=== PATIENT | female | born 1960 | race Caucasian/White ===

== ENCOUNTER 2017-11-26 05:23 | Emergency (ER) | payer MEDICARE, MEDICAID ==
[~2017-11-26] VITALS: Ht 160 cm; Wt 90.0 kg
[~2017-11-26 05:23] MED LIST: BUPR-84 PO; BUS15T PO; CARB1TAB36 PO; CLOP75TA35 PO; DAPA5TAB PO; FURO40TA4 PO; GABA-532 PO; HUM7525 SQ; HYDR-565 PO; LACT10SO32 PO; LEVO100T PO; LIRA0.6P SQ; LISI10TA4 PO; LORA10TA7 PO; METO25TA6 PO; MONT10TA24 PO; ONDA8TAB9 PO; PANT-47 PO; POLY119P2 PO; POTA8TAB8 PO; PRAM0.5T3 PO; SIMV20TA PO; SPIR25TA3 PO; TRAZ-143 PO; ZIPR80CA10 PO
[2017-11-26] MEDS ORDERED: TAM75C PO (06:14)
[2017-11-26 06:25] VITALS: BP 111/64
== END 2017-11-26 06:27 | disposition home or self-care (01) ==
LOC: ER 05:24
DX: R05 Cough (principal); J02.9 Acute pharyngitis, unspecified; R06.02 Shortness of breath; R11.0 Nausea; R09.89 Other specified symptoms and signs involving the circulatory and respiratory systems; I11.0 Hypertensive heart disease with heart failure; I50.9 Heart failure, unspecified; E78.00 Pure hypercholesterolemia, unspecified; E11.9 Type 2 diabetes mellitus without complications; F15.10 Other stimulant abuse, uncomplicated; Z90.49 Acquired absence of other specified parts of digestive tract; Z90.710 Acquired absence of both cervix and uterus; Z98.890 Other specified postprocedural states; Z88.2 Allergy status to sulfonamides; Z88.1 Allergy status to other antibiotic agents; Z88.8 Allergy status to other drugs, medicaments and biological substances; Z79.4 Long term (current) use of insulin; Z79.899 Other long term (current) drug therapy
CPT/HCPCS: 99284

== ENCOUNTER 2017-12-13 19:51 | Emergency (ER) | payer MEDICAID, MEDICARE, OTHER ==
[~2017-12-13] VITALS: Ht 160 cm; Wt 90.9 kg
[2017-12-13 19:54] VITALS: BP 122/65
[2017-12-13] MEDS ORDERED: insulin regular, human 10 units/0.1 ml syringe SQ ONE ×2 (20:20→20:25)
[2017-12-13] MEDS ORDERED: IBUP-1984 PO (21:20)
== END 2017-12-13 21:44 | disposition home or self-care (01) ==
LOC: ER 19:51
DX: M25.511 Pain in right shoulder (principal); R07.89 Other chest pain; M25.531 Pain in right wrist; E11.65 Type 2 diabetes mellitus with hyperglycemia; F15.10 Other stimulant abuse, uncomplicated; I11.0 Hypertensive heart disease with heart failure; I50.9 Heart failure, unspecified; Z79.4 Long term (current) use of insulin; Z90.49 Acquired absence of other specified parts of digestive tract; Z95.1 Presence of aortocoronary bypass graft; Z90.710 Acquired absence of both cervix and uterus; Z87.891 Personal history of nicotine dependence; V49.9XXA Car occupant (driver) (passenger) injured in unspecified traffic accident, initial encounter; Y93.89 Activity, other specified; Y92.488 Other paved roadways as the place of occurrence of the external cause; Y99.8 Other external cause status
CPT/HCPCS: 71045; 73030; 73110; 82948; 96372; 99284; J1815

== ENCOUNTER 2017-12-27 05:11 | Emergency (ER) | payer MEDICARE, MEDICAID ==
[~2017-12-27] VITALS: Ht 160 cm; Wt 95.0 kg
[~2017-12-27 05:11] MED LIST changes: +IBUP-1984 PO
[2017-12-27] MEDS ORDERED: morphine 2 MG/ML inj. syringe IV ONE (05:35)
[2017-12-27] MEDS ORDERED: normal saline 1000ML IV soln IVB ONE (05:35)
[2017-12-27] MEDS ORDERED: ondansetron/PF 4mg/2ml inj IV ONE (05:35)
[2017-12-27] MEDS ORDERED: LISINOPRIL 10 MG (06:02)
[2017-12-27] MEDS ORDERED: BUPROPION 150 MG (06:02)
[2017-12-27] MEDS ORDERED: LIRAGLUTIDE 18 MG/3 ML (06:02)
[2017-12-27] MEDS ORDERED: ONDANSETRON 8 MG (06:02)
[2017-12-27] MEDS ORDERED: TRESIBA (06:02)
[2017-12-27] MEDS ORDERED: BUPRENORPHINE 15 MCG/HR PATCH (06:02)
[2017-12-27] MEDS ORDERED: FARXIGA 5MG TABLETS (06:02)
[2017-12-27] MEDS ORDERED: ZIPRASIDONE HCL 80 MG (06:02)
[2017-12-27] MEDS ORDERED: GABAPENTIN 300 MG (06:02)
[2017-12-27] MEDS ORDERED: LEVOTHYROXINE (06:02)
[2017-12-27] MEDS ORDERED: ATORVASTATIN 20MG TABLETS (06:02)
[2017-12-27] MEDS ORDERED: VENTOLIN HFA INH W/DOS CTR 200 (06:02)
[2017-12-27] MEDS ORDERED: SIMVASTATIN 20MG TABLETS (06:02)
[2017-12-27] MEDS ORDERED: METOPROLOL TARTRATE 25 MG (06:02)
[2017-12-27] MEDS ORDERED: LEVOTHYROXINE 200 MCG TABLET (06:02)
[2017-12-27] MEDS ORDERED: [UNRECOGNIZED DRUG - OTHER] (06:02)
[2017-12-27] MEDS ORDERED: MONTELUKAST 10MG TABLETS (06:02)
[2017-12-27] MEDS ORDERED: CLOPIDOGREL 75MG TABLETS (06:02)
[2017-12-27] MEDS ORDERED: BUSPIRONE 7.5 MG (06:02)
[2017-12-27] MEDS ORDERED: PIOGLITAZONE 45 MG (06:02)
[2017-12-27 06:09] LABS: BASOPHILS % (AUTO) 0.1 % (0-1); HEMATOCRIT 27.4 % (35.0-45.0); HEMOGLOBIN 9.6 g/dl (12.0-16.0); LYMPHOCYTES # (AUTO) 0.5 X10'3 (1.1-4.8); LYMPHOCYTES % (AUTO) 16.9 % (21-51); MEAN CORPUSCULAR HEMOGLOBIN 30.2 PG (27.0-31.0); MEAN CORPUSCULAR HGB CONC 34.9 % (33.0-36.5); MEAN CORPUSCULAR VOLUME 86.3 FL (78-98); MEAN PLATELET VOLUME 8.2 FL (7.4-10.4); MONOCYTES # (AUTO) 0.1 X10'3 (0-0.9); MONOCYTES % (AUTO) 4.4 % (2-12); NEUTROPHILS # (AUTO) 2.3 X10'3 (1.8-7.7); NEUTROPHILS % (AUTO) 77.6 % (42-75); RED BLOOD COUNT 3.17 X10'6 (4.20-5.60); RED CELL DISTRIBUTION WIDTH 16.3 % (11.5-14.5)
[2017-12-27 06:25] LABS: ALANINE AMINOTRANSFERASE 41 U/L (12-78); ALBUMIN 3.5 G/DL (3.4-5.0); ALBUMIN/GLOBULIN RATIO 0.9 (1.1-1.5); ALKALINE PHOSPHATASE 133 IU/L (46-116); ANION GAP 10 (8-16); ASPARTATE AMINO TRANSFERASE 30 U/L (10-37); BILIRUBIN,TOTAL 0.5 MG/DL (0.1-1.0); BLOOD UREA NITROGEN 25 MG/DL (7-18); BUN/CREATININE RATIO 20.7 (6.6-38.0); CALCIUM 9.1 MG/DL (8.5-10.1); CHLORIDE 106 MMOL/L (99-107); CREATININE 1.21 MG/DL (0.40-0.90); GLUCOSE 433 MG/DL (70-104); LIPASE 422 U/L (73-393); POTASSIUM 5.2 MMOL/L (3.5-5.1); SODIUM 141 MMOL/L (135-145); TOTAL CARBON DIOXIDE 24.9 MMOL/L (24-32); TOTAL PROTEIN 7.6 G/DL (6.4-8.2); eGFR 46 ML/MIN
[2017-12-27 06:26] LABS: LYMPHOCYTES % (MANUAL) 14 % (21-51); MONOCYTES % (MANUAL) 4 % (2-12); NEUTROPHILS % (MANUAL) 82 % (42-75); TOTAL CELLS COUNTED 100
[2017-12-27 06:27] LABS: ANISOCYTOSIS 1+; PLATELET ESTIMATE DECREASED
[2017-12-27 06:28] LABS: PLATELET COUNT 37 X10'3 (140-440)
[2017-12-27] MEDS ORDERED: insulin regular, human 10 units/0.1 ml syringe IV ONE (06:45)
[2017-12-27] MEDS ORDERED: normal saline 1000ml 1,000 ML IV ONE (06:45)
[2017-12-27] MEDS ORDERED: acetaminophen 325mg tablet PO ONE (06:45)
[2017-12-27] MEDS ORDERED: HYDROmorphone inj. 0.5 MG/0.5 ML DISP.SYRIN IV ONE (06:45)
[2017-12-27 06:51] VITALS: BP 106/58
[2017-12-27 07:12] LABS: CLARITY,URINE CLEAR (Clear); COLOR,URINE YELLOW (Yellow); GLUCOSE, URINE >=1000 mg/dl (Neg); KETONES,URINE NEGATIVE (Neg); LEUKOCYTE ESTERASE ,URINE NEGATIVE (Neg); NITRITES, URINE NEGATIVE (Neg); OCCULT BLOOD,URINE NEGATIVE (Neg); PH,URINE 5.5 (4.8-8.0); PROTEIN,URINE NEGATIVE (Neg)
[2017-12-27 07:13] LABS: UA COLLECTION TYPE CLN CATCH MIDSTREAM
[2017-12-27 07:16] LABS: BACTERIA,URINE NONE SEEN /HPF (Neg); MUCUS STRANDS NONE SEEN /LPF (Neg); RBC,URINE NONE SEEN /HPF (0-2); SQUAMOUS EPITHELIAL CELL,UR FEW /LPF (FEW); WBC,URINE NONE SEEN /HPF (0-4)
[2017-12-27] MEDS ORDERED: HYDR-3965 PO (09:37)
[2017-12-27] MEDS ORDERED: HYDROcodone/acetaminophen 5mg/325mg tablet PO ONE (09:40)
== END 2017-12-27 09:59 | disposition home or self-care (01) ==
LOC: ER 05:11
DX: G89.29 Other chronic pain (principal); M25.551 Pain in right hip; M25.552 Pain in left hip; E11.65 Type 2 diabetes mellitus with hyperglycemia; I11.0 Hypertensive heart disease with heart failure; I50.9 Heart failure, unspecified; E78.00 Pure hypercholesterolemia, unspecified; F15.10 Other stimulant abuse, uncomplicated; Z90.49 Acquired absence of other specified parts of digestive tract; Z90.710 Acquired absence of both cervix and uterus; Z95.1 Presence of aortocoronary bypass graft; Z88.2 Allergy status to sulfonamides; Z79.4 Long term (current) use of insulin; Z88.1 Allergy status to other antibiotic agents; Z88.8 Allergy status to other drugs, medicaments and biological substances; Z79.899 Other long term (current) drug therapy
CPT/HCPCS: 36415; 71045; 73521; 80053; 81001; 82948; 83690; 84484; 85025; 93005; 96361; 96374; 96375; 99285; J1170; J1815; J2405; J7030

== ENCOUNTER 2018-01-04 15:48 | Emergency (ER) | payer MEDICARE, MEDICAID ==
[~2018-01-04] VITALS: Ht 154.9 cm; Wt 92.7 kg
[~2018-01-04 15:48] MED LIST changes: +ATORVASTATIN 20MG TABLETS; +BUPRENORPHINE 15 MCG/HR PATCH; +BUPROPION 150 MG; +BUSPIRONE 7.5 MG; +CLOPIDOGREL 75MG TABLETS; +FARXIGA 5MG TABLETS; +GABAPENTIN 300 MG; +HYDR-3965 PO; +LEVOTHYROXINE; +LEVOTHYROXINE 200 MCG TABLET; +LIRAGLUTIDE 18 MG/3 ML; +LISINOPRIL 10 MG; +METOPROLOL TARTRATE 25 MG; +MONTELUKAST 10MG TABLETS; +ONDANSETRON 8 MG; +PIOGLITAZONE 45 MG; +SIMVASTATIN 20MG TABLETS; +TRESIBA; +VENTOLIN HFA INH W/DOS CTR 200; +ZIPRASIDONE HCL 80 MG; +[UNRECOGNIZED DRUG - OTHER]
[2018-01-04] MEDS ORDERED: ondansetron/PF 4mg/2ml inj IV ONE (16:05)
[2018-01-04] MEDS ORDERED: normal saline 1000ML IV soln IVB ONE (16:05)
[2018-01-04] MEDS ORDERED: ondansetron 4mg rapidly disintigrating tab PO ONE (16:05)
[2018-01-04 16:48] LABS: BASOPHILS % (AUTO) 0.2 % (0-1); HEMATOCRIT 27.5 % (35.0-45.0); HEMOGLOBIN 9.4 g/dl (12.0-16.0); LYMPHOCYTES # (AUTO) 0.9 X10'3 (1.1-4.8); LYMPHOCYTES % (AUTO) 22.9 % (21-51); MEAN CORPUSCULAR HEMOGLOBIN 29.7 PG (27.0-31.0); MEAN CORPUSCULAR HGB CONC 34.2 % (33.0-36.5); MEAN CORPUSCULAR VOLUME 86.7 FL (78-98); MEAN PLATELET VOLUME 7.2 FL (7.4-10.4); MONOCYTES # (AUTO) 0.2 X10'3 (0-0.9); MONOCYTES % (AUTO) 5.2 % (2-12); NEUTROPHILS # (AUTO) 2.7 X10'3 (1.8-7.7); NEUTROPHILS % (AUTO) 70.7 % (42-75); PLATELET COUNT 61 X10'3 (140-440); RED BLOOD COUNT 3.17 X10'6 (4.20-5.60); RED CELL DISTRIBUTION WIDTH 17.1 % (11.5-14.5); WHITE BLOOD COUNT 3.8 X10'3 (4.5-11.0)
[2018-01-04 17:12] LABS: ALANINE AMINOTRANSFERASE 40 U/L (12-78); ALBUMIN 3.4 G/DL (3.4-5.0); ALBUMIN/GLOBULIN RATIO 0.8 (1.1-1.5); ALKALINE PHOSPHATASE 155 IU/L (46-116); ANION GAP 10 (8-16); ASPARTATE AMINO TRANSFERASE 28 U/L (10-37); BILIRUBIN,TOTAL 0.4 MG/DL (0.1-1.0); BLOOD UREA NITROGEN 22 MG/DL (7-18); BUN/CREATININE RATIO 18.5 (6.6-38.0); CHLORIDE 107 MMOL/L (99-107); CREATININE 1.19 MG/DL (0.40-0.90); ETHANOL < 0.010 GM/DL (0.0-0.010); GLUCOSE 174 MG/DL (70-104); POTASSIUM 4.1 MMOL/L (3.5-5.1); SODIUM 144 MMOL/L (135-145); TOTAL CARBON DIOXIDE 27.3 MMOL/L (24-32); TOTAL PROTEIN 7.8 G/DL (6.4-8.2); eGFR 47 ML/MIN
[2018-01-04 17:13] LABS: ACETAMINOPHEN < 2.0 UG/ML (10-30)
[2018-01-04 18:42] LABS: CLARITY,URINE CLEAR (Clear); COLOR,URINE YELLOW (Yellow); GLUCOSE, URINE 500 mg/dl (Neg); KETONES,URINE NEGATIVE (Neg); LEUKOCYTE ESTERASE ,URINE NEGATIVE (Neg); NITRITES, URINE NEGATIVE (Neg); OCCULT BLOOD,URINE TRACE-INTACT (Neg); PH,URINE 5.5 (4.8-8.0); PROTEIN,URINE NEGATIVE (Neg); UROBILINOGEN,URINE 0.2 E.U/dL (0.2-1.0)
[2018-01-04 18:43] LABS: UA COLLECTION TYPE CLN CATCH MIDSTREAM
[2018-01-04 18:45] LABS: URINE AMPHETAMINE SCREEN NEGATIVE (Neg); URINE BARBITUATE SCREEN NEGATIVE (Neg); URINE BENZODIAZEPINES SCREEN NEGATIVE (Neg); URINE CANNABINOID SCREEN NEGATIVE (Neg); URINE COCAINE SCREEN NEGATIVE (Neg); URINE METHADONE SCREEN NEGATIVE (Neg); URINE OPIATE SCREEN NEGATIVE (Neg); URINE PHENCYCLIDINE SCREEN NEGATIVE (Neg)
[2018-01-04 18:47] LABS: BACTERIA,URINE FEW /HPF (Neg); RBC,URINE 0-2 /HPF (0-2); SQUAMOUS EPITHELIAL CELL,UR FEW /LPF (FEW); WBC,URINE 0-4 /HPF (0-4)
[2018-01-05 00:40] VITALS: BP 114/68
[2018-01-05] MEDS ORDERED: ZIPR40CA2 PO (03:53)
[2018-01-05] MEDS ORDERED: BENZ1TAB8 PO (03:53)
[2018-01-05] MEDS ORDERED: EST1T PO (03:53)
== END 2018-01-05 00:42 | disposition home or self-care (01) ==
LOC: ER 15:48
DX: T43.292A Poisoning by other antidepressants, intentional self-harm, initial encounter (principal); F31.9 Bipolar disorder, unspecified; F15.10 Other stimulant abuse, uncomplicated; I11.0 Hypertensive heart disease with heart failure; I50.9 Heart failure, unspecified; E78.00 Pure hypercholesterolemia, unspecified; E11.9 Type 2 diabetes mellitus without complications; G89.29 Other chronic pain; Z90.49 Acquired absence of other specified parts of digestive tract; Z98.890 Other specified postprocedural states; Z90.710 Acquired absence of both cervix and uterus; Z79.899 Other long term (current) drug therapy; Z79.4 Long term (current) use of insulin; Z88.1 Allergy status to other antibiotic agents; Z88.6 Allergy status to analgesic agent; Z88.2 Allergy status to sulfonamides; Z88.8 Allergy status to other drugs, medicaments and biological substances; Y92.9 Unspecified place or not applicable
CPT/HCPCS: 36415; 80053; 80305; 80320; 80329; 81001; 84443; 85025; 93005; 96361; 96374; 99285; J2405

== ENCOUNTER 2018-01-31 10:14 | Emergency (ER) | payer MEDICARE, MEDICAID ==
[~2018-01-31] VITALS: Ht 160 cm; Wt 99.6 kg
[~2018-01-31 10:14] MED LIST changes: +BENZ1TAB8 PO; +EST1T PO; -HUM7525 SQ; -HYDR-3965 PO; -IBUP-1984 PO; -METO25TA6 PO; -PANT-47 PO; -PRAM0.5T3 PO; +ZIPR40CA2 PO
[2018-01-31 10:16] VITALS: BP 134/63
[2018-01-31] MEDS ORDERED: furosemide 10 MG/1 ML 10ml inj IV ONE (10:25)
[2018-01-31 10:44] LABS: BASOPHILS % (AUTO) 0.2 % (0-1); EOSINOPHILS % (AUTO) 1.5 % (0-6); HEMATOCRIT 25.4 % (35.0-45.0); HEMOGLOBIN 8.7 g/dl (12.0-16.0); LYMPHOCYTES # (AUTO) 0.6 X10'3 (1.1-4.8); LYMPHOCYTES % (AUTO) 24.2 % (21-51); MEAN CORPUSCULAR HEMOGLOBIN 30.2 PG (27.0-31.0); MEAN CORPUSCULAR HGB CONC 34.3 % (33.0-36.5); MEAN CORPUSCULAR VOLUME 88.2 FL (78-98); MEAN PLATELET VOLUME 7.9 FL (7.4-10.4); MONOCYTES # (AUTO) 0.1 X10'3 (0-0.9); MONOCYTES % (AUTO) 5.1 % (2-12); NEUTROPHILS # (AUTO) 1.8 X10'3 (1.8-7.7); RED BLOOD COUNT 2.88 X10'6 (4.20-5.60); RED CELL DISTRIBUTION WIDTH 18.1 % (11.5-14.5); WHITE BLOOD COUNT 2.6 X10'3 (4.5-11.0)
[2018-01-31 10:49] LABS: PLATELET COUNT 47 X10'3 (140-440)
[2018-01-31 11:00] LABS: TOTAL CELLS COUNTED 100
[2018-01-31 11:01] LABS: ANISOCYTOSIS 1+; PLATELET ESTIMATE DECREASED
[2018-01-31 11:02] LABS: LARGE PLATELETS FEW; TOXIC GRANULATION 1+
[2018-01-31 11:03] LABS: POLYCHROMASIA FEW; TEAR DROP CELLS FEW
[2018-01-31 11:05] LABS: ALANINE AMINOTRANSFERASE 43 U/L (12-78); ALBUMIN 3.2 G/DL (3.4-5.0); ALBUMIN/GLOBULIN RATIO 0.8 (1.1-1.5); ALKALINE PHOSPHATASE 180 IU/L (46-116); ANION GAP 11 (8-16); ASPARTATE AMINO TRANSFERASE 40 U/L (10-37); BILIRUBIN,TOTAL 0.4 MG/DL (0.1-1.0); BLOOD UREA NITROGEN 38 MG/DL (7-18); BUN/CREATININE RATIO 28.8 (6.6-38.0); CALCIUM 8.6 MG/DL (8.5-10.1); CHLORIDE 108 MMOL/L (99-107); CREATININE 1.32 MG/DL (0.40-0.90); GLUCOSE 138 MG/DL (70-104); SODIUM 143 MMOL/L (135-145); TOTAL CARBON DIOXIDE 24.3 MMOL/L (24-32); TOTAL PROTEIN 7.2 G/DL (6.4-8.2); eGFR 42 ML/MIN
[2018-01-31] MEDS ORDERED: furosemide 20MG tablet PO ONE (11:30)
== END 2018-01-31 11:38 | disposition home or self-care (01) ==
LOC: ER 10:15
DX: I11.0 Hypertensive heart disease with heart failure (principal); I50.9 Heart failure, unspecified; E78.00 Pure hypercholesterolemia, unspecified; E11.9 Type 2 diabetes mellitus without complications; G89.29 Other chronic pain; F15.10 Other stimulant abuse, uncomplicated; Z90.49 Acquired absence of other specified parts of digestive tract; Z98.890 Other specified postprocedural states; Z88.8 Allergy status to other drugs, medicaments and biological substances; Z79.899 Other long term (current) drug therapy; Z88.2 Allergy status to sulfonamides; Z88.1 Allergy status to other antibiotic agents
CPT/HCPCS: 36415; 71045; 80053; 83880; 84484; 85025; 93005; 99285; J1940

== ENCOUNTER 2018-02-20 17:15 | Emergency (ER) | payer MEDICARE, MEDICAID ==
[~2018-02-20] VITALS: Ht 160 cm; Wt 95.5 kg
[2018-02-20 18:31] LABS: ALANINE AMINOTRANSFERASE 31 U/L (12-78); ALBUMIN 3.6 G/DL (3.4-5.0); ALBUMIN/GLOBULIN RATIO 0.9 (1.1-1.5); ALKALINE PHOSPHATASE 211 IU/L (46-116); ANION GAP 8 (8-16); ASPARTATE AMINO TRANSFERASE 27 U/L (10-37); BILIRUBIN,TOTAL 0.4 MG/DL (0.1-1.0); BLOOD UREA NITROGEN 25 MG/DL (7-18); BUN/CREATININE RATIO 21.4 (6.6-38.0); CALCIUM 9.1 MG/DL (8.5-10.1); CHLORIDE 109 MMOL/L (99-107); CREATININE 1.17 MG/DL (0.40-0.90); ETHANOL < 0.010 GM/DL (0.0-0.010); GLUCOSE 81 MG/DL (70-104); SODIUM 142 MMOL/L (135-145); TOTAL CARBON DIOXIDE 25.3 MMOL/L (24-32); TOTAL PROTEIN 7.6 G/DL (6.4-8.2); eGFR 48 ML/MIN
[2018-02-20 18:32] LABS: BASOPHILS % (AUTO) 0.8 % (0-1); EOSINOPHILS % (AUTO) 0.1 % (0-6); HEMATOCRIT 28.4 % (35.0-45.0); HEMOGLOBIN 9.9 g/dl (12.0-16.0); LYMPHOCYTES # (AUTO) 1.1 X10'3 (1.1-4.8); LYMPHOCYTES % (AUTO) 24.4 % (21-51); MEAN CORPUSCULAR HEMOGLOBIN 30.3 PG (27.0-31.0); MEAN CORPUSCULAR VOLUME 86.6 FL (78-98); MONOCYTES # (AUTO) 0.2 X10'3 (0-0.9); MONOCYTES % (AUTO) 5.4 % (2-12); NEUTROPHILS # (AUTO) 3.1 X10'3 (1.8-7.7); NEUTROPHILS % (AUTO) 69.3 % (42-75); PLATELET COUNT 59 X10'3 (140-440); RED BLOOD COUNT 3.27 X10'6 (4.20-5.60); RED CELL DISTRIBUTION WIDTH 17.3 % (11.5-14.5); WHITE BLOOD COUNT 4.5 X10'3 (4.5-11.0)
[2018-02-20 18:34] LABS: POTASSIUM 4.8 MMOL/L (3.5-5.1)
[2018-02-20 18:47] LABS: URINE HCG NEGATIVE (NEG)
[2018-02-20 18:47] LABS: ACETAMINOPHEN < 2.0 UG/ML (10-30)
[2018-02-20 18:58] LABS: URINE AMPHETAMINE SCREEN NEGATIVE (Neg); URINE BARBITUATE SCREEN NEGATIVE (Neg); URINE BENZODIAZEPINES SCREEN NEGATIVE (Neg); URINE CANNABINOID SCREEN NEGATIVE (Neg); URINE COCAINE SCREEN NEGATIVE (Neg); URINE METHADONE SCREEN NEGATIVE (Neg); URINE OPIATE SCREEN POSITIVE (Neg); URINE PHENCYCLIDINE SCREEN NEGATIVE (Neg)
[2018-02-20] MEDS ORDERED: ZIPR80CA2 PO (21:10)
[2018-02-20] MEDS ORDERED: ZIPR60CA2 PO (21:10)
[2018-02-20] MEDS ORDERED: GABA-532 PO ×2 (21:10)
[2018-02-20] MEDS ORDERED: HUM7525 SQ (21:15)
[2018-02-20] MEDS ORDERED: INSU200I4 SQ (21:15)
[2018-02-20] MEDS ORDERED: FURO80TA87 PO (21:15)
[2018-02-20] MEDS ORDERED: MORP15TA PO (21:15)
[2018-02-21] MEDS ORDERED: morphine IR (immed. release) 30mg tablet PO PRN (03:10)
[2018-02-21] MEDS ORDERED: HYDROcodone/acetaminophen 10/325mg tab PO PRN (03:10)
[2018-02-21] MEDS ORDERED: levoTHYROXINE 100mcg tablet PO SCH (07:00)
[2018-02-21] MEDS ORDERED: spironolactone 25 MG tablet PO SCH (08:00)
[2018-02-21] MEDS ORDERED: gabapentin 300mg capsule PO SCH ×2 (08:00→12:30)
[2018-02-21] MEDS ORDERED: non-formulary drug (Dapagliflozin Propanediol (Farxiga) 1 TAB) PO SCH (08:00)
[2018-02-21] MEDS ORDERED: LIRAGLUTIDE 1.8 UNIT SQ SCH ×2 (08:00→21:00)
[2018-02-21] MEDS ORDERED: benztropine 1mg tablet PO SCH (08:00)
[2018-02-21] MEDS ORDERED: estradiol 1mg tablet PO SCH (08:00)
[2018-02-21] MEDS ORDERED: ziprasidone 20mg capsule PO SCH ×2 (08:00→21:00)
[2018-02-21] MEDS ORDERED: furosemide 40mg tablet PO SCH (08:00)
[2018-02-21] MEDS ORDERED: loratadine 10mg tablet PO SCH (08:00)
[2018-02-21] MEDS ORDERED: polyethylene glycol 3350 17gm powd pack PO PRN (08:00)
[2018-02-21] MEDS ORDERED: clopidogrel 75mg tablet PO SCH (08:00)
[2018-02-21] MEDS ORDERED: atorvastatin 10mg tablet PO SCH (08:00)
[2018-02-21] MEDS ORDERED: INSULIN DEGLUDEC 200 UNIT SQ SCH (08:00)
[2018-02-21] MEDS ORDERED: potassium chloride 8mEq ER tablet PO SCH (08:00)
[2018-02-21] MEDS ORDERED: dextrose 50%-water 50ml dispensing syringe IV PRN ×2 (08:05)
[2018-02-21] MEDS ORDERED: dextrose ORAL solution 15 GM/59 ML bottle PO PRN ×2 (08:05)
[2018-02-21] MEDS ORDERED: glucagon, human recombinant 1mg kit SUBCUT PRN (08:05)
[2018-02-21 08:30] VITALS: BP 144/77
[2018-02-21] MEDS ORDERED: ondansetron 4mg rapidly disintigrating tab PO PRN (08:30)
[2018-02-21] MEDS ORDERED: insulin Lispro (HumaLOG) vial - multi-dose SQ SCH ×2 (08:40→12:30)
[2018-02-21] MEDS ORDERED: insulin glargine (Lantus) pen - multi-dose SQ SCH (21:00)
[2018-02-21] MEDS ORDERED: montelukast 10mg tablet PO SCH (21:00)
== END 2018-02-21 14:19 ==
LOC: ER 17:15
DX: R45.851 Suicidal ideations (principal); I11.0 Hypertensive heart disease with heart failure; I50.9 Heart failure, unspecified; E78.00 Pure hypercholesterolemia, unspecified; E11.9 Type 2 diabetes mellitus without complications; G89.29 Other chronic pain; F20.9 Schizophrenia, unspecified; F31.9 Bipolar disorder, unspecified; F15.10 Other stimulant abuse, uncomplicated; Z90.49 Acquired absence of other specified parts of digestive tract; Z98.890 Other specified postprocedural states; Z88.8 Allergy status to other drugs, medicaments and biological substances; Z79.899 Other long term (current) drug therapy; Z79.4 Long term (current) use of insulin
CPT/HCPCS: 36415; 80053; 80305; 80320; 80329; 81025; 82948; 85025; 93005; 99285; J1815

== ENCOUNTER 2018-02-21 11:00 | Inpatient (IN) | payer MEDICARE, MEDICAID ==
[~2018-02-21] VITALS: Ht 160 cm; Wt 100.0 kg
[~2018-02-21 11:00] MED LIST changes: -ATORVASTATIN 20MG TABLETS; -BUPRENORPHINE 15 MCG/HR PATCH; -BUPROPION 150 MG; -BUSPIRONE 7.5 MG; -CARB1TAB36 PO; -CLOPIDOGREL 75MG TABLETS; -FARXIGA 5MG TABLETS; -FURO40TA4 PO; +FURO80TA87 PO; -GABAPENTIN 300 MG; +HUM7525 SQ; +INSU200I4 SQ; -LEVOTHYROXINE; -LEVOTHYROXINE 200 MCG TABLET; -LIRAGLUTIDE 18 MG/3 ML; -LISINOPRIL 10 MG; -METOPROLOL TARTRATE 25 MG; -MONTELUKAST 10MG TABLETS; +MORP15TA PO; -ONDANSETRON 8 MG; -PIOGLITAZONE 45 MG; -SIMVASTATIN 20MG TABLETS; -TRAZ-143 PO; -TRESIBA; -VENTOLIN HFA INH W/DOS CTR 200; -ZIPR40CA2 PO; +ZIPR60CA2 PO; -ZIPR80CA10 PO; +ZIPR80CA2 PO; -ZIPRASIDONE HCL 80 MG; -[UNRECOGNIZED DRUG - OTHER]
[2018-02-21 14:49] VITALS: BP 104/50
[2018-02-21 19:00] VITALS: BP 102/50
[2018-02-21] MEDS: morphine IR (immed. release) 30mg tablet PO PRN (19:58)
[2018-02-21] MEDS: montelukast 10mg tablet PO SCH (20:38)
[2018-02-21] MEDS: potassium chloride 8mEq ER tablet PO SCH (20:39)
[2018-02-21] MEDS ORDERED: ziprasidone 20mg capsule PO SCH (21:00)
[2018-02-22] MEDS: levoTHYROXINE 100mcg tablet PO SCH (07:41)
[2018-02-22 08:00] VITALS: BP 112/61
[2018-02-22] MEDS: INSULIN DEGLUDEC SQ SCH ×2 (08:00→10:24)
[2018-02-22] MEDS ORDERED: ziprasidone 20mg capsule PO SCH (08:00)
[2018-02-22] MEDS: pantoprazole 40mg Tablet.DR PO SCH (08:56)
[2018-02-22] MEDS: ondansetron 4mg rapidly disintigrating tab PO PRN ×2 (08:56→21:11)
[2018-02-22] MEDS: estradiol 1mg tablet PO SCH (09:03)
[2018-02-22] MEDS: clopidogrel 75mg tablet PO SCH (09:04)
[2018-02-22] MEDS: ziprasidone 20mg capsule PO SCH (09:04)
[2018-02-22] MEDS: loratadine 10mg tablet PO SCH (09:04)
[2018-02-22] MEDS: atorvastatin 10mg tablet PO SCH (09:05)
[2018-02-22] MEDS: spironolactone 25 MG tablet PO SCH (09:05)
[2018-02-22] MEDS: benztropine 1mg tablet PO SCH (09:05)
[2018-02-22] MEDS: potassium chloride 8mEq ER tablet PO SCH ×2 (09:05→20:52)
[2018-02-22] MEDS: furosemide 40mg tablet PO SCH (09:05)
[2018-02-22] MEDS: FARXIGA 5 MG PO SCH (10:21)
[2018-02-22 12:13] LABS: BASOPHILS % (AUTO) 0.4 % (0-1); EOSINOPHILS # (AUTO) 0.1 X10'3 (0-0.9); EOSINOPHILS % (AUTO) 1.2 % (0-6); HEMATOCRIT 28.6 % (35.0-45.0); HEMOGLOBIN 9.8 g/dl (12.0-16.0); LYMPHOCYTES # (AUTO) 1.1 X10'3 (1.1-4.8); LYMPHOCYTES % (AUTO) 24.4 % (21-51); MEAN CORPUSCULAR HGB CONC 34.2 % (33.0-36.5); MEAN CORPUSCULAR VOLUME 87.6 FL (78-98); MEAN PLATELET VOLUME 7.6 FL (7.4-10.4); MONOCYTES # (AUTO) 0.2 X10'3 (0-0.9); MONOCYTES % (AUTO) 5.2 % (2-12); NEUTROPHILS % (AUTO) 68.8 % (42-75); PLATELET COUNT 54 X10'3 (140-440); RED BLOOD COUNT 3.26 X10'6 (4.20-5.60); RED CELL DISTRIBUTION WIDTH 17.6 % (11.5-14.5); WHITE BLOOD COUNT 4.3 X10'3 (4.5-11.0)
[2018-02-22] MEDS: gabapentin 400mg capsule PO SCH ×2 (12:23→20:52)
[2018-02-22] MEDS: HYDROcodone/acetaminophen 10/325mg tab PO PRN (12:23)
[2018-02-22] MEDS: polyethylene glycol 3350 17gm powd pack PO PRN (12:24)
[2018-02-22 12:30] LABS: ALANINE AMINOTRANSFERASE 29 U/L (12-78); ALBUMIN 3.8 G/DL (3.4-5.0); ALKALINE PHOSPHATASE 212 IU/L (46-116); ANION GAP 10 (8-16); ASPARTATE AMINO TRANSFERASE 23 U/L (10-37); BILIRUBIN,TOTAL 0.9 MG/DL (0.1-1.0); BLOOD UREA NITROGEN 32 MG/DL (7-18); BUN/CREATININE RATIO 24.1 (6.6-38.0); CHLORIDE 99 MMOL/L (99-107); CREATININE 1.33 MG/DL (0.40-0.90); GLUCOSE 182 MG/DL (70-104); POTASSIUM 4.4 MMOL/L (3.5-5.1); SODIUM 136 MMOL/L (135-145); TOTAL CARBON DIOXIDE 27.2 MMOL/L (24-32); TOTAL PROTEIN 7.8 G/DL (6.4-8.2); eGFR 41 ML/MIN
[2018-02-22] MEDS ORDERED: dextrose ORAL solution 15 GM/59 ML bottle PO PRN ×2 (12:55)
[2018-02-22] MEDS ORDERED: insulin Lispro (HumaLOG) vial - multi-dose SQ SCH ×2 (12:55→13:00)
[2018-02-22] MEDS ORDERED: dextrose 50%-water 50ml dispensing syringe IV PRN ×2 (12:55)
[2018-02-22] MEDS: insulin Lispro (HumaLOG) vial - multi-dose SQ SCH (18:39)
[2018-02-22 19:33] VITALS: BP 141/56
[2018-02-22] MEDS: morphine IR (immed. release) 30mg tablet PO PRN (20:52)
[2018-02-22] MEDS: montelukast 10mg tablet PO SCH (20:52)
[2018-02-22] MEDS: VICTOZA 1.8 MG SQ SCH (20:54)
[2018-02-22] MEDS: temazepam 15mg capsule PO PRN (22:50)
[2018-02-23] MEDS: HYDROcodone/acetaminophen 10/325mg tab PO PRN ×2 (03:35→15:40)
[2018-02-23] MEDS: insulin Lispro (HumaLOG) vial - multi-dose SQ SCH ×3 (07:41→17:41)
[2018-02-23] MEDS: INSULIN DEGLUDEC SQ SCH (07:42)
[2018-02-23] MEDS: ondansetron 4mg rapidly disintigrating tab PO PRN ×2 (07:58→20:33)
[2018-02-23] MEDS: benztropine 1mg tablet PO SCH (07:59)
[2018-02-23] MEDS: levoTHYROXINE 100mcg tablet PO SCH (07:59)
[2018-02-23] MEDS: loratadine 10mg tablet PO SCH (07:59)
[2018-02-23 08:00] VITALS: BP 125/71
[2018-02-23] MEDS: pantoprazole 40mg Tablet.DR PO SCH (08:00)
[2018-02-23] MEDS: atorvastatin 10mg tablet PO SCH (08:00)
[2018-02-23] MEDS: spironolactone 25 MG tablet PO SCH (08:00)
[2018-02-23] MEDS: potassium chloride 8mEq ER tablet PO SCH ×2 (08:00→20:32)
[2018-02-23] MEDS: clopidogrel 75mg tablet PO SCH (08:00)
[2018-02-23] MEDS: estradiol 1mg tablet PO SCH (08:01)
[2018-02-23] MEDS: furosemide 40mg tablet PO SCH (08:02)
[2018-02-23] MEDS: gabapentin 400mg capsule PO SCH ×3 (08:02→20:32)
[2018-02-23] MEDS: ziprasidone 20mg capsule PO SCH ×2 (08:02→20:32)
[2018-02-23] MEDS: FARXIGA 5 MG PO SCH (08:03)
[2018-02-23] MEDS: buPROPion SR 150mg tablet PO SCH (08:13)
[2018-02-23] MEDS: morphine IR (immed. release) 30mg tablet PO PRN ×2 (09:47→20:33)
[2018-02-23] MEDS: magnesium hydroxide 30ml (MOM) UD suspension PO PRN (10:38)
[2018-02-23 20:00] VITALS: BP 108/58
[2018-02-23] MEDS: temazepam 15mg capsule PO PRN (20:32)
[2018-02-23] MEDS: montelukast 10mg tablet PO SCH (20:32)
[2018-02-23] MEDS: VICTOZA 1.8 MG SQ SCH (21:30)
[2018-02-24] MEDS: HYDROcodone/acetaminophen 10/325mg tab PO PRN ×3 (00:13→23:34)
[2018-02-24] MEDS: levoTHYROXINE 100mcg tablet PO SCH (07:27)
[2018-02-24] MEDS: pantoprazole 40mg Tablet.DR PO SCH (07:27)
[2018-02-24] MEDS: insulin Lispro (HumaLOG) vial - multi-dose SQ SCH ×2 (07:37→17:45)
[2018-02-24 08:39] VITALS: BP 107/60
[2018-02-24] MEDS: INSULIN DEGLUDEC SQ SCH (08:42)
[2018-02-24] MEDS: gabapentin 400mg capsule PO SCH ×3 (08:45→20:42)
[2018-02-24] MEDS: atorvastatin 10mg tablet PO SCH (08:45)
[2018-02-24] MEDS: benztropine 1mg tablet PO SCH (08:45)
[2018-02-24] MEDS: furosemide 40mg tablet PO SCH (08:45)
[2018-02-24] MEDS: buPROPion SR 150mg tablet PO SCH (08:45)
[2018-02-24] MEDS: estradiol 1mg tablet PO SCH (08:45)
[2018-02-24] MEDS: loratadine 10mg tablet PO SCH (08:45)
[2018-02-24] MEDS: clopidogrel 75mg tablet PO SCH (08:46)
[2018-02-24] MEDS: ziprasidone 20mg capsule PO SCH ×2 (08:46→20:41)
[2018-02-24] MEDS: potassium chloride 8mEq ER tablet PO SCH ×2 (08:46→20:42)
[2018-02-24] MEDS: spironolactone 25 MG tablet PO SCH (08:46)
[2018-02-24] MEDS: FARXIGA 5 MG PO SCH (08:57)
[2018-02-24] MEDS: polyethylene glycol 3350 17gm powd pack PO PRN (10:05)
[2018-02-24] MEDS ORDERED: insulin Lispro (HumaLOG) vial - multi-dose SQ ONE (13:00)
[2018-02-24 17:40] VITALS: BP 103/65
[2018-02-24 19:52] VITALS: BP 123/54
[2018-02-24] MEDS: montelukast 10mg tablet PO SCH (20:42)
[2018-02-24] MEDS: morphine IR (immed. release) 30mg tablet PO PRN (20:43)
[2018-02-24] MEDS: VICTOZA 1.8 MG SQ SCH (21:00)
[2018-02-24] MEDS: temazepam 15mg capsule PO PRN (22:41)
[2018-02-25] MEDS ORDERED: buPROPion SR 150mg tablet PO SCH (07:30)
[2018-02-25] MEDS: levoTHYROXINE 100mcg tablet PO SCH (07:44)
[2018-02-25] MEDS: pantoprazole 40mg Tablet.DR PO SCH (07:45)
[2018-02-25] MEDS: INSULIN DEGLUDEC SQ SCH (07:46)
[2018-02-25] MEDS: insulin Lispro (HumaLOG) vial - multi-dose SQ SCH ×3 (07:52→17:53)
[2018-02-25 08:00] VITALS: BP 111/63
[2018-02-25] MEDS: ondansetron 4mg rapidly disintigrating tab PO PRN (08:23)
[2018-02-25] MEDS: polyethylene glycol 3350 17gm powd pack PO PRN ×3 (08:26→20:39)
[2018-02-25] MEDS: atorvastatin 10mg tablet PO SCH (08:27)
[2018-02-25] MEDS: ziprasidone 20mg capsule PO SCH ×2 (08:27→20:38)
[2018-02-25] MEDS: FARXIGA 5 MG PO SCH (08:27)
[2018-02-25] MEDS: potassium chloride 8mEq ER tablet PO SCH ×2 (08:28→20:38)
[2018-02-25] MEDS: furosemide 40mg tablet PO SCH (08:28)
[2018-02-25] MEDS: estradiol 1mg tablet PO SCH (08:28)
[2018-02-25] MEDS: benztropine 1mg tablet PO SCH (08:28)
[2018-02-25] MEDS: loratadine 10mg tablet PO SCH (08:29)
[2018-02-25] MEDS: clopidogrel 75mg tablet PO SCH (08:32)
[2018-02-25] MEDS: gabapentin 400mg capsule PO SCH ×3 (08:32→20:39)
[2018-02-25] MEDS: spironolactone 25 MG tablet PO SCH (08:34)
[2018-02-25] MEDS: buPROPion SR 100mg tab PO SCH ×2 (09:19→13:03)
[2018-02-25] MEDS: morphine IR (immed. release) 30mg tablet PO PRN (11:30)
[2018-02-25] MEDS: HYDROcodone/acetaminophen 10/325mg tab PO PRN ×2 (14:17→20:40)
[2018-02-25] MEDS: magnesium hydroxide 30ml (MOM) UD suspension PO PRN (17:57)
[2018-02-25 19:00] VITALS: BP 117/54
[2018-02-25] MEDS: montelukast 10mg tablet PO SCH (20:39)
[2018-02-25] MEDS: temazepam 15mg capsule PO PRN (20:59)
[2018-02-25] MEDS: VICTOZA 1.8 MG SQ SCH (20:59)
[2018-02-26] MEDS: polyethylene glycol 3350 17gm powd pack PO PRN (01:18)
[2018-02-26] MEDS: morphine IR (immed. release) 30mg tablet PO PRN ×2 (01:18→12:53)
[2018-02-26] MEDS: HYDROcodone/acetaminophen 10/325mg tab PO PRN ×2 (06:01→19:56)
[2018-02-26] MEDS ORDERED: magnesium citrate 296ml oral solution PO ONE (07:30)
[2018-02-26] MEDS: buPROPion SR 100mg tab PO SCH ×2 (07:34→12:23)
[2018-02-26] MEDS: levoTHYROXINE 100mcg tablet PO SCH (07:34)
[2018-02-26] MEDS: ondansetron 4mg rapidly disintigrating tab PO PRN ×2 (07:34→15:10)
[2018-02-26] MEDS: pantoprazole 40mg Tablet.DR PO SCH (07:34)
[2018-02-26] MEDS: insulin Lispro (HumaLOG) vial - multi-dose SQ SCH ×3 (07:51→17:55)
[2018-02-26] MEDS: INSULIN DEGLUDEC SQ SCH (07:53)
[2018-02-26 08:00] VITALS: BP 106/57
[2018-02-26] MEDS: loratadine 10mg tablet PO SCH (08:23)
[2018-02-26] MEDS: FARXIGA 5 MG PO SCH (08:23)
[2018-02-26] MEDS: ziprasidone 20mg capsule PO SCH ×2 (08:24→19:55)
[2018-02-26] MEDS: clopidogrel 75mg tablet PO SCH (08:24)
[2018-02-26] MEDS: furosemide 40mg tablet PO SCH (08:24)
[2018-02-26] MEDS: atorvastatin 10mg tablet PO SCH (08:25)
[2018-02-26] MEDS: spironolactone 25 MG tablet PO SCH (08:25)
[2018-02-26] MEDS: potassium chloride 8mEq ER tablet PO SCH ×2 (08:25→19:55)
[2018-02-26] MEDS: gabapentin 400mg capsule PO SCH ×3 (08:25→19:56)
[2018-02-26] MEDS: benztropine 1mg tablet PO SCH (08:25)
[2018-02-26] MEDS: estradiol 1mg tablet PO SCH (08:26)
[2018-02-26] MEDS: nystatin 15 GM powder TP SCH ×2 (12:20→19:57)
[2018-02-26 12:59] LABS: ALANINE AMINOTRANSFERASE 37 U/L (12-78); ALBUMIN 3.5 G/DL (3.4-5.0); ALBUMIN/GLOBULIN RATIO 0.9 (1.1-1.5); ALKALINE PHOSPHATASE 195 IU/L (46-116); ANION GAP 6 (8-16); ASPARTATE AMINO TRANSFERASE 31 U/L (10-37); BILIRUBIN,TOTAL 0.7 MG/DL (0.1-1.0); BLOOD UREA NITROGEN 39 MG/DL (7-18); BUN/CREATININE RATIO 26.4 (6.6-38.0); CALCIUM 9.1 MG/DL (8.5-10.1); CHLORIDE 102 MMOL/L (99-107); CREATININE 1.48 MG/DL (0.40-0.90); GLUCOSE 145 MG/DL (70-104); MAGNESIUM 2.7 MG/DL (1.5-2.4); POTASSIUM 4.2 MMOL/L (3.5-5.1); SODIUM 141 MMOL/L (135-145); TOTAL CARBON DIOXIDE 33.4 MMOL/L (24-32); TOTAL PROTEIN 7.4 G/DL (6.4-8.2); eGFR 36 ML/MIN
[2018-02-26] MEDS: temazepam 15mg capsule PO PRN (19:56)
[2018-02-26] MEDS: VICTOZA 1.8 MG SQ SCH (19:57)
[2018-02-26 20:00] VITALS: BP 111/51
[2018-02-26] MEDS: montelukast 10mg tablet PO SCH (20:04)
[2018-02-27] MEDS: morphine IR (immed. release) 30mg tablet PO PRN (03:33)
[2018-02-27] MEDS: buPROPion SR 100mg tab PO SCH ×2 (07:43→12:37)
[2018-02-27] MEDS: pantoprazole 40mg Tablet.DR PO SCH (07:43)
[2018-02-27] MEDS: ondansetron 4mg rapidly disintigrating tab PO PRN ×2 (07:43→21:43)
[2018-02-27] MEDS: levoTHYROXINE 100mcg tablet PO SCH (07:44)
[2018-02-27] MEDS: INSULIN DEGLUDEC SQ SCH (07:46)
[2018-02-27] MEDS: insulin Lispro (HumaLOG) vial - multi-dose SQ SCH ×3 (07:50→17:44)
[2018-02-27 08:00] VITALS: BP 126/57
[2018-02-27] MEDS ORDERED: atenolol 50mg tablet PO ONE (08:00)
[2018-02-27] MEDS: FARXIGA 5 MG PO SCH (08:16)
[2018-02-27] MEDS: magnesium hydroxide 30ml (MOM) UD suspension PO PRN (08:17)
[2018-02-27] MEDS: potassium chloride 8mEq ER tablet PO SCH ×2 (08:17→20:13)
[2018-02-27] MEDS: spironolactone 25 MG tablet PO SCH (08:17)
[2018-02-27] MEDS: ziprasidone 20mg capsule PO SCH ×2 (08:17→20:23)
[2018-02-27] MEDS: clopidogrel 75mg tablet PO SCH (08:18)
[2018-02-27] MEDS: furosemide 40mg tablet PO SCH (08:18)
[2018-02-27] MEDS: loratadine 10mg tablet PO SCH (08:18)
[2018-02-27] MEDS: estradiol 1mg tablet PO SCH (08:18)
[2018-02-27] MEDS: benztropine 1mg tablet PO SCH (08:18)
[2018-02-27] MEDS: atorvastatin 10mg tablet PO SCH (08:18)
[2018-02-27] MEDS: gabapentin 400mg capsule PO SCH ×3 (08:18→20:13)
[2018-02-27] MEDS: nystatin 15 GM powder TP SCH ×2 (08:24→20:24)
[2018-02-27] MEDS: polyethylene glycol 3350 17gm powd pack PO PRN ×2 (08:24→13:19)
[2018-02-27] MEDS: docusate sod 100mg capsule PO SCH ×2 (12:38→20:12)
[2018-02-27] MEDS: HYDROcodone/acetaminophen 10/325mg tab PO PRN (12:39)
[2018-02-27] MEDS ORDERED: BUPRENORPHINE 15 MCG/HR PATCH TP SCH (16:30)
[2018-02-27 19:41] VITALS: BP 142/66
[2018-02-27] MEDS: bisacodyl 5mg tablet.DR PO SCH (20:12)
[2018-02-27] MEDS: montelukast 10mg tablet PO SCH (20:23)
[2018-02-27] MEDS: temazepam 15mg capsule PO PRN (20:27)
[2018-02-27] MEDS: VICTOZA 1.8 MG SQ SCH ×2 (21:00→21:42)
[2018-02-28] MEDS: ondansetron 4mg rapidly disintigrating tab PO PRN (07:30)
[2018-02-28] MEDS: buPROPion SR 100mg tab PO SCH ×2 (07:33→12:39)
[2018-02-28] MEDS: pantoprazole 40mg Tablet.DR PO SCH (07:33)
[2018-02-28] MEDS: levoTHYROXINE 100mcg tablet PO SCH (07:33)
[2018-02-28] MEDS: INSULIN DEGLUDEC SQ SCH (07:33)
[2018-02-28] MEDS: polyethylene glycol 3350 17gm powd pack PO PRN (07:37)
[2018-02-28] MEDS: ziprasidone 20mg capsule PO SCH ×2 (07:59→20:31)
[2018-02-28] MEDS: benztropine 1mg tablet PO SCH (07:59)
[2018-02-28] MEDS: FARXIGA 5 MG PO SCH (07:59)
[2018-02-28] MEDS: gabapentin 400mg capsule PO SCH (07:59)
[2018-02-28 08:00] VITALS: BP 125/64
[2018-02-28] MEDS: furosemide 20MG tablet PO SCH (08:00)
[2018-02-28] MEDS: ferrous sulfate 325mg tablet PO SCH (08:00)
[2018-02-28] MEDS: potassium chloride 8mEq ER tablet PO SCH ×2 (08:00→20:24)
[2018-02-28] MEDS: clopidogrel 75mg tablet PO SCH (08:00)
[2018-02-28] MEDS: docusate sod 100mg capsule PO SCH ×2 (08:00→20:24)
[2018-02-28] MEDS: spironolactone 25 MG tablet PO SCH (08:00)
[2018-02-28] MEDS: loratadine 10mg tablet PO SCH (08:00)
[2018-02-28] MEDS: estradiol 1mg tablet PO SCH (08:01)
[2018-02-28] MEDS: atorvastatin 10mg tablet PO SCH (08:01)
[2018-02-28] MEDS: nystatin 15 GM powder TP SCH ×2 (08:01→20:26)
[2018-02-28] MEDS: insulin Lispro (HumaLOG) vial - multi-dose SQ SCH ×3 (08:09→17:45)
[2018-02-28] MEDS: HYDROcodone/acetaminophen 10/325mg tab PO PRN ×2 (08:22→17:04)
[2018-02-28] MEDS: gabapentin 300mg capsule PO SCH ×2 (12:39→20:25)
[2018-02-28] MEDS: magnesium hydroxide 30ml (MOM) UD suspension PO PRN (17:04)
[2018-02-28] MEDS: psyllium seed 3.4 gm packet PO SCH (17:44)
[2018-02-28 19:55] VITALS: BP 121/49
[2018-02-28] MEDS: montelukast 10mg tablet PO SCH (20:23)
[2018-02-28] MEDS: bisacodyl 5mg tablet.DR PO SCH (20:25)
[2018-02-28] MEDS: VICTOZA 1.8 MG SQ SCH (21:52)
[2018-02-28] MEDS: temazepam 15mg capsule PO PRN (21:59)
[2018-03-01] MEDS: HYDROcodone/acetaminophen 10/325mg tab PO PRN ×3 (01:28→21:35)
[2018-03-01] MEDS: ondansetron 4mg rapidly disintigrating tab PO PRN (07:26)
[2018-03-01] MEDS: pantoprazole 40mg Tablet.DR PO SCH (07:26)
[2018-03-01] MEDS: levoTHYROXINE 100mcg tablet PO SCH (07:26)
[2018-03-01] MEDS: buPROPion SR 100mg tab PO SCH ×2 (07:27→12:29)
[2018-03-01] MEDS: psyllium seed 3.4 gm packet PO SCH ×2 (07:27→17:42)
[2018-03-01] MEDS: insulin Lispro (HumaLOG) vial - multi-dose SQ SCH ×3 (08:28→17:52)
[2018-03-01 08:34] VITALS: BP 130/67
[2018-03-01] MEDS: INSULIN DEGLUDEC SQ SCH (08:48)
[2018-03-01] MEDS: furosemide 20MG tablet PO SCH (08:52)
[2018-03-01] MEDS: FARXIGA 5 MG PO SCH (08:52)
[2018-03-01] MEDS: clopidogrel 75mg tablet PO SCH (08:52)
[2018-03-01] MEDS: ferrous sulfate 325mg tablet PO SCH (08:52)
[2018-03-01] MEDS: docusate sod 100mg capsule PO SCH ×2 (08:53→21:37)
[2018-03-01] MEDS: gabapentin 300mg capsule PO SCH ×3 (08:53→21:37)
[2018-03-01] MEDS: potassium chloride 8mEq ER tablet PO SCH ×2 (08:53→21:36)
[2018-03-01] MEDS: atorvastatin 10mg tablet PO SCH (08:53)
[2018-03-01] MEDS: ziprasidone 20mg capsule PO SCH ×2 (08:53→21:35)
[2018-03-01] MEDS: loratadine 10mg tablet PO SCH (08:53)
[2018-03-01] MEDS: spironolactone 25 MG tablet PO SCH (08:53)
[2018-03-01] MEDS: estradiol 1mg tablet PO SCH (08:53)
[2018-03-01] MEDS: benztropine 1mg tablet PO SCH (08:53)
[2018-03-01] MEDS: nystatin 15 GM powder TP SCH ×2 (08:54→20:00)
[2018-03-01 19:10] VITALS: BP 107/60
[2018-03-01] MEDS: VICTOZA 1.8 MG SQ SCH (21:34)
[2018-03-01] MEDS: temazepam 15mg capsule PO PRN (21:37)
[2018-03-01] MEDS: bisacodyl 5mg tablet.DR PO SCH (21:37)
[2018-03-01] MEDS: montelukast 10mg tablet PO SCH (21:47)
[2018-03-02] MEDS: ondansetron 4mg rapidly disintigrating tab PO PRN (07:14)
[2018-03-02] MEDS: HYDROcodone/acetaminophen 10/325mg tab PO PRN ×2 (07:15→19:18)
[2018-03-02] MEDS: psyllium seed 3.4 gm packet PO SCH ×2 (07:15→17:55)
[2018-03-02] MEDS: levoTHYROXINE 100mcg tablet PO SCH (07:16)
[2018-03-02] MEDS: insulin Lispro (HumaLOG) vial - multi-dose SQ SCH ×3 (08:04→17:54)
[2018-03-02] MEDS: benztropine 1mg tablet PO SCH (08:14)
[2018-03-02] MEDS: atorvastatin 10mg tablet PO SCH (08:14)
[2018-03-02] MEDS: potassium chloride 8mEq ER tablet PO SCH ×2 (08:14→20:26)
[2018-03-02] MEDS: buPROPion SR 100mg tab PO SCH ×2 (08:14→13:07)
[2018-03-02] MEDS: ferrous sulfate 325mg tablet PO SCH (08:14)
[2018-03-02] MEDS: docusate sod 100mg capsule PO SCH ×2 (08:14→20:25)
[2018-03-02] MEDS: estradiol 1mg tablet PO SCH (08:15)
[2018-03-02] MEDS: gabapentin 300mg capsule PO SCH ×3 (08:15→20:27)
[2018-03-02] MEDS: FARXIGA 5 MG PO SCH (08:15)
[2018-03-02] MEDS: loratadine 10mg tablet PO SCH (08:15)
[2018-03-02] MEDS: clopidogrel 75mg tablet PO SCH (08:15)
[2018-03-02] MEDS: pantoprazole 40mg Tablet.DR PO SCH (08:15)
[2018-03-02] MEDS: ziprasidone 20mg capsule PO SCH ×2 (08:15→20:25)
[2018-03-02] MEDS: furosemide 20MG tablet PO SCH (08:17)
[2018-03-02] MEDS: INSULIN DEGLUDEC SQ SCH (09:07)
[2018-03-02] MEDS: nystatin 15 GM powder TP SCH ×2 (09:31→20:00)
[2018-03-02] MEDS: spironolactone 25 MG tablet PO SCH (09:42)
[2018-03-02 10:02] LABS: ALBUMIN 3.7 G/DL (3.4-5.0); ANION GAP 12 (8-16); BLOOD UREA NITROGEN 28 MG/DL (7-18); BUN/CREATININE RATIO 20.9 (6.6-38.0); CALCIUM 8.9 MG/DL (8.5-10.1); CHLORIDE 101 MMOL/L (99-107); CREATININE 1.34 MG/DL (0.40-0.90); GLUCOSE 185 MG/DL (70-104); POTASSIUM 4.4 MMOL/L (3.5-5.1); SODIUM 138 MMOL/L (135-145); TOTAL CARBON DIOXIDE 25.2 MMOL/L (24-32); eGFR 41 ML/MIN
[2018-03-02 11:45] VITALS: BP_SYST 118; BP_SYST 119; BP_SYST 120; BP_DIAS 55; BP_DIAS 63; BP_DIAS 68
[2018-03-02] MEDS ORDERED: acetaminophen 325mg tablet PO PRN (13:00)
[2018-03-02 19:18] VITALS: BP 122/65
[2018-03-02 20:00] VITALS: BP_SYST 110; BP_SYST 120; BP_DIAS 60; BP_DIAS 65
[2018-03-02] MEDS: bisacodyl 5mg tablet.DR PO SCH (20:26)
[2018-03-02] MEDS: montelukast 10mg tablet PO SCH (20:27)
[2018-03-02] MEDS: temazepam 15mg capsule PO PRN (20:27)
[2018-03-02] MEDS: polyethylene glycol 3350 17gm powd pack PO PRN (20:28)
[2018-03-02] MEDS: VICTOZA 1.8 MG SQ SCH (21:14)
[2018-03-03] MEDS: HYDROcodone/acetaminophen 10/325mg tab PO PRN ×3 (03:02→19:00)
[2018-03-03] MEDS: pantoprazole 40mg Tablet.DR PO SCH (07:30)
[2018-03-03] MEDS: levoTHYROXINE 100mcg tablet PO SCH (07:38)
[2018-03-03] MEDS: insulin Lispro (HumaLOG) vial - multi-dose SQ SCH ×3 (07:41→17:00)
[2018-03-03 08:00] VITALS: BP 109/63
[2018-03-03] MEDS ORDERED: gabapentin 300mg capsule PO SCH (08:00)
[2018-03-03] MEDS: psyllium seed 3.4 gm packet PO SCH ×2 (08:10→17:00)
[2018-03-03] MEDS: ondansetron 4mg rapidly disintigrating tab PO PRN ×2 (08:45→17:27)
[2018-03-03] MEDS: buPROPion SR 100mg tab PO SCH ×2 (08:45→13:00)
[2018-03-03] MEDS: clopidogrel 75mg tablet PO SCH (08:46)
[2018-03-03] MEDS: atorvastatin 10mg tablet PO SCH (08:46)
[2018-03-03] MEDS: FARXIGA 5 MG PO SCH (08:46)
[2018-03-03] MEDS: estradiol 1mg tablet PO SCH (08:46)
[2018-03-03] MEDS: benztropine 1mg tablet PO SCH (08:47)
[2018-03-03] MEDS: furosemide 20MG tablet PO SCH (08:47)
[2018-03-03] MEDS: ziprasidone 20mg capsule PO SCH ×2 (08:48→21:24)
[2018-03-03] MEDS: potassium chloride 8mEq ER tablet PO SCH ×2 (08:48→21:24)
[2018-03-03] MEDS: docusate sod 100mg capsule PO SCH ×2 (08:49→21:24)
[2018-03-03] MEDS: spironolactone 25 MG tablet PO SCH (08:49)
[2018-03-03] MEDS: loratadine 10mg tablet PO SCH (08:49)
[2018-03-03] MEDS: ferrous sulfate 325mg tablet PO SCH (08:51)
[2018-03-03] MEDS: INSULIN DEGLUDEC SQ SCH (08:53)
[2018-03-03] MEDS: nystatin 15 GM powder TP SCH ×2 (08:57→20:00)
[2018-03-03] MEDS ORDERED: gabapentin 100mg capsule PO ONE (13:00)
[2018-03-03] MEDS: gabapentin 100mg capsule PO SCH ×2 (13:01→21:25)
[2018-03-03] MEDS ORDERED: FURO20TA4 PO (15:11)
[2018-03-03] MEDS ORDERED: ZIPR80CA2 PO (15:11)
[2018-03-03] MEDS ORDERED: TEMA15CA PO (15:11)
[2018-03-03] MEDS ORDERED: BUPR100T7 PO (15:11)
[2018-03-03] MEDS ORDERED: GABA100C PO (15:11)
[2018-03-03] MEDS ORDERED: BENZ1TAB74 PO (15:11)
[2018-03-03 19:30] VITALS: BP 133/67
[2018-03-03 20:00] VITALS: BP 135/69
[2018-03-03] MEDS: VICTOZA 1.8 MG SQ SCH (21:00)
[2018-03-03] MEDS: bisacodyl 5mg tablet.DR PO SCH (21:24)
[2018-03-03] MEDS: temazepam 15mg capsule PO PRN (21:25)
[2018-03-03] MEDS: montelukast 10mg tablet PO SCH (21:25)
[2018-03-03 22:43] LABS: TROPONIN I < 0.04 NG/ML (0.0-0.05)
[2018-03-04] MEDS: HYDROcodone/acetaminophen 10/325mg tab PO PRN (02:57)
[2018-03-04] MEDS: ondansetron 4mg rapidly disintigrating tab PO PRN (05:27)
[2018-03-04 07:00] VITALS: BP 106/60
[2018-03-04] MEDS: psyllium seed 3.4 gm packet PO SCH (07:00)
[2018-03-04] MEDS: insulin Lispro (HumaLOG) vial - multi-dose SQ SCH (07:00)
[2018-03-04] MEDS: buPROPion SR 100mg tab PO SCH (07:01)
[2018-03-04] MEDS: levoTHYROXINE 100mcg tablet PO SCH (07:01)
[2018-03-04] MEDS: pantoprazole 40mg Tablet.DR PO SCH (07:01)
[2018-03-04] MEDS: INSULIN DEGLUDEC SQ SCH (08:00)
[2018-03-04] MEDS: nystatin 15 GM powder TP SCH (08:00)
[2018-03-04] MEDS: clopidogrel 75mg tablet PO SCH (08:58)
[2018-03-04] MEDS: potassium chloride 8mEq ER tablet PO SCH (08:59)
[2018-03-04] MEDS: docusate sod 100mg capsule PO SCH (08:59)
[2018-03-04] MEDS: spironolactone 25 MG tablet PO SCH (08:59)
[2018-03-04] MEDS: ferrous sulfate 325mg tablet PO SCH (08:59)
[2018-03-04] MEDS: gabapentin 100mg capsule PO SCH (08:59)
[2018-03-04] MEDS: ziprasidone 20mg capsule PO SCH (09:00)
[2018-03-04] MEDS: atorvastatin 10mg tablet PO SCH (09:00)
[2018-03-04] MEDS: loratadine 10mg tablet PO SCH (09:00)
[2018-03-04] MEDS ORDERED: magnesium citrate 296ml oral solution PO PRN (09:00)
[2018-03-04] MEDS: furosemide 20MG tablet PO SCH (09:01)
[2018-03-04] MEDS: estradiol 1mg tablet PO SCH (09:02)
[2018-03-04] MEDS: FARXIGA 5 MG PO SCH (09:02)
[2018-03-04] MEDS: benztropine 1mg tablet PO SCH (09:18)
== END 2018-03-04 12:30 | disposition home or self-care (01) | DRG 881 ==
LOC: ADULT MH 11:00
PROVIDERS: ADMIT Psychiatry & Neurology Psychiatry; ATTEND Psychiatry & Neurology Psychiatry
DX: F32.9 Major depressive disorder, single episode, unspecified (principal); E11.22 Type 2 diabetes mellitus with diabetic chronic kidney disease; G20 Parkinson's disease; I13.0 Hypertensive heart and chronic kidney disease with heart failure and stage 1 through stage 4 chronic kidney disease, or unspecified chronic kidney disease; I50.32 Chronic diastolic (congestive) heart failure; R45.851 Suicidal ideations; I69.354 Hemiplegia and hemiparesis following cerebral infarction affecting left non-dominant side; K21.9 Gastro-esophageal reflux disease without esophagitis; F20.9 Schizophrenia, unspecified; K74.60 Unspecified cirrhosis of liver; F60.3 Borderline personality disorder; T43.592A Poisoning by other antipsychotics and neuroleptics, intentional self-harm, initial encounter; E03.9 Hypothyroidism, unspecified; K57.90 Diverticulosis of intestine, part unspecified, without perforation or abscess without bleeding; G47.00 Insomnia, unspecified; E78.5 Hyperlipidemia, unspecified; F15.90 Other stimulant use, unspecified, uncomplicated; J30.2 Other seasonal allergic rhinitis; J44.9 Chronic obstructive pulmonary disease, unspecified; K76.0 Fatty (change of) liver, not elsewhere classified; N18.9 Chronic kidney disease, unspecified; Z79.02 Long term (current) use of antithrombotics/antiplatelets; Z79.4 Long term (current) use of insulin; Z79.899 Other long term (current) drug therapy; Z90.710 Acquired absence of both cervix and uterus; Z98.1 Arthrodesis status; Z88.2 Allergy status to sulfonamides; Z88.8 Allergy status to other drugs, medicaments and biological substances; Z82.49 Family history of ischemic heart disease and other diseases of the circulatory system; Z83.3 Family history of diabetes mellitus; Z84.89 Family history of other specified conditions; Y92.89 Other specified places as the place of occurrence of the external cause
CPT/HCPCS: 36415; 73110; 74018; 80048; 80053; 82553; 82948; 83735; 84484; 85025; 87070; 93005

== ENCOUNTER 2018-04-11 10:22 | Emergency (ER) | payer MEDICARE, MEDICAID ==
[~2018-04-11 10:22] MED LIST changes: +BENZ1TAB78 PO; -BENZ1TAB8 PO; -BUPR-84 PO; +BUPR100T7 PO; -BUS15T PO; +FURO20TA4 PO; -FURO80TA87 PO; -GABA-532 PO; +GABA100C PO; -LISI10TA4 PO; -MORP15TA PO; -ONDA8TAB9 PO; -POLY119P2 PO; -SPIR25TA3 PO; +SPIR25TA5 PO; +TEMA15CA PO; -ZIPR60CA2 PO
[2018-04-11 11:27] LABS: BASOPHILS % (AUTO) 0.3 % (0-1); EOSINOPHILS % (AUTO) 0.8 % (0-6); HEMOGLOBIN 8.4 g/dl (12.0-16.0); LYMPHOCYTES # (AUTO) 0.8 X10'3 (1.1-4.8); LYMPHOCYTES % (AUTO) 24.7 % (21-51); MEAN CORPUSCULAR HEMOGLOBIN 29.6 PG (27.0-31.0); MEAN CORPUSCULAR HGB CONC 33.6 % (33.0-36.5); MEAN CORPUSCULAR VOLUME 88.1 FL (78-98); MEAN PLATELET VOLUME 7.3 FL (7.4-10.4); MONOCYTES # (AUTO) 0.1 X10'3 (0-0.9); MONOCYTES % (AUTO) 4.4 % (2-12); NEUTROPHILS # (AUTO) 2.3 X10'3 (1.8-7.7); NEUTROPHILS % (AUTO) 69.8 % (42-75); PLATELET COUNT 56 X10'3 (140-440); RED BLOOD COUNT 2.84 X10'6 (4.20-5.60); WHITE BLOOD COUNT 3.3 X10'3 (4.5-11.0)
[2018-04-11 11:30] LABS: URINE HCG NEGATIVE (NEG)
[2018-04-11 11:32] LABS: CLARITY,URINE SLIGHTLY CLOUDY (Clear); COLOR,URINE STRAW (Yellow); GLUCOSE, URINE >=1000 mg/dl (Neg); KETONES,URINE NEGATIVE (Neg); LEUKOCYTE ESTERASE ,URINE NEGATIVE (Neg); NITRITES, URINE NEGATIVE (Neg); OCCULT BLOOD,URINE NEGATIVE (Neg); PH,URINE 5.5 (4.8-8.0); PROTEIN,URINE NEGATIVE (Neg); UROBILINOGEN,URINE 0.2 E.U/dL (0.2-1.0)
[2018-04-11 11:36] LABS: UA COLLECTION TYPE CLN CATCH MIDSTREAM
[2018-04-11 11:40] LABS: ALANINE AMINOTRANSFERASE 25 U/L (12-78); ALBUMIN 3.5 G/DL (3.4-5.0); ALBUMIN/GLOBULIN RATIO 0.9 (1.1-1.5); ALKALINE PHOSPHATASE 183 IU/L (46-116); ANION GAP 8 (8-16); ASPARTATE AMINO TRANSFERASE 22 U/L (10-37); BILIRUBIN,TOTAL 0.6 MG/DL (0.1-1.0); BLOOD UREA NITROGEN 27 MG/DL (7-18); BUN/CREATININE RATIO 22.5 (6.6-38.0); CALCIUM 9.1 MG/DL (8.5-10.1); CHLORIDE 107 MMOL/L (99-107); GLUCOSE 163 MG/DL (70-104); POTASSIUM 3.9 MMOL/L (3.5-5.1); SODIUM 144 MMOL/L (135-145); TOTAL CARBON DIOXIDE 29.3 MMOL/L (24-32); TOTAL PROTEIN 7.4 G/DL (6.4-8.2); eGFR 46 ML/MIN
[2018-04-11 11:41] LABS: SQUAMOUS EPITHELIAL CELL,UR MODERATE /LPF (FEW); URINE AMPHETAMINE SCREEN NEGATIVE (Neg); URINE BARBITUATE SCREEN NEGATIVE (Neg); URINE BENZODIAZEPINES SCREEN NEGATIVE (Neg); URINE CANNABINOID SCREEN NEGATIVE (Neg); URINE COCAINE SCREEN NEGATIVE (Neg); URINE METHADONE SCREEN NEGATIVE (Neg); URINE OPIATE SCREEN NEGATIVE (Neg); URINE PHENCYCLIDINE SCREEN NEGATIVE (Neg)
[2018-04-11 11:45] LABS: BACTERIA,URINE 1+ /HPF (Neg); RBC,URINE 0-2 /HPF (0-2); WBC,URINE 0-4 /HPF (0-4); YEAST FEW /HPF (NEGATIVE)
[2018-04-11 11:48] LABS: ETHANOL < 0.010 GM/DL (0.0-0.010)
[2018-04-11] MEDS ORDERED: DOCU100C40 PO (14:32)
[2018-04-11] MEDS ORDERED: BUPR200T10 PO (14:32)
[2018-04-11] MEDS ORDERED: ZIPR80CA2 PO (14:33)
[2018-04-11] MEDS ORDERED: ALBU18HF2 INH (14:33)
[2018-04-11] MEDS ORDERED: FURO-150 PO (14:33)
[2018-04-11] MEDS ORDERED: PRAM0.252 CORPAK (14:33)
[2018-04-11] MEDS ORDERED: LISI-642 PO (14:33)
[2018-04-11] MEDS ORDERED: METO25TA6 PO (14:33)
[2018-04-11] MEDS ORDERED: GABA300C PO (14:33)
[2018-04-11] MEDS ORDERED: TEMA15CA PO (14:33)
[2018-04-11] MEDS ORDERED: FERR325T28 PO (14:33)
[2018-04-11] MEDS ORDERED: PANT-47 PO (14:33)
[2018-04-11] MEDS ORDERED: ONDA4TAB9 SL (14:33)
[2018-04-11] MEDS ORDERED: BUDE10.2 INH (14:33)
[2018-04-11] MEDS ORDERED: BUPR1PAT20 TD (14:36)
[2018-04-11] MEDS ORDERED: ondansetron 4mg rapidly disintigrating tab PO PRN (15:55)
[2018-04-11] MEDS ORDERED: docusate sod 100mg capsule PO PRN (15:55)
[2018-04-11] MEDS ORDERED: temazepam 15mg capsule PO PRN (15:55)
[2018-04-11] MEDS ORDERED: BUPRENORPHINE 15 MCG/HR TOP SCH (15:55)
[2018-04-11] MEDS ORDERED: non-formulary drug (Albuterol Sulfate (Ventolin Hfa) 2 PUFFS) INH PRN (15:55)
[2018-04-11] MEDS ORDERED: albuterol 2.5 MG/3 ML nebule NEB PRN (16:20)
[2018-04-11] MEDS ORDERED: insulin Lispro (HumaLOG) vial - multi-dose SQ SCH (17:30)
[2018-04-11] MEDS ORDERED: INSULIN ASPART 25 UNIT SQ SCH (17:30)
[2018-04-11] MEDS ORDERED: albuterol 2.5 MG/3 ML nebule NEB SCH (19:00)
[2018-04-11] MEDS ORDERED: non-formulary drug (Budesonide/Formoterol Fumarate (Symbicort 160-4.5 Mcg Inhaler) 2 PUFFS INH SCH (20:00)
[2018-04-11] MEDS ORDERED: ziprasidone 20mg capsule PO SCH (20:00)
[2018-04-11] MEDS ORDERED: buPROPion 100mg tablet PO SCH (20:00)
[2018-04-11] MEDS ORDERED: buPROPion SR 100mg tab PO SCH (20:00)
[2018-04-11] MEDS ORDERED: metoprolol tartrate 12.5mg (1/2 tablet) PO SCH (20:00)
[2018-04-11] MEDS ORDERED: pantoprazole 40mg Tablet.DR PO SCH (20:00)
[2018-04-11] MEDS ORDERED: non-formulary drug (Ziprasidone Hcl (Geodon) 1 CAP) PO SCH (20:00)
[2018-04-11] MEDS ORDERED: gabapentin 300mg capsule PO SCH (21:00)
[2018-04-11] MEDS ORDERED: LIRAGLUTIDE 1.8 UNIT SQ SCH (21:00)
[2018-04-11] MEDS ORDERED: pramipexole 0.25mg tablet CORPAK SCH (21:00)
[2018-04-11] MEDS ORDERED: budesonide 0.5mg/2ml UD nebule IH SCH (21:00)
[2018-04-11] MEDS ORDERED: VICTOZA SQ SCH (21:00)
[2018-04-12] MEDS ORDERED: TRESIBA SQ SCH (08:00)
[2018-04-12] MEDS ORDERED: spironolactone 25 MG tablet PO SCH (08:00)
[2018-04-12] MEDS ORDERED: atorvastatin 10mg tablet PO SCH (08:00)
[2018-04-12] MEDS ORDERED: loratadine 10mg tablet PO SCH (08:00)
[2018-04-12] MEDS ORDERED: lisinopril 10 MG tablet PO SCH (08:00)
[2018-04-12] MEDS ORDERED: non-formulary drug (Simvastatin (Zocor) 1 TAB) PO SCH (08:00)
[2018-04-12] MEDS ORDERED: FARXIGA 5 MG PO SCH (08:00)
[2018-04-12] MEDS ORDERED: ferrous sulfate 325mg tablet PO SCH (08:00)
[2018-04-12] MEDS ORDERED: non-formulary drug (Dapagliflozin Propanediol (Farxiga) 1 TAB) PO SCH (08:00)
[2018-04-12] MEDS ORDERED: furosemide 20MG tablet PO SCH (08:00)
[2018-04-12] MEDS ORDERED: clopidogrel 75mg tablet PO SCH (08:00)
[2018-04-12] MEDS ORDERED: [UNRECOGNIZED DRUG - OTHER] SQ SCH (08:00)
[2018-04-12] MEDS ORDERED: levoTHYROXINE 100mcg tablet PO SCH (08:00)
[2018-04-12] MEDS ORDERED: INSULIN DEGLUDEC 200 UNIT SQ SCH (08:00)
[2018-04-12] MEDS ORDERED: potassium chloride 8mEq ER tablet PO SCH (08:00)
== END 2018-04-11 17:39 | disposition home or self-care (01) ==
LOC: ER 10:22
DX: R45.851 Suicidal ideations (principal); F15.90 Other stimulant use, unspecified, uncomplicated; F41.9 Anxiety disorder, unspecified; F31.9 Bipolar disorder, unspecified; F20.9 Schizophrenia, unspecified; I11.0 Hypertensive heart disease with heart failure; I50.9 Heart failure, unspecified; E78.00 Pure hypercholesterolemia, unspecified; G89.29 Other chronic pain; E11.9 Type 2 diabetes mellitus without complications; E03.9 Hypothyroidism, unspecified; Z90.49 Acquired absence of other specified parts of digestive tract; Z90.710 Acquired absence of both cervix and uterus; Z88.2 Allergy status to sulfonamides; Z88.8 Allergy status to other drugs, medicaments and biological substances; Z79.4 Long term (current) use of insulin; Z79.899 Other long term (current) drug therapy
CPT/HCPCS: 36415; 80053; 80305; 80320; 81001; 81025; 82948; 84443; 85025; 99284

== ENCOUNTER 2018-05-27 11:29 | Emergency (ER) | payer MEDICARE, MEDICAID ==
[~2018-05-27] VITALS: Ht 160 cm; Wt 95.0 kg
[~2018-05-27 11:29] MED LIST changes: +ALBU18HF2 INH; -BENZ1TAB78 PO; +BUDE10.2 INH; -BUPR100T7 PO; +BUPR1PAT20 TD; +BUPR200T10 PO; +DOCU100C40 PO; -EST1T PO; +FERR325T28 PO; +FURO-150 PO; -FURO20TA4 PO; -GABA100C PO; +GABA300C PO; -LACT10SO32 PO; +LISI-642 PO; +METO25TA6 PO; +ONDA4TAB9 SL; +PANT-47 PO; +PRAM0.252 CORPAK
[2018-05-27] MEDS ORDERED: proCHLORperazine 10 MG/2 ml inj IV ONE (11:40)
[2018-05-27] MEDS ORDERED: famotidine/PF 10 mg/ml inj IV ONE (11:40)
[2018-05-27] MEDS ORDERED: normal saline 1000ML IV soln IVB ONE ×2 (11:40)
[2018-05-27] MEDS ORDERED: ipratropium/albuterol 3ml nebule NEB ONE (11:55)
[2018-05-27] MEDS ORDERED: benzonatate 100mg capsule PO ONE (11:55)
[2018-05-27] MEDS ORDERED: methylPREDNISolone sod succ 125mg/2ml vial IV ONE (11:55)
[2018-05-27 12:16] VITALS: BP 122/60
[2018-05-27] MEDS ORDERED: ALB0.5UD IH (13:27)
[2018-05-27] MEDS ORDERED: BENZ-16 PO (13:27)
== END 2018-05-27 13:55 | disposition home or self-care (01) ==
LOC: ER 11:30
DX: J45.901 Unspecified asthma with (acute) exacerbation (principal); I50.9 Heart failure, unspecified; E78.00 Pure hypercholesterolemia, unspecified; I11.0 Hypertensive heart disease with heart failure; J44.9 Chronic obstructive pulmonary disease, unspecified; E11.9 Type 2 diabetes mellitus without complications; E03.9 Hypothyroidism, unspecified; F31.9 Bipolar disorder, unspecified; F15.90 Other stimulant use, unspecified, uncomplicated; Z90.89 Acquired absence of other organs; Z90.49 Acquired absence of other specified parts of digestive tract; Z90.710 Acquired absence of both cervix and uterus; Z98.890 Other specified postprocedural states; Z88.8 Allergy status to other drugs, medicaments and biological substances; Z88.2 Allergy status to sulfonamides; Z79.4 Long term (current) use of insulin; Z79.899 Other long term (current) drug therapy
CPT/HCPCS: 71046; 94640; 94760; 96374; 99284; J2930

== ENCOUNTER 2018-06-13 08:03 | Emergency (ER) | payer MEDICARE, MEDICAID ==
[~2018-06-13] VITALS: Ht 160 cm; Wt 98.0 kg
[~2018-06-13 08:03] MED LIST changes: +ALB0.5UD IH; +BENZ-16 PO
[2018-06-13 08:08] VITALS: BP 143/70
[2018-06-13] MEDS ORDERED: HYDROcodone/acetaminophen 5mg/325mg tablet PO ONE (08:25)
[2018-06-13] MEDS ORDERED: NAPR-56 PO (08:26)
== END 2018-06-13 08:52 | disposition home or self-care (01) ==
LOC: ER 08:04
DX: S90.31XA Contusion of right foot, initial encounter (principal); I11.0 Hypertensive heart disease with heart failure; I50.9 Heart failure, unspecified; E78.00 Pure hypercholesterolemia, unspecified; J44.9 Chronic obstructive pulmonary disease, unspecified; E11.9 Type 2 diabetes mellitus without complications; E03.9 Hypothyroidism, unspecified; G89.29 Other chronic pain; F15.90 Other stimulant use, unspecified, uncomplicated; Z90.49 Acquired absence of other specified parts of digestive tract; Z98.890 Other specified postprocedural states; Z90.710 Acquired absence of both cervix and uterus; Z88.1 Allergy status to other antibiotic agents; Z88.8 Allergy status to other drugs, medicaments and biological substances; Z88.2 Allergy status to sulfonamides; Z79.899 Other long term (current) drug therapy; W22.03XA Walked into furniture, initial encounter; Y93.89 Activity, other specified; Y92.89 Other specified places as the place of occurrence of the external cause; Y99.9 Unspecified external cause status
CPT/HCPCS: 73630; 99284; A6449

== ENCOUNTER 2018-06-20 21:30 | Emergency (ER) | payer MEDICARE, MEDICAID ==
[~2018-06-20] VITALS: Ht 152.4 cm; Wt 95.0 kg
[~2018-06-20 21:30] MED LIST changes: +NAPR-56 PO
[2018-06-20] MEDS ORDERED: HYDROcodone/acetaminophen 5mg/325mg tablet PO ONE (22:25)
[2018-06-21] MEDS ORDERED: HYDR-565 PO (00:20)
[2018-06-21 01:03] VITALS: BP 113/66
== END 2018-06-21 01:33 | disposition home or self-care (01) ==
LOC: ER 21:31
DX: S82.491A Other fracture of shaft of right fibula, initial encounter for closed fracture (principal); S32.810A Multiple fractures of pelvis with stable disruption of pelvic ring, initial encounter for closed fracture; F15.90 Other stimulant use, unspecified, uncomplicated; I11.0 Hypertensive heart disease with heart failure; I50.9 Heart failure, unspecified; E11.9 Type 2 diabetes mellitus without complications; E78.00 Pure hypercholesterolemia, unspecified; J44.9 Chronic obstructive pulmonary disease, unspecified; E03.9 Hypothyroidism, unspecified; G89.29 Other chronic pain; Z90.49 Acquired absence of other specified parts of digestive tract; Z90.710 Acquired absence of both cervix and uterus; Z98.890 Other specified postprocedural states; Z88.1 Allergy status to other antibiotic agents; Z88.2 Allergy status to sulfonamides; Z88.8 Allergy status to other drugs, medicaments and biological substances; Z79.4 Long term (current) use of insulin; Z79.899 Other long term (current) drug therapy; W18.39XA Other fall on same level, initial encounter; Y93.89 Activity, other specified; Y92.89 Other specified places as the place of occurrence of the external cause; Y99.8 Other external cause status
CPT/HCPCS: 72192; 73502; 73610; 82948; 99284

== ENCOUNTER 2018-06-23 08:00 | Emergency (ER) | payer MEDICARE, MEDICAID ==
[~2018-06-23] VITALS: Ht 558.9 cm; Wt 109.0 kg
[2018-06-23 08:36] LABS: BASOPHILS % (AUTO) 0.3 % (0-1); EOSINOPHILS % (AUTO) 1.1 % (0-6); HEMATOCRIT 27.4 % (35.0-45.0); HEMOGLOBIN 9.4 g/dl (12.0-16.0); LYMPHOCYTES # (AUTO) 0.8 X10'3 (1.1-4.8); LYMPHOCYTES % (AUTO) 24.6 % (21-51); MEAN CORPUSCULAR HEMOGLOBIN 29.3 PG (27.0-31.0); MEAN CORPUSCULAR HGB CONC 34.4 % (33.0-36.5); MEAN PLATELET VOLUME 8.2 FL (7.4-10.4); MONOCYTES # (AUTO) 0.2 X10'3 (0-0.9); MONOCYTES % (AUTO) 5.1 % (2-12); NEUTROPHILS # (AUTO) 2.3 X10'3 (1.8-7.7); NEUTROPHILS % (AUTO) 68.9 % (42-75); PLATELET COUNT 58 X10'3 (140-440); RED BLOOD COUNT 3.23 X10'6 (4.20-5.60); RED CELL DISTRIBUTION WIDTH 17.8 % (11.5-14.5); WHITE BLOOD COUNT 3.4 X10'3 (4.5-11.0)
[2018-06-23 08:52] LABS: ALANINE AMINOTRANSFERASE 41 U/L (12-78); ALBUMIN 3.6 G/DL (3.4-5.0); ALBUMIN/GLOBULIN RATIO 0.9 (1.1-1.5); ALKALINE PHOSPHATASE 195 IU/L (46-116); ANION GAP 11 (8-16); ASPARTATE AMINO TRANSFERASE 31 U/L (10-37); BILIRUBIN,TOTAL 0.7 MG/DL (0.1-1.0); BLOOD UREA NITROGEN 43 MG/DL (7-18); BUN/CREATININE RATIO 30.1 (6.6-38.0); CALCIUM 9.2 MG/DL (8.5-10.1); CHLORIDE 103 MMOL/L (99-107); CREATININE 1.43 MG/DL (0.40-0.90); GLUCOSE 246 MG/DL (70-104); POTASSIUM 4.8 MMOL/L (3.5-5.1); SODIUM 140 MMOL/L (135-145); TOTAL CARBON DIOXIDE 25.7 MMOL/L (24-32); TOTAL PROTEIN 7.7 G/DL (6.4-8.2); eGFR 38 ML/MIN
[2018-06-23 08:54] LABS: ETHANOL < 0.010 GM/DL (0.0-0.010)
[2018-06-23 09:18] LABS: CREATINE KINASE 88 U/L (26-192)
[2018-06-23] MEDS ORDERED: normal saline 1000ML IV soln IVB ONE (09:30)
[2018-06-23 09:43] LABS: INR 1.1 INR; PARTIAL THROMBOPLASTIN TIME 27 SECONDS (22-32); PROTHROMBIN TIME 11.4 SECONDS (9.0-12.0)
[2018-06-23 09:45] LABS: URINE AMPHETAMINE SCREEN NEGATIVE (Neg); URINE BARBITUATE SCREEN NEGATIVE (Neg); URINE BENZODIAZEPINES SCREEN NEGATIVE (Neg); URINE CANNABINOID SCREEN NEGATIVE (Neg); URINE COCAINE SCREEN NEGATIVE (Neg); URINE METHADONE SCREEN NEGATIVE (Neg); URINE OPIATE SCREEN POSITIVE (Neg); URINE PHENCYCLIDINE SCREEN NEGATIVE (Neg)
[2018-06-23] MEDS ORDERED: naloxone 0.4 mg/ml inj IV ONE (09:45)
[2018-06-23 13:59] VITALS: BP 101/51
[2018-06-24] MEDS ORDERED: ZIPR40CA2 PO (11:48)
== END 2018-06-23 14:04 | disposition home or self-care (01) ==
LOC: ER 08:00
DX: S82.831D Other fracture of upper and lower end of right fibula, subsequent encounter for closed fracture with routine healing (principal); G93.49 Other encephalopathy; R41.82 Altered mental status, unspecified; I11.0 Hypertensive heart disease with heart failure; I50.9 Heart failure, unspecified; E78.00 Pure hypercholesterolemia, unspecified; J44.9 Chronic obstructive pulmonary disease, unspecified; E11.9 Type 2 diabetes mellitus without complications; E03.9 Hypothyroidism, unspecified; G89.29 Other chronic pain; F15.90 Other stimulant use, unspecified, uncomplicated; Z90.49 Acquired absence of other specified parts of digestive tract; Z90.710 Acquired absence of both cervix and uterus; Z98.890 Other specified postprocedural states; Z88.1 Allergy status to other antibiotic agents; Z88.6 Allergy status to analgesic agent; Z88.2 Allergy status to sulfonamides; Z79.4 Long term (current) use of insulin; Z79.899 Other long term (current) drug therapy; X58.XXXD Exposure to other specified factors, subsequent encounter
CPT/HCPCS: 36415; 70450; 71045; 74176; 80053; 80305; 80320; 82140; 82550; 82948; 84484; 85025; 85610; 85730; 93005; 96361; 96374; 99285; J2310; J7030; L4360

== ENCOUNTER 2018-06-24 08:55 | Inpatient (IN) | payer MEDICARE, MEDICAID ==
[~2018-06-24] VITALS: Ht 160 cm; Wt 95.5 kg
[2018-06-24 09:33] LABS: BASOPHILS % (AUTO) 0.3 % (0-1); EOSINOPHILS % (AUTO) 1.2 % (0-6); HEMATOCRIT 26.8 % (35.0-45.0); HEMOGLOBIN 9.3 g/dl (12.0-16.0); LYMPHOCYTES # (AUTO) 0.5 X10'3 (1.1-4.8); LYMPHOCYTES % (AUTO) 14.6 % (21-51); MEAN CORPUSCULAR HEMOGLOBIN 29.2 PG (27.0-31.0); MEAN CORPUSCULAR HGB CONC 34.7 % (33.0-36.5); MEAN CORPUSCULAR VOLUME 84.3 FL (78-98); MEAN PLATELET VOLUME 7.6 FL (7.4-10.4); MONOCYTES # (AUTO) 0.1 X10'3 (0-0.9); MONOCYTES % (AUTO) 3.4 % (2-12); NEUTROPHILS % (AUTO) 80.5 % (42-75); PLATELET COUNT 54 X10'3 (140-440); RED BLOOD COUNT 3.18 X10'6 (4.20-5.60); RED CELL DISTRIBUTION WIDTH 17.7 % (11.5-14.5); WHITE BLOOD COUNT 3.8 X10'3 (4.5-11.0)
[2018-06-24 09:44] LABS: INR 1.1 INR; PARTIAL THROMBOPLASTIN TIME 26 SECONDS (22-32); PROTHROMBIN TIME 11.4 SECONDS (9.0-12.0)
[2018-06-24 09:48] LABS: ALANINE AMINOTRANSFERASE 34 U/L (12-78); ALBUMIN 3.3 G/DL (3.4-5.0); ALBUMIN/GLOBULIN RATIO 0.8 (1.1-1.5); ALKALINE PHOSPHATASE 191 IU/L (46-116); ANION GAP 12 (8-16); ASPARTATE AMINO TRANSFERASE 27 U/L (10-37); BILIRUBIN,TOTAL 0.8 MG/DL (0.1-1.0); BLOOD UREA NITROGEN 22 MG/DL (7-18); BUN/CREATININE RATIO 21.2 (6.6-38.0); CALCIUM 9.1 MG/DL (8.5-10.1); CHLORIDE 106 MMOL/L (99-107); CREATININE 1.04 MG/DL (0.40-0.90); GLUCOSE 292 MG/DL (70-104); POTASSIUM 4.5 MMOL/L (3.5-5.1); SODIUM 141 MMOL/L (135-145); TOTAL CARBON DIOXIDE 23.3 MMOL/L (24-32); TOTAL PROTEIN 7.3 G/DL (6.4-8.2); eGFR 55 ML/MIN
[2018-06-24] MEDS ORDERED: nitroGLYCERIN 0.4mg SUBLingual tab SL PRN ×2 (10:50→12:10)
[2018-06-24] MEDS ORDERED: aspirin 81mg tab.chew PO ONE (10:50)
[2018-06-24] MEDS ORDERED: ondansetron 4mg rapidly disintigrating tab PO ONE (11:40)
[2018-06-24] MEDS ORDERED: ZIPR40CA2 PO (11:48)
[2018-06-24] MEDS ORDERED: ondansetron 4mg rapidly disintigrating tab PO PRN (12:00)
[2018-06-24] MEDS ORDERED: docusate sod 100mg capsule PO PRN (12:00)
[2018-06-24] MEDS ORDERED: albuterol 2.5 MG/3 ML nebule NEB PRN (12:00)
[2018-06-24] MEDS ORDERED: non-formulary drug (Albuterol Sulfate (Ventolin Hfa) 2 PUFFS) INH PRN (12:00)
[2018-06-24] MEDS ORDERED: temazepam 15mg capsule PO PRN ×2 (12:00→21:00)
[2018-06-24] MEDS ORDERED: HYDROcodone/acetaminophen 10/325mg tab PO PRN ×2 (12:00→12:05)
[2018-06-24] MEDS ORDERED: normal saline 1000ml 1,000 ML IV SCH (12:01)
[2018-06-24] MEDS ORDERED: morphine 4 MG/ML inj SYRINge IV PRN (12:05)
[2018-06-24] MEDS ORDERED: mag hydrox/Alum hydrox/simeth 30ml oral suspension PO PRN (12:05)
[2018-06-24] MEDS ORDERED: HYDROmorphone inj. 0.5 MG/0.5 ML DISP.SYRIN IV PRN ×2 (12:05)
[2018-06-24] MEDS ORDERED: HYDROcodone/acetaminophen 5mg/325mg tablet PO PRN (12:05)
[2018-06-24] MEDS ORDERED: diphenhydrAMINE 25mg capsule PO PRN (12:05)
[2018-06-24] MEDS ORDERED: acetaminophen 325mg tablet PO PRN ×2 (12:05)
[2018-06-24] MEDS ORDERED: metoclopramide 5 mg/ml inj IV PRN (12:05)
[2018-06-24] MEDS ORDERED: magnesium hydroxide 30ml (MOM) UD suspension PO PRN (12:05)
[2018-06-24] MEDS ORDERED: diphenhydrAMINE 50 mg/ml inj IV PRN (12:05)
[2018-06-24] MEDS ORDERED: acetaminophen 650mg rectal suppository RC PRN (12:05)
[2018-06-24] MEDS ORDERED: bisacodyl 10mg suppository rectal RC PRN (12:05)
[2018-06-24] MEDS ORDERED: glucagon, human recombinant 1mg kit SUBCUT PRN (12:10)
[2018-06-24] MEDS ORDERED: CAFFEINE CITRATE 60 MG/3 ML injection vial IV PRN (12:10)
[2018-06-24] MEDS ORDERED: dextrose 50%-water 50ml dispensing syringe IV PRN ×2 (12:10)
[2018-06-24] MEDS ORDERED: metoprolol tartrate 1mg/ml inj IV PRN (12:10)
[2018-06-24] MEDS ORDERED: MESSAGE TO PHARMACY PO ONE (12:10)
[2018-06-24] MEDS ORDERED: insulin Lispro (HumaLOG) vial - multi-dose SQ SCH (12:10)
[2018-06-24] MEDS ORDERED: regadenoson 0.4mg/5ml syringe IV ONE (12:10)
[2018-06-24] MEDS ORDERED: dextrose ORAL solution 15 GM/59 ML bottle PO PRN ×2 (12:10)
[2018-06-24 12:29] LABS: HEMOGLOBIN A1C 9.2 % (4.5-6.2)
[2018-06-24 12:36] LABS: LIPASE 207 U/L (73-393); MAGNESIUM 2.1 MG/DL (1.5-2.4); PHOSPHORUS 3.1 MG/DL (2.3-4.5)
[2018-06-24] MEDS: clopidogrel 75mg tablet PO SCH (14:55)
[2018-06-24 15:00] VITALS: BP 145/67
[2018-06-24] MEDS: albuterol 2.5 MG/3 ML nebule NEB SCH ×2 (15:26→19:32)
[2018-06-24] MEDS: ondansetron/PF 4mg/2ml inj IV PRN (18:56)
[2018-06-24 19:00] VITALS: BP 138/63
[2018-06-24] MEDS: budesonide 0.5mg/2ml UD nebule IH SCH (19:33)
[2018-06-24] MEDS: pantoprazole 40mg Tablet.DR PO SCH (20:36)
[2018-06-24] MEDS: docusate sod 100mg capsule PO SCH (20:36)
[2018-06-24] MEDS: metoprolol tartrate 50mg tablet PO SCH (20:37)
[2018-06-24] MEDS: buPROPion SR 100mg tab PO SCH (20:37)
[2018-06-24] MEDS ORDERED: montelukast 10mg tablet PO SCH (21:00)
[2018-06-24] MEDS ORDERED: pramipexole 0.25mg tablet CORPAK SCH (21:00)
[2018-06-24] MEDS ORDERED: ziprasidone 20mg capsule PO SCH (21:00)
[2018-06-24 23:00] VITALS: BP 115/57
[2018-06-25] VITALS (14 sets, daily range): BP systolic 94–111; BP diastolic 41–55
[2018-06-25 06:06] LABS: BASOPHILS % (AUTO) 0.4 % (0-1); EOSINOPHILS % (AUTO) 1.2 % (0-6); HEMATOCRIT 23.9 % (35.0-45.0); HEMOGLOBIN 8.2 g/dl (12.0-16.0); LYMPHOCYTES # (AUTO) 0.9 X10'3 (1.1-4.8); LYMPHOCYTES % (AUTO) 27.3 % (21-51); MEAN CORPUSCULAR HEMOGLOBIN 29.1 PG (27.0-31.0); MEAN CORPUSCULAR HGB CONC 34.2 % (33.0-36.5); MEAN CORPUSCULAR VOLUME 85.2 FL (78-98); MEAN PLATELET VOLUME 7.9 FL (7.4-10.4); MONOCYTES # (AUTO) 0.2 X10'3 (0-0.9); MONOCYTES % (AUTO) 4.9 % (2-12); NEUTROPHILS # (AUTO) 2.2 X10'3 (1.8-7.7); NEUTROPHILS % (AUTO) 66.2 % (42-75); RED BLOOD COUNT 2.81 X10'6 (4.20-5.60); RED CELL DISTRIBUTION WIDTH 16.9 % (11.5-14.5); WHITE BLOOD COUNT 3.3 X10'3 (4.5-11.0)
[2018-06-25 06:11] LABS: PLATELET COUNT 46 X10'3 (140-440)
[2018-06-25 06:40] LABS: ANION GAP 11 (8-16); CHLORIDE 107 MMOL/L (99-107); GLUCOSE 204 MG/DL (70-104); POTASSIUM 4.1 MMOL/L (3.5-5.1); SODIUM 141 MMOL/L (135-145); TOTAL CARBON DIOXIDE 23.3 MMOL/L (24-32)
[2018-06-25 06:41] LABS: ALANINE AMINOTRANSFERASE 31 U/L (12-78); ALBUMIN/GLOBULIN RATIO 0.8 (1.1-1.5); ALKALINE PHOSPHATASE 155 IU/L (46-116); ASPARTATE AMINO TRANSFERASE 20 U/L (10-37); BILIRUBIN,TOTAL 0.7 MG/DL (0.1-1.0); BLOOD UREA NITROGEN 18 MG/DL (7-18); BUN/CREATININE RATIO 19.1 (6.6-38.0); CALCIUM 8.6 MG/DL (8.5-10.1); CHOL/HDL RATIO 2.4 (0.00-4.99); CHOLESTEROL 139 MG/DL (0-200); CREATININE 0.94 MG/DL (0.40-0.90); HDL CHOLESTEROL 57 MG/DL (35-60); LDL CHOLESTEROL 74 MG/DL (50-100); TOTAL PROTEIN 6.7 G/DL (6.4-8.2); TRIGLYCERIDES 87 MG/DL (20-135); eGFR 62 ML/MIN
[2018-06-25] MEDS: buPROPion SR 100mg tab PO SCH (07:37)
[2018-06-25] MEDS: metoprolol tartrate 50mg tablet PO SCH (07:37)
[2018-06-25] MEDS: docusate sod 100mg capsule PO SCH (07:37)
[2018-06-25] MEDS: ondansetron/PF 4mg/2ml inj IV PRN (07:38)
[2018-06-25] MEDS: pantoprazole 40mg Tablet.DR PO SCH (07:38)
[2018-06-25] MEDS: clopidogrel 75mg tablet PO SCH (07:38)
[2018-06-25] MEDS: morphine 4 MG/ML inj SYRINge IV PRN ×2 (07:42→12:27)
[2018-06-25] MEDS ORDERED: ziprasidone 20mg capsule PO SCH (08:00)
[2018-06-25] MEDS ORDERED: levoTHYROXINE 100mcg tablet PO SCH (08:00)
[2018-06-25] MEDS ORDERED: spironolactone 25 MG tablet PO SCH (08:00)
[2018-06-25] MEDS ORDERED: loratadine 10mg tablet PO SCH (08:00)
[2018-06-25] MEDS ORDERED: ferrous sulfate 325mg tablet PO SCH (08:00)
[2018-06-25] MEDS ORDERED: atorvastatin 10mg tablet PO SCH (08:00)
[2018-06-25] MEDS ORDERED: aspirin 81mg tab.chew PO SCH (08:30)
[2018-06-25] MEDS: budesonide 0.5mg/2ml UD nebule IH SCH (08:32)
[2018-06-25] MEDS: albuterol 2.5 MG/3 ML nebule NEB SCH ×2 (08:32→11:41)
[2018-06-25] MEDS ORDERED: CAFFEINE CITRATE 60 MG/3 ML injection vial IV ONE (09:28)
[2018-06-25] MEDS ORDERED: regadenoson 0.4mg/5ml syringe IV ONE (09:28)
== END 2018-06-25 15:00 | disposition home or self-care (01) | DRG 292 ==
LOC: ER 08:55 → ED HOLD 12:01 → EDBEDREQ 13:08 → PCU 3S 14:13
PROVIDERS: ADMIT Family Medicine; ATTEND Family Medicine
PROC: 4A02XM4 Measurement of Cardiac Total Activity, External Approach (ICD-10-PCS; principal; 2018-06-25)
PROC: 3E033HZ Introduction of Radioactive Substance into Peripheral Vein, Percutaneous Approach (ICD-10-PCS; 2018-06-25)
DX: I11.0 Hypertensive heart disease with heart failure (principal); D61.818 Other pancytopenia; I48.91 Unspecified atrial fibrillation; R07.2 Precordial pain; E03.9 Hypothyroidism, unspecified; E66.01 Morbid (severe) obesity due to excess calories; E78.00 Pure hypercholesterolemia, unspecified; E78.5 Hyperlipidemia, unspecified; F20.9 Schizophrenia, unspecified; G89.4 Chronic pain syndrome; I50.9 Heart failure, unspecified; J44.9 Chronic obstructive pulmonary disease, unspecified; K74.60 Unspecified cirrhosis of liver; F41.9 Anxiety disorder, unspecified; F31.9 Bipolar disorder, unspecified; E11.65 Type 2 diabetes mellitus with hyperglycemia; M54.9 Dorsalgia, unspecified; Z90.710 Acquired absence of both cervix and uterus; Z90.49 Acquired absence of other specified parts of digestive tract; Z88.2 Allergy status to sulfonamides; Z88.1 Allergy status to other antibiotic agents; Z88.8 Allergy status to other drugs, medicaments and biological substances; Z91.048 Other nonmedicinal substance allergy status; Z79.899 Other long term (current) drug therapy; Z79.4 Long term (current) use of insulin; Z83.3 Family history of diabetes mellitus; Z80.9 Family history of malignant neoplasm, unspecified; Z82.5 Family history of asthma and other chronic lower respiratory diseases; Z82.49 Family history of ischemic heart disease and other diseases of the circulatory system; Z68.37 Body mass index [BMI] 37.0-37.9, adult
CPT/HCPCS: 36415; 71045; 78452; 80053; 80061; 82948; 83036; 83690; 83735; 83880; 84100; 84484; 85025; 85610; 85730; 87070; 93005; 93017; 93308; 94640; 94760; 99285; A6255; A9500; J2270; J2405; J7030; J7626

== ENCOUNTER 2018-07-02 08:21 | Emergency (ER) | payer MEDICARE, MEDICAID ==
[~2018-07-02] VITALS: Ht 160 cm; Wt 92.7 kg
[~2018-07-02 08:21] MED LIST changes: -ALB0.5UD IH; -BENZ-16 PO; -FURO-150 PO; -HYDR-565 PO; -NAPR-56 PO; -POTA8TAB8 PO; +ZIPR40CA2 PO
[2018-07-02 09:19] VITALS: BP 129/71
== END 2018-07-02 10:55 | disposition home or self-care (01) ==
LOC: ER 08:21
DX: S63.502A Unspecified sprain of left wrist, initial encounter (principal); I11.0 Hypertensive heart disease with heart failure; I50.9 Heart failure, unspecified; J44.9 Chronic obstructive pulmonary disease, unspecified; E78.00 Pure hypercholesterolemia, unspecified; E03.9 Hypothyroidism, unspecified; G89.29 Other chronic pain; E11.9 Type 2 diabetes mellitus without complications; Z90.49 Acquired absence of other specified parts of digestive tract; Z90.710 Acquired absence of both cervix and uterus; Z98.890 Other specified postprocedural states; Z88.2 Allergy status to sulfonamides; Z88.8 Allergy status to other drugs, medicaments and biological substances; Z79.4 Long term (current) use of insulin; Z79.899 Other long term (current) drug therapy; W19.XXXA Unspecified fall, initial encounter; Y93.89 Activity, other specified; Y92.89 Other specified places as the place of occurrence of the external cause; Y99.8 Other external cause status
CPT/HCPCS: 29125; 73090; 99284

== ENCOUNTER 2018-07-03 18:23 | Emergency (ER) | payer MEDICARE, MEDICAID ==
[~2018-07-03] VITALS: Ht 160 cm; Wt 92.0 kg
[2018-07-03 18:32] VITALS: BP 133/75
[2018-07-03] MEDS ORDERED: ketorolac tromethamine 15mg/ml inj. IM ONE (19:45)
== END 2018-07-03 20:08 | disposition home or self-care (01) ==
LOC: ER 18:24
DX: S66.912D Strain of unspecified muscle, fascia and tendon at wrist and hand level, left hand, subsequent encounter (principal); I11.0 Hypertensive heart disease with heart failure; I50.9 Heart failure, unspecified; E78.00 Pure hypercholesterolemia, unspecified; J44.9 Chronic obstructive pulmonary disease, unspecified; G89.29 Other chronic pain; M54.9 Dorsalgia, unspecified; E03.9 Hypothyroidism, unspecified; Z90.49 Acquired absence of other specified parts of digestive tract; Z90.710 Acquired absence of both cervix and uterus; Z88.1 Allergy status to other antibiotic agents; Z88.2 Allergy status to sulfonamides; Z88.8 Allergy status to other drugs, medicaments and biological substances; Z79.4 Long term (current) use of insulin; X58.XXXD Exposure to other specified factors, subsequent encounter
CPT/HCPCS: 96372; 99284; J1885

== ENCOUNTER 2018-07-22 07:20 | Emergency (ER) | payer MEDICARE, MEDICAID ==
[~2018-07-22] VITALS: Ht 160 cm; Wt 97.7 kg
[2018-07-22 07:22] VITALS: BP 130/54
[2018-07-22 08:04] LABS: BASOPHILS % (AUTO) 0.8 % (0-1); EOSINOPHILS % (AUTO) 0.7 % (0-6); HEMATOCRIT 26.5 % (35.0-45.0); HEMOGLOBIN 8.9 g/dl (12.0-16.0); LYMPHOCYTES # (AUTO) 0.5 X10'3 (1.1-4.8); LYMPHOCYTES % (AUTO) 14.5 % (21-51); MEAN CORPUSCULAR HEMOGLOBIN 29.2 PG (27.0-31.0); MEAN CORPUSCULAR HGB CONC 33.7 % (33.0-36.5); MEAN CORPUSCULAR VOLUME 86.4 FL (78-98); MEAN PLATELET VOLUME 7.9 FL (7.4-10.4); MONOCYTES # (AUTO) 0.2 X10'3 (0-0.9); MONOCYTES % (AUTO) 4.3 % (2-12); NEUTROPHILS % (AUTO) 79.7 % (42-75); PLATELET COUNT 53 X10'3 (140-440); RED BLOOD COUNT 3.06 X10'6 (4.20-5.60); RED CELL DISTRIBUTION WIDTH 18.2 % (11.5-14.5); WHITE BLOOD COUNT 3.7 X10'3 (4.5-11.0)
[2018-07-22 08:12] LABS: ALANINE AMINOTRANSFERASE 32 U/L (12-78); ALBUMIN 3.3 G/DL (3.4-5.0); ALBUMIN/GLOBULIN RATIO 0.9 (1.1-1.5); ALKALINE PHOSPHATASE 197 IU/L (46-116); ANION GAP 12 (8-16); ANISOCYTOSIS 2+; ASPARTATE AMINO TRANSFERASE 29 U/L (10-37); BILIRUBIN,TOTAL 0.6 MG/DL (0.1-1.0); BLOOD UREA NITROGEN 28 MG/DL (7-18); BUN/CREATININE RATIO 17.8 (6.6-38.0); CALCIUM 8.6 MG/DL (8.5-10.1); CHLORIDE 106 MMOL/L (99-107); CREATININE 1.57 MG/DL (0.40-0.90); GLUCOSE 345 MG/DL (70-104); PLATELET ESTIMATE DECREASED; POLYCHROMASIA 1+; POTASSIUM 4.8 MMOL/L (3.5-5.1); SODIUM 142 MMOL/L (135-145); TOTAL CARBON DIOXIDE 24.1 MMOL/L (24-32); eGFR 34 ML/MIN
[2018-07-22 08:15] LABS: CLARITY,URINE CLEAR (Clear); COLOR,URINE YELLOW (Yellow); GLUCOSE, URINE >=1000 mg/dl (Neg); KETONES,URINE NEGATIVE (Neg); LEUKOCYTE ESTERASE ,URINE NEGATIVE (Neg); NITRITES, URINE NEGATIVE (Neg); OCCULT BLOOD,URINE NEGATIVE (Neg); PH,URINE 6.5 (4.8-8.0); PROTEIN,URINE NEGATIVE (Neg)
[2018-07-22 08:17] LABS: UA COLLECTION TYPE VOIDED
[2018-07-22 08:23] LABS: RBC,URINE NONE SEEN /HPF (0-2); SQUAMOUS EPITHELIAL CELL,UR FEW /LPF (FEW); WBC,URINE 0-4 /HPF (0-4)
[2018-07-22 08:24] LABS: BACTERIA,URINE FEW /HPF (Neg); MUCUS STRANDS NONE SEEN /LPF (Neg); YEAST FEW /HPF (NEGATIVE)
[2018-07-22] MEDS ORDERED: AMOX500C2 PO (09:09)
== END 2018-07-22 10:20 | disposition home or self-care (01) ==
LOC: ER 07:20
DX: S62.001A Unspecified fracture of navicular [scaphoid] bone of right wrist, initial encounter for closed fracture (principal); S50.11XA Contusion of right forearm, initial encounter; D61.818 Other pancytopenia; E86.0 Dehydration; E11.65 Type 2 diabetes mellitus with hyperglycemia; I11.0 Hypertensive heart disease with heart failure; I50.9 Heart failure, unspecified; E78.00 Pure hypercholesterolemia, unspecified; J44.9 Chronic obstructive pulmonary disease, unspecified; E03.9 Hypothyroidism, unspecified; G89.29 Other chronic pain; F19.90 Other psychoactive substance use, unspecified, uncomplicated; Z98.890 Other specified postprocedural states; Z90.49 Acquired absence of other specified parts of digestive tract; Z90.710 Acquired absence of both cervix and uterus; Z88.2 Allergy status to sulfonamides; Z88.8 Allergy status to other drugs, medicaments and biological substances; Z88.1 Allergy status to other antibiotic agents; Z79.01 Long term (current) use of anticoagulants; Z79.4 Long term (current) use of insulin; Z79.899 Other long term (current) drug therapy; W18.39XA Other fall on same level, initial encounter; Y93.89 Activity, other specified; Y92.89 Other specified places as the place of occurrence of the external cause; Y99.8 Other external cause status
CPT/HCPCS: 29125; 36415; 71101; 73110; 80053; 81001; 85025; 93005; 99285

== ENCOUNTER 2018-07-28 22:38 | Emergency (ER) | payer MEDICARE, MEDICAID ==
[~2018-07-28] VITALS: Ht 160 cm; Wt 105.0 kg
[2018-07-28 23:24] VITALS: BP 113/53
== END 2018-07-28 23:26 | disposition home or self-care (01) ==
LOC: ER 22:38
DX: R07.81 Pleurodynia (principal); I11.0 Hypertensive heart disease with heart failure; I50.9 Heart failure, unspecified; E78.00 Pure hypercholesterolemia, unspecified; J44.9 Chronic obstructive pulmonary disease, unspecified; E11.9 Type 2 diabetes mellitus without complications; E03.9 Hypothyroidism, unspecified; G89.29 Other chronic pain; Z90.49 Acquired absence of other specified parts of digestive tract; Z90.710 Acquired absence of both cervix and uterus; Z98.890 Other specified postprocedural states; Z88.2 Allergy status to sulfonamides; Z88.1 Allergy status to other antibiotic agents; Z88.8 Allergy status to other drugs, medicaments and biological substances; Z79.4 Long term (current) use of insulin; Z79.899 Other long term (current) drug therapy
CPT/HCPCS: 71046; 99284

== ENCOUNTER 2018-09-20 14:36 | Emergency (ER) | payer MEDICARE, MEDICAID ==
[~2018-09-20] VITALS: Ht 160 cm; Wt 96.8 kg
[2018-09-20 14:47] VITALS: BP 115/58
[2018-09-20] MEDS ORDERED: TRAM50TA2 PO (16:49)
== END 2018-09-20 17:18 | disposition home or self-care (01) ==
LOC: ER 14:37
DX: S92.511A Displaced fracture of proximal phalanx of right lesser toe(s), initial encounter for closed fracture (principal); S82.831A Other fracture of upper and lower end of right fibula, initial encounter for closed fracture; I11.0 Hypertensive heart disease with heart failure; I50.9 Heart failure, unspecified; E78.00 Pure hypercholesterolemia, unspecified; J44.9 Chronic obstructive pulmonary disease, unspecified; E11.9 Type 2 diabetes mellitus without complications; E03.9 Hypothyroidism, unspecified; G89.29 Other chronic pain; Z90.49 Acquired absence of other specified parts of digestive tract; Z98.890 Other specified postprocedural states; Z90.710 Acquired absence of both cervix and uterus; Z88.1 Allergy status to other antibiotic agents; Z88.6 Allergy status to analgesic agent; Z88.8 Allergy status to other drugs, medicaments and biological substances; Z88.2 Allergy status to sulfonamides; Z79.4 Long term (current) use of insulin; W01.198A Fall on same level from slipping, tripping and stumbling with subsequent striking against other object, initial encounter; Y93.89 Activity, other specified; Y92.89 Other specified places as the place of occurrence of the external cause; Y99.9 Unspecified external cause status
CPT/HCPCS: 29515; 73610; 73630; 99284

== ENCOUNTER 2018-09-27 21:23 | Emergency (ER) | payer MEDICARE, MEDICAID ==
[~2018-09-27] VITALS: Ht 160 cm; Wt 97.0 kg
[~2018-09-27 21:23] MED LIST changes: +TRAM50TA2 PO
[2018-09-28] MEDS ORDERED: ACET-3067 PO (00:49)
[2018-09-28] MEDS ORDERED: acetaminophen w/codeine (30MG) #3 tablet PO ONE (00:50)
[2018-09-28 01:30] VITALS: BP 113/80
== END 2018-09-28 01:31 | disposition home or self-care (01) ==
LOC: ER 21:23
DX: S92.511D Displaced fracture of proximal phalanx of right lesser toe(s), subsequent encounter for fracture with routine healing (principal); S82.831D Other fracture of upper and lower end of right fibula, subsequent encounter for closed fracture with routine healing; J44.9 Chronic obstructive pulmonary disease, unspecified; I11.0 Hypertensive heart disease with heart failure; I50.9 Heart failure, unspecified; E78.00 Pure hypercholesterolemia, unspecified; E11.9 Type 2 diabetes mellitus without complications; E03.9 Hypothyroidism, unspecified; G89.29 Other chronic pain; Z90.49 Acquired absence of other specified parts of digestive tract; Z90.710 Acquired absence of both cervix and uterus; Z98.890 Other specified postprocedural states; Z88.1 Allergy status to other antibiotic agents; Z88.2 Allergy status to sulfonamides; Z88.8 Allergy status to other drugs, medicaments and biological substances; Z79.4 Long term (current) use of insulin; Z79.899 Other long term (current) drug therapy; W01.198D Fall on same level from slipping, tripping and stumbling with subsequent striking against other object, subsequent encounter
CPT/HCPCS: 99284

== ENCOUNTER 2018-11-10 08:03 | Day surgery (SDC) | payer MEDICARE, MEDICAID ==
[~2018-11-10] VITALS: Ht 160 cm; Wt 97.1 kg
[~2018-11-10 08:03] MED LIST changes: +LIDOcaine 1% 30ml preserv. free vial SQ STA; -TRAM50TA2 PO
[2018-11-10] MEDS ORDERED: albumin 25% 50mL bottle X 2 BOTTLES IV ONE (08:25)
[2018-11-10 08:30] VITALS: BP 124/71
[2018-11-10] MEDS ORDERED: CLOP75TA15 PO (09:32)
[2018-11-10] MEDS ORDERED: INSU100I31 SQ (09:32)
[2018-11-10] MEDS ORDERED: OXYC-658 PO (09:34)
[2018-11-10] MEDS ORDERED: INSU100C10 SQ (09:35)
--- NOTE | 2018-11-10 10:07 | NUR ---
ULTRASOUND DONE BY DR. BOLAÑOS. NO FLUID PRESENT AT THIS TIME. PROCEDURE CANCELED. JAMIE CARGO CALLED TO TRANPORT PATIENT BACK TO [facility] NO DISTRESS NOTED.
[2018-11-10] MEDS ORDERED: EST1T PO (10:32)
[2018-11-10] MEDS ORDERED: FURO-150 PO (10:32)
[2018-11-10] MEDS ORDERED: ACET-2119 PO (10:32)
[2018-11-10] MEDS ORDERED: NA P133E4 RC (10:32)
[2018-11-10] MEDS ORDERED: LACTC PO (10:32)
[2018-11-10] MEDS ORDERED: METF500T PO (10:41)
[2018-11-10] MEDS ORDERED: PRAM0.253 PO (10:41)
[2018-11-10] MEDS ORDERED: METR500T PO (10:41)
[2018-11-10] MEDS ORDERED: OLAN5TAB3 PO (10:41)
[2018-11-10] MEDS ORDERED: MAGN400O6 PO (10:41)
[2018-11-10] MEDS ORDERED: OMEP20TA5 PO (10:45)
== END 2018-11-10 10:14 ==
LOC: SSTAY O 08:03
PROVIDERS: ATTEND Radiology Vascular & Interventional Radiology
DX: R14.0 Abdominal distension (gaseous) (principal); I25.10 Atherosclerotic heart disease of native coronary artery without angina pectoris; E78.5 Hyperlipidemia, unspecified; J45.998 Other asthma; K21.9 Gastro-esophageal reflux disease without esophagitis; M19.90 Unspecified osteoarthritis, unspecified site; M10.9 Gout, unspecified; E03.9 Hypothyroidism, unspecified; E11.42 Type 2 diabetes mellitus with diabetic polyneuropathy; H91.8X3 Other specified hearing loss, bilateral; F10.21 Alcohol dependence, in remission; F19.11 Other psychoactive substance abuse, in remission; F32.89 Other specified depressive episodes; F41.8 Other specified anxiety disorders; F20.9 Schizophrenia, unspecified; I11.0 Hypertensive heart disease with heart failure; I50.9 Heart failure, unspecified; Z79.84 Long term (current) use of oral hypoglycemic drugs; Z88.1 Allergy status to other antibiotic agents; Z88.2 Allergy status to sulfonamides; Z88.6 Allergy status to analgesic agent; Z91.048 Other nonmedicinal substance allergy status; Z79.4 Long term (current) use of insulin; Z79.01 Long term (current) use of anticoagulants; Z79.891 Long term (current) use of opiate analgesic; Z86.73 Personal history of transient ischemic attack (TIA), and cerebral infarction without residual deficits; Z86.69 Personal history of other diseases of the nervous system and sense organs; Z86.718 Personal history of other venous thrombosis and embolism; Z87.01 Personal history of pneumonia (recurrent); Z87.09 Personal history of other diseases of the respiratory system; Z90.49 Acquired absence of other specified parts of digestive tract; Z96.651 Presence of right artificial knee joint; Z98.41 Cataract extraction status, right eye; Z98.42 Cataract extraction status, left eye; Z90.710 Acquired absence of both cervix and uterus; Z86.14 Personal history of Methicillin resistant Staphylococcus aureus infection; Z86.19 Personal history of other infectious and parasitic diseases; Z98.890 Other specified postprocedural states; Z88.8 Allergy status to other drugs, medicaments and biological substances; Z79.899 Other long term (current) drug therapy; Z82.0 Family history of epilepsy and other diseases of the nervous system; Z82.49 Family history of ischemic heart disease and other diseases of the circulatory system; Z83.6 Family history of other diseases of the respiratory system; Z83.3 Family history of diabetes mellitus; Z80.9 Family history of malignant neoplasm, unspecified
CPT/HCPCS: 76705; J3490; 49083

== ENCOUNTER 2018-11-17 08:03 | Day surgery (SDC) | payer MEDICARE, MEDICAID ==
[~2018-11-17] VITALS: Ht 160 cm; Wt 98.7 kg
[~2018-11-17 08:03] MED LIST changes: +ACET-2119 PO; -DAPA5TAB PO; +EST1T PO; +FURO-150 PO; -HUM7525 SQ; +INSU100C10 SQ; +INSU100I31 SQ; -INSU200I4 SQ; +LACTC PO; -LIRA0.6P SQ; -LISI-642 PO; +MAGN400O6 PO; +METF500T PO; +METR500T PO; +NA P133E4 RC; +OLAN5TAB3 PO; +OMEP20TA5 PO; +OXYC-658 PO; -PANT-47 PO; -PRAM0.252 CORPAK; +PRAM0.253 PO; -TEMA15CA PO; -ZIPR80CA2 PO
[2018-11-17 08:27] VITALS: BP 126/57
[2018-11-17] MEDS ORDERED: normal saline 1000ml 1,000 ML IV PRN (08:30)
[2018-11-17] MEDS ORDERED: albumin 25% 50mL bottle X 2 BOTTLES IV ONE (08:30)
[2018-11-17 09:15] VITALS: BP 120/64
== END 2018-11-17 09:15 | disposition home or self-care (01) ==
LOC: SSTAY O 08:03
PROVIDERS: ATTEND Radiology Diagnostic Radiology
DX: R14.0 Abdominal distension (gaseous) (principal); R10.9 Unspecified abdominal pain; R18.8 Other ascites; I11.0 Hypertensive heart disease with heart failure; I50.9 Heart failure, unspecified; E11.9 Type 2 diabetes mellitus without complications; J45.909 Unspecified asthma, uncomplicated; Z86.73 Personal history of transient ischemic attack (TIA), and cerebral infarction without residual deficits; Z79.899 Other long term (current) drug therapy; Z90.710 Acquired absence of both cervix and uterus; Z96.651 Presence of right artificial knee joint; Z98.890 Other specified postprocedural states
CPT/HCPCS: 76705; J3490; J7030

== ENCOUNTER 2019-03-22 15:25 | Emergency (ER) | payer MEDICARE, MEDICAID ==
[~2019-03-22] VITALS: Ht 160 cm; Wt 81.0 kg
[~2019-03-22 15:25] MED LIST changes: -ACET-2119 PO; -LIDOcaine 1% 30ml preserv. free vial SQ STA; -NA P133E4 RC
[2019-03-22 16:05] LABS: URINE HCG NEGATIVE (NEG)
[2019-03-22 16:12] LABS: URINE AMPHETAMINE SCREEN NEGATIVE (Neg); URINE BARBITUATE SCREEN NEGATIVE (Neg); URINE BENZODIAZEPINES SCREEN NEGATIVE (Neg); URINE CANNABINOID SCREEN NEGATIVE (Neg); URINE COCAINE SCREEN NEGATIVE (Neg); URINE METHADONE SCREEN NEGATIVE (Neg); URINE OPIATE SCREEN NEGATIVE (Neg); URINE PHENCYCLIDINE SCREEN NEGATIVE (Neg)
[2019-03-22 16:38] LABS: BASOPHILS % (AUTO) 0.4 % (0-1); EOSINOPHILS % (AUTO) 0.6 % (0-6); HEMATOCRIT 27.8 % (35.0-45.0); HEMOGLOBIN 9.5 g/dl (12.0-16.0); LYMPHOCYTES # (AUTO) 0.5 X10'3 (1.1-4.8); LYMPHOCYTES % (AUTO) 10.9 % (21-51); MEAN CORPUSCULAR HEMOGLOBIN 32.2 PG (27.0-31.0); MEAN CORPUSCULAR HGB CONC 34.2 g/dL (33.0-36.5); MEAN CORPUSCULAR VOLUME 94.2 FL (78-98); MEAN PLATELET VOLUME 8.1 FL (7.4-10.4); MONOCYTES # (AUTO) 0.3 X10'3 (0-0.9); MONOCYTES % (AUTO) 5.4 % (2-12); NEUTROPHILS % (AUTO) 82.7 % (42-75); RED BLOOD COUNT 2.95 X10'6 (4.20-5.60); RED CELL DISTRIBUTION WIDTH 16.9 % (11.5-14.5); WHITE BLOOD COUNT 4.8 X10'3 (4.5-11.0)
[2019-03-22 16:55] LABS: ALANINE AMINOTRANSFERASE 65 U/L (12-78); ALBUMIN 3.6 G/DL (3.4-5.0); ALBUMIN/GLOBULIN RATIO 0.9 (1.1-1.5); ALKALINE PHOSPHATASE 307 IU/L (46-116); ANION GAP 11 (8-16); ASPARTATE AMINO TRANSFERASE 49 U/L (10-37); BILIRUBIN,TOTAL 0.8 MG/DL (0.1-1.0); BLOOD UREA NITROGEN 51 MG/DL (7-18); BUN/CREATININE RATIO 20.4 (6.6-38.0); CALCIUM 8.7 MG/DL (8.5-10.1); CHLORIDE 103 MMOL/L (99-107); GLUCOSE 304 MG/DL (70-104); POTASSIUM 4.1 MMOL/L (3.5-5.1); SODIUM 139 MMOL/L (135-145); TOTAL CARBON DIOXIDE 25.2 MMOL/L (24-32); TOTAL PROTEIN 7.8 G/DL (6.4-8.2); eGFR 20 ML/MIN
[2019-03-22 17:01] LABS: ETHANOL < 0.010 GM/DL (0.0-0.010); LIPASE 484 U/L (73-393); TROPONIN I < 0.04 NG/ML (0.0-0.05)
[2019-03-22 17:08] LABS: PLATELET COUNT 45 X10'3 (140-440)
[2019-03-22 17:38] LABS: CLARITY,URINE CLEAR (Clear); COLOR,URINE YELLOW (Yellow); GLUCOSE, URINE >=1000 mg/dl (Neg); KETONES,URINE NEGATIVE (Neg); LEUKOCYTE ESTERASE ,URINE NEGATIVE (Neg); NITRITES, URINE NEGATIVE (Neg); OCCULT BLOOD,URINE NEGATIVE (Neg); PROTEIN,URINE NEGATIVE (Neg)
[2019-03-22 17:39] LABS: UA COLLECTION TYPE CLN CATCH MIDSTREAM
[2019-03-22 17:46] LABS: BACTERIA,URINE 1+ /HPF (Neg); RBC,URINE 0-2 /HPF (0-2); SQUAMOUS EPITHELIAL CELL,UR MODERATE /LPF (FEW)
[2019-03-22] MEDS ORDERED: OLANZapine **IM** 10 mg inj. IM ONE (19:35)
--- NOTE | 2019-03-22 21:30 | NUR ---
Pt transferred to overflow accompanied by staff. Pt got into bed and immediately fell asleep. Pt is currently on a 1:1 for attempted elopement from the ER. Pt restinf cmfortably.
--- NOTE | 2019-03-23 00:22 | NUR ---
Pt woke up and walked for 5 minutes with a walker because she is having back pain. Pt is upset becasue it is her "her walker." Pt states nothing helps for her pain except oxycodone, morphine, or norco.
[2019-03-23] MEDS ORDERED: acetaminophen 325mg tablet PO ONE (00:50)
--- NOTE | 2019-03-23 01:00 | NUR ---
Pt stated she was having back pain, which is chronic for her. 650 mg tylenol ordered and admonistered PO. PT went to sleep soon after.
--- NOTE | 2019-03-23 03:00 | NUR ---
Pt used the bathroom once. PT is now asleep on back.
--- NOTE | 2019-03-23 05:27 | NUR ---
Pt asleep on back ,respirations WNL
[2019-03-23] MEDS ORDERED: OXYC-658 PO (07:40)
[2019-03-23] MEDS ORDERED: docusate sod 100mg capsule PO PRN (09:50)
[2019-03-23] MEDS ORDERED: albuterol 2.5 MG/3 ML nebule NEB PRN ×2 (09:50→10:07)
[2019-03-23] MEDS ORDERED: ondansetron 4mg rapidly disintigrating tab PO PRN (09:50)
[2019-03-23] MEDS ORDERED: non-formulary drug (Insulin Lispro (Humalog) 1 UNITS) SQ PRN (09:50)
[2019-03-23] MEDS ORDERED: clopidogrel 75mg tablet PO SCH (09:53)
[2019-03-23] MEDS ORDERED: loratadine 10mg tablet PO SCH (09:54)
[2019-03-23] MEDS ORDERED: levoTHYROXINE 100mcg tablet PO SCH (09:54)
[2019-03-23] MEDS ORDERED: spironolactone 25 MG tablet PO SCH (09:55)
[2019-03-23] MEDS ORDERED: atorvastatin 10mg tablet PO SCH ×2 (10:03→10:33)
[2019-03-23] MEDS ORDERED: dextrose 50%-water 50ml dispensing syringe IV PRN ×2 (10:05)
[2019-03-23] MEDS ORDERED: glucagon, human recombinant 1mg kit SUBCUT PRN (10:05)
[2019-03-23] MEDS ORDERED: MESSAGE TO PHARMACY PO ONE (10:05)
[2019-03-23] MEDS ORDERED: insulin Lispro (HumaLOG) vial - multi-dose SQ SCH (10:05)
[2019-03-23] MEDS ORDERED: dextrose ORAL solution 15 GM/59 ML bottle PO PRN ×2 (10:05)
[2019-03-23] MEDS ORDERED: BUPR200T3 PO (10:11)
[2019-03-23] MEDS: oxyCODONE IR 5mg (immed. release) tablet PO PRN ×3 (10:16→20:24)
--- NOTE | 2019-03-23 11:00 | NUR ---
Patient tried leaving 3 times. Patient was redirectable.
[2019-03-23 11:10] LABS: HEMOGLOBIN A1C 5.7 % (4.5-6.2)
--- NOTE | 2019-03-23 11:15 | NUR ---
spoke with Dr Smiley about patients dialysis. He said that she can not have dialysis while here in the ER overflow, but that he would review her labs and see whether or not it was urgent that she receive her dialysis today. (Her most recent K was 4.3 and a Creatinine of 2.5).
--- NOTE | 2019-03-23 12:00 | NUR ---
Rema from [facility] at bedside evaluating patient.
--- NOTE | 2019-03-23 12:08 | NUR ---
Rema said to the patient that she would be keeping her on a 5150, which uspet the patient. So, she got up and walked out. Cate was given the security radio, and started walking after her to follow in the direction that the patient was heading.
--- NOTE | 2019-03-23 12:15 | NUR ---
Patient eloped and is sitting outside the ER on a bench.
[2019-03-23] MEDS ORDERED: LORazepam 1 MG tablet PO ONE (12:20)
--- NOTE | 2019-03-23 12:20 | NUR ---
RN Ramonita speaking to Dr. Gilse about the patient requirement for restraint. MD will be coming over to assess patient.
--- NOTE | 2019-03-23 12:24 | NUR ---
Patient was brought back by Naya from [facility]. Bennett Esposito, Aren Jimenez and I put the patient in restraints. The restraint order was put in by Dr. Giles.
--- NOTE | 2019-03-23 14:00 | NUR ---
Vera seems more calm, removed her restraints and she agreed she would let me know if her restlessness became overwhelming and we would come up with a game plan (instead of just running away from the unit)
[2019-03-23] MEDS: furosemide 20MG tablet PO SCH ×2 (14:18→20:28)
--- NOTE | 2019-03-23 18:39 | NUR ---
patient sitting at the edge of the bed rocking and is tearful. 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
--- NOTE | 2019-03-23 19:08 | NUR ---
Elopeement band # 35 placed on pt's right wrist. Pt was resistant, security called to assit. Explained to pt why it was required.
--- NOTE | 2019-03-23 19:18 | NUR ---
Pt removed elopement band and patient identification band. ID band placed in pt's chart.
[2019-03-23] MEDS ORDERED: metoprolol tartrate 12.5mg (1/2 tablet) PO SCH (20:00)
[2019-03-23] MEDS ORDERED: ziprasidone 20mg capsule PO SCH (20:00)
[2019-03-23] MEDS ORDERED: insulin glargine (Lantus) pen - multi-dose SQ SCH ×2 (20:00→21:00)
[2019-03-23] MEDS ORDERED: albuterol 2.5 MG/3 ML nebule NEB SCH (20:00)
[2019-03-23] MEDS ORDERED: budesonide 0.5mg/2ml UD nebule IH SCH (20:00)
[2019-03-23] MEDS ORDERED: buPROPion SR 100mg tab PO SCH (20:00)
[2019-03-23] MEDS ORDERED: OLANZAPINE 5 MG TABLET PO SCH (21:00)
[2019-03-23] MEDS ORDERED: montelukast 10mg tablet PO SCH (21:00)
--- NOTE | 2019-03-23 22:08 | NUR ---
Client to be admitted to [facility] for suicidal ideation per Dr. Sandro Rodriges.
[2019-03-23 23:32] VITALS: BP 134/62
[2019-03-24] MEDS ORDERED: estradiol 1mg tablet PO SCH (08:00)
== END 2019-03-23 23:34 ==
LOC: ER 15:25
DX: D61.818 Other pancytopenia (principal); R45.851 Suicidal ideations; G89.29 Other chronic pain; R10.9 Unspecified abdominal pain; K59.00 Constipation, unspecified; I11.0 Hypertensive heart disease with heart failure; I50.9 Heart failure, unspecified; E78.00 Pure hypercholesterolemia, unspecified; J44.9 Chronic obstructive pulmonary disease, unspecified; E11.9 Type 2 diabetes mellitus without complications; E03.9 Hypothyroidism, unspecified; Z90.49 Acquired absence of other specified parts of digestive tract; Z90.710 Acquired absence of both cervix and uterus; Z98.890 Other specified postprocedural states; Z88.1 Allergy status to other antibiotic agents; Z88.2 Allergy status to sulfonamides; Z79.4 Long term (current) use of insulin; Z79.899 Other long term (current) drug therapy; Z95.1 Presence of aortocoronary bypass graft
CPT/HCPCS: 36415; 71045; 74018; 80053; 80305; 80320; 81001; 81025; 82948; 83036; 83690; 84443; 84484; 85025; 87088; 93005; 94640; 94760; 96372; 99284; 99285; J1815; J7626

== ENCOUNTER 2019-05-14 11:59 | Emergency (ER) | payer MEDICARE, MEDICAID ==
[~2019-05-14] VITALS: Ht 160 cm; Wt 83.6 kg
[~2019-05-14 11:59] MED LIST changes: +BUPR100T7 PO; -BUPR1PAT20 TD; -BUPR200T10 PO; -FERR325T28 PO; -GABA300C PO; +HYDR50TA65 PO; -INSU100C10 SQ; +INSU100C4 SQ; -INSU100I31 SQ; +INSU100V41 SUBCUT; -LACTC PO; +LIRA0.6P2 SUBCUT; -MAGN400O6 PO; -METF500T PO; -METR500T PO; +OLAN5TAB26 PO; -OLAN5TAB3 PO; -OMEP20TA5 PO; -OXYC-658 PO; -PRAM0.253 PO; +ZIPR20CA12 PO; -ZIPR40CA2 PO
[2019-05-14 12:57] LABS: BASOPHILS % (AUTO) 0.5 % (0-1); EOSINOPHILS % (AUTO) 1.1 % (0-6); HEMATOCRIT 30.6 % (35.0-45.0); HEMOGLOBIN 10.5 g/dl (12.0-16.0); LYMPHOCYTES # (AUTO) 0.4 X10'3 (1.1-4.8); LYMPHOCYTES % (AUTO) 11.1 % (21-51); MEAN CORPUSCULAR HEMOGLOBIN 32.8 PG (27.0-31.0); MEAN CORPUSCULAR HGB CONC 34.2 g/dL (33.0-36.5); MEAN CORPUSCULAR VOLUME 95.8 FL (78-98); MEAN PLATELET VOLUME 8.3 FL (7.4-10.4); MONOCYTES # (AUTO) 0.2 X10'3 (0-0.9); MONOCYTES % (AUTO) 5.1 % (2-12); NEUTROPHILS # (AUTO) 3.3 X10'3 (1.8-7.7); NEUTROPHILS % (AUTO) 82.2 % (42-75); RED CELL DISTRIBUTION WIDTH 16.3 % (11.5-14.5)
[2019-05-14 12:58] LABS: UA COLLECTION TYPE CLN CATCH MIDSTREAM
[2019-05-14 12:59] LABS: CLARITY,URINE CLEAR (Clear); COLOR,URINE YELLOW (Yellow); GLUCOSE, URINE >=1000 mg/dl (Neg); KETONES,URINE NEGATIVE (Neg); LEUKOCYTE ESTERASE ,URINE NEGATIVE (Neg); NITRITES, URINE NEGATIVE (Neg); OCCULT BLOOD,URINE NEGATIVE (Neg); PH,URINE 7.5 (4.8-8.0); PROTEIN,URINE TRACE mg/dl (Neg)
[2019-05-14 13:04] LABS: ALANINE AMINOTRANSFERASE 90 U/L (12-78); ALBUMIN 3.8 G/DL (3.4-5.0); ALKALINE PHOSPHATASE 258 IU/L (46-116); ANION GAP 8 (8-16); ASPARTATE AMINO TRANSFERASE 61 U/L (10-37); BILIRUBIN,TOTAL 0.9 MG/DL (0.1-1.0); BLOOD UREA NITROGEN 33 MG/DL (7-18); BUN/CREATININE RATIO 16.9 (6.6-38.0); CHLORIDE 109 MMOL/L (99-107); CREATININE 1.95 MG/DL (0.40-0.90); GLUCOSE 88 MG/DL (70-104); PLATELET COUNT 38 X10'3 (140-440); POTASSIUM 3.9 MMOL/L (3.5-5.1); SODIUM 144 MMOL/L (135-145); TOTAL CARBON DIOXIDE 26.8 MMOL/L (24-32); TOTAL PROTEIN 7.8 G/DL (6.4-8.2); eGFR 26 ML/MIN
[2019-05-14 13:10] LABS: BACTERIA,URINE FEW /HPF (Neg); MUCUS STRANDS NONE SEEN /LPF (Neg); RBC,URINE 0-2 /HPF (0-2); SQUAMOUS EPITHELIAL CELL,UR MODERATE /LPF (FEW); WBC,URINE 0-4 /HPF (0-4)
[2019-05-14 13:13] LABS: ETHANOL < 0.010 GM/DL (0.0-0.010)
[2019-05-14 13:38] LABS: URINE AMPHETAMINE SCREEN NEGATIVE (Neg); URINE BARBITUATE SCREEN NEGATIVE (Neg); URINE BENZODIAZEPINES SCREEN NEGATIVE (Neg); URINE CANNABINOID SCREEN NEGATIVE (Neg); URINE COCAINE SCREEN NEGATIVE (Neg); URINE METHADONE SCREEN NEGATIVE (Neg); URINE OPIATE SCREEN NEGATIVE (Neg); URINE PHENCYCLIDINE SCREEN NEGATIVE (Neg)
[2019-05-14] MEDS ORDERED: BUPR1PAT TOP (13:40)
--- NOTE | 2019-05-14 14:58 | NUR ---
PT MOVED FROM ER16 TO OF 25
[2019-05-14] MEDS ORDERED: albuterol 2.5 MG/3 ML nebule NEB PRN (15:30)
[2019-05-14] MEDS ORDERED: docusate sod 100mg capsule PO PRN (15:40)
[2019-05-14] MEDS ORDERED: ondansetron 4mg rapidly disintigrating tab PO PRN (15:45)
[2019-05-14] MEDS: insulin Lispro (HumaLOG) vial - multi-dose SQ SCH (17:00)
--- NOTE | 2019-05-14 17:30 | NUR ---
PT SLEEPING, IN NO NOTED DISTRESS
--- NOTE | 2019-05-14 17:57 | NUR ---
CARB CONTROLED/RENAL DIET SAFETY DINNER TRAY DELIVERED TO BEDSIDE. PC GLUCOSE OBTAINED
--- NOTE | 2019-05-14 18:58 | NUR ---
Patient chart faxed to [facility] at 18:55
--- NOTE | 2019-05-14 19:00 | NUR ---
Patient did not receive insulin as ordered at 1700 by previous RN d/t blood sugar only at 94 prior to dinner. Recheck of blood sugar after dinner at 130. Patient states she is aware of her s/s of low blood sugar. Will continue to monitor. Addendum: 05/15/19 at 0551 by TACO Patient had consumed 45 carbs at dinner time.
[2019-05-14] MEDS: albuterol 2.5 MG/3 ML nebule NEB SCH (19:10)
[2019-05-14] MEDS: metoprolol tartrate 12.5mg (1/2 tablet) PO SCH (19:41)
--- NOTE | 2019-05-14 19:45 | NUR ---
Dr. Rodriges called and stated he would be in to see Pt in the morning. Pt made aware.
--- NOTE | 2019-05-14 20:00 | NUR ---
HIDE PULLER came to assess patient.
--- NOTE | 2019-05-14 20:53 | NUR ---
Patient packet received by [facility]
[2019-05-14] MEDS ORDERED: montelukast 10mg tablet PO SCH (21:00)
--- NOTE | 2019-05-14 21:05 | NUR ---
RN covering for break did assessment. This nurse agrees apart from changes that have been made.
[2019-05-14] MEDS: furosemide 20MG tablet PO SCH (21:20)
[2019-05-14] MEDS: budesonide 0.5mg/2ml UD nebule IH SCH (22:08)
--- NOTE | 2019-05-14 22:10 | NUR ---
Patient received breathing tx. Patient has dry cough, lungs remain CTA.
--- NOTE | 2019-05-14 22:32 | NUR ---
New order for prn lozenge for dry cough/sore throat obtained.
[2019-05-14] MEDS: benzocaine/menthol oral lozeng 1 EACH BOX MM PRN (22:56)
--- NOTE | 2019-05-14 23:43 | NUR ---
Patient laying on her back in bed. Eyes are closed. Continues to have intermittent coughing.
--- NOTE | 2019-05-15 00:45 | NUR ---
Patient OOB to bathroom. Patient voided 300cc urine in hat in toilet, medium brandon color, slight odor.
--- NOTE | 2019-05-15 01:33 | NUR ---
Patient resting peacefully, coughing appears to have subsided for now.
--- NOTE | 2019-05-15 03:30 | NUR ---
Patient resting comfortably on her right side.
[2019-05-15] MEDS: benzocaine/menthol oral lozeng 1 EACH BOX MM PRN (04:56)
--- NOTE | 2019-05-15 05:01 | NUR ---
Patient just given another cough drop lozenge. Patient then went to the bathroom to void.
--- NOTE | 2019-05-15 05:45 | NUR ---
Patient no longer coughing and sleeping peacefully.
[2019-05-15 05:50] VITALS: BP 136/73
[2019-05-15] MEDS ORDERED: levoTHYROXINE 100mcg tablet PO SCH (07:00)
[2019-05-15] MEDS: insulin Lispro (HumaLOG) vial - multi-dose SQ SCH ×2 (07:00→12:00)
[2019-05-15] MEDS ORDERED: INSULIN DEGLUDEC SQ SCH (08:00)
[2019-05-15] MEDS ORDERED: atorvastatin 10mg tablet PO SCH (08:00)
[2019-05-15] MEDS ORDERED: loratadine 10mg tablet PO SCH (08:00)
[2019-05-15] MEDS ORDERED: VICTOZA 1.8 MG SQ SCH (08:00)
[2019-05-15] MEDS ORDERED: clopidogrel 75mg tablet PO SCH (08:00)
[2019-05-15 08:13] LABS: ALBUMIN 3.4 G/DL (3.4-5.0); ANION GAP 11 (8-16); BLOOD UREA NITROGEN 32 MG/DL (7-18); BUN/CREATININE RATIO 16.8 (6.6-38.0); CALCIUM 8.6 MG/DL (8.5-10.1); CHLORIDE 109 MMOL/L (99-107); GLUCOSE 100 MG/DL (70-104); MAGNESIUM 2.4 MG/DL (1.5-2.4); POTASSIUM 3.8 MMOL/L (3.5-5.1); SODIUM 143 MMOL/L (135-145); TOTAL CARBON DIOXIDE 23.4 MMOL/L (24-32); eGFR 27 ML/MIN
[2019-05-15] MEDS: metoprolol tartrate 12.5mg (1/2 tablet) PO SCH (08:18)
[2019-05-15] MEDS: furosemide 20MG tablet PO SCH ×2 (08:18→13:00)
--- NOTE | 2019-05-15 08:24 | NUR ---
we do not have pt's home insulin. friend is to bring them in. pt's bs have been normal so insulin has not been needed yet
[2019-05-15] MEDS ORDERED: spironolactone 25 MG tablet PO SCH (08:30)
[2019-05-15] MEDS: budesonide 0.5mg/2ml UD nebule IH SCH (08:49)
[2019-05-15] MEDS: albuterol 2.5 MG/3 ML nebule NEB SCH ×3 (08:49→15:50)
[2019-05-15] MEDS ORDERED: epoetin 20,000 units/ml inj IV ONE (11:20)
[2019-05-15] MEDS ORDERED: albumin (human) 25% 100ml IV 100 ML IV PRN (11:20)
[2019-05-15] MEDS ORDERED: heparin 1,000 units/ml 10ml inj HE ONE ×2 (11:25)
--- NOTE | 2019-05-15 12:35 | NUR ---
pt in room 29 in overflow getting diaylsis
[2019-05-15] MEDS ORDERED: ziprasidone 20mg capsule PO ONE (13:25)
[2019-05-15] MEDS ORDERED: buPROPion SR 100mg tab PO ONE (13:25)
--- NOTE | 2019-05-15 14:00 | NUR ---
pt in dialysis
--- NOTE | 2019-05-15 16:28 | NUR ---
pt awaiting friend to give her a ride home
[2019-05-15] MEDS ORDERED: ziprasidone 20mg capsule PO SCH (20:00)
[2019-05-15] MEDS ORDERED: buPROPion SR 100mg tab PO SCH (20:00)
[2019-05-17] MEDS ORDERED: BUPRENORPHINE TP SCH (09:00)
== END 2019-05-15 17:19 ==
LOC: ER 11:59
DX: R45.851 Suicidal ideations (principal); I13.2 Hypertensive heart and chronic kidney disease with heart failure and with stage 5 chronic kidney disease, or end stage renal disease; E11.22 Type 2 diabetes mellitus with diabetic chronic kidney disease; N18.6 End stage renal disease; I50.9 Heart failure, unspecified; E78.00 Pure hypercholesterolemia, unspecified; J44.9 Chronic obstructive pulmonary disease, unspecified; E03.9 Hypothyroidism, unspecified; G89.29 Other chronic pain; F41.9 Anxiety disorder, unspecified; F31.9 Bipolar disorder, unspecified; F20.9 Schizophrenia, unspecified; Z99.2 Dependence on renal dialysis; Z90.49 Acquired absence of other specified parts of digestive tract; Z90.710 Acquired absence of both cervix and uterus; Z98.890 Other specified postprocedural states; Z95.1 Presence of aortocoronary bypass graft
CPT/HCPCS: 36415; 80053; 80069; 80305; 80320; 81001; 82948; 83735; 84443; 85025; 94640; 94760; 96374; 99285; J1644; J2405; Q4081; G0257; J1815; J7626

== ENCOUNTER 2019-07-21 19:40 | Emergency (ER) | payer MEDICARE, MEDICAID ==
[~2019-07-21] VITALS: Ht 160 cm; Wt 90.9 kg
[~2019-07-21 19:40] MED LIST changes: +BUPR1PAT TOP; -HYDR50TA65 PO
[2019-07-21] MEDS ORDERED: Permethrin Cream 60gm TP ONE (19:50)
[2019-07-21] MEDS ORDERED: Permethrin 1% 59ml topical rinse TP ONE (19:50)
[2019-07-21 20:51] LABS: BASOPHILS % (AUTO) 0.4 % (0-1); EOSINOPHILS # (AUTO) 0.1 X10'3 (0-0.9); EOSINOPHILS % (AUTO) 1.2 % (0-6); HEMATOCRIT 22.9 % (35.0-45.0); HEMOGLOBIN 7.9 g/dl (12.0-16.0); LYMPHOCYTES # (AUTO) 0.6 X10'3 (1.1-4.8); LYMPHOCYTES % (AUTO) 13.3 % (21-51); MEAN CORPUSCULAR HEMOGLOBIN 33.4 PG (27.0-31.0); MEAN CORPUSCULAR HGB CONC 34.6 g/dL (33.0-36.5); MEAN CORPUSCULAR VOLUME 96.5 FL (78-98); MEAN PLATELET VOLUME 8.7 FL (7.4-10.4); MONOCYTES # (AUTO) 0.2 X10'3 (0-0.9); MONOCYTES % (AUTO) 4.1 % (2-12); NEUTROPHILS # (AUTO) 3.5 X10'3 (1.8-7.7); RED BLOOD COUNT 2.37 X10'6 (4.20-5.60); RED CELL DISTRIBUTION WIDTH 17.7 % (11.5-14.5); WHITE BLOOD COUNT 4.4 X10'3 (4.5-11.0)
[2019-07-21 21:01] LABS: ALANINE AMINOTRANSFERASE 42 U/L (12-78); ALBUMIN 3.4 G/DL (3.4-5.0); ALBUMIN/GLOBULIN RATIO 0.8 (1.1-1.5); ALKALINE PHOSPHATASE 230 IU/L (46-116); ANION GAP 8 (8-16); ASPARTATE AMINO TRANSFERASE 37 U/L (10-37); BILIRUBIN,TOTAL 0.7 MG/DL (0.1-1.0); BLOOD UREA NITROGEN 11 MG/DL (7-18); BUN/CREATININE RATIO 7.9 (6.6-38.0); CALCIUM 8.5 MG/DL (8.5-10.1); CHLORIDE 103 MMOL/L (99-107); GLUCOSE 193 MG/DL (70-104); POTASSIUM 3.5 MMOL/L (3.5-5.1); SODIUM 142 MMOL/L (135-145); TOTAL CARBON DIOXIDE 31.3 MMOL/L (24-32); TOTAL PROTEIN 7.8 G/DL (6.4-8.2); eGFR 39 ML/MIN
[2019-07-21 21:10] LABS: PLATELET COUNT 47 X10'3 (140-440)
[2019-07-21 21:13] LABS: PARTIAL THROMBOPLASTIN TIME 26 SECONDS (22-32)
[2019-07-21] MEDS ORDERED: bisacodyl 10mg suppository rectal RC STA (21:34)
[2019-07-21] MEDS ORDERED: ondansetron/PF 4mg/2ml inj IV ONE (23:20)
[2019-07-21 23:58] VITALS: BP 117/58
[2019-07-24 11:42] LABS: OCCULT BLOOD STOOL NEGATIVE (Neg)
== END 2019-07-22 00:21 | disposition home or self-care (01) ==
LOC: ER 19:41
DX: D64.89 Other specified anemias (principal); K59.00 Constipation, unspecified; I13.2 Hypertensive heart and chronic kidney disease with heart failure and with stage 5 chronic kidney disease, or end stage renal disease; E11.22 Type 2 diabetes mellitus with diabetic chronic kidney disease; N18.6 End stage renal disease; I50.9 Heart failure, unspecified; E78.00 Pure hypercholesterolemia, unspecified; J44.9 Chronic obstructive pulmonary disease, unspecified; E03.9 Hypothyroidism, unspecified; G89.29 Other chronic pain; F41.9 Anxiety disorder, unspecified; F31.9 Bipolar disorder, unspecified; F20.9 Schizophrenia, unspecified; Z90.49 Acquired absence of other specified parts of digestive tract; Z90.710 Acquired absence of both cervix and uterus; Z99.2 Dependence on renal dialysis; Z98.890 Other specified postprocedural states; Z95.1 Presence of aortocoronary bypass graft
CPT/HCPCS: 36415; 80053; 85025; 85610; 85730; 86870; 86885; 86900; 86901; 86902; 86905; 96374; 99284; J2405; 82272

== ENCOUNTER 2019-07-25 16:49 | Emergency (ER) | payer MEDICARE, MEDICAID ==
[~2019-07-25] VITALS: Ht 160 cm; Wt 88.2 kg
[2019-07-25 17:04] VITALS: BP 135/64
--- NOTE | 2019-07-25 18:05 | NUR ---
PT REGISTERED AN ER PT AND BLOOD WAS DRAWN ACCORDING TO HER CONTRACT WITH OUR LAB. SHE DIDNT WANT TO STAY TO BE TREATED IN THE ER ONLY TO HAVE HER BLOOD DRAWN. PT LEFT AND WILL BE AN ELOPEMENT.
== END 2019-07-25 18:07 | disposition left against medical advice (07) ==
LOC: ER 16:50
DX: R79.9 Abnormal finding of blood chemistry, unspecified (principal); E78.00 Pure hypercholesterolemia, unspecified; J44.9 Chronic obstructive pulmonary disease, unspecified; E03.9 Hypothyroidism, unspecified; G89.29 Other chronic pain; I13.0 Hypertensive heart and chronic kidney disease with heart failure and stage 1 through stage 4 chronic kidney disease, or unspecified chronic kidney disease; E11.22 Type 2 diabetes mellitus with diabetic chronic kidney disease; N18.9 Chronic kidney disease, unspecified; I50.9 Heart failure, unspecified; Z98.890 Other specified postprocedural states; Z90.49 Acquired absence of other specified parts of digestive tract; Z90.710 Acquired absence of both cervix and uterus; Z99.2 Dependence on renal dialysis; Z88.1 Allergy status to other antibiotic agents; Z88.6 Allergy status to analgesic agent; Z88.2 Allergy status to sulfonamides; Z79.4 Long term (current) use of insulin; Z79.899 Other long term (current) drug therapy
CPT/HCPCS: 99281

== ENCOUNTER 2019-08-28 18:16 | Emergency (ER) | payer MEDICARE, MEDICAID ==
[~2019-08-28] VITALS: Ht 160 cm; Wt 86.0 kg
[2019-08-28] MEDS ORDERED: OLAN10TA3 PO (18:58)
[2019-08-28] MEDS ORDERED: ZIPR80CA2 PO (18:58)
[2019-08-28] MEDS ORDERED: BUPR200T34 (18:58)
--- NOTE | 2019-08-28 19:00 | NUR ---
The patient is 59 year old female admitted on a 5150 hold for DTS after being brought in by [facility]. She reports she has been feeling hopeless and helpless and stopped all of her medications 5 days ago and has not received her HD. She is cooperative with intake. Currently she denies auditory or visual hallucinations.
[2019-08-28 19:48] LABS: BASOPHILS % (AUTO) 0.5 % (0-1); EOSINOPHILS % (AUTO) 0.8 % (0-6); HEMATOCRIT 28.1 % (35.0-45.0); HEMOGLOBIN 9.7 g/dl (12.0-16.0); LYMPHOCYTES # (AUTO) 0.6 X10'3 (1.1-4.8); LYMPHOCYTES % (AUTO) 15.4 % (21-51); MEAN CORPUSCULAR HEMOGLOBIN 32.1 PG (27.0-31.0); MEAN CORPUSCULAR HGB CONC 34.6 g/dL (33.0-36.5); MEAN CORPUSCULAR VOLUME 92.8 FL (78-98); MEAN PLATELET VOLUME 7.6 FL (7.4-10.4); MONOCYTES # (AUTO) 0.2 X10'3 (0-0.9); MONOCYTES % (AUTO) 4.1 % (2-12); NEUTROPHILS % (AUTO) 79.2 % (42-75); RED BLOOD COUNT 3.03 X10'6 (4.20-5.60); RED CELL DISTRIBUTION WIDTH 17.5 % (11.5-14.5); WHITE BLOOD COUNT 3.8 X10'3 (4.5-11.0)
[2019-08-28 19:59] LABS: PLATELET COUNT 40 X10'3 (140-440)
[2019-08-28] MEDS ORDERED: docusate sod 100mg capsule PO PRN (20:00)
[2019-08-28 20:04] LABS: ALANINE AMINOTRANSFERASE 36 U/L (12-78); ALBUMIN 3.5 G/DL (3.4-5.0); ALBUMIN/GLOBULIN RATIO 0.9 (1.1-1.5); ALKALINE PHOSPHATASE 214 IU/L (46-116); ANION GAP 9 (8-16); ASPARTATE AMINO TRANSFERASE 38 U/L (10-37); BILIRUBIN,TOTAL 0.7 MG/DL (0.1-1.0); BLOOD UREA NITROGEN 37 MG/DL (7-18); BUN/CREATININE RATIO 22.7 (6.6-38.0); CALCIUM 8.6 MG/DL (8.5-10.1); CHLORIDE 107 MMOL/L (99-107); CREATININE 1.63 MG/DL (0.40-0.90); ETHANOL < 0.010 GM/DL (0.0-0.010); GLUCOSE 107 MG/DL (70-104); POTASSIUM 4.4 MMOL/L (3.5-5.1); SODIUM 141 MMOL/L (135-145); TOTAL CARBON DIOXIDE 24.9 MMOL/L (24-32); TOTAL PROTEIN 7.6 G/DL (6.4-8.2); eGFR 33 ML/MIN
--- NOTE | 2019-08-28 20:14 | NUR ---
The patient's BG is 77 and she is refusing treatment at this time.
--- NOTE | 2019-08-28 20:24 | NUR ---
PATIENT PROVIDED JUICE THAT SHE ASKED FOR DUE TO HER BLOOD SUGAR OF 77. THEN, PATIENT REFUSED TO DRINK ANY JUICE. DR REGALADOFS INFORMED. WANTS TO REPEAT ACCUCHECK AT 4609
--- NOTE | 2019-08-28 20:42 | NUR ---
Note ozzy in EDM - 08/28/19 at 2048 by JEREMIAH NOTE THAT [facility] IS LOCLED ONTO THE MEDICATION RECONCILIATION [facility][NOTE 3] OFFICE CALLED AND NEEDS THE JEREMÍAS T'S FACE SHEET UPDATED, SOCIAL SECURITY NUMBER AND INSURANCE INFORMATION AND CONTACT PRIMARY ZEN LANDRY DOES NOT WANT TO BOTHER THE PARENTS OBTAINING THIS INFORMATION. FATHER IS CURRENTLY ON HIS PHONE AWAY FROM THE BED.
--- NOTE | 2019-08-28 20:48 | NUR ---
PREVIOUS NOTE ON WRONG PATIENT
[2019-08-28] MEDS: montelukast 10mg tablet PO SCH (21:00)
[2019-08-28] MEDS: olanzapine 10mg tablet PO SCH (21:00)
[2019-08-28] MEDS: furosemide 20MG tablet PO SCH (21:00)
[2019-08-28] MEDS ORDERED: albuterol 2.5 MG/3 ML nebule NEB PRN (21:20)
--- NOTE | 2019-08-28 21:22 | NUR ---
The patient is refusing medications and she is refusing a repeat accucheck at thist time.
[2019-08-28] MEDS ORDERED: Buprenorphine (Butrans) 1 PATCH TP SCH (21:25)
[2019-08-28] MEDS: metoprolol tartrate 12.5mg (1/2 tablet) PO SCH (21:31)
--- NOTE | 2019-08-28 22:30 | NUR ---
The patient approached the nursing station and stated she was feeling shakey and asked for juice and crackers. BS 53. Provider aware. VItal sighns DAVID 141/73,
[2019-08-28] MEDS ORDERED: dextrose ORAL solution 15 GM/59 ML bottle PO PRN (22:35)
--- NOTE | 2019-08-28 22:46 | NUR ---
BS is now 60
--- NOTE | 2019-08-28 22:55 | NUR ---
The patient has refused any interventions. Refused Dex4. Refusing juice. asparagus cutter aware and Espinoza [place] also made aware.
--- NOTE | 2019-08-28 23:09 | NUR ---
Patient's BG is 72. The patient is uncooperative with interventions. She is wanting to . She continues to refuse medications.
--- NOTE | 2019-08-29 01:37 | NUR ---
The patient appears to be sleeping
--- NOTE | 2019-08-29 03:35 | NUR ---
The patient appears to be sleeping
--- NOTE | 2019-08-29 05:14 | NUR ---
The patient appears to be sleeping
[2019-08-29] MEDS: ondansetron 4mg rapidly disintigrating tab PO PRN ×2 (05:45→16:17)
--- NOTE | 2019-08-29 05:51 | NUR ---
The patient complained of nausea and did accept zofran. She also is reporting pain left upper chest and stated it was around her pacemaker. She stated the pain increases with deep breaths. The area around the pace maker was examined and there is no visable wound or s/s of infection. Dr. Beverly is aware that she is complaining of pain in that area. The patient is refusing an EKG at this time.
--- NOTE | 2019-08-29 06:30 | NUR ---
Patient sleeping. No distress observed. Continue to monitor.
[2019-08-29] MEDS: insulin Lispro (HumaLOG) vial - multi-dose SQ SCH ×3 (07:00→17:00)
--- NOTE | 2019-08-29 07:56 | NUR ---
Patient asleep and RN awoke patient. Patient again refuses blood glucose check. Continue to monitor.
[2019-08-29] MEDS: budesonide 0.5mg/2ml UD nebule IH SCH ×2 (08:00→09:23)
[2019-08-29] MEDS: buPROPion SR 100mg tab PO SCH ×2 (08:00→20:00)
[2019-08-29] MEDS: metoprolol tartrate 12.5mg (1/2 tablet) PO SCH ×2 (08:00→20:00)
[2019-08-29] MEDS: atorvastatin 10mg tablet PO SCH (08:00)
[2019-08-29] MEDS: spironolactone 25 MG tablet PO SCH (08:00)
[2019-08-29] MEDS: levoTHYROXINE 100mcg tablet PO SCH (08:00)
[2019-08-29] MEDS: furosemide 20MG tablet PO SCH ×3 (08:00→20:13)
[2019-08-29] MEDS: clopidogrel 75mg tablet PO SCH (08:00)
[2019-08-29] MEDS: insulin glargine (Lantus) pen - multi-dose SQ SCH (08:00)
[2019-08-29] MEDS: loratadine 10mg tablet PO SCH (08:00)
[2019-08-29] MEDS: LIRAGLUTIDE 0.6 MG/0.1 ML PEN.INJCTR SQ SCH (08:00)
[2019-08-29] MEDS: ziprasidone 20mg capsule PO SCH ×2 (08:00→20:00)
--- NOTE | 2019-08-29 08:10 | NUR ---
RN spoke with patient and stated she doesn't want her medication. Patient is refusing her breakfast. Patient told RN that she has nothing to live for, patient doesn't have any family and wants to . Patient was tearful. Continue to monitor.
[2019-08-29 08:38] LABS: URINE AMPHETAMINE SCREEN NEGATIVE (Neg); URINE BARBITUATE SCREEN NEGATIVE (Neg); URINE BENZODIAZEPINES SCREEN NEGATIVE (Neg); URINE CANNABINOID SCREEN NEGATIVE (Neg); URINE COCAINE SCREEN NEGATIVE (Neg); URINE METHADONE SCREEN NEGATIVE (Neg); URINE OPIATE SCREEN POSITIVE (Neg); URINE PHENCYCLIDINE SCREEN NEGATIVE (Neg)
--- NOTE | 2019-08-29 09:24 | NUR ---
patient refused svn tx Addendum: 08/29/19 at 0924 by Karo Khalil RT Amended: Links added.
--- NOTE | 2019-08-29 09:55 | NUR ---
Patient sleeping on left side. No distress observed. Continue to monitor.
--- NOTE | 2019-08-29 11:38 | NUR ---
Patient sleeping on right side. No distress observed. Continue to monitor.
[2019-08-29 12:05] LABS: CLARITY,URINE SLIGHTLY CLOUDY (Clear); COLOR,URINE YELLOW (Yellow); GLUCOSE, URINE NEGATIVE (Neg); KETONES,URINE NEGATIVE (Neg); LEUKOCYTE ESTERASE ,URINE SMALL (Neg); NITRITES, URINE NEGATIVE (Neg); OCCULT BLOOD,URINE NEGATIVE (Neg); PROTEIN,URINE NEGATIVE (Neg); UROBILINOGEN,URINE 0.2 E.U/dL (0.2-1.0)
[2019-08-29 12:06] LABS: UA COLLECTION TYPE CLN CATCH MIDSTREAM
[2019-08-29 12:15] LABS: BACTERIA,URINE 2+ /HPF (Neg); RBC,URINE 0-2 /HPF (0-2); SQUAMOUS EPITHELIAL CELL,UR MANY /LPF (FEW)
--- NOTE | 2019-08-29 13:30 | NUR ---
[facility]
--- NOTE | 2019-08-29 14:10 | NUR ---
Patient is now on a 5150. Patient sleeping on her left side. No distress observed. Continue to monitor.
--- NOTE | 2019-08-29 15:37 | NUR ---
Patient refused lunch. Patient is now sleeping on her right side. Continue to monitor.
[2019-08-29] MEDS ORDERED: traMADol 50MG tablet PO ONE (16:05)
--- NOTE | 2019-08-29 16:17 | NUR ---
PT GIVEN ZOFRAN FOR NAUSEA ALONG WITH JUICE AND CRACKERS. PT WOULD ONLY TAKE A SMALL SIP OF THE JUICE TO SWALLOW THE ZOFRAN DOWN WITH, REFUSES THE CRACKERS.
--- NOTE | 2019-08-29 16:35 | NUR ---
Patient got upset and attempted to walk out. Patrick Pichardo stood in front of patient and then Patrick Trejo walked patient back to her bed. Continue to monitor.
--- NOTE | 2019-08-29 17:31 | NUR ---
RN gave patient her pain medication and patient refused to eat anything with the Tramadol as recommended.
--- NOTE | 2019-08-29 17:43 | NUR ---
Patient's caregiver and caregiver's visiting with patient. Continue to monitor.
--- NOTE | 2019-08-29 19:03 | NUR ---
Patient is resting on her right side. She states that she continues to feel helpless and that she wishes to by refusing dialysis. Patient agrees to allow blood sugar check and vital signs to be performed as she is not feeling hungry and had several low blood sugars yesterday. Patient requests medication for pain. Will speak to MD regarding pain medication.
--- NOTE | 2019-08-29 19:39 | NUR ---
Blood sugar checked which is 67. Patient encouraged to eat or drink. She refuses to do either stating, "I'm not hungry." I encouraged her to sip juice or nibble no crackers but she continues to refuse. Patient has mild tremors in her hands but is otherwise alert, oriented, and appropriate. Will continue to closely monitor patient for worsening hypoglycemia.
[2019-08-29] MEDS: cephalexin 500mg capsule PO SCH ×2 (20:00→20:13)
--- NOTE | 2019-08-29 20:01 | NUR ---
Encouraged patient again to eat or drink to raise blood sugar. Patient continues to refuse. She states, "I'm too nauseated from the pain. Bring me pain medicine first."
[2019-08-29] MEDS: olanzapine 10mg tablet PO SCH (20:13)
[2019-08-29] MEDS: montelukast 10mg tablet PO SCH (20:13)
--- NOTE | 2019-08-29 20:14 | NUR ---
Patient sleeping on right side but is easily arousable. Patient refuses to take all evening medications despite education and encouragement.
--- NOTE | 2019-08-29 21:01 | NUR ---
Patient is lying supine in bed. Blood sugar is rechecked and it is now 62. Patient is still AOx4 and refusing to eat or drink. Spoke to Dr. Beverly about the patient and her condition. He states he will come back to see the patient shortly.
--- NOTE | 2019-08-29 21:08 | NUR ---
Dr. Beverly to bedside to encourage patient to eat to bring her blood sugar up. Patient yells, "No, I won't! You can't make me!"
--- NOTE | 2019-08-29 21:40 | NUR ---
Patient is awake laying supine in bed. She remains AOx4 and continues to refuse food or drink.
--- NOTE | 2019-08-29 22:12 | NUR ---
Patient asleep but is easily aroused. Encouraged patient to eat which she again refuses.
--- NOTE | 2019-08-29 22:36 | NUR ---
Blood sugar 69. Patient remains AOx4 and continues to refuse food or drink.
[2019-08-29] MEDS ORDERED: dextrose 50%-water 50ml dispensing syringe IV ONE (23:45)
--- NOTE | 2019-08-29 23:57 | NUR ---
Blood sugar was 62. Patient was unable to tell me her name, birthday, or her current location. Spoke to Dr. Beverly who requests an IV start and 1/2 amp of D50 as the patient continues to refuse oral intake. IV initiated and dextrose was given. Will re-evaluate patient's blood sugar and mentation status shortly.
[2019-08-30] MEDS: HYDROcodone/acetaminophen 10/325mg tab PO PRN ×2 (00:09→08:53)
[2019-08-30] MEDS: ondansetron 4mg rapidly disintigrating tab PO PRN ×2 (00:09→08:52)
--- NOTE | 2019-08-30 00:12 | NUR ---
Blood sugar is 126. Patient is now awake, alert, and oriented x4. Patient complains of feeling thirsty and painful. Patient consumes two juice boxes. [place] and zofran given for her pain. Will continue to closely monitor her for hypoglycemia.
--- NOTE | 2019-08-30 01:08 | NUR ---
Patient's blood sugar 135. She continues to complain of pain despite norco given. Will speak to MD about her pain complaint.
[2019-08-30] MEDS ORDERED: HYDROcodone/acetaminophen 10/325mg tab PO ONE (02:30)
--- NOTE | 2019-08-30 02:47 | NUR ---
Patient medicated for pain and she appears to return to sleep.
--- NOTE | 2019-08-30 04:03 | NUR ---
Patient continues to sleep.
--- NOTE | 2019-08-30 04:57 | NUR ---
Patient is sobbing and complaining of 9/[address] Beverly and request 0.5mg dilaudid as she states this has worked for this type of pain in the past. Order obtained and will be given when available.
[2019-08-30] MEDS ORDERED: HYDROmorphone 2mg/ml vial IV PRN (05:00)
[2019-08-30] MEDS ORDERED: HYDROmorphone inj. 0.5 MG/0.5 ML DISP.SYRIN IV ONE (05:10)
--- NOTE | 2019-08-30 06:00 | NUR ---
asleep in bed
[2019-08-30] MEDS: insulin Lispro (HumaLOG) vial - multi-dose SQ SCH ×2 (07:00→12:00)
[2019-08-30] MEDS: insulin glargine (Lantus) pen - multi-dose SQ SCH (08:00)
[2019-08-30] MEDS: cephalexin 500mg capsule PO SCH ×2 (08:00→08:54)
[2019-08-30] MEDS: LIRAGLUTIDE 0.6 MG/0.1 ML PEN.INJCTR SQ SCH (08:00)
--- NOTE | 2019-08-30 08:00 | NUR ---
Resting in bed sleeping
[2019-08-30] MEDS ORDERED: dextrose ORAL solution 15 GM/59 ML bottle PO PRN (08:05)
[2019-08-30] MEDS ORDERED: dextrose 50%-water 50ml dispensing syringe IV PRN ×2 (08:05)
[2019-08-30] MEDS ORDERED: glucagon, human recombinant 1mg kit SUBCUT PRN (08:05)
--- NOTE | 2019-08-30 08:49 | NUR ---
Humalog and lantus and Liraglutide held. Patient refusing to eat Dr Vasquez aware and of patient not eating and okay with diabetic meds being held.
[2019-08-30] MEDS: clopidogrel 75mg tablet PO SCH (08:53)
[2019-08-30] MEDS: levoTHYROXINE 100mcg tablet PO SCH (08:53)
[2019-08-30] MEDS: atorvastatin 10mg tablet PO SCH (08:54)
[2019-08-30] MEDS: loratadine 10mg tablet PO SCH (08:54)
[2019-08-30] MEDS: metoprolol tartrate 12.5mg (1/2 tablet) PO SCH (08:54)
[2019-08-30] MEDS: furosemide 20MG tablet PO SCH ×2 (08:54→13:00)
[2019-08-30] MEDS: buPROPion SR 100mg tab PO SCH (08:55)
[2019-08-30] MEDS: ziprasidone 20mg capsule PO SCH (08:55)
[2019-08-30] MEDS: spironolactone 25 MG tablet PO SCH (08:56)
[2019-08-30 09:41] LABS: ALBUMIN 3.4 G/DL (3.4-5.0); ANION GAP 9 (8-16); BLOOD UREA NITROGEN 29 MG/DL (7-18); BUN/CREATININE RATIO 17.9 (6.6-38.0); CALCIUM 8.5 MG/DL (8.5-10.1); CHLORIDE 111 MMOL/L (99-107); CREATININE 1.62 MG/DL (0.40-0.90); GLUCOSE 111 MG/DL (70-104); SODIUM 146 MMOL/L (135-145); TOTAL CARBON DIOXIDE 26.4 MMOL/L (24-32); eGFR 33 ML/MIN
--- NOTE | 2019-08-30 09:48 | NUR ---
Vera called Dr. Anne's office at #[phone] and let them know she is willing to get a new fistula and receive her dialysis treatments. Dr. Anne's nurse is waiting to hear from Dr. Anne for the new orders.
--- NOTE | 2019-08-30 10:00 | NUR ---
In bed most times but walks around some
--- NOTE | 2019-08-30 12:00 | NUR ---
Patient mostly in bed does walk around at times
[2019-08-30 13:51] VITALS: BP 98/56
--- NOTE | 2019-08-30 14:30 | NUR ---
Discharged. PIV taking out. Wheeled out by tech. To be taken up to [facility].
== END 2019-08-30 14:29 ==
LOC: ER 18:17
DX: R45.851 Suicidal ideations (principal); R63.0 Anorexia; I13.2 Hypertensive heart and chronic kidney disease with heart failure and with stage 5 chronic kidney disease, or end stage renal disease; E11.22 Type 2 diabetes mellitus with diabetic chronic kidney disease; N18.6 End stage renal disease; I50.9 Heart failure, unspecified; J44.9 Chronic obstructive pulmonary disease, unspecified; E03.9 Hypothyroidism, unspecified; E78.00 Pure hypercholesterolemia, unspecified; G89.29 Other chronic pain; F41.9 Anxiety disorder, unspecified; F31.9 Bipolar disorder, unspecified; F20.9 Schizophrenia, unspecified; F10.99 Alcohol use, unspecified with unspecified alcohol-induced disorder; Z90.49 Acquired absence of other specified parts of digestive tract; Z99.2 Dependence on renal dialysis; Z90.710 Acquired absence of both cervix and uterus; Z98.890 Other specified postprocedural states; Z88.1 Allergy status to other antibiotic agents; Z88.2 Allergy status to sulfonamides; Z88.8 Allergy status to other drugs, medicaments and biological substances; Z79.4 Long term (current) use of insulin; Z79.899 Other long term (current) drug therapy; Y90.9 Presence of alcohol in blood, level not specified
CPT/HCPCS: 36415; 80048; 80053; 80305; 80320; 81001; 82948; 84443; 85025; 87088; 96374; 96375; 96376; 99285; J1170; J1815; J7626

== ENCOUNTER 2019-08-30 13:21 | Inpatient (IN) | payer MEDICARE, MEDICAID ==
[~2019-08-30] VITALS: Ht 160 cm; Wt 88.2 kg
[~2019-08-30 13:21] MED LIST changes: -BUPR100T7 PO; +BUPR200T34; +OLAN10TA3 PO; -ZIPR20CA12 PO; +ZIPR80CA2 PO
[2019-08-30] MEDS ORDERED: loperamide 2mg capsule PO PRN (13:35)
[2019-08-30] MEDS ORDERED: magnesium hydroxide 30ml (MOM) UD suspension PO PRN (13:35)
[2019-08-30] MEDS ORDERED: acetaminophen 325mg tablet PO PRN (13:35)
[2019-08-30] MEDS ORDERED: mag hydrox/Alum hydrox/simeth 30ml oral suspension PO PRN (13:35)
--- NOTE | 2019-08-30 14:33 | NUR ---
Admission note: At 1430 pt admitted to [place] for [facility] health on 5150 for DTS. Pt admitted for Depression NOS to room 326A. Pt states she has been stockpiling her medications to overdose. Pt also plans to pull out her dialysis catheter out. Pt stopped taking her medications a week ago stopped eating or sleeping and stopped dialysis. Pt has history of Bipolar, SchizophreniA, personality disorder and PTSD. Pt complains all of her family is diseased but has good relationship with her therapist Holly Ba.
[2019-08-30] MEDS ORDERED: docusate sod 100mg capsule PO PRN (14:50)
[2019-08-30] MEDS ORDERED: ondansetron 4mg rapidly disintigrating tab PO PRN (14:50)
[2019-08-30] MEDS ORDERED: albuterol 2.5 MG/3 ML nebule NEB PRN (14:50)
[2019-08-30 17:42] VITALS: BP 105/57
[2019-08-30] MEDS: insulin Lispro (HumaLOG) vial - multi-dose SQ SCH (17:56)
[2019-08-30 20:00] VITALS: BP 108/58
[2019-08-30] MEDS: ziprasidone 20mg capsule PO SCH (20:47)
[2019-08-30] MEDS: olanzapine 10mg tablet PO SCH (20:48)
[2019-08-30] MEDS: montelukast 10mg tablet PO SCH (20:48)
[2019-08-30] MEDS: buPROPion SR 150mg tablet PO SCH (20:48)
[2019-08-30] MEDS: metoprolol tartrate 12.5mg (1/2 tablet) PO SCH (20:48)
[2019-08-30] MEDS: acetaminophen 325mg tablet PO PRN (20:49)
[2019-08-30] MEDS: furosemide 20MG tablet PO SCH (20:49)
[2019-08-30] MEDS: albuterol 2.5 MG/3 ML nebule NEB SCH (21:00)
[2019-08-30] MEDS: budesonide 0.5mg/2ml UD nebule IH SCH (21:00)
[2019-08-30] MEDS ORDERED: OLANZAPINE 5 MG TABLET PO SCH (21:00)
[2019-08-31] VITALS (9 sets, daily range): BP systolic 106–134; BP diastolic 52–63
[2019-08-31] MEDS: acetaminophen 325mg tablet PO PRN (02:05)
--- NOTE | 2019-08-31 04:59 | NUR ---
Nursing Progress Note: Legal hold: 5150 Client on involuntary status for DTS Report received from YULIYA Zamorano with use of SBAR Why are they here: At 1430 pt admitted to [place] for [facility] health on 5150 for DTS. Pt admitted for Depression NOS to room 326A. Pt states she has been stockpiling her medications to overdose. Pt also plans to pull out her dialysis catheter out. Pt stopped taking her medications a week ago stopped eating or sleeping and stopped dialysis. Pt has history of Bipolar, SchizophreniA, personality disorder and PTSD. Pt complains all of her family is diseased but has good relationship with her therapist Holly Ba. Assessment What has happened this shift: Patient observed sitting in the recreational room watching TV at the beginning of shift. Patient isolates to herself and does not engage with peers and speaks minimally to staff. Patient is pleasant and cooperative to care. She endorses SI with no plan, denies HI. Patient states occasional AH but is unclear to what she is hearing as the sounds are "muffled." She also states she occationaly has VH of people inside her home. Patient explained before being admitted to the unit she stopped her dialysis Tx and stopped all her medications and continued to explain feeling overwhelmed with life. She claims living alone with no family present in her life. S/I, H/I: SI with no plan, denies HI A/VH: Muffled AH, VH of people inside her home Sleep: See sleep assessment ADL's: Independent Were Meds taken: Yes Any med S/E: None reported nor observed Mental Status Exam Appearance: Disheveled, appropriate attire for the unit Eye contact: Direct Behavior: Isolative to self, pleasant and cooperative Speech: Clear, audible, steady pace Mood: Depressed Affect: Blunted Thought process: Situational, does not offer information unless specifically asked Thought Content: Linear, thought blocking Cognition: A/Ox4 Insight: Poor Judgment: Poor Interventions PRN's used: Tylenol for pain, effective Therapeutic interventions: 1:1 therapeutic assessment, maintained safe therapeutic milieu, provided active listening with positive reinforcement, provided medication administration/education/monitoring as needed; Q15 safety checks. Restraints/seclusion/emergency medication: N/A Justification of Continued Inpatient Treatment: Continued therapeutic support and medication management needed to provide stabilization, prevent decompensation, improve coping mechanisms decreasing risk to patient and re-admittance.
[2019-08-31 07:29] LABS: BASOPHILS % (AUTO) 0.6 % (0-1); EOSINOPHILS % (AUTO) 0.8 % (0-6); HEMATOCRIT 28.8 % (35.0-45.0); HEMOGLOBIN 9.9 g/dl (12.0-16.0); LYMPHOCYTES # (AUTO) 0.7 X10'3 (1.1-4.8); LYMPHOCYTES % (AUTO) 21.6 % (21-51); MEAN CORPUSCULAR HEMOGLOBIN 32.2 PG (27.0-31.0); MEAN CORPUSCULAR HGB CONC 34.3 g/dL (33.0-36.5); MEAN CORPUSCULAR VOLUME 93.9 FL (78-98); MEAN PLATELET VOLUME 7.9 FL (7.4-10.4); MONOCYTES # (AUTO) 0.2 X10'3 (0-0.9); MONOCYTES % (AUTO) 5.6 % (2-12); NEUTROPHILS # (AUTO) 2.3 X10'3 (1.8-7.7); NEUTROPHILS % (AUTO) 71.4 % (42-75); RED BLOOD COUNT 3.06 X10'6 (4.20-5.60); WHITE BLOOD COUNT 3.2 X10'3 (4.5-11.0)
[2019-08-31 07:34] LABS: PLATELET COUNT 37 X10'3 (140-440)
[2019-08-31 07:40] LABS: ALBUMIN 3.5 G/DL (3.4-5.0); ANION GAP 9 (8-16); BLOOD UREA NITROGEN 33 MG/DL (7-18); BUN/CREATININE RATIO 17.7 (6.6-38.0); CALCIUM 8.7 MG/DL (8.5-10.1); CHLORIDE 110 MMOL/L (99-107); CHOL/HDL RATIO 2.7 (0.00-4.99); CHOLESTEROL 158 MG/DL (0-200); CREATININE 1.86 MG/DL (0.40-0.90); GLUCOSE 98 MG/DL (70-104); HDL CHOLESTEROL 58 MG/DL (35-60); LDL CHOLESTEROL 89 MG/DL (50-100); MAGNESIUM 2.2 MG/DL (1.5-2.4); PHOSPHORUS 3.7 MG/DL (2.3-4.5); POTASSIUM 3.9 MMOL/L (3.5-5.1); SODIUM 147 MMOL/L (135-145); TOTAL CARBON DIOXIDE 27.7 MMOL/L (24-32); TRIGLYCERIDES 93 MG/DL (20-135); eGFR 28 ML/MIN
[2019-08-31] MEDS: LIRAGLUTIDE 0.6 MG/0.1 ML PEN.INJCTR SQ SCH (08:00)
--- NOTE | 2019-08-31 08:00 | NUR ---
Lab called critically low PLTs 37. Dr Enrique is aware and ordered CMV- PLTS single dose pack.
[2019-08-31] MEDS ORDERED: LIDOcaine 1%/PF 5ML 10 MG/ML VIAL ONE (08:14)
[2019-08-31] MEDS: atorvastatin 10mg tablet PO SCH (08:36)
[2019-08-31] MEDS: ziprasidone 20mg capsule PO SCH ×2 (08:38→20:08)
[2019-08-31] MEDS: spironolactone 25 MG tablet PO SCH (08:38)
[2019-08-31] MEDS: metoprolol tartrate 12.5mg (1/2 tablet) PO SCH ×2 (08:39→20:07)
[2019-08-31] MEDS: clopidogrel 75mg tablet PO SCH (08:39)
[2019-08-31] MEDS: loratadine 10mg tablet PO SCH (08:40)
[2019-08-31] MEDS: albuterol 2.5 MG/3 ML nebule NEB SCH ×3 (08:40→20:06)
[2019-08-31] MEDS: levoTHYROXINE 100mcg tablet PO SCH (08:40)
[2019-08-31] MEDS: buPROPion SR 150mg tablet PO SCH ×2 (08:41→16:29)
[2019-08-31] MEDS: budesonide 0.5mg/2ml UD nebule IH SCH ×2 (08:41→20:06)
[2019-08-31] MEDS: furosemide 20MG tablet PO SCH ×3 (08:41→20:09)
[2019-08-31] MEDS: insulin Lispro (HumaLOG) vial - multi-dose SQ SCH ×3 (09:23→17:55)
--- NOTE | 2019-08-31 09:32 | NUR ---
Pt. c/o of chest pain. stat ekg ordered by provider but pt. refused. Cardiac enzymes ordered and nitroglycerin.
[2019-08-31] MEDS: nitroGLYCERIN 0.4mg SUBLingual tab SL PRN (11:20)
[2019-08-31] MEDS: HYDROcodone/acetaminophen 10/325mg tab PO PRN ×2 (13:42→20:08)
--- NOTE | 2019-08-31 14:49 | NUR ---
Met with Ct to complete Psychosocial Assessment. Ct was cooperative. She reported she wants to go home because she is in pain and not getting her pain medications. She reported she stopped taking her medications and was refusing dialysis. However, now it appears as if she does not need dialysis. Ct has housing and is seen by Dr Munoz out-patient. FRANKI Rico Addendum: 08/31/19 at 1451 by Rema Jasso Amended: Links added.
--- NOTE | 2019-08-31 17:15 | NUR ---
Nursing Progress Note: Legal hold: 5150 Client on involuntary status for DTS Report received from YULIYA Zamorano with use of SBAR Why are they here: At 1430 pt admitted to [place] for Behavioral health on 5150 for DTS. Pt admitted for Depression NOS to room 326A. Pt states she has been stockpiling her medications to overdose. Pt also plans to pull out her dialysis catheter out. Pt stopped taking her medications a week ago stopped eating or sleeping and stopped dialysis. Pt has history of Bipolar, SchizophreniA, personality disorder and PTSD. Pt complains all of her family is diseased but has good relationship with her therapist Holly Ba. Assessment What has happened this shift: Pt. asleep at start of shift. Pt. woken for breakfast and ate all meals in comunity room. Pt. took all medications. Pt. had critical platlet count of 37 and blankbook stitching machine operator paged. Pt. received platlet trasfusion well, no S&S of adverse reaction noted. Tromper D/C pt.'s dialysis port. Radiologist removed port this afternoon after pt. received platlets. Pt. tolerated well. Pt. reports she is glad she does not need dialysis anymore. Pt. reports she is urniating some quantities w/o complaints. 1:1 done at bedside. Pt. reports depression rated 8/10 and SI without plan. Pt. received [place] with good effect for back pain rated 8/10. Pt. denies auditory hallucinations. Pt. seen socializing appropriately with other patients and staff. S/I, H/I: SI with no plan, denies HI A/VH: Denies Sleep: Pt. napped x2 on day shift ADL's: Independent Were Meds taken: Yes Groups attendence: Yes Any med S/E: None reported nor observed Mental Status Exam Appearance: Disheveled, appropriate attire for the unit Eye contact: Direct Behavior: Isolative to self, pleasant and cooperative Speech: Clear, audible, steady pace Mood: Depressed Affect: Blunted Thought process: Situational, does not offer information unless specifically asked Thought Content: Linear, thought blocking Cognition: A/Ox4 Insight: Poor Judgment: Poor Interventions PRN's used: [place] x1 Therapeutic interventions: 1:1 therapeutic assessment, maintained safe therapeutic milieu, provided active listening with positive reinforcement, provided medication administration/education/monitoring as needed; Q15 safety checks. Restraints/seclusion/emergency medication: N/A Justification of Continued Inpatient Treatment: Continued therapeutic support and medication management needed to provide stabilization, prevent decompensation, improve coping mechanisms decreasing risk to patient and re-admittance.
[2019-08-31] MEDS: montelukast 10mg tablet PO SCH (20:09)
[2019-08-31] MEDS: olanzapine 10mg tablet PO SCH (20:09)
[2019-08-31] MEDS: hydrOXYzine 25 MG tablet PO PRN (23:23)
[2019-09-01] MEDS: albuterol 2.5 MG/3 ML nebule NEB SCH ×4 (02:53→21:00)
[2019-09-01] MEDS: HYDROcodone/acetaminophen 10/325mg tab PO PRN ×4 (03:51→23:07)
--- NOTE | 2019-09-01 04:22 | NUR ---
Nursing Progress Note: Legal hold: 5150 Client on involuntary status for DTS Report received from YULIYA Zamorano with use of SBAR Why are they here: At 1430 pt admitted to [place] for Behavioral health on 5150 for DTS. Pt admitted for Depression NOS to room 326A. Pt states she has been stockpiling her medications to overdose. Pt also plans to pull out her dialysis catheter out. Pt stopped taking her medications a week ago stopped eating or sleeping and stopped dialysis. Pt has history of Bipolar, SchizophreniA, personality disorder and PTSD. Pt complains all of her family is diseased but has good relationship with her therapist Holly Ba. Assessment What has happened this shift: Patient observed sitting in the recreational room watching TV at the beginning of shift. Continues to isolate to herself and does not engage with peers and speaks minimally to staff. Patient is pleasant and cooperative to care. Patient requested PRN [place] x2 with positive effect. Patient observed talking on the phone and presented cheerful. She was laughing and joking while on the phone. The patient stated "I'm feeling better." She stated regret toward previous SI. S/I, H/I: None reported A/VH: None reported Sleep: See sleep assessment ADL's: Independent Were Meds taken: Yes Any med S/E: None reported nor observed Mental Status Exam Appearance: Disheveled, appropriate attire for the unit Eye contact: Direct Behavior: Isolative to self, pleasant and cooperative Speech: Clear, audible, steady pace Mood: "I'm feeling better." Affect: flat, animated at times Thought process: Situational, does not offer information unless specifically asked Thought Content: Linear, thought blocking Cognition: A/Ox4 Insight: Poor Judgment: Poor Interventions PRN's used: [place] and [place], effective Therapeutic interventions: 1:1 therapeutic assessment, maintained safe therapeutic milieu, provided active listening with positive reinforcement, provided medication administration/education/monitoring as needed; Q15 safety checks. Restraints/seclusion/emergency medication: N/A Justification of Continued Inpatient Treatment: Continued therapeutic support and medication management needed to provide stabilization, prevent decompensation, improve coping mechanisms decreasing risk to patient and re-admittance.
[2019-09-01 08:00] VITALS: BP 103/51
[2019-09-01] MEDS: LIRAGLUTIDE 0.6 MG/0.1 ML PEN.INJCTR SQ SCH (08:00)
[2019-09-01 08:17] LABS: BASOPHILS % (AUTO) 0.5 % (0-1); EOSINOPHILS % (AUTO) 0.7 % (0-6); HEMATOCRIT 26.6 % (35.0-45.0); HEMOGLOBIN 9.3 g/dl (12.0-16.0); LYMPHOCYTES # (AUTO) 0.7 X10'3 (1.1-4.8); LYMPHOCYTES % (AUTO) 21.8 % (21-51); MEAN CORPUSCULAR HEMOGLOBIN 32.2 PG (27.0-31.0); MEAN CORPUSCULAR HGB CONC 34.8 g/dL (33.0-36.5); MEAN CORPUSCULAR VOLUME 92.6 FL (78-98); MEAN PLATELET VOLUME 8.4 FL (7.4-10.4); MONOCYTES # (AUTO) 0.2 X10'3 (0-0.9); MONOCYTES % (AUTO) 4.9 % (2-12); NEUTROPHILS # (AUTO) 2.4 X10'3 (1.8-7.7); NEUTROPHILS % (AUTO) 72.1 % (42-75); RED BLOOD COUNT 2.88 X10'6 (4.20-5.60); WHITE BLOOD COUNT 3.3 X10'3 (4.5-11.0)
[2019-09-01 08:20] LABS: PLATELET COUNT 44 X10'3 (140-440)
--- NOTE | 2019-09-01 08:27 | NUR ---
Nursing Note: Paged hospitalist at [phone], pt has critical value Platelets 44. Awaiting call back from hospitalist. Will continue to monitor.
[2019-09-01 08:28] LABS: ALANINE AMINOTRANSFERASE 37 U/L (12-78); ALBUMIN 3.5 G/DL (3.4-5.0); ALBUMIN/GLOBULIN RATIO 0.9 (1.1-1.5); ALKALINE PHOSPHATASE 210 IU/L (46-116); ANION GAP 9 (8-16); ASPARTATE AMINO TRANSFERASE 30 U/L (10-37); BILIRUBIN,TOTAL 0.8 MG/DL (0.1-1.0); BLOOD UREA NITROGEN 39 MG/DL (7-18); BUN/CREATININE RATIO 19.8 (6.6-38.0); CHLORIDE 106 MMOL/L (99-107); CREATININE 1.97 MG/DL (0.40-0.90); GLUCOSE 290 MG/DL (70-104); MAGNESIUM 2.2 MG/DL (1.5-2.4); PHOSPHORUS 3.5 MG/DL (2.3-4.5); POTASSIUM 4.5 MMOL/L (3.5-5.1); SODIUM 139 MMOL/L (135-145); TOTAL CARBON DIOXIDE 24.2 MMOL/L (24-32); TOTAL PROTEIN 7.2 G/DL (6.4-8.2); eGFR 26 ML/MIN
[2019-09-01] MEDS: levoTHYROXINE 100mcg tablet PO SCH (08:48)
[2019-09-01] MEDS: spironolactone 25 MG tablet PO SCH (08:48)
[2019-09-01] MEDS: atorvastatin 10mg tablet PO SCH (08:49)
[2019-09-01] MEDS: metoprolol tartrate 12.5mg (1/2 tablet) PO SCH ×2 (08:49→20:42)
[2019-09-01] MEDS: furosemide 20MG tablet PO SCH ×3 (08:49→20:42)
[2019-09-01] MEDS: clopidogrel 75mg tablet PO SCH (08:50)
[2019-09-01] MEDS: loratadine 10mg tablet PO SCH (08:50)
[2019-09-01] MEDS: budesonide 0.5mg/2ml UD nebule IH SCH ×2 (08:54→21:00)
[2019-09-01] MEDS: insulin Lispro (HumaLOG) vial - multi-dose SQ SCH ×3 (08:55→18:06)
[2019-09-01] MEDS: buPROPion SR 150mg tablet PO SCH ×2 (08:58→12:58)
[2019-09-01] MEDS: ziprasidone 20mg capsule PO SCH ×2 (09:07→20:42)
--- NOTE | 2019-09-01 09:27 | NUR ---
Nursing Note: At 0845, notified Dr. Whitman that pt's platelet level 44, she advised to notifiy pyschiatrist due to psych meds causing low platelets. Notified Dr. Munoz and Dr. Enrique, specialist. Dr. Enrique said that he was aware of today's platelet levels. Pt no longer receiving dialysis, contact hospitalist for additional concerns. No new orders received. Dr. Munoz requested careful monitoring of pt's fall risk due to increased risk of injury from falls. Pt provided with fall risk education, fall risk band in place, and fall risk signs put up in pt's room. Will continue to monitor.
[2019-09-01 11:55] VITALS: BP 107/56
[2019-09-01] MEDS ORDERED: polyethylene glycol 3350 17gm powd pack PO PRN (13:15)
--- NOTE | 2019-09-01 13:15 | NUR ---
Nursing Note: Pt refused lunch entree, sandwich ordered. Lunchtime insulin held until pt eats her lunch. Will continue to monitor.
--- NOTE | 2019-09-01 18:00 | NUR ---
Nursing Progress Note: Legal hold: 5150 Client on involuntary status for DTS Report received from YULIYA Carrasquillo with use of SBAR Why are they here: Pt admitted to [place] [facility] on 5150 for DTS. Pt admitted for Depression NOS to room 326A. Pt states she has been stockpiling her medications to overdose. Pt also plans to pull out her dialysis catheter out. Pt stopped taking her medications a week ago stopped eating or sleeping and stopped dialysis. Pt has history of Bipolar, Schizophrenia, personality disorder and PTSD. Pt complains all of her family is diseased but has good relationship with her therapist Holly Ba. Assessment What has happened this shift: Pt asleep at change of shift. She was compliant with medication administration and cooperative with assessment. When asked how she felt, she shared, pretty good. She indicated she is a little depressed, but not as much as she was. She denied SI, anxiety, and A/VH. She reported feeling constipated and Miralax given. The wound on her right heel appeared closed, COOLER DELIVERER, no drainage, odor, or redness. She said that she had pain where the dialysis port was located on her R chest. The wound is covered with steri strips, no discharge, or odor. Area was covered and kept dry during the pts shower. The pt did not like the lunch served. Yogurt and cheese was given as a snack while waiting for a late lunch of a roast beef sandwich for the pt. Noon insulin administered after she had eaten yogurt and cheese. At dinner, pt stated that food did not look good and she wasnt going to eat it. Yogurt and cheese offered, pt refused. Pt ate two bites of jello, but refused the rest of her dinner. Insulin held because the pt refused to eat. Pt educated about fall risk and fall precautions. S/I, H/I: Denies A/VH: Denies Sleep: Pt reported waking up at 0400 during the night, but returned to sleep and slept until 0705. ADL's: Independent Were Meds taken: Yes Groups attendance: Yes Any med S/E: None reported nor observed Mental Status Exam Appearance: Neat and clean Eye contact: Direct Behavior: Socializes with staff and other patients Speech: Normal rate and rhythm Mood: Depressed Affect: Constricted Thought process: Linear Thought Content: WNL Cognition: A/Ox4 Insight: Poor Judgment: Poor Interventions PRN's used: Rock x2, Miralax Therapeutic interventions: 1:1 therapeutic assessment, maintained safe therapeutic milieu, provided active listening with positive reinforcement, provided medication administration/education/monitoring as needed; Fall precautions and fall risk education, Q15 safety checks. Restraints/seclusion/emergency medication: N/A Justification of Continued Inpatient Treatment: Continued therapeutic support and medication management needed to provide stabilization, prevent decompensation, improve coping mechanisms decreasing risk to patient and re-admittance. Addendum: 09/01/19 at 1828 by Ade Venegas RN Amend: Note written by Hallie Venegas RN
--- NOTE | 2019-09-01 18:15 | NUR ---
Nursing Note: Pt refused to eat her dinner, yogurt and cheese offered, and pt continued to refuse. Insulin held due to the pt not eating dinner. Will continue to monitor. Addendum: 09/01/19 at 1828 by Ade Venegas RN Amend: Nursing Note written by Hallie Venegas RN
--- NOTE | 2019-09-01 18:25 | NUR ---
Amend; Note written by Ade Venegas RN
[2019-09-01 20:00] VITALS: BP 112/64
[2019-09-01] MEDS: olanzapine 10mg tablet PO SCH (20:42)
[2019-09-01] MEDS: montelukast 10mg tablet PO SCH (20:42)
--- NOTE | 2019-09-01 21:00 | NUR ---
Pt refused HS FSBG check. Addendum: 09/02/19 at 0152 by Diana Miller RN Amended: Links added.
[2019-09-01] MEDS: hydrOXYzine 25 MG tablet PO PRN (22:03)
[2019-09-01] MEDS: LORazepam 1 MG tablet PO PRN (23:07)
--- NOTE | 2019-09-02 01:50 | NUR ---
Pt refused HS FSBG check.
[2019-09-02] MEDS: albuterol 2.5 MG/3 ML nebule NEB SCH ×2 (02:52→20:38)
--- NOTE | 2019-09-02 03:22 | NUR ---
Nursing Progress Note: Legal hold: 5150 Client on involuntary status for DTS Report received from YULIYA Zamorano with use of SBAR Why are they here: At 1430 pt admitted to [facility] for [facility] on 5150 for DTS. Pt admitted for Depression NOS to room 326A. Pt states she has been stockpiling her medications to overdose. Pt also plans to pull out her dialysis catheter out. Pt stopped taking her medications a week ago stopped eating or sleeping and stopped dialysis. Pt has history of Bipolar, SchizophreniA, personality disorder and PTSD. Pt complains all of her family is diseased but has good relationship with her therapist Holly Ba. Assessment What has happened this shift: Patient sitting in the rec room watching TV at the beginning of shift. Socializing appropriately with peers. Patient refused HS FSBG but compliant with rest of her medications. Patient also refused wound care. Patient became upset with staff for not allowing her to have shorts with draw strings but redirectable. Patient up in the rec room most of the shift, difficulty sleeping. Patient utilized PRN [place], atarax and ativan. Denies SI, HI, A/VH. Patient did not engage in conversation with this medical technical writer, appeared annoyed when asked assessment questions. Patient c/o swelling in legs, allowed for this medical technical writer to elevate her legs briefly while sitting in the rec room. S/I, H/I: None reported A/VH: None reported Sleep: See sleep assessment ADL's: Independent Were Meds taken: Yes Any med S/E: None reported nor observed Mental Status Exam Appearance: Appropriate attire for the unit Eye contact: Direct Behavior: Socializing with peers, pleasant and cooperative with most care Speech: Clear, audible, steady pace Mood: agitated Affect: annoyed Thought process: Situational, does not offer information unless specifically asked Thought Content: Linear, thought blocking Cognition: A/Ox4 Insight: Poor Judgment: Poor Interventions PRN's used: [place], Atarax and Ativan Therapeutic interventions: 1:1 therapeutic assessment, maintained safe therapeutic milieu, provided active listening with positive reinforcement, provided medication administration/education/monitoring as needed; Q15 safety checks. Restraints/seclusion/emergency medication: N/A Justification of Continued Inpatient Treatment: Continued therapeutic support and medication management needed to provide stabilization, prevent decompensation, improve coping mechanisms decreasing risk to patient and re-admittance.
[2019-09-02 05:52] LABS: BASOPHILS % (AUTO) 0.5 % (0-1); MONOCYTES # (AUTO) 0.2 X10'3 (0-0.9)
[2019-09-02 05:54] LABS: EOSINOPHILS % (AUTO) 1.2 % (0-6); HEMATOCRIT 25.1 % (35.0-45.0); HEMOGLOBIN 8.8 g/dl (12.0-16.0); LYMPHOCYTES # (AUTO) 0.7 X10'3 (1.1-4.8); LYMPHOCYTES % (AUTO) 21.8 % (21-51); MEAN CORPUSCULAR VOLUME 94.4 FL (78-98); MEAN PLATELET VOLUME 8.5 FL (7.4-10.4); MONOCYTES % (AUTO) 7.1 % (2-12); NEUTROPHILS # (AUTO) 2.3 X10'3 (1.8-7.7); NEUTROPHILS % (AUTO) 69.4 % (42-75); RED BLOOD COUNT 2.66 X10'6 (4.20-5.60); WHITE BLOOD COUNT 3.3 X10'3 (4.5-11.0)
[2019-09-02 06:09] LABS: PLATELET COUNT 40 X10'3 (140-440)
[2019-09-02 06:47] LABS: ALANINE AMINOTRANSFERASE 35 U/L (12-78); ALBUMIN 3.4 G/DL (3.4-5.0); ALBUMIN/GLOBULIN RATIO 0.9 (1.1-1.5); ALKALINE PHOSPHATASE 207 IU/L (46-116); ANION GAP 11 (8-16); ASPARTATE AMINO TRANSFERASE 35 U/L (10-37); BILIRUBIN,TOTAL 0.6 MG/DL (0.1-1.0); BLOOD UREA NITROGEN 38 MG/DL (7-18); BUN/CREATININE RATIO 20.9 (6.6-38.0); CALCIUM 8.8 MG/DL (8.5-10.1); CHLORIDE 107 MMOL/L (99-107); CREATININE 1.82 MG/DL (0.40-0.90); GLUCOSE 313 MG/DL (70-104); PHOSPHORUS 3.6 MG/DL (2.3-4.5); POTASSIUM 4.7 MMOL/L (3.5-5.1); SODIUM 141 MMOL/L (135-145); TOTAL CARBON DIOXIDE 23.3 MMOL/L (24-32); TOTAL PROTEIN 7.1 G/DL (6.4-8.2); eGFR 29 ML/MIN
[2019-09-02] MEDS: buPROPion SR 150mg tablet PO SCH ×2 (06:56→12:57)
[2019-09-02] MEDS: HYDROcodone/acetaminophen 10/325mg tab PO PRN ×3 (06:56→20:34)
[2019-09-02] MEDS: insulin Lispro (HumaLOG) vial - multi-dose SQ SCH ×2 (07:37→12:55)
[2019-09-02] MEDS: metoprolol tartrate 12.5mg (1/2 tablet) PO SCH ×2 (07:42→20:32)
[2019-09-02] MEDS: clopidogrel 75mg tablet PO SCH (07:43)
[2019-09-02] MEDS: furosemide 20MG tablet PO SCH ×3 (07:43→20:33)
[2019-09-02] MEDS: spironolactone 25 MG tablet PO SCH (07:43)
[2019-09-02] MEDS: loratadine 10mg tablet PO SCH (07:43)
[2019-09-02] MEDS: atorvastatin 10mg tablet PO SCH (07:44)
[2019-09-02] MEDS: levoTHYROXINE 100mcg tablet PO SCH (07:44)
[2019-09-02] MEDS: ziprasidone 20mg capsule PO SCH ×2 (07:46→20:33)
[2019-09-02] MEDS: LIRAGLUTIDE 0.6 MG/0.1 ML PEN.INJCTR SQ SCH (08:00)
[2019-09-02 08:02] VITALS: BP 119/62
[2019-09-02] MEDS: nitroGLYCERIN 0.4mg SUBLingual tab SL PRN (13:50)
[2019-09-02 17:28] LABS: CLARITY,URINE CLEAR (Clear); COLOR,URINE YELLOW (Yellow); GLUCOSE, URINE 250 mg/dl (Neg); KETONES,URINE NEGATIVE (Neg); LEUKOCYTE ESTERASE ,URINE TRACE (Neg); NITRITES, URINE NEGATIVE (Neg); OCCULT BLOOD,URINE NEGATIVE (Neg); PROTEIN,URINE NEGATIVE (Neg); URINE HCG NEGATIVE (NEG); UROBILINOGEN,URINE 0.2 E.U/dL (0.2-1.0)
[2019-09-02 17:33] LABS: UA COLLECTION TYPE NON-SPECIFIED
[2019-09-02 17:34] LABS: BACTERIA,URINE NONE SEEN /HPF (Neg); MUCUS STRANDS NONE SEEN /LPF (Neg); RBC,URINE NONE SEEN /HPF (0-2); SQUAMOUS EPITHELIAL CELL,UR FEW /LPF (FEW); WBC,URINE 0-4 /HPF (0-4)
[2019-09-02] MEDS: INSULIN ASPART SQ SCH (17:49)
--- NOTE | 2019-09-02 17:50 | NUR ---
Nursing Progress Note: Legal hold: 5150 Client on involuntary status for DTS Report received from ZEN Amaro with use of SBAR Why are they here: At 1430 pt admitted to [place] for [facility] on 5150 for DTS. Pt admitted for Depression NOS to room 326A. Pt states she has been stockpiling her medications to overdose. Pt also plans to pull out her dialysis catheter out. Pt stopped taking her medications a week ago stopped eating or sleeping and stopped dialysis. Pt has history of Bipolar, Schizophrenia, personality disorder and PTSD. Pt complains all of her family is diseased but has good relationship with her therapist Holly Ba. Assessment What has happened this shift: Pt. awake at start of shift and requesting pain medication for 910 lower back pain. Pt. given norco 10/325x1 with good effect. Pt. ate all meals in community room. 1:1 done at bedside. Pt. denies SI/HI, A/V H. Pt.'s wound on right heel assessed, callus is closed and dry. Betadine applied to callus. No S&S of infection noted. Pt. encouraged to keep wound open to air while in bed, pt. verbalizes understanding. Pt. reporting chest pain but refused Nitroglycerin. Pt. overheard talking with roommates about pets. Pt. is calm and cooperative and denies anxiety but reports depression /. Pt. received Nitroglycerin in afternoon for chest pain with good effect. Pt. received [place] in afternoon with good effect. Pt. c/o of rear flank pain, oliguria, and has 2+ edema in hands and lower extremities. RN paged hospitalist to assess kidneys. Pt. assessed and urinalysis ordered and sent to pharmacy, awaiting results. Pt.'s CBG results were AM 255, Noon 246, and 170 285. Pt. received home med Novolog pen 25 Units at dinner. Pt. seen socializing with peers and watching football in day room. S/I, H/I: Denies A/VH: Denies Sleep: Napped x2 on day shift. ADL's: Independent Were Meds taken: Yes Any med S/E: None reported nor observed Mental Status Exam Appearance: Appropriate attire for the unit Eye contact: Direct Behavior: Socializing with peers, pleasant and cooperative with most care Speech: Clear, audible, steady pace Mood: mostly pleasant but agitated at times. Affect: annoyed Thought process: linear Thought Content: Concerned about her cats at home. Concerned about pain medication. Cognition: A/Ox4 Insight: Poor Judgment: Poor Interventions PRN's used: [place] 10/325 x2. Nitroglycerin SL x1 Therapeutic interventions: 1:1 therapeutic assessment, maintained safe therapeutic milieu, provided active listening with positive reinforcement, provided medication administration/education/monitoring as needed; Q15 safety checks. Restraints/seclusion/emergency medication: N/A Justification of Continued Inpatient Treatment: Continued therapeutic support and medication management needed to provide stabilization, prevent decompensation, improve coping mechanisms decreasing risk to patient and re-admittance.
[2019-09-02 19:00] VITALS: BP 129/64
[2019-09-02] MEDS: polyethylene glycol 3350 17gm powd pack PO SCH (20:32)
[2019-09-02] MEDS: olanzapine 10mg tablet PO SCH (20:33)
[2019-09-02] MEDS: montelukast 10mg tablet PO SCH (20:34)
[2019-09-02] MEDS: budesonide 0.5mg/2ml UD nebule IH SCH (20:38)
[2019-09-02] MEDS: LORazepam 1 MG tablet PO PRN (22:30)
--- NOTE | 2019-09-03 01:44 | NUR ---
Nursing Progress Note: Legal hold: VOL Client on involuntary status for DTS Report received from YULIYA Zamorano with use of SBAR Why are they here: At 1430 pt admitted to [facility] for [facility] on 5150 for DTS. Pt admitted for Depression NOS to room 326A. Pt states she has been stockpiling her medications to overdose. Pt also plans to pull out her dialysis catheter out. Pt stopped taking her medications a week ago stopped eating or sleeping and stopped dialysis. Pt has history of Bipolar, SchizophreniA, personality disorder and PTSD. Pt complains all of her family is diseased but has good relationship with her therapist Holly Ba. Assessment What has happened this shift: Pt is seen sitting in the community room socializing with peers at shift change. She watches TV in the rec room and participates in snack time. Secretary Administrative Assistant sees pt take a peanut butter and jelly sandwich, and tries to discourage her from eating it due to the high sugar content. She replies, "I am eating it I don't care." A few minutes later she approaches marketing underwriter and gives the sandwich back and says, "I don't need this you are right." She is given an appropriate snack and is pleasant throughout encounter. Wound care done to R heel, Betadine applied, heel floated off bed. HS blood glucose was 254 S/I, H/I: None reported A/VH: None reported Sleep: See sleep assessment ADL's: Independent Were Meds taken: Yes Any med S/E: None reported nor observed Mental Status Exam Appearance: Appropriate attire for the unit Eye contact: Direct Behavior: Socializing with peers, pleasant and cooperative with most care Speech: Clear, audible, steady pace Mood: agitated Affect: annoyed Thought process: Situational, does not offer information unless specifically asked Thought Content: Linear, thought blocking Cognition: A/Ox4 Insight: Poor Judgment: Poor Interventions PRN's used:yes Therapeutic interventions: 1:1 therapeutic assessment, maintained safe therapeutic milieu, provided active listening with positive reinforcement, provided medication administration/education/monitoring as needed; Q15 safety checks. Restraints/seclusion/emergency medication: N/A Justification of Continued Inpatient Treatment: Continued therapeutic support and medication management needed to provide stabilization, prevent decompensation, improve coping mechanisms decreasing risk to patient and re-admittance.
[2019-09-03] MEDS: albuterol 2.5 MG/3 ML nebule NEB SCH ×4 (03:00→21:00)
[2019-09-03] MEDS: HYDROcodone/acetaminophen 10/325mg tab PO PRN ×3 (03:48→17:49)
[2019-09-03 08:00] LABS: BASOPHILS % (AUTO) 0.4 % (0-1); EOSINOPHILS % (AUTO) 1.2 % (0-6); HEMATOCRIT 23.8 % (35.0-45.0); HEMOGLOBIN 8.4 g/dl (12.0-16.0); LYMPHOCYTES # (AUTO) 0.6 X10'3 (1.1-4.8); LYMPHOCYTES % (AUTO) 19.7 % (21-51); MEAN CORPUSCULAR HEMOGLOBIN 32.6 PG (27.0-31.0); MEAN CORPUSCULAR HGB CONC 35.4 g/dL (33.0-36.5); MEAN CORPUSCULAR VOLUME 92.2 FL (78-98); MEAN PLATELET VOLUME 8.1 FL (7.4-10.4); MONOCYTES # (AUTO) 0.2 X10'3 (0-0.9); MONOCYTES % (AUTO) 6.1 % (2-12); NEUTROPHILS # (AUTO) 2.1 X10'3 (1.8-7.7); NEUTROPHILS % (AUTO) 72.6 % (42-75); RED BLOOD COUNT 2.59 X10'6 (4.20-5.60); RED CELL DISTRIBUTION WIDTH 17.2 % (11.5-14.5); WHITE BLOOD COUNT 2.8 X10'3 (4.5-11.0)
[2019-09-03] MEDS: atorvastatin 10mg tablet PO SCH (08:04)
[2019-09-03] MEDS: buPROPion SR 150mg tablet PO SCH ×2 (08:04→12:17)
[2019-09-03] MEDS: ziprasidone 20mg capsule PO SCH ×2 (08:05→20:18)
[2019-09-03] MEDS: loratadine 10mg tablet PO SCH (08:06)
[2019-09-03] MEDS: metoprolol tartrate 12.5mg (1/2 tablet) PO SCH ×2 (08:07→20:20)
[2019-09-03] MEDS: clopidogrel 75mg tablet PO SCH (08:07)
[2019-09-03] MEDS: furosemide 20MG tablet PO SCH ×3 (08:08→20:19)
[2019-09-03] MEDS: levoTHYROXINE 100mcg tablet PO SCH (08:08)
[2019-09-03 08:09] LABS: PLATELET COUNT 38 X10'3 (140-440)
[2019-09-03] MEDS: spironolactone 25 MG tablet PO SCH (08:15)
[2019-09-03] MEDS: LIRAGLUTIDE 0.6 MG/0.1 ML PEN.INJCTR SQ SCH (08:25)
[2019-09-03] MEDS: INSULIN ASPART SQ SCH ×3 (08:25→17:49)
[2019-09-03 09:00] VITALS: BP 106/41
[2019-09-03 09:04] LABS: ANISOCYTOSIS 1+; PLATELET ESTIMATE DECREASED; TOTAL CELLS COUNTED 100
[2019-09-03 09:07] LABS: ALANINE AMINOTRANSFERASE 42 U/L (12-78); ALBUMIN 3.4 G/DL (3.4-5.0); ALKALINE PHOSPHATASE 206 IU/L (46-116); ANION GAP 7 (8-16); ASPARTATE AMINO TRANSFERASE 32 U/L (10-37); BILIRUBIN,TOTAL 0.7 MG/DL (0.1-1.0); BLOOD UREA NITROGEN 35 MG/DL (7-18); BUN/CREATININE RATIO 18.4 (6.6-38.0); CALCIUM 8.7 MG/DL (8.5-10.1); CHLORIDE 105 MMOL/L (99-107); GLUCOSE 239 MG/DL (70-104); MAGNESIUM 1.9 MG/DL (1.5-2.4); PHOSPHORUS 3.8 MG/DL (2.3-4.5); POTASSIUM 4.5 MMOL/L (3.5-5.1); SODIUM 140 MMOL/L (135-145); TOTAL CARBON DIOXIDE 27.6 MMOL/L (24-32); TOTAL PROTEIN 6.9 G/DL (6.4-8.2); eGFR 27 ML/MIN
[2019-09-03] MEDS: budesonide 0.5mg/2ml UD nebule IH SCH ×2 (09:30→21:00)
[2019-09-03 20:05] VITALS: BP 131/69
[2019-09-03] MEDS: polyethylene glycol 3350 17gm powd pack PO SCH (20:17)
[2019-09-03] MEDS: olanzapine 10mg tablet PO SCH (20:19)
[2019-09-03] MEDS: montelukast 10mg tablet PO SCH (20:20)
--- NOTE | 2019-09-03 21:36 | NUR ---
Contacted Adonis [place] OCP to review patients labs WBC 2.8 H/H 2.59/8.4 and PLT count 38. He discussed case with Dr Epstein who is the boston cutter hospitalist for tonight and labs were reviewed for the the last year and her labs are similar and are most likely related to her CKD. No further orders at this time.
[2019-09-04] MEDS: HYDROcodone/acetaminophen 10/325mg tab PO PRN ×3 (01:08→18:28)
[2019-09-04] MEDS: albuterol 2.5 MG/3 ML nebule NEB SCH ×4 (03:00→21:00)
--- NOTE | 2019-09-04 03:37 | NUR ---
Nursing Progress Note: Legal hold: VOL Client on involuntary status for DTS Report received from YULIYA Zamorano with use of SBAR Why are they here: At 1430 pt admitted to [facility] for [facility] on 5150 for DTS. Pt admitted for Depression NOS to room 326A. Pt states she has been stockpiling her medications to overdose. Pt also plans to pull out her dialysis catheter out. Pt stopped taking her medications a week ago stopped eating or sleeping and stopped dialysis. Pt has history of Bipolar, Schizophrenia, personality disorder and PTSD. Pt complains all of her family is diseased but has good relationship with her therapist Holly aB. Assessment What has happened this shift: Pt is pleasant on approach and makes good eye contact. She said her day went well, and she is observed socializing on the unit with her peers. She reports "My legs are getting worse, I feel like they are getting tight and they are really swollen." Claim Examiner assess pt's bilateral LE, +1 edema is noted, non pitting. Pt's legs are elevated in bed, Betadine applied to R heel wound as directed. Pt also reports she has not been able to feel when she needs to urinate. Pt reports she has been urinating, but it is not as frequent as usual. PT was scheduled to receive 200 units of Tresiba insulin, which has not been given yet this admission. Pharmacy called to verify dose, and pharmacy cannot verify insulin dose from an outside source, so insulin was held. S/I, H/I: None reported A/VH: None reported Sleep: See sleep assessment ADL's: Independent Were Meds taken: Yes Any med S/E: None reported nor observed Mental Status Exam Appearance: Appropriate attire for the unit Eye contact: Direct Behavior: Socializing with peers, pleasant and cooperative with most care Speech: Clear, audible, steady pace Mood: pleasant Affect: bland to bright Thought process: Situational, does not offer information unless specifically asked Thought Content: Linear, thought blocking Cognition: A/Ox4 Insight: Poor Judgment: Poor Interventions PRN's used:Percocet Therapeutic interventions: 1:1 therapeutic assessment, maintained safe therapeutic milieu, provided active listening with positive reinforcement, provided medication administration/education/monitoring as needed; Q15 safety checks. Restraints/seclusion/emergency medication: N/A Justification of Continued Inpatient Treatment: Continued therapeutic support and medication management needed to provide stabilization, prevent decompensation, improve coping mechanisms decreasing risk to patient and re-admittance.
[2019-09-04 07:00] VITALS: BP 116/58
[2019-09-04] MEDS: INSULIN ASPART SQ SCH ×3 (07:00→17:20)
[2019-09-04 07:26] LABS: BASOPHILS % (AUTO) 0.2 % (0-1); EOSINOPHILS % (AUTO) 0.9 % (0-6); HEMATOCRIT 26.1 % (35.0-45.0); HEMOGLOBIN 9.1 g/dl (12.0-16.0); LYMPHOCYTES # (AUTO) 0.5 X10'3 (1.1-4.8); LYMPHOCYTES % (AUTO) 15.5 % (21-51); MEAN CORPUSCULAR HEMOGLOBIN 32.6 PG (27.0-31.0); MEAN CORPUSCULAR VOLUME 93.1 FL (78-98); MEAN PLATELET VOLUME 8.5 FL (7.4-10.4); MONOCYTES # (AUTO) 0.2 X10'3 (0-0.9); MONOCYTES % (AUTO) 5.8 % (2-12); NEUTROPHILS # (AUTO) 2.4 X10'3 (1.8-7.7); NEUTROPHILS % (AUTO) 77.6 % (42-75); RED BLOOD COUNT 2.81 X10'6 (4.20-5.60); RED CELL DISTRIBUTION WIDTH 16.7 % (11.5-14.5); WHITE BLOOD COUNT 3.1 X10'3 (4.5-11.0)
[2019-09-04 07:33] LABS: PLATELET COUNT 37 X10'3 (140-440)
[2019-09-04 07:34] LABS: ALANINE AMINOTRANSFERASE 50 U/L (12-78); ALBUMIN 3.7 G/DL (3.4-5.0); ALBUMIN/GLOBULIN RATIO 0.9 (1.1-1.5); ALKALINE PHOSPHATASE 226 IU/L (46-116); ANION GAP 8 (8-16); ASPARTATE AMINO TRANSFERASE 28 U/L (10-37); BILIRUBIN,TOTAL 0.8 MG/DL (0.1-1.0); BLOOD UREA NITROGEN 39 MG/DL (7-18); BUN/CREATININE RATIO 18.1 (6.6-38.0); CHLORIDE 104 MMOL/L (99-107); CREATININE 2.15 MG/DL (0.40-0.90); GLUCOSE 331 MG/DL (70-104); PHOSPHORUS 4.1 MG/DL (2.3-4.5); POTASSIUM 4.9 MMOL/L (3.5-5.1); SODIUM 141 MMOL/L (135-145); TOTAL CARBON DIOXIDE 28.9 MMOL/L (24-32); TOTAL PROTEIN 7.7 G/DL (6.4-8.2); eGFR 24 ML/MIN
[2019-09-04] MEDS: atorvastatin 10mg tablet PO SCH (07:48)
[2019-09-04] MEDS: buPROPion SR 150mg tablet PO SCH ×2 (07:48→12:19)
[2019-09-04] MEDS: levoTHYROXINE 100mcg tablet PO SCH (07:48)
[2019-09-04] MEDS: ziprasidone 20mg capsule PO SCH ×2 (07:49→20:10)
[2019-09-04] MEDS: clopidogrel 75mg tablet PO SCH (07:49)
[2019-09-04] MEDS: furosemide 20MG tablet PO SCH ×3 (07:49→20:10)
[2019-09-04] MEDS: spironolactone 25 MG tablet PO SCH (07:49)
[2019-09-04] MEDS: loratadine 10mg tablet PO SCH (07:49)
[2019-09-04] MEDS: metoprolol tartrate 12.5mg (1/2 tablet) PO SCH ×2 (08:06→20:10)
--- NOTE | 2019-09-04 08:16 | NUR ---
Critical lab: Pts PLTs 37. Spoke with Dr Jaimes. He is aware and no new orders.
[2019-09-04] MEDS: LIRAGLUTIDE 0.6 MG/0.1 ML PEN.INJCTR SQ SCH (08:19)
[2019-09-04] MEDS: budesonide 0.5mg/2ml UD nebule IH SCH ×2 (08:28→21:00)
--- NOTE | 2019-09-04 10:32 | NUR ---
[facility] called back to schedule Ct's follow up appt with Dr Munoz on 09/20/19 at 8:45 am. FRANKI Rico
--- NOTE | 2019-09-04 16:52 | NUR ---
Nursing Progress Note: SYDNIE Legal hold: VOL Client on involuntary status for DTS Report received from YULIYA Hatch with use of SBAR Why are they here: At 1430 pt admitted to [place] for [facility] on 5150 for DTS. Pt admitted for Depression NOS to room 326A. Pt states she has been stockpiling her medications to overdose. Pt also plans to pull out her dialysis catheter out. Pt stopped taking her medications a week ago stopped eating or sleeping and stopped dialysis. Pt has history of Bipolar, Schizophrenia, personality disorder and PTSD. Pt complains all of her family is diseased but has good relationship with her therapist Holly Ba. Assessment What has happened this shift: Pt is pleasant on approach but immediately reports that she will be filing a complaint d/t not getting her insulin last night. Pts anger is re-directable. She is found socializing for most of the day. She c/o her legs feeling tight today and comic book writer encouraged her to rest and elevate her legs. Indian Nanny assessed pt's bilateral LE, +1 edema is noted, non pitting. Pt platelets were low and hospitalist was notified. She is pleasant all day and socializes with peers throughout the day. Attended all groups and took all of her medications. She reported back pain in the morning time and requested PRN [place] for that. S/I, H/I: None reported A/VH: None reported Sleep: 4.75hrs NOC ADL's: Independent Were Meds taken: Yes Any med S/E: None reported nor observed Mental Status Exam Appearance: Appropriate attire for the unit Eye contact: Direct Behavior: Socializing with peers, pleasant and cooperative Speech: Clear, soft, normal rate & rhythm Mood: pleasant Affect: Bright Thought process: Situational Thought Content: Linear Cognition: A/Ox4 Insight: Poor Judgment: Poor Interventions PRN's used: [place] X1 Therapeutic interventions: 1:1 therapeutic assessment, maintained safe therapeutic milieu, provided active listening with positive reinforcement, provided medication administration/education/monitoring as needed; Q15 safety checks. Restraints/seclusion/emergency medication: N/A Justification of Continued Inpatient Treatment: Continued therapeutic support and medication management needed to provide stabilization, prevent decompensation, improve coping mechanisms decreasing risk to patient and re-admittance.
[2019-09-04 20:00] VITALS: BP 149/74
[2019-09-04] MEDS: olanzapine 10mg tablet PO SCH (20:10)
[2019-09-04] MEDS: montelukast 10mg tablet PO SCH (20:11)
[2019-09-04] MEDS: polyethylene glycol 3350 17gm powd pack PO SCH (20:11)
[2019-09-04] MEDS: LORazepam 1 MG tablet PO PRN (20:38)
--- NOTE | 2019-09-05 00:27 | NUR ---
Nursing Progress Note: Legal hold: VOL Client on involuntary status for DTS Report received from RN with use of SBAR Why are they here: At 1430 pt admitted to [place] for [facility] on 5150 for DTS. Pt admitted for Depression NOS to room 326A. Pt states she has been stockpiling her medications to overdose. Pt also plans to pull out her dialysis catheter out. Pt stopped taking her medications a week ago stopped eating or sleeping and stopped dialysis. Pt has history of Bipolar, Schizophrenia, personality disorder and PTSD. Pt complains all of her family is diseased but has good relationship with her therapist Holly Ba. Assessment What has happened this shift: Pt is pleasant on approach and makes good eye contact. She apologizes for yelling at blog writer the night before. She is observed socializing with peers and witching TV. Pt is cooperative with 1:1 assessment and medication compliant. She requests prn ativan for anxiety which was given. Betadine applied to R heel wound as directed, heel floated off bed. Lower extremities elevated in bed because pt is complaining of pain and swelling in the day time. Bilat +1 non pitting edema in LE. Pt's HS blood glucose was 343 . PT scheduled to receive 200 units of Tresiba insulin, which has not been given yet this admission. [facility] Pharmacy called to verify dose, and insulin was given. 2 RN verification completed before administration of insulin dosage. S/I, H/I: None reported A/VH: None reported Sleep: See sleep assessment ADL's: Independent Were Meds taken: Yes Any med S/E: None reported nor observed Mental Status Exam Appearance: Appropriate attire for the unit Eye contact: Direct Behavior: Socializing with peers, pleasant and cooperative with most care Speech: Clear, audible, steady pace Mood: pleasant Affect: bland to bright Thought process: Situational, does not offer information unless specifically asked Thought Content: Linear, thought blocking Cognition: A/Ox4 Insight: Poor Judgment: Poor Interventions PRN's used:ativan Therapeutic interventions: 1:1 therapeutic assessment, maintained safe therapeutic milieu, provided active listening with positive reinforcement, provided medication administration/education/monitoring as needed; Q15 safety checks. Restraints/seclusion/emergency medication: N/A Justification of Continued Inpatient Treatment: Continued therapeutic support and medication management needed to provide stabilization, prevent decompensation, improve coping mechanisms decreasing risk to patient and re-admittance.
[2019-09-05] MEDS: albuterol 2.5 MG/3 ML nebule NEB SCH ×3 (03:00→20:56)
[2019-09-05] MEDS: HYDROcodone/acetaminophen 10/325mg tab PO PRN ×4 (03:59→23:13)
[2019-09-05 07:32] LABS: BASOPHILS % (AUTO) 0.5 % (0-1); EOSINOPHILS % (AUTO) 1.3 % (0-6); HEMOGLOBIN 9.3 g/dl (12.0-16.0); LYMPHOCYTES # (AUTO) 0.5 X10'3 (1.1-4.8); LYMPHOCYTES % (AUTO) 16.4 % (21-51); MEAN CORPUSCULAR HGB CONC 34.6 g/dL (33.0-36.5); MEAN CORPUSCULAR VOLUME 92.5 FL (78-98); MEAN PLATELET VOLUME 8.4 FL (7.4-10.4); MONOCYTES # (AUTO) 0.2 X10'3 (0-0.9); MONOCYTES % (AUTO) 5.8 % (2-12); NEUTROPHILS # (AUTO) 2.4 X10'3 (1.8-7.7); RED BLOOD COUNT 2.92 X10'6 (4.20-5.60); RED CELL DISTRIBUTION WIDTH 16.9 % (11.5-14.5); WHITE BLOOD COUNT 3.1 X10'3 (4.5-11.0)
[2019-09-05 07:35] LABS: PLATELET COUNT 38 X10'3 (140-440)
[2019-09-05] MEDS: levoTHYROXINE 100mcg tablet PO SCH (07:38)
[2019-09-05] MEDS: atorvastatin 10mg tablet PO SCH (07:38)
[2019-09-05] MEDS: furosemide 20MG tablet PO SCH ×3 (07:39→21:29)
[2019-09-05] MEDS: buPROPion SR 150mg tablet PO SCH ×2 (07:40→13:24)
[2019-09-05] MEDS: loratadine 10mg tablet PO SCH (07:40)
[2019-09-05] MEDS: ziprasidone 20mg capsule PO SCH ×2 (07:40→21:27)
[2019-09-05] MEDS: clopidogrel 75mg tablet PO SCH (07:41)
[2019-09-05] MEDS: spironolactone 25 MG tablet PO SCH (07:42)
[2019-09-05] MEDS: metoprolol tartrate 12.5mg (1/2 tablet) PO SCH ×2 (07:42→21:28)
[2019-09-05 07:46] LABS: ALANINE AMINOTRANSFERASE 46 U/L (12-78); ALBUMIN 3.8 G/DL (3.4-5.0); ALBUMIN/GLOBULIN RATIO 0.9 (1.1-1.5); ALKALINE PHOSPHATASE 238 IU/L (46-116); ANION GAP 10 (8-16); ASPARTATE AMINO TRANSFERASE 35 U/L (10-37); BILIRUBIN,TOTAL 0.8 MG/DL (0.1-1.0); BLOOD UREA NITROGEN 39 MG/DL (7-18); BUN/CREATININE RATIO 19.6 (6.6-38.0); CALCIUM 9.1 MG/DL (8.5-10.1); CHLORIDE 103 MMOL/L (99-107); CREATININE 1.99 MG/DL (0.40-0.90); GLUCOSE 259 MG/DL (70-104); PHOSPHORUS 4.3 MG/DL (2.3-4.5); POTASSIUM 4.5 MMOL/L (3.5-5.1); SODIUM 137 MMOL/L (135-145); TOTAL CARBON DIOXIDE 24.2 MMOL/L (24-32); TOTAL PROTEIN 8.1 G/DL (6.4-8.2); eGFR 26 ML/MIN
[2019-09-05] MEDS: INSULIN ASPART SQ SCH ×3 (08:08→17:56)
[2019-09-05] MEDS: LIRAGLUTIDE 0.6 MG/0.1 ML PEN.INJCTR SQ SCH (08:09)
[2019-09-05 08:17] VITALS: BP 107/47
[2019-09-05] MEDS: budesonide 0.5mg/2ml UD nebule IH SCH ×2 (11:15→20:56)
--- NOTE | 2019-09-05 11:47 | NUR ---
Initial: Pt admit with depression with SI. New A1c lab draw results show current A1c is 6.0 not warranting DM education. BG range 82-404 during admission. Per MD notes pt states her blood sugars have been running high as a result of changes in insulin dosage, to start home regimen of insulin and dosing per MD notes. Dialysis has been stopped at this time per MD notes, electrolytes WNL at this time. Pt with DM ulcer to right heel, intact with brown eschar with no openings open per physical assessment. Pt continues on CHO controlled diet with fluctuating PO intake, overall 75-100% with average 25% x 2 meals yesterday. LBM 09/02, pt receiving routine Miralax with PRN Colace and MoM. Will continue to follow. Recommendations: 1) Continue CHO controlled diet 2) Monitor renal labs and the need for the addition of renal diet 3) If HD, monitor need for ONS/additional protein 4) Routine bowel care 5) Wt per rx Addendum: 09/05/19 at [address] Amended: Links added.
--- NOTE | 2019-09-05 14:56 | NUR ---
patient refused svn tx at this time Addendum: 09/05/19 at 1457 by Karo Khalil RT Amended: Links added.
--- NOTE | 2019-09-05 17:36 | NUR ---
Nursing Progress Note: Legal hold: VOL Client on involuntary status for DTS Report received from Mamie ZALDIVAR with use of SBAR Why are they here: At 1430 pt admitted to [facility] for [facility] health on 5150 for DTS. Pt admitted for Depression NOS to room 326A. Pt states she has been stockpiling her medications to overdose. Pt also plans to pull out her dialysis catheter out. Pt stopped taking her medications a week ago stopped eating or sleeping and stopped dialysis. Pt has history of Bipolar, Schizophrenia, personality disorder and PTSD. Pt complains all of her family is diseased but has good relationship with her therapist Holly Ba. Assessment What has happened this shift: Pt. is asleep at start of shift. Pt. awake for breakfast and medications. Pt. ate all meals in community room and took all medications. 1:1 done at bedside, pt. denies SI/HI, A/V H. Pt. reports she is overall good but does report some depression r/t her medical issues. Pt. given [place] 10/325 with good effect. Pt.'s platlet count continues to be critically low at 38 and is being followed by hospitalists. Pt. seen participating in groups and socializing appropriately with pt.'s and staff. Pt. states she is hopeful to discharge this Tuesday. Pt. given [place] in evening with good effect. S/I, H/I: None reported A/VH: None reported Sleep: Pt. napped x1 ADL's: Independent Were Meds taken: Yes Any med S/E: None reported nor observed Mental Status Exam Appearance: Appropriate attire for the unit Eye contact: Direct Behavior: Socializing and encouraging peers, pleasant and cooperative with most care Speech: Clear, audible, steady pace Mood: pleasant mostly but depressed at times Affect: congruent with mood Thought process: Linear Thought Content: helping other patients and discharge. Cognition: A/Ox4 Insight: Poor Judgment: Poor Interventions PRN's used: [place] x2 Therapeutic interventions: 1:1 therapeutic assessment, maintained safe therapeutic milieu, provided active listening with positive reinforcement, provided medication administration/education/monitoring as needed; Q15 safety checks. Restraints/seclusion/emergency medication: N/A Justification of Continued Inpatient Treatment: Continued therapeutic support and medication management needed to provide stabilization, prevent decompensation, improve coping mechanisms decreasing risk to patient and re-admittance.
[2019-09-05 20:00] VITALS: BP 132/72
[2019-09-05] MEDS: polyethylene glycol 3350 17gm powd pack PO SCH (21:17)
[2019-09-05] MEDS: temazepam 15mg capsule PO SCH (21:28)
[2019-09-05] MEDS: OLANZAPINE 5 MG TABLET PO SCH (21:28)
[2019-09-05] MEDS: montelukast 10mg tablet PO SCH (21:29)
[2019-09-06] MEDS: albuterol 2.5 MG/3 ML nebule NEB SCH ×4 (02:31→21:12)
--- NOTE | 2019-09-06 04:10 | NUR ---
Nursing Progress Note: Legal hold: VOL Client on voluntary status for DTS Report received from Vijay RN with use of SBAR Why are they here: At 1430 pt admitted to [facility] for [facility] health on 5150 for DTS. Pt admitted for Depression NOS to room 326A. Pt states she has been stockpiling her medications to overdose. Pt also plans to pull out her dialysis catheter out. Pt stopped taking her medications a week ago stopped eating or sleeping and stopped dialysis. Pt has history of Bipolar, Schizophrenia, personality disorder and PTSD. Pt complains all of her family is diseased but has good relationship with her therapist Holly Ba. Assessment What has happened this shift: Pt socializing with peers majority of shift. Pt states she is suicidal but feeling like "overall an improvement since I've been here." Pt attributes betterment to "not being so isolated. I'm alone all the time except when I see my therapist. It's good to be back on my medications, too." Pt also states chronic pain makes daily living difficult and contributes to her overall depression. HS glucose was high; pt states she has been amking better choices but then continues to state she has a burrito nightly. This RN suggested carb-friendly snacks to help manage her DM II; the pt verbalized understanding. Pt spontaneously shared about her cats at home with this RN and how she misses them. Pt compliant with medications and requested PRN [place] for pain to good effect. Sat in hallway chair for a couple hours before going to sleep at midnight with prompting from this RN. Pt yelled "Why does it matter that I sit in this chair!? Just leave me alone." Pt then began to weep, stating it hasn't been a good day. When this RN attempted to explore potential triggers for outburst, the pt stated she wanted to be left alone. She regained control over her emotions then headed to bed. S/I, H/I: +SI (01/07), no plan A/VH: Denies Sleep: See Sleep Assessment; pt up multiple times during the night ADL's: Independent Were Meds taken: Yes Any med S/E: None reported nor observed Mental Status Exam Appearance: Green unit scrubs and nonskid socks, hair down, glasses Eye contact: Direct Behavior: Engaging with peers, coloring, cooperative for majority of shift Speech: Clear, audible, steady pace Mood: Depressed (8/10), Anxiety (9/10) Affect: Animated Thought process: Linear Thought Content: Continuing to feel better, managing pain, helping peers Cognition: A/Ox4 Insight: Fair Judgment: Poor to fair Interventions PRN's used: [place] Therapeutic interventions: 1:1 therapeutic assessment, maintained safe therapeutic milieu, provided active listening with positive reinforcement, provided medication administration/education/monitoring as needed; Q15 safety checks. Restraints/seclusion/emergency medication: N/A Justification of Continued Inpatient Treatment: Continued therapeutic support and medication management needed to provide stabilization, prevent decompensation, improve coping mechanisms decreasing risk to patient and re-admittance. Plan is to D/C on Tuesday to her residence.
[2019-09-06 08:00] VITALS: BP 106/58
[2019-09-06 08:08] LABS: ALBUMIN 3.6 G/DL (3.4-5.0); ANION GAP 8 (8-16); BLOOD UREA NITROGEN 44 MG/DL (7-18); BUN/CREATININE RATIO 22.2 (6.6-38.0); CALCIUM 8.7 MG/DL (8.5-10.1); CHLORIDE 104 MMOL/L (99-107); CREATININE 1.98 MG/DL (0.40-0.90); GLUCOSE 178 MG/DL (70-104); MAGNESIUM 2.1 MG/DL (1.5-2.4); PHOSPHORUS 4.7 MG/DL (2.3-4.5); POTASSIUM 4.1 MMOL/L (3.5-5.1); SODIUM 139 MMOL/L (135-145); TOTAL CARBON DIOXIDE 26.9 MMOL/L (24-32); eGFR 26 ML/MIN
[2019-09-06] MEDS: spironolactone 25 MG tablet PO SCH (08:19)
[2019-09-06] MEDS: buPROPion SR 150mg tablet PO SCH ×2 (08:19→12:52)
[2019-09-06] MEDS: ziprasidone 20mg capsule PO SCH ×2 (08:20→20:25)
[2019-09-06] MEDS: atorvastatin 10mg tablet PO SCH (08:20)
[2019-09-06] MEDS: clopidogrel 75mg tablet PO SCH (08:20)
[2019-09-06] MEDS: loratadine 10mg tablet PO SCH (08:20)
[2019-09-06] MEDS: furosemide 20MG tablet PO SCH ×3 (08:20→20:26)
[2019-09-06] MEDS: levoTHYROXINE 100mcg tablet PO SCH (08:21)
[2019-09-06] MEDS: HYDROcodone/acetaminophen 10/325mg tab PO PRN ×3 (08:21→21:00)
[2019-09-06] MEDS: metoprolol tartrate 12.5mg (1/2 tablet) PO SCH ×2 (08:22→20:25)
[2019-09-06] MEDS: polyethylene glycol 3350 17gm powd pack PO SCH ×2 (08:22→20:24)
[2019-09-06 08:23] LABS: BASOPHILS % (AUTO) 0.4 % (0-1); HEMATOCRIT 26.4 % (35.0-45.0); HEMOGLOBIN 9.2 g/dl (12.0-16.0); LYMPHOCYTES # (AUTO) 0.7 X10'3 (1.1-4.8); LYMPHOCYTES % (AUTO) 21.8 % (21-51); MEAN CORPUSCULAR HGB CONC 34.9 g/dL (33.0-36.5); MEAN CORPUSCULAR VOLUME 91.7 FL (78-98); MEAN PLATELET VOLUME 8.5 FL (7.4-10.4); MONOCYTES # (AUTO) 0.2 X10'3 (0-0.9); MONOCYTES % (AUTO) 6.8 % (2-12); NEUTROPHILS # (AUTO) 2.4 X10'3 (1.8-7.7); RED BLOOD COUNT 2.88 X10'6 (4.20-5.60); RED CELL DISTRIBUTION WIDTH 16.7 % (11.5-14.5); WHITE BLOOD COUNT 3.4 X10'3 (4.5-11.0)
[2019-09-06] MEDS: INSULIN ASPART SQ SCH ×3 (08:28→17:00)
[2019-09-06] MEDS: LIRAGLUTIDE 0.6 MG/0.1 ML PEN.INJCTR SQ SCH (08:28)
[2019-09-06 08:29] LABS: PLATELET COUNT 38 X10'3 (140-440)
[2019-09-06] MEDS: budesonide 0.5mg/2ml UD nebule IH SCH ×2 (09:00→21:12)
--- NOTE | 2019-09-06 09:16 | NUR ---
patients refused SVN treatment Signed: 09/06/19 at 916 by Marcos YE-RT <Co-Signature Required> Co-Signed: 09/06/19 at 916 by Karo Khalil RT Addendum: 09/06/19 at 916 by Marcos YE-RT Amended: Links added.
--- NOTE | 2019-09-06 12:31 | NUR ---
I have reviewed and agree with all medications administered and interventions performed by [facility] Student(fill in Student's name) Addendum: 09/06/19 at 1232 by Karo Khalil RT eugene bell
--- NOTE | 2019-09-06 12:34 | NUR ---
Called [facility] to re-schedule Ct's appt with PCP, Dr Chua, as her appt is for tomorrow at 8:50 am. Appt was cancelled and RN is supposed to call publicity writer back to re-schedule. FRANKI Rico
--- NOTE | 2019-09-06 15:17 | NUR ---
patient refused svn tx Addendum: 09/06/19 at 1517 by Karo Khalil RT Amended: Links added.
--- NOTE | 2019-09-06 16:02 | NUR ---
Nursing Progress Note: SYDNIE Legal hold: VOL Client on voluntary status for DTS Report received from ZEN Hatch with use of SBAR Why are they here: At 1430 pt admitted to [place] for [facility] health on 5150 for DTS. Pt admitted for Depression NOS to room 326A. Pt states she has been stockpiling her medications to overdose. Pt also plans to pull out her dialysis catheter out. Pt stopped taking her medications a week ago stopped eating or sleeping and stopped dialysis. Pt has history of Bipolar, Schizophrenia, personality disorder and PTSD. Pt complains all of her family is diseased but has good relationship with her therapist Holly Ba. Assessment What has happened this shift: Pt socializing with peers majority of shift. Pt c/o chronic pain and contributes this to her overall depression. Pt out of Novolog insulin at lunchtime. MD adams and RN was advised to skip insulin dose for lunch. Pt advised to contact business applications specialist to get refill Novolog pen from pharmacy in [facility]. Pt compliant with medications and requested PRN [place] X2 for pain to good effect. Shortly after lunch pt reported nausea sx and requested Zofran. She reports she has bouts of nausea occassionally and attributes this to her h/o multiple bowel surgeries. After afternoon group pt was tearful reporting she was thinking about memories of her father dying in her arms on in 1996. After talking about her childhood and relationship with her father pt was thankful. She was later found laughing with peers and staff. She denies any SE's to medications. S/I, H/I: confirms SI , no plan A/VH: Denies Sleep: 3.5hrs NOC ADL's: Independent Were Meds taken: Yes Any med S/E: None reported nor observed Mental Status Exam Appearance: Street clothes and nonskid socks, hair down, glasses Eye contact: Direct Behavior: Engaging with peers, coloring, cooperative Speech: Clear, audible, steady pace Mood: Depressed, Anxious Affect: Labile Thought process: Linear Thought Content: Continuing to feel better, managing pain, helping peers Cognition: A/Ox4 Insight: Fair Judgment: Poor to fair Interventions PRN's used: [place] X2, Zofran X1 Therapeutic interventions: 1:1 therapeutic assessment, maintained safe therapeutic milieu, provided active listening with positive reinforcement, provided medication administration/education/monitoring as needed; Q15 safety checks. Restraints/seclusion/emergency medication: N/A Justification of Continued Inpatient Treatment: Continued therapeutic support and medication management needed to provide stabilization, prevent decompensation, improve coping mechanisms decreasing risk to patient and re-admittance. Plan is to D/C on Tuesday to her residence.
[2019-09-06 20:00] VITALS: BP 120/65
[2019-09-06] MEDS: montelukast 10mg tablet PO SCH (20:25)
[2019-09-06] MEDS: temazepam 15mg capsule PO SCH (20:25)
[2019-09-06] MEDS: OLANZAPINE 5 MG TABLET PO SCH (20:26)
[2019-09-06] MEDS: LORazepam 1 MG tablet PO PRN (23:22)
[2019-09-07] MEDS: albuterol 2.5 MG/3 ML nebule NEB SCH ×4 (03:00→21:14)
--- NOTE | 2019-09-07 03:31 | NUR ---
Nursing Progress Note: SYDNIE Legal hold: VOL Client on voluntary status for DTS Report received from YULIYA Gleason with use of SBAR Why are they here: At 1430 pt admitted to [place] for [facility] health on 5150 for DTS. Pt admitted for Depression NOS to room 326A. Pt states she has been stockpiling her medications to overdose. Pt also plans to pull out her dialysis catheter out. Pt stopped taking her medications a week ago stopped eating or sleeping and stopped dialysis. Pt has history of Bipolar, Schizophrenia, personality disorder and PTSD. Pt complains all of her family is diseased but has good relationship with her therapist Holly Ba. Assessment What has happened this shift: Pt in rec room watching football game with peers at the beginning of shift. Compliant with all medication. Partial dose (125units) insulin provided due to pt's own med (Tresiba) ran out. Called pharmacy because patient stated she'd had a box delivered but later in the shift pharmacy notified this policy writer typist they do not have anymore and pt will need to call for refill to be delivered, will pass on to day shift as patient was asleep at the time of call. Patient pleasant and cooperative with all care this shift. When patient was notified the rec room TV needed turned off she remained pleasant and went to bed directly after. Patient reported SI with no plan, no HI. She reports occasional muffled AH but "none today" and denies VH. Patient expressed feeling ready to go home and reported possible D/C 09/08. When asked about how she felt about D/C she stated, "I'm ready to see my babies," speaking of her cats. S/I, H/I: Reports SI , no plan A/VH: Denies Sleep: Refer to sleep assess. ADL's: Independent Were Meds taken: Yes Any med S/E: None reported nor observed Mental Status Exam Appearance: Street clothes and nonskid socks, hair down, glasses Eye contact: Direct Behavior: Engaging with peers, watching TV, cooperative Speech: Clear, audible, steady pace Mood: Depressed, Anxious Affect: Congruent to mood Thought process: Linear Thought Content: Situational Cognition: A/Ox4 Insight: Fair Judgment: Fair Interventions PRN's used: [place] and Ativan, effective results Therapeutic interventions: 1:1 therapeutic assessment, maintained safe therapeutic milieu, provided active listening with positive reinforcement, provided medication administration/education/monitoring as needed; Q15 safety checks. Restraints/seclusion/emergency medication: N/A Justification of Continued Inpatient Treatment: Continued therapeutic support and medication management needed to provide stabilization, prevent decompensation, improve coping mechanisms decreasing risk to patient and re-admittance. Plan is to D/C on Tuesday to her residence.
[2019-09-07] MEDS: HYDROcodone/acetaminophen 10/325mg tab PO PRN ×3 (06:00→18:35)
[2019-09-07 08:00] VITALS: BP 94/61
[2019-09-07] MEDS: metoprolol tartrate 12.5mg (1/2 tablet) PO SCH ×3 (08:00→20:16)
[2019-09-07] MEDS: atorvastatin 10mg tablet PO SCH (08:10)
[2019-09-07] MEDS: spironolactone 25 MG tablet PO SCH (08:11)
[2019-09-07] MEDS: levoTHYROXINE 100mcg tablet PO SCH (08:11)
[2019-09-07] MEDS: polyethylene glycol 3350 17gm powd pack PO SCH ×2 (08:11→20:15)
[2019-09-07] MEDS: ziprasidone 20mg capsule PO SCH ×2 (08:13→20:15)
[2019-09-07] MEDS: loratadine 10mg tablet PO SCH (08:13)
[2019-09-07] MEDS: clopidogrel 75mg tablet PO SCH (08:13)
[2019-09-07] MEDS: furosemide 20MG tablet PO SCH ×3 (08:13→20:16)
[2019-09-07] MEDS: buPROPion SR 150mg tablet PO SCH (08:14)
[2019-09-07] MEDS: budesonide 0.5mg/2ml UD nebule IH SCH ×2 (09:00→21:13)
[2019-09-07] MEDS: LIRAGLUTIDE 0.6 MG/0.1 ML PEN.INJCTR SQ SCH (09:13)
[2019-09-07] MEDS: buPROPion 100mg tablet PO SCH (12:20)
--- NOTE | 2019-09-07 16:06 | NUR ---
Nursing Progress Note: SYDNIE Legal hold: VOL Client on voluntary status for DTS Report received from YULIYA Carrasquillo Why are they here: At 1430 pt admitted to [place] for Behavioral health on 5150 for DTS. Pt admitted for Depression NOS to room 326A. Pt states she has been stockpiling her medications to overdose. Pt also plans to pull out her dialysis catheter out. Pt stopped taking her medications a week ago stopped eating or sleeping and stopped dialysis. Pt has history of Bipolar, Schizophrenia, personality disorder and PTSD. Pt complains all of her family is diseased but has good relationship with her therapist Holly Ba. Assessment What has happened this shift: Patient was asleep at change of shift and up before breakfast. Patient denies suicidal ideation but has thoughts of suicide without a plan. Patient's insulin was stopped today by order of Dr Munoz and patient is not happy about it. No oral hypoglycemic medications have been ordered as a replacement. Patient also saw the hospitalist today and she also stated patient does not need to be on insulin. Patient appeared happy in the afternoon and was sitting in the Community Room chatting with her peers. Patient slept through morning group but did attend afternoon group. Plan to discharge tomorrow. S/I, H/I: Denies but still some thoughts of suicide A/VH: Denies Sleep: Laid down in bed a couple of times. ADL's: Independent Group Attendance: Afternoon group only Were Meds taken: Yes Any med S/E: None observed. Mental Status Exam Appearance: Street clothes and nonskid socks, hair down, glasses Eye contact: Direct Behavior: Engaging with peers, cooperative Speech: normal Mood: Initially upset but became calm and cooperative Affect: slightly depressed Thought process: Linear Thought Content: Continuing to feel better, Cognition: A/Ox4 Insight: Fair Judgment: Poor to fair Interventions PRN's used: [place] X2, Therapeutic interventions: 1:1 therapeutic assessment, maintained safe therapeutic milieu, provided active listening with positive reinforcement, provided medication administration/education/monitoring as needed; Q15 safety checks. Restraints/seclusion/emergency medication: N/A Justification of Continued Inpatient Treatment: Continued therapeutic support and medication management needed to provide stabilization, prevent decompensation, improve coping mechanisms decreasing risk to patient and re-admittance. Plan is to D/C on Tuesday to her residence.
--- NOTE | 2019-09-07 18:25 | NUR ---
0900 & 1500 SVN treatments triaged today.
[2019-09-07 20:00] VITALS: BP 133/64
[2019-09-07] MEDS: montelukast 10mg tablet PO SCH (20:16)
[2019-09-07] MEDS: temazepam 15mg capsule PO SCH (20:16)
[2019-09-07] MEDS ORDERED: topiramate 25mg tablet PO SCH (21:00)
[2019-09-07] MEDS ORDERED: MESSAGE TO PHARMACY PO ONE (21:25)
[2019-09-07] MEDS ORDERED: glucagon, human recombinant 1mg kit SUBCUT PRN (21:25)
[2019-09-07] MEDS ORDERED: dextrose 50%-water 50ml dispensing syringe IV PRN ×2 (21:25)
[2019-09-07] MEDS ORDERED: dextrose ORAL solution 15 GM/59 ML bottle PO PRN ×2 (21:25)
[2019-09-07] MEDS: LORazepam 1 MG tablet PO PRN (22:55)
[2019-09-08] MEDS: HYDROcodone/acetaminophen 10/325mg tab PO PRN ×5 (01:45→20:55)
--- NOTE | 2019-09-08 02:51 | NUR ---
Nursing Progress Note: SYDNIE Legal hold: VOL Client on voluntary status for DTS Report received from YULIYA Gleason with use of SBAR Why are they here: At 1430 pt admitted to [place] for Behavioral health on 5150 for DTS. Pt admitted for Depression NOS to room 326A. Pt states she has been stockpiling her medications to overdose. Pt also plans to pull out her dialysis catheter out. Pt stopped taking her medications a week ago stopped eating or sleeping and stopped dialysis. Pt has history of Bipolar, Schizophrenia, personality disorder and PTSD. Pt complains all of her family is diseased but has good relationship with her therapist Holly Ba. Assessment What has happened this shift: Patient in group room socializing with peers appropriately. Patient reminded Tresiba is empty and she stated she has someone who'll be able to bring it in tomorrow. Patient's doctor notified and hospitalist notified. Hospitalist order to start protocol and patient refused at this time. Patient encouraged to let staff now if she felt BS needed taken at anytime and she was agreeable. Patient spent time socializing peers until group room closed for the night and she went to bed immediately following. Patient shortly found whimpering in pain and at the time an hour too early for [place]. Patient declined Tylenol stating "I cannot take it." She was offered warm compresses and she refused. She also refused repositioning. Once this data analyst report writer left patient's bedside she fell asleep and two hours later received [place] with positive effect. S/I, H/I: None reported A/VH: None reported Sleep: Refer to sleep assess. ADL's: Independent Were Meds taken: Yes Any med S/E: None reported or observed Mental Status Exam Appearance: Personal bottoms with green scrub top and nonskid socks, hair down, glasses Eye contact: Direct Behavior: Engaging with peers, watching TV, cooperative Speech: Clear, audible, steady pace Mood: "better" Affect: Positive Thought process: Linear Thought Content: medication and discharge Cognition: A/Ox4 Insight: Fair Judgment: Fair Interventions PRN's used: [place] and Ativan, effective results Therapeutic interventions: 1:1 therapeutic assessment, maintained safe therapeutic milieu, provided active listening with positive reinforcement, provided medication administration/education/monitoring as needed; Q15 safety checks. Restraints/seclusion/emergency medication: N/A Justification of Continued Inpatient Treatment: Continued therapeutic support and medication management needed to provide stabilization, prevent decompensation, improve coping mechanisms decreasing risk to patient and re-admittance. Plan is to D/C on Tuesday to her residence.
[2019-09-08] MEDS: albuterol 2.5 MG/3 ML nebule NEB SCH ×4 (03:00→21:00)
[2019-09-08 08:00] VITALS: BP 116/61
[2019-09-08] MEDS: LIRAGLUTIDE 0.6 MG/0.1 ML PEN.INJCTR SQ SCH (08:00)
[2019-09-08] MEDS: clopidogrel 75mg tablet PO SCH (08:00)
[2019-09-08] MEDS: cyclobenzaprine 10mg tablet PO SCH (08:00)
[2019-09-08 08:01] LABS: BASOPHILS % (AUTO) 0.4 % (0-1); EOSINOPHILS % (AUTO) 0.6 % (0-6); HEMATOCRIT 26.2 % (35.0-45.0); HEMOGLOBIN 9.1 g/dl (12.0-16.0); LYMPHOCYTES # (AUTO) 0.6 X10'3 (1.1-4.8); LYMPHOCYTES % (AUTO) 17.2 % (21-51); MEAN CORPUSCULAR HEMOGLOBIN 32.3 PG (27.0-31.0); MEAN CORPUSCULAR HGB CONC 34.8 g/dL (33.0-36.5); MEAN CORPUSCULAR VOLUME 92.8 FL (78-98); MEAN PLATELET VOLUME 8.3 FL (7.4-10.4); MONOCYTES # (AUTO) 0.2 X10'3 (0-0.9); NEUTROPHILS # (AUTO) 2.7 X10'3 (1.8-7.7); NEUTROPHILS % (AUTO) 75.8 % (42-75); RED BLOOD COUNT 2.82 X10'6 (4.20-5.60); RED CELL DISTRIBUTION WIDTH 16.8 % (11.5-14.5); WHITE BLOOD COUNT 3.6 X10'3 (4.5-11.0)
[2019-09-08] MEDS: budesonide 0.5mg/2ml UD nebule IH SCH ×2 (08:01→21:00)
[2019-09-08] MEDS: spironolactone 25 MG tablet PO SCH (08:01)
[2019-09-08] MEDS: furosemide 20MG tablet PO SCH ×3 (08:01→20:08)
[2019-09-08] MEDS: atorvastatin 10mg tablet PO SCH (08:01)
[2019-09-08] MEDS: loratadine 10mg tablet PO SCH (08:01)
[2019-09-08] MEDS: levoTHYROXINE 100mcg tablet PO SCH (08:02)
[2019-09-08] MEDS: ziprasidone 20mg capsule PO SCH ×2 (08:02→20:08)
[2019-09-08] MEDS: buPROPion 100mg tablet PO SCH ×2 (08:03→12:18)
[2019-09-08] MEDS: polyethylene glycol 3350 17gm powd pack PO SCH ×2 (08:04→20:10)
[2019-09-08] MEDS: metoprolol tartrate 12.5mg (1/2 tablet) PO SCH ×2 (08:05→20:09)
[2019-09-08 08:10] LABS: ALANINE AMINOTRANSFERASE 54 U/L (12-78); ALBUMIN 3.7 G/DL (3.4-5.0); ALBUMIN/GLOBULIN RATIO 0.9 (1.1-1.5); ALKALINE PHOSPHATASE 239 IU/L (46-116); ANION GAP 9 (8-16); ASPARTATE AMINO TRANSFERASE 39 U/L (10-37); BILIRUBIN,TOTAL 0.8 MG/DL (0.1-1.0); BLOOD UREA NITROGEN 46 MG/DL (7-18); BUN/CREATININE RATIO 20.6 (6.6-38.0); CALCIUM 8.6 MG/DL (8.5-10.1); CHLORIDE 103 MMOL/L (99-107); CREATININE 2.23 MG/DL (0.40-0.90); GLUCOSE 136 MG/DL (70-104); POTASSIUM 4.4 MMOL/L (3.5-5.1); SODIUM 139 MMOL/L (135-145); TOTAL CARBON DIOXIDE 26.8 MMOL/L (24-32); TOTAL PROTEIN 7.9 G/DL (6.4-8.2); eGFR 23 ML/MIN
[2019-09-08 08:29] LABS: PLATELET COUNT 37 X10'3 (140-440)
--- NOTE | 2019-09-08 08:34 | NUR ---
CRITICAL LAB Lab called to notify RN of platelet count of 37. RN notified
[2019-09-08] MEDS: insulin Lispro (HumaLOG) vial - multi-dose SQ SCH ×3 (08:44→18:30)
[2019-09-08] MEDS: topiramate 25mg tablet PO SCH ×2 (12:17→20:09)
--- NOTE | 2019-09-08 17:55 | NUR ---
Nursing Progress Note: SYDNIE Legal hold: VOL Client on voluntary status for DTS Report received from YULIYA Carrasquillo Why are they here: At 1430 pt admitted to [place] for Behavior[facility] health on 5150 for DTS. Pt admitted for Depression NOS to room 326A. Pt states she has been stockpiling her medications to overdose. Pt also plans to pull out her dialysis catheter out. Pt stopped taking her medications a week ago stopped eating or sleeping and stopped dialysis. Pt has history of Bipolar, Schizophrenia, personality disorder and PTSD. Pt complains all of her family is diseased but has good relationship with her therapist Holly Ba. Assessment Patient was asleep at change of shift and up before breakfast. Patient was happy today and spent a lot of time in the Community Room with a couple of women, coloring and laughing. Patient is taking her [place] q 4 hours. Patient has some depression but denies suicidal ideation. Patient mood was elevated today. Around 1600 patient was pushing to get out of her chair and she felt a pop in her knee and was crying. Patient was given a [place] and taken by wheelchair to her room to rest in her bed. Patient to be discharged on Tuesday. S/I, H/I: Denies A/VH: Denies Sleep: Laid down in bed a couple of times. ADL's: Now needs assistance Group Attendance: Morning group Were Meds taken: Yes Any med S/E: None observed. Mental Status Exam Appearance: Street clothes and nonskid socks, hair down, glasses Eye contact: Direct Behavior: Engaging with peers, cooperative Speech: normal Mood: Pleasant, laughing and social Affect: slightly depressed Thought process: Linear Thought Content: Continuing to feel better, except for pain to right knee Cognition: A/Ox4 Insight: Fair Judgment: Poor to fair Interventions PRN's used: [place] X3, Therapeutic interventions: 1:1 therapeutic assessment, maintained safe therapeutic milieu, provided active listening with positive reinforcement, provided medication administration/education/monitoring as needed; Q15 safety checks. Restraints/seclusion/emergency medication: N/A Justification of Continued Inpatient Treatment: Continued therapeutic support and medication management needed to provide stabilization, prevent decompensation, improve coping mechanisms decreasing risk to patient and re-admittance. Plan is to D/C on Tuesday to her residence.
[2019-09-08 19:45] VITALS: BP 129/59
[2019-09-08] MEDS: temazepam 15mg capsule PO SCH (20:08)
[2019-09-08] MEDS: montelukast 10mg tablet PO SCH (20:09)
[2019-09-08] MEDS: ferrous sulfate 325mg tablet PO SCH (20:09)
[2019-09-08] MEDS: mirtazapine 15mg tablet PO SCH (20:10)
[2019-09-08] MEDS ORDERED: insulin glargine (Lantus) pen - multi-dose SQ SCH (21:00)
--- NOTE | 2019-09-08 21:30 | NUR ---
Pt c/o increased pain and swelling in R leg and lower back post PRN [place]. Pt encouraged to elevate her legs and provided ice.
[2019-09-09] MEDS: albuterol 2.5 MG/3 ML nebule NEB SCH ×4 (02:42→21:00)
[2019-09-09] MEDS: HYDROcodone/acetaminophen 10/325mg tab PO PRN ×4 (02:42→18:51)
--- NOTE | 2019-09-09 03:22 | NUR ---
Nursing Progress Note: SYDNIE Legal hold: VOL Client on voluntary status for DTS Report received from YULIYA Gleason with use of SBAR Why are they here: At 1430 pt admitted to [place] for Behavioral health on 5150 for DTS. Pt admitted for Depression NOS to room 326A. Pt states she has been stockpiling her medications to overdose. Pt also plans to pull out her dialysis catheter out. Pt stopped taking her medications a week ago stopped eating or sleeping and stopped dialysis. Pt has history of Bipolar, Schizophrenia, personality disorder and PTSD. Pt complains all of her family is diseased but has good relationship with her therapist Holly Ba. Assessment What has happened this shift: Patient socializing with peers in the group room at the beginning of shift. Patient laughing and socializing appropriately in group room until group room closed for the night. Patient utilizing w/c to move through the unit due to severe leg and back pain. Patient wheeled herself to her bedroom and sat in the door way where this sba underwriter approached her with her PRN [place] she'd requested. When she was handed her [place] she stated, "I'm glad my leg is a fucking joke to everyone," not elaborating at the time and polity said thank you and remained sitting her doorway. Later she expressed someone had laughed at her during the previous shift and c/o increased swelling and pain in her R leg and back. Patient was easily redirected with encouragement to elevate and ice her leg. This sba underwriter went back into her room to talk with her and she was back to smiling and talking without agitation. Patient continues to decline diabetic protocol. Her Tresiba was available for HS dose and administered. Patient would like to use her own needles but have not been distributed by pharmacy at this time. S/I, H/I: None reported A/VH: None reported Sleep: Refer to sleep assess. ADL's: Independent Were Meds taken: Yes Any med S/E: None reported or observed Mental Status Exam Appearance: Personal bottoms with green scrub top and nonskid socks, hair down, glasses Eye contact: Direct Behavior: Engaging with peers, watching TV, cooperative Speech: Clear, audible, steady pace Mood: "good" Affect: Labile Thought process: Linear Thought Content: Leg and back pain Cognition: A/Ox4 Insight: Fair Judgment: Fair Interventions PRN's used: [place] x2, effective results Therapeutic interventions: 1:1 therapeutic assessment, maintained safe therapeutic milieu, provided active listening with positive reinforcement, provided medication administration/education/monitoring as needed; Q15 safety checks. Restraints/seclusion/emergency medication: N/A Justification of Continued Inpatient Treatment: Continued therapeutic support and medication management needed to provide stabilization, prevent decompensation, improve coping mechanisms decreasing risk to patient and re-admittance. Plan is to D/C on Tuesday to her residence.
[2019-09-09 07:21] VITALS: BP 100/51
[2019-09-09] MEDS: cyclobenzaprine 10mg tablet PO SCH (07:54)
[2019-09-09] MEDS: spironolactone 25 MG tablet PO SCH (07:55)
[2019-09-09] MEDS: metoprolol tartrate 12.5mg (1/2 tablet) PO SCH ×2 (07:56→22:39)
[2019-09-09] MEDS: furosemide 20MG tablet PO SCH ×3 (07:56→22:37)
[2019-09-09] MEDS: ziprasidone 20mg capsule PO SCH ×2 (07:57→22:36)
[2019-09-09] MEDS: atorvastatin 10mg tablet PO SCH (07:58)
[2019-09-09] MEDS: loratadine 10mg tablet PO SCH (07:58)
[2019-09-09] MEDS: clopidogrel 75mg tablet PO SCH (07:58)
[2019-09-09] MEDS: topiramate 25mg tablet PO SCH (07:59)
[2019-09-09] MEDS: levoTHYROXINE 100mcg tablet PO SCH (07:59)
[2019-09-09] MEDS: polyethylene glycol 3350 17gm powd pack PO SCH ×2 (08:00→22:40)
[2019-09-09] MEDS: buPROPion 100mg tablet PO SCH ×2 (08:01→12:38)
[2019-09-09] MEDS: LIRAGLUTIDE 0.6 MG/0.1 ML PEN.INJCTR SQ SCH (08:51)
[2019-09-09] MEDS: budesonide 0.5mg/2ml UD nebule IH SCH ×2 (09:42→21:00)
--- NOTE | 2019-09-09 18:08 | NUR ---
Nursing Progress Note: Legal hold: VOL Client on voluntary status for DTS Report received from YULIYA Carrasquillo Why are they here: At 1430 pt admitted to [facility] on 5150 for DTS. Pt admitted for Depression NOS to room 326A. Pt states she has been stockpiling her medications to overdose. Pt also plans to pull out her dialysis catheter out. Pt stopped taking her medications a week ago stopped eating or sleeping and stopped dialysis. Pt has history of Bipolar, Schizophrenia, personality disorder and PTSD. Pt complains all of her family is diseased but has good relationship with her therapist Holly Ba. Assessment Received Pt in bed awake w/o distress at beginning of shift. Pt awoke for breakfast and AM meds. Pt c/o pain in lower back and given norco X2 during this shift. Pt pleasant and cooperative during morning, laughing and joking with staff and others. Pt became irritated at lunch due to her low carb diabetic diet and refused to eat lunch. Pt dismisses all diabetic education and commenced to ask for snacks and high sugar PB&J sandwiches. Has been in group room for most of afternoon drawing and watching TV. S/I, H/I: Denies A/VH: Denies Sleep: Laid down in bed a couple of times. ADL's: Independent Group Attendance: Morning group Were Meds taken: Yes Any med S/E: None observed. Mental Status Exam Appearance: Street clothes and nonskid socks, hair down, glasses Eye contact: Direct Behavior: Engaging with peers, cooperative Speech: normal Mood: Pleasant, laughing and social Affect: slightly depressed Thought process: Linear Thought Content: Continuing to feel better, except for pain to right knee Cognition: A/Ox4 Insight: Fair Judgment: Poor to fair Interventions PRN's used: [place] X2, Therapeutic interventions: 1:1 therapeutic assessment, maintained safe therapeutic milieu, provided active listening with positive reinforcement, provided medication administration/education/monitoring as needed; Q15 safety checks. Restraints/seclusion/emergency medication: N/A Justification of Continued Inpatient Treatment: Continued therapeutic support and medication management needed to provide stabilization, prevent decompensation, improve coping mechanisms decreasing risk to patient and re-admittance. Plan is to D/C on Tuesday to her residence.
[2019-09-09 19:37] VITALS: BP 134/74
[2019-09-09] MEDS ORDERED: topiramate 25mg tablet PO SCH (21:00)
[2019-09-09] MEDS: LORazepam 1 MG tablet PO PRN (22:36)
[2019-09-09] MEDS: montelukast 10mg tablet PO SCH (22:36)
[2019-09-09] MEDS: ferrous sulfate 325mg tablet PO SCH (22:36)
[2019-09-09] MEDS: mirtazapine 15mg tablet PO SCH (22:38)
[2019-09-09] MEDS: temazepam 15mg capsule PO SCH (22:38)
[2019-09-10] MEDS: albuterol 2.5 MG/3 ML nebule NEB SCH ×2 (03:00→09:00)
--- NOTE | 2019-09-10 04:08 | NUR ---
Nursing Progress Note: Legal hold: VOL Client on voluntary status for DTS Report received from ZEN Gleason Why are they here: At 1430 pt admitted to [facility] on 5150 for DTS. Pt admitted for Depression NOS to room 326A. Pt states she has been stockpiling her medications to overdose. Pt also plans to pull out her dialysis catheter out. Pt stopped taking her medications a week ago stopped eating or sleeping and stopped dialysis. Pt has history of Bipolar, Schizophrenia, personality disorder and PTSD. Pt complains all of her family is diseased but has good relationship with her therapist Holly Ba. Assessment Patient is awake and well oriented. She has been socializing with other patients. At one point this patient and another female patient confronted another male patient and accused him of being flirtations. Per the Tech who was sitting nearby this never happened. The male patient was forced to retire to his room in order to avoid further confrontation. This patient then informed this designer writer that she had been triggered. She then requested Lorazemam for her anxiety. It was dispensed. The patient was medication compliant. Patient complains of depression. Her affect is flat. There are no voices, she denies S/I or H/I. This patient can be labile at times. S/I, H/I: Denies A/VH: Denies Sleep: Will compute at 0500 Hrs. ADL's: Independent Group Attendance: Morning group Were Meds taken: Yes Any med S/E: None observed. Mental Status Exam Appearance: Street clothes and nonskid socks, hair down, glasses Eye contact: Direct Behavior: Engaging with peers, cooperative Speech: Normal Mood: Pleasant, laughing and social Affect: Some depression. Thought process: Linear. Thought Content: Continuing to feel better, except for pain to right knee. Cognition: A/Ox4 Insight: Fair Judgment: Poor to fair Interventions PRN's used: [place] X2, Therapeutic interventions: 1:1 therapeutic assessment, maintained safe therapeutic milieu, provided active listening with positive reinforcement, provided medication administration/education/monitoring as needed; Q15 safety checks. Restraints/seclusion/emergency medication: N/A Justification of Continued Inpatient Treatment: Continued therapeutic support and medication management needed to provide stabilization, prevent decompensation, improve coping mechanisms decreasing risk to patient and re-admittance. Plan is to D/C on Tuesday to her residence.
[2019-09-10 07:46] VITALS: BP 110/60
[2019-09-10] MEDS: clopidogrel 75mg tablet PO SCH (07:48)
[2019-09-10] MEDS: polyethylene glycol 3350 17gm powd pack PO SCH (07:48)
[2019-09-10] MEDS: atorvastatin 10mg tablet PO SCH (07:48)
[2019-09-10 07:49] VITALS: BP_SYST 110
[2019-09-10] MEDS: furosemide 20MG tablet PO SCH ×2 (07:49→12:58)
[2019-09-10] MEDS: metoprolol tartrate 12.5mg (1/2 tablet) PO SCH (07:49)
[2019-09-10] MEDS: ziprasidone 20mg capsule PO SCH (07:49)
[2019-09-10] MEDS: buPROPion 100mg tablet PO SCH ×2 (07:49→12:58)
[2019-09-10] MEDS: levoTHYROXINE 100mcg tablet PO SCH (07:50)
[2019-09-10] MEDS: cyclobenzaprine 10mg tablet PO SCH (07:50)
[2019-09-10] MEDS: spironolactone 25 MG tablet PO SCH (07:52)
[2019-09-10] MEDS: loratadine 10mg tablet PO SCH (07:54)
[2019-09-10] MEDS: LIRAGLUTIDE 0.6 MG/0.1 ML PEN.INJCTR SQ SCH (07:57)
[2019-09-10] MEDS: budesonide 0.5mg/2ml UD nebule IH SCH (09:00)
[2019-09-10] MEDS: HYDROcodone/acetaminophen 10/325mg tab PO PRN ×2 (10:20→15:30)
[2019-09-10] MEDS ORDERED: MIRT15TA8 PO (10:25)
[2019-09-10] MEDS ORDERED: OLAN10TA3 PO (10:25)
[2019-09-10] MEDS ORDERED: ZIPR80CA2 PO (10:25)
[2019-09-10] MEDS ORDERED: HYDR-4353 PO (10:25)
[2019-09-10] MEDS ORDERED: BUPR200T3 PO (10:25)
[2019-09-10] MEDS ORDERED: TEMA15CA PO (10:25)
--- NOTE | 2019-09-10 16:52 | NUR ---
Discharge Note: Pt dc'd at 1633 to nurse case management who came to pick her up. Discharge instructions including f/u appts and medications reviewed with the pt who verbalized understanding and signed and she received a copy. Medications called in to [facility]. and hard copies given to the patient. All belongings including medications returned to the patient who signed as having received all she came in with. Pt happy about discharge and denies depression and suicidal thoughts. Smoking cessation information sent with the pt.
== END 2019-09-10 16:33 | disposition short-term general hospital (02) | DRG 885 ==
LOC: ADULT MH 13:21
PROVIDERS: ADMIT Psychiatry & Neurology Psychiatry; ATTEND Psychiatry & Neurology Psychiatry
PROC: 30233R1 Transfusion of Nonautologous Platelets into Peripheral Vein, Percutaneous Approach (ICD-10-PCS; principal; 2019-08-31)
DX: F33.3 Major depressive disorder, recurrent, severe with psychotic symptoms (principal); N18.6 End stage renal disease; E87.0 Hyperosmolality and hypernatremia; R45.851 Suicidal ideations; D61.818 Other pancytopenia; D69.3 Immune thrombocytopenic purpura; N17.9 Acute kidney failure, unspecified; I13.2 Hypertensive heart and chronic kidney disease with heart failure and with stage 5 chronic kidney disease, or end stage renal disease; L97.419 Non-pressure chronic ulcer of right heel and midfoot with unspecified severity; E11.621 Type 2 diabetes mellitus with foot ulcer; E11.42 Type 2 diabetes mellitus with diabetic polyneuropathy; F60.3 Borderline personality disorder; I50.9 Heart failure, unspecified; J44.9 Chronic obstructive pulmonary disease, unspecified; F41.9 Anxiety disorder, unspecified; I49.5 Sick sinus syndrome; K21.9 Gastro-esophageal reflux disease without esophagitis; M54.9 Dorsalgia, unspecified; F43.10 Post-traumatic stress disorder, unspecified; E11.22 Type 2 diabetes mellitus with diabetic chronic kidney disease; G89.29 Other chronic pain; E66.01 Morbid (severe) obesity due to excess calories; E03.9 Hypothyroidism, unspecified; E78.00 Pure hypercholesterolemia, unspecified; E78.5 Hyperlipidemia, unspecified; Z79.02 Long term (current) use of antithrombotics/antiplatelets; Z79.4 Long term (current) use of insulin; Z79.51 Long term (current) use of inhaled steroids; Z79.890 Hormone replacement therapy; Z82.49 Family history of ischemic heart disease and other diseases of the circulatory system; Z82.5 Family history of asthma and other chronic lower respiratory diseases; Z83.3 Family history of diabetes mellitus; Z90.710 Acquired absence of both cervix and uterus; Z91.19 Patient's noncompliance with other medical treatment and regimen; Z95.0 Presence of cardiac pacemaker; Z99.2 Dependence on renal dialysis; Z88.8 Allergy status to other drugs, medicaments and biological substances; Z79.899 Other long term (current) drug therapy; Z90.49 Acquired absence of other specified parts of digestive tract; Z68.34 Body mass index [BMI] 34.0-34.9, adult
CPT/HCPCS: 36415; 36589; 80048; 80053; 80061; 80305; 80320; 81001; 81025; 82948; 83036; 83735; 84100; 84443; 84484; 85025; 86870; 86885; 86900; 86901; 86902; 86905; 87077; 87081; 87088; 87186; 94640; 94760; 99285; J1815; J7626; P9035; Z7610

== ENCOUNTER 2020-01-31 19:38 | Emergency (ER) | payer MEDICARE, MEDICAID ==
[~2020-01-31] VITALS: Ht 160 cm; Wt 100.0 kg
[~2020-01-31 19:38] MED LIST changes: -BUPR1PAT TOP; +BUPR200T3 PO; -BUPR200T34; +HYDR-4353 PO; -INSU100C4 SQ; +MIRT15TA8 PO; -MONT10TA24 PO; +MONT10TA26 PO; +NITR0.4T51 SL; -OLAN5TAB26 PO; +TEMA15CA PO
[2020-01-31] MEDS ORDERED: furosemide 40mg/4ml inj IV ONE (20:05)
--- NOTE | 2020-01-31 20:28 | NUR ---
UNABLE TO START IV. ASKING 2ND RN TO ATTEMPT IV START
[2020-01-31 20:32] LABS: BASOPHILS % (AUTO) 0.6 % (0-1); EOSINOPHILS % (AUTO) 0.8 % (0-6); HEMATOCRIT 24.5 % (35.0-45.0); HEMOGLOBIN 8.2 g/dl (12.0-16.0); LYMPHOCYTES # (AUTO) 0.4 X10'3 (1.1-4.8); LYMPHOCYTES % (AUTO) 14.8 % (21-51); MEAN CORPUSCULAR HGB CONC 33.6 g/dL (33.0-36.5); MEAN CORPUSCULAR VOLUME 101.3 FL (78-98); MEAN PLATELET VOLUME 7.9 FL (7.4-10.4); MONOCYTES # (AUTO) 0.2 X10'3 (0-0.9); MONOCYTES % (AUTO) 6.2 % (2-12); NEUTROPHILS # (AUTO) 2.3 X10'3 (1.8-7.7); NEUTROPHILS % (AUTO) 77.6 % (42-75); RED BLOOD COUNT 2.42 X10'6 (4.20-5.60); RED CELL DISTRIBUTION WIDTH 17.5 % (11.5-14.5)
[2020-01-31 20:38] LABS: PLATELET COUNT 38 X10'3 (140-440)
[2020-01-31 20:39] LABS: ALBUMIN 3.3 G/DL (3.4-5.0); ANION GAP 12 (8-16); BILIRUBIN,TOTAL 1.1 MG/DL (0.1-1.0); BLOOD UREA NITROGEN 30 MG/DL (7-18); BUN/CREATININE RATIO 15.6 (6.6-38.0); CALCIUM 8.3 MG/DL (8.5-10.1); CHLORIDE 112 MMOL/L (99-107); CREATININE 1.92 MG/DL (0.40-0.90); GLUCOSE 112 MG/DL (70-104); POTASSIUM 3.5 MMOL/L (3.5-5.1); SODIUM 147 MMOL/L (135-145); TOTAL CARBON DIOXIDE 23.4 MMOL/L (24-32); TOTAL PROTEIN 7.2 G/DL (6.4-8.2); eGFR 27 ML/MIN
[2020-01-31 20:40] LABS: ALANINE AMINOTRANSFERASE 48 U/L (12-78); ALBUMIN/GLOBULIN RATIO 0.8 (1.1-1.5); ALKALINE PHOSPHATASE 244 IU/L (46-116); ASPARTATE AMINO TRANSFERASE 46 U/L (10-37)
--- NOTE | 2020-01-31 20:58 | NUR ---
UNABLE TO GET A NEW IV IN PT. DR. TAPIA STATES SHE DOESN'T NEED IV LASIX. HER CHEST XRAY AND LABS WERE OK. PT AGREES. WILL DC.
[2020-01-31 21:02] VITALS: BP 123/59
[2020-01-31 22:01] LABS: ANISOCYTOSIS 2+; NUCLEATED RED BLOOD CELLS 1 /100WBC (0-0); PLATELET ESTIMATE DECREASED; TOTAL CELLS COUNTED 100
[2020-01-31 22:02] LABS: POLYCHROMASIA FEW
== END 2020-01-31 21:14 | disposition home or self-care (01) ==
LOC: ER 19:39
DX: D61.818 Other pancytopenia (principal); R05 Cough; I13.0 Hypertensive heart and chronic kidney disease with heart failure and stage 1 through stage 4 chronic kidney disease, or unspecified chronic kidney disease; E11.22 Type 2 diabetes mellitus with diabetic chronic kidney disease; N18.9 Chronic kidney disease, unspecified; I50.9 Heart failure, unspecified; E11.42 Type 2 diabetes mellitus with diabetic polyneuropathy; E78.00 Pure hypercholesterolemia, unspecified; J44.9 Chronic obstructive pulmonary disease, unspecified; E03.9 Hypothyroidism, unspecified; G89.29 Other chronic pain; Z86.73 Personal history of transient ischemic attack (TIA), and cerebral infarction without residual deficits; Z98.890 Other specified postprocedural states; Z90.49 Acquired absence of other specified parts of digestive tract; Z90.710 Acquired absence of both cervix and uterus; Z79.4 Long term (current) use of insulin; Z79.899 Other long term (current) drug therapy; Z88.1 Allergy status to other antibiotic agents; Z88.8 Allergy status to other drugs, medicaments and biological substances; Z88.2 Allergy status to sulfonamides
CPT/HCPCS: 36415; 71045; 80053; 83880; 85025; 93005; 99285

== ENCOUNTER 2020-04-18 20:08 | Inpatient (IN) | payer MEDICARE, MEDICAID ==
[~2020-04-18] VITALS: Ht 160 cm; Wt 92.6 kg
[2020-04-18 20:54] LABS: BASOPHILS % (AUTO) 0.6 % (0-1); EOSINOPHILS % (AUTO) 0.8 % (0-6); HEMATOCRIT 24.8 % (35.0-45.0); HEMOGLOBIN 8.5 g/dl (12.0-16.0); LYMPHOCYTES # (AUTO) 0.4 X10'3 (1.1-4.8); LYMPHOCYTES % (AUTO) 9.1 % (21-51); MEAN CORPUSCULAR HEMOGLOBIN 33.2 PG (27.0-31.0); MEAN CORPUSCULAR HGB CONC 34.2 g/dL (33.0-36.5); MEAN CORPUSCULAR VOLUME 97.1 FL (78-98); MEAN PLATELET VOLUME 8.5 FL (7.4-10.4); MONOCYTES # (AUTO) 0.3 X10'3 (0-0.9); MONOCYTES % (AUTO) 6.6 % (2-12); NEUTROPHILS # (AUTO) 4.1 X10'3 (1.8-7.7); NEUTROPHILS % (AUTO) 82.9 % (42-75); RED BLOOD COUNT 2.55 X10'6 (4.20-5.60); RED CELL DISTRIBUTION WIDTH 17.1 % (11.5-14.5); WHITE BLOOD COUNT 4.9 X10'3 (4.5-11.0)
[2020-04-18 21:01] LABS: CHLORIDE 105 MMOL/L (99-107); GLUCOSE 106 MG/DL (70-104); POTASSIUM 3.2 MMOL/L (3.5-5.1); SODIUM 141 MMOL/L (135-145); TOTAL CARBON DIOXIDE 28.2 MMOL/L (24-32)
[2020-04-18 21:02] LABS: ALANINE AMINOTRANSFERASE 45 U/L (12-78); ALBUMIN 3.1 G/DL (3.4-5.0); ALBUMIN/GLOBULIN RATIO 0.8 (1.1-1.5); ALKALINE PHOSPHATASE 266 IU/L (46-116); ANION GAP 8 (8-16); ASPARTATE AMINO TRANSFERASE 54 U/L (10-37); BILIRUBIN,TOTAL 1.7 MG/DL (0.1-1.0); BLOOD UREA NITROGEN 13 MG/DL (7-18); BUN/CREATININE RATIO 8.7 (6.6-38.0); CALCIUM 7.9 MG/DL (8.5-10.1); CREATININE 1.49 MG/DL (0.40-0.90); eGFR 36 ML/MIN
[2020-04-18 21:03] LABS: PLATELET COUNT 41 X10'3 (140-440)
[2020-04-18] MEDS ORDERED: acetaminophen 650mg rectal suppository RC PRN (23:15)
[2020-04-18] MEDS ORDERED: magnesium hydroxide 30ml (MOM) UD suspension PO PRN (23:15)
[2020-04-18] MEDS ORDERED: ondansetron/PF 4mg/2ml inj IV PRN (23:15)
[2020-04-18] MEDS ORDERED: acetaminophen 325mg tablet PO PRN ×2 (23:15)
[2020-04-18 23:36] LABS: URINE AMPHETAMINE SCREEN NEGATIVE (Neg); URINE BARBITUATE SCREEN NEGATIVE (Neg); URINE BENZODIAZEPINES SCREEN NEGATIVE (Neg); URINE CANNABINOID SCREEN NEGATIVE (Neg); URINE COCAINE SCREEN NEGATIVE (Neg); URINE METHADONE SCREEN NEGATIVE (Neg); URINE OPIATE SCREEN POSITIVE (Neg); URINE PHENCYCLIDINE SCREEN NEGATIVE (Neg)
[2020-04-18] MEDS ORDERED: ATOR20TA66 PO (23:39)
--- NOTE | 2020-04-18 23:41 | NUR ---
med rec completed using external medication history. Pt unable to answer questions at this time
[2020-04-19 00:01] LABS: CLARITY,URINE CLEAR (Clear); COLOR,URINE YELLOW (Yellow); GLUCOSE, URINE 250 mg/dl (Neg); KETONES,URINE NEGATIVE (Neg); LEUKOCYTE ESTERASE ,URINE NEGATIVE (Neg); NITRITES, URINE NEGATIVE (Neg); OCCULT BLOOD,URINE TRACE-INTACT (Neg); PH,URINE 6.5 (4.8-8.0); PROTEIN,URINE NEGATIVE (Neg); UA COLLECTION TYPE FOLEY CATH; UROBILINOGEN,URINE 0.2 E.U/dL (0.2-1.0)
[2020-04-19 00:18] LABS: BACTERIA,URINE NONE SEEN /HPF (Neg); MUCUS STRANDS NONE SEEN /LPF (Neg); RBC,URINE 0-2 /HPF (0-2); SQUAMOUS EPITHELIAL CELL,UR FEW /LPF (FEW); WBC,URINE 0-4 /HPF (0-4)
--- NOTE | 2020-04-19 00:30 | NUR ---
Patient in room CHAZ 355. I have received report from Zina ZALDIVAR and had the opportunity to ask questions and assume patient care.
[2020-04-19 00:45] VITALS: BP 93/55
[2020-04-19] MEDS: lactulose 20gm/30ml cup PO SCH ×4 (02:02→21:56)
--- NOTE | 2020-04-19 03:25 | NUR ---
was told in report that pt does make urine and use restroom. pt is on dialysis Addendum: 04/19/20 at 0346 by Aurora Bell RN Amended: Links added.
[2020-04-19 05:02] LABS: BASOPHILS % (AUTO) 0.5 % (0-1); EOSINOPHILS % (AUTO) 0.7 % (0-6); HEMATOCRIT 25.2 % (35.0-45.0); HEMOGLOBIN 8.4 g/dl (12.0-16.0); LYMPHOCYTES # (AUTO) 0.6 X10'3 (1.1-4.8); LYMPHOCYTES % (AUTO) 11.5 % (21-51); MEAN CORPUSCULAR HEMOGLOBIN 32.6 PG (27.0-31.0); MEAN CORPUSCULAR HGB CONC 33.5 g/dL (33.0-36.5); MEAN CORPUSCULAR VOLUME 97.3 FL (78-98); MEAN PLATELET VOLUME 8.5 FL (7.4-10.4); MONOCYTES # (AUTO) 0.4 X10'3 (0-0.9); MONOCYTES % (AUTO) 7.5 % (2-12); NEUTROPHILS % (AUTO) 79.8 % (42-75); RED BLOOD COUNT 2.59 X10'6 (4.20-5.60); RED CELL DISTRIBUTION WIDTH 17.1 % (11.5-14.5); WHITE BLOOD COUNT 5.1 X10'3 (4.5-11.0)
[2020-04-19 05:17] LABS: ALANINE AMINOTRANSFERASE 53 U/L (12-78); ALBUMIN/GLOBULIN RATIO 0.8 (1.1-1.5); ALKALINE PHOSPHATASE 289 IU/L (46-116); ANION GAP 7 (8-16); ASPARTATE AMINO TRANSFERASE 74 U/L (10-37); BILIRUBIN,TOTAL 2.6 MG/DL (0.1-1.0); BLOOD UREA NITROGEN 19 MG/DL (7-18); BUN/CREATININE RATIO 9.2 (6.6-38.0); CALCIUM 8.4 MG/DL (8.5-10.1); CHLORIDE 106 MMOL/L (99-107); CREATININE 2.06 MG/DL (0.40-0.90); GLUCOSE 111 MG/DL (70-104); MAGNESIUM 2.3 MG/DL (1.5-2.4); PHOSPHORUS 4.1 MG/DL (2.3-4.5); POTASSIUM 3.3 MMOL/L (3.5-5.1); SODIUM 142 MMOL/L (135-145); TOTAL PROTEIN 6.7 G/DL (6.4-8.2); eGFR 25 ML/MIN
[2020-04-19] MEDS ORDERED: MESSAGE TO PHARMACY PO ONE (05:55)
[2020-04-19] MEDS ORDERED: glucagon, human recombinant 1mg kit SUBCUT PRN (05:55)
[2020-04-19] MEDS ORDERED: dextrose ORAL solution 15 GM/59 ML bottle PO PRN ×2 (05:55)
[2020-04-19] MEDS ORDERED: dextrose 50%-water 50ml dispensing syringe IV PRN ×2 (05:55)
[2020-04-19 06:06] LABS: PLATELET COUNT 44 X10'3 (140-440)
--- NOTE | 2020-04-19 06:36 | NUR ---
Problems reprioritized. Patient report given, questions answered & plan of care reviewed with Triny ZALDIVAR.
[2020-04-19 07:00] VITALS: BP 127/58
[2020-04-19] MEDS ORDERED: BUPR1PAT TOP (09:49)
--- NOTE | 2020-04-19 10:02 | NUR ---
DM consult: Pt with A1c 7.0% presented with ALOC and admitted with hepatic encephalopathy with an elevated ammonia of 65, currently receiving routine Lactulose, with hx ESRD on HD. Pt A/O x 2 per physical assessment. DM education not appropriate at this time. Per records patient's A1c is down from 9.5% in 12/25 and pt received written and verbal DM education at that time. Will continue to follow and monitor need for f/u DM education once pt fully alert and oriented. Addendum: 04/19/20 at [address] Amended: Links added.
[2020-04-19] MEDS ORDERED: normal saline 1000ml 250 ML IV PRN (10:29)
[2020-04-19] MEDS ORDERED: heparin 1,000unit/ml 10ml vial 10 ML IV ONE (10:29)
[2020-04-19] MEDS ORDERED: LIDOcaine 1% (10mg/ml) 2ml vial SQ ONE (10:30)
[2020-04-19] MEDS ORDERED: epoetin 20,000 units/ml inj IV ONE (10:30)
[2020-04-19] MEDS ORDERED: heparin 1,000 units/ml 10ml inj IV ONE (10:30)
[2020-04-19] MEDS ORDERED: heparin 1,000 units/ml 10ml inj HE ONE ×2 (10:35)
[2020-04-19 11:35] VITALS: BP 121/58
[2020-04-19] MEDS ORDERED: BUPRENORPHINE 20 MCG TP SCH (12:15)
[2020-04-19] MEDS ORDERED: docusate sod 100mg capsule PO PRN (12:15)
[2020-04-19] MEDS ORDERED: ondansetron 4mg rapidly disintigrating tab PO PRN (12:15)
[2020-04-19] MEDS ORDERED: ipratropium/albuterol 3ml nebule NEB PRN (12:20)
[2020-04-19] MEDS ORDERED: budesonide 0.5mg/2ml UD nebule IH SCH (12:38)
[2020-04-19] MEDS: atorvastatin 20mg tablet PO SCH (13:30)
[2020-04-19] MEDS: clopidogrel 75mg tablet PO SCH (13:31)
[2020-04-19] MEDS: levoTHYROXINE 100mcg tablet PO SCH (13:31)
[2020-04-19] MEDS: buPROPion SR 100mg tab PO SCH (13:32)
[2020-04-19] MEDS ORDERED: HYDROcodone/acetaminophen 5mg/325mg tablet PO PRN ×2 (14:20)
[2020-04-19] MEDS: insulin Lispro (HumaLOG) vial - multi-dose SQ SCH (14:38)
[2020-04-19] MEDS: albuterol 2.5 MG/3 ML nebule NEB SCH ×2 (15:00→20:21)
[2020-04-19 18:00] VITALS: BP 100/64
--- NOTE | 2020-04-19 18:54 | NUR ---
Patient in room CHAZ 355. I have received report from Triny ZALDIVAR and had the opportunity to ask questions and assume patient care.
--- NOTE | 2020-04-19 18:54 | NUR ---
Problems reprioritized. Patient report given, questions answered & plan of care reviewed with MAGNOLIA ZALDIVAR.
--- NOTE | 2020-04-19 18:54 | NUR ---
Patient in room CHAZ 355. I have received report from Triny ZALDIVAR and had the opportunity to ask questions and assume patient care.
[2020-04-19] MEDS ORDERED: non-formulary drug (Budesonide/Formoterol Fumarate (Symbicort 160-4.5 Mcg Inhaler) 2 PUFFS INH SCH (20:00)
[2020-04-19] MEDS: budesonide 0.5mg/2ml UD nebule IH SCH (20:21)
[2020-04-19] MEDS: ceFAZolin 1GM/D5W- ADD-VANTAGE 50 ML IV SCH (20:57)
[2020-04-19] MEDS: ziprasidone 20mg capsule PO SCH (20:58)
[2020-04-19] MEDS ORDERED: mirtazapine 15mg tablet PO SCH (21:00)
[2020-04-19] MEDS ORDERED: insulin glargine (Lantus) pen - multi-dose SQ SCH (21:00)
[2020-04-19] MEDS: metoprolol tartrate 25mg tablet PO SCH (21:01)
[2020-04-19] MEDS: oxyCODONE IR 5mg (immed. release) tablet PO PRN (21:02)
--- NOTE | 2020-04-19 21:35 | NUR ---
pt is just now getting dinner tray. will continue to monitor. blood sugar 105. will recheck blood sugar after meal. will continue to monitor
[2020-04-20] VITALS: BP 115/55
[2020-04-20] MEDS: albuterol 2.5 MG/3 ML nebule NEB SCH ×2 (03:00→09:00)
[2020-04-20 05:25] LABS: EOSINOPHILS # (AUTO) 0.1 X10'3 (0-0.9); EOSINOPHILS % (AUTO) 1.4 % (0-6); HEMOGLOBIN 7.7 g/dl (12.0-16.0); MONOCYTES # (AUTO) 0.3 X10'3 (0-0.9); RED CELL DISTRIBUTION WIDTH 16.7 % (11.5-14.5)
[2020-04-20 05:27] LABS: BASOPHILS % (AUTO) 0.7 % (0-1); HEMATOCRIT 22.4 % (35.0-45.0); MEAN CORPUSCULAR HEMOGLOBIN 33.3 PG (27.0-31.0); MEAN CORPUSCULAR HGB CONC 34.4 g/dL (33.0-36.5); MEAN CORPUSCULAR VOLUME 96.6 FL (78-98); MONOCYTES % (AUTO) 6.5 % (2-12); NEUTROPHILS # (AUTO) 3.5 X10'3 (1.8-7.7); NEUTROPHILS % (AUTO) 70.4 % (42-75); RED BLOOD COUNT 2.32 X10'6 (4.20-5.60); WHITE BLOOD COUNT 4.9 X10'3 (4.5-11.0)
[2020-04-20 05:40] LABS: ALANINE AMINOTRANSFERASE 50 U/L (12-78); ALBUMIN 2.8 G/DL (3.4-5.0); ALBUMIN/GLOBULIN RATIO 0.8 (1.1-1.5); ALKALINE PHOSPHATASE 273 IU/L (46-116); ANION GAP 12 (8-16); ASPARTATE AMINO TRANSFERASE 60 U/L (10-37); BILIRUBIN,TOTAL 1.1 MG/DL (0.1-1.0); BLOOD UREA NITROGEN 19 MG/DL (7-18); BUN/CREATININE RATIO 9.5 (6.6-38.0); CALCIUM 8.4 MG/DL (8.5-10.1); CHLORIDE 102 MMOL/L (99-107); CREATININE 1.99 MG/DL (0.40-0.90); GLUCOSE 207 MG/DL (70-104); MAGNESIUM 2.2 MG/DL (1.5-2.4); PHOSPHORUS 3.7 MG/DL (2.3-4.5); SODIUM 140 MMOL/L (135-145); TOTAL CARBON DIOXIDE 26.5 MMOL/L (24-32); TOTAL PROTEIN 6.5 G/DL (6.4-8.2); eGFR 26 ML/MIN
[2020-04-20 05:47] LABS: POTASSIUM 3.4 MMOL/L (3.5-5.1)
--- NOTE | 2020-04-20 06:21 | NUR ---
Problems reprioritized. Patient report given, questions answered & plan of care reviewed with Addie ZALDIVAR.
[2020-04-20 06:25] LABS: LARGE PLATELETS FEW; PLATELET COUNT 48 X10'3 (140-440); PLATELET ESTIMATE DECREASED
--- NOTE | 2020-04-20 06:31 | NUR ---
Patient in room CHAZ 355. I have received report from ZEN Robbins and had the opportunity to ask questions and assume patient care.
--- NOTE | 2020-04-20 06:35 | NUR ---
Patient in room CHAZ 355. I have received report from Itzel ZALDIVAR and had the opportunity to ask questions and assume patient care.
[2020-04-20 07:22] VITALS: BP 92/53
[2020-04-20 08:00] VITALS: BP 104/59
[2020-04-20] MEDS: ceFAZolin 1GM/D5W- ADD-VANTAGE 50 ML IV SCH (08:00)
[2020-04-20] MEDS: buPROPion SR 100mg tab PO SCH ×2 (08:10→12:56)
[2020-04-20] MEDS: clopidogrel 75mg tablet PO SCH (08:10)
[2020-04-20] MEDS: levoTHYROXINE 100mcg tablet PO SCH (08:11)
[2020-04-20] MEDS: atorvastatin 20mg tablet PO SCH (08:11)
[2020-04-20] MEDS: ziprasidone 20mg capsule PO SCH (08:12)
[2020-04-20] MEDS: lactulose 20gm/30ml cup PO SCH ×2 (08:12→12:57)
[2020-04-20] MEDS: metoprolol tartrate 25mg tablet PO SCH (08:13)
[2020-04-20] MEDS: oxyCODONE IR 5mg (immed. release) tablet PO PRN (08:19)
[2020-04-20] MEDS: insulin Lispro (HumaLOG) vial - multi-dose SQ SCH ×2 (08:36→13:03)
[2020-04-20] MEDS: budesonide 0.5mg/2ml UD nebule IH SCH (09:00)
[2020-04-20 11:00] VITALS: BP 100/48
[2020-04-20 12:05] VITALS: BP 96/41
--- NOTE | 2020-04-20 12:31 | NUR ---
Potassium of 3.[address] Veras, who states not to replace.
--- NOTE | 2020-04-20 12:35 | NUR ---
Dr. Veras in to assess patient and took a good look at the right arm where the fistula was placed. He states that the patient is okay to go home.
[2020-04-20] MEDS ORDERED: LACT10SO32 PO (13:02)
[2020-04-20] MEDS ORDERED: CEPH-572 PO (13:02)
--- NOTE | 2020-04-20 15:00 | NUR ---
Student documentation: I have reviewed and agree with all interventions, assessments performed and documented by Claudette Orozco, nursing admin.
--- NOTE | 2020-04-20 15:42 | NUR ---
Student Medication Administration: For this medication-pass time frame, all medication were reviewed, dispensed, administered and documented per hospital policy by Claudette Orozco, nursing tech.
--- NOTE | 2020-04-20 15:54 | NUR ---
Patient discharged home via lining inserter and taken from unit via wheelchair with x1 staff. Patient alert, oriented and in no apparent distress at time of discharge. PIV removed with cannula intact. Patient took all belongings with her upon discharge. Patient was given prescription for pain medication to take with her and a copy was placed in the chart. Patient other medications were sent into pharmacy per patient request. [facility] [address] Patient stated an understanding of her discharge instructions and stated that she would follow up with PCP.
[2020-04-20] MEDS ORDERED: oxyCODONE IR 5mg (immed. release) tablet PO PRN (16:00)
== END 2020-04-20 15:38 | disposition home health service (06) | DRG 441 ==
LOC: ER 20:08 → ED HOLD 23:13 → SUR 3N 04-19 01:15
PROC: 5A1D70Z Performance of Urinary Filtration, Intermittent, Less than 6 Hours Per Day (ICD-10-PCS; principal; 2020-04-19)
DX: K72.00 Acute and subacute hepatic failure without coma (principal); N18.6 End stage renal disease; I13.2 Hypertensive heart and chronic kidney disease with heart failure and with stage 5 chronic kidney disease, or end stage renal disease; K56.600 Partial intestinal obstruction, unspecified as to cause; L03.113 Cellulitis of right upper limb; D64.9 Anemia, unspecified; D69.6 Thrombocytopenia, unspecified; E03.9 Hypothyroidism, unspecified; E78.00 Pure hypercholesterolemia, unspecified; F20.9 Schizophrenia, unspecified; F31.9 Bipolar disorder, unspecified; I50.9 Heart failure, unspecified; J44.9 Chronic obstructive pulmonary disease, unspecified; E11.42 Type 2 diabetes mellitus with diabetic polyneuropathy; K74.60 Unspecified cirrhosis of liver; E11.22 Type 2 diabetes mellitus with diabetic chronic kidney disease; F29 Unspecified psychosis not due to a substance or known physiological condition; F41.9 Anxiety disorder, unspecified; G89.29 Other chronic pain; M54.9 Dorsalgia, unspecified; Z79.02 Long term (current) use of antithrombotics/antiplatelets; Z79.51 Long term (current) use of inhaled steroids; Z79.890 Hormone replacement therapy; Z86.73 Personal history of transient ischemic attack (TIA), and cerebral infarction without residual deficits; Z90.710 Acquired absence of both cervix and uterus; Z99.2 Dependence on renal dialysis; Z88.2 Allergy status to sulfonamides; Z88.8 Allergy status to other drugs, medicaments and biological substances; Z90.49 Acquired absence of other specified parts of digestive tract; Z82.49 Family history of ischemic heart disease and other diseases of the circulatory system; Z83.3 Family history of diabetes mellitus; Z79.899 Other long term (current) drug therapy
CPT/HCPCS: 36415; 70450; 71045; 74176; 80053; 80305; 81001; 81003; 82140; 82948; 83036; 83605; 83735; 83880; 84100; 84145; 84484; 85025; 87081; 93005; 94760; 99285; G0378; J0690; J1644; J1815; J2405; Q4081

== ENCOUNTER 2020-05-19 07:48 | Emergency (ER) | payer MEDICARE, MEDICAID ==
[~2020-05-19] VITALS: Ht 160 cm; Wt 101.4 kg
[~2020-05-19 07:48] MED LIST changes: -ALBU18HF2 INH; +ATOR20TA66 PO; -DOCU100C40 PO; -HYDR-4353 PO; -INSU100V41 SUBCUT; +LACT10SO32 PO; -LIRA0.6P2 SUBCUT; -NITR0.4T51 SL; -OLAN10TA3 PO; -SIMV20TA PO; -TEMA15CA PO
[2020-05-19 08:43] LABS: BASOPHILS % (AUTO) 0.4 % (0-1); LYMPHOCYTES # (AUTO) 0.4 X10'3 (1.1-4.8); LYMPHOCYTES % (AUTO) 12.2 % (21-51); MEAN CORPUSCULAR HEMOGLOBIN 33.4 PG (27.0-31.0); MEAN CORPUSCULAR HGB CONC 33.6 g/dL (33.0-36.5); MEAN CORPUSCULAR VOLUME 99.6 FL (78-98); MEAN PLATELET VOLUME 8.6 FL (7.4-10.4); MONOCYTES # (AUTO) 0.2 X10'3 (0-0.9); MONOCYTES % (AUTO) 5.2 % (2-12); NEUTROPHILS # (AUTO) 2.6 X10'3 (1.8-7.7); NEUTROPHILS % (AUTO) 81.2 % (42-75); RED BLOOD COUNT 2.08 X10'6 (4.20-5.60); RED CELL DISTRIBUTION WIDTH 17.8 % (11.5-14.5); WHITE BLOOD COUNT 3.2 X10'3 (4.5-11.0)
[2020-05-19] MEDS ORDERED: ondansetron/PF 4mg/2ml inj IV ONE (08:45)
[2020-05-19] MEDS ORDERED: ketorolac tromethamine 15mg/ml inj. IV ONE (08:45)
[2020-05-19 08:49] LABS: HEMATOCRIT 20.7 % (35.0-45.0); PLATELET COUNT 33 X10'3 (140-440)
[2020-05-19 08:57] LABS: ALANINE AMINOTRANSFERASE 30 U/L (12-78); ALBUMIN/GLOBULIN RATIO 0.8 (1.1-1.5); ALKALINE PHOSPHATASE 223 IU/L (46-116); ANION GAP 6 (8-16); ASPARTATE AMINO TRANSFERASE 34 U/L (10-37); BILIRUBIN,TOTAL 0.9 MG/DL (0.1-1.0); BLOOD UREA NITROGEN 9 MG/DL (7-18); BUN/CREATININE RATIO 3.6 (6.6-38.0); CALCIUM 8.4 MG/DL (8.5-10.1); CHLORIDE 106 MMOL/L (99-107); GLUCOSE 182 MG/DL (70-104); POTASSIUM 3.6 MMOL/L (3.5-5.1); SODIUM 142 MMOL/L (135-145); TOTAL CARBON DIOXIDE 30.2 MMOL/L (24-32); TOTAL PROTEIN 6.8 G/DL (6.4-8.2); eGFR 20 ML/MIN
[2020-05-19] MEDS ORDERED: oxyCODONE/APAP 10/325mg tablet PO ONE (10:20)
[2020-05-19 12:26] VITALS: BP 100/43
[2020-05-19 12:40] VITALS: BP 106/42
[2020-05-19 12:48] VITALS: BP 101/43
[2020-05-19 13:45] VITALS: BP 128/49
[2020-05-19 14:44] VITALS: BP 108/45
== END 2020-05-19 14:45 | disposition home or self-care (01) ==
LOC: ER 07:49
DX: D64.9 Anemia, unspecified (principal); R60.9 Edema, unspecified; M79.89 Other specified soft tissue disorders; R19.00 Intra-abdominal and pelvic swelling, mass and lump, unspecified site; R06.02 Shortness of breath; E11.42 Type 2 diabetes mellitus with diabetic polyneuropathy; I50.9 Heart failure, unspecified; E78.00 Pure hypercholesterolemia, unspecified; I13.0 Hypertensive heart and chronic kidney disease with heart failure and stage 1 through stage 4 chronic kidney disease, or unspecified chronic kidney disease; J44.9 Chronic obstructive pulmonary disease, unspecified; N18.9 Chronic kidney disease, unspecified; E03.9 Hypothyroidism, unspecified; G89.29 Other chronic pain; F41.9 Anxiety disorder, unspecified; F31.9 Bipolar disorder, unspecified; F20.9 Schizophrenia, unspecified; Z90.49 Acquired absence of other specified parts of digestive tract; Z90.710 Acquired absence of both cervix and uterus; Z95.0 Presence of cardiac pacemaker; Z98.890 Other specified postprocedural states; Z72.89 Other problems related to lifestyle; Z88.2 Allergy status to sulfonamides; Z88.8 Allergy status to other drugs, medicaments and biological substances; Z79.899 Other long term (current) drug therapy; Z86.73 Personal history of transient ischemic attack (TIA), and cerebral infarction without residual deficits
CPT/HCPCS: 36415; 36430; 71045; 80053; 82948; 85025; 86870; 86885; 86900; 86901; 86902; 86905; 86922; 96374; 96375; 99285; J1885; J2405; P9016

== ENCOUNTER 2020-05-30 13:20 | Outpatient (CLI) | payer MEDICARE, MEDICAID ==
[2020-06-06] MEDS ORDERED: AMIO200T61 PO (19:44)
[2020-06-06] MEDS ORDERED: ZIPR80CA2 PO (19:44)
[2020-06-06] MEDS ORDERED: LIRA0.6P2 SUBCUT (19:44)
[2020-06-06] MEDS ORDERED: PANT20TA3 PO (19:44)
[2020-06-06] MEDS ORDERED: POLY17PO10 PO (19:44)
[2020-06-06] MEDS ORDERED: HYDR-4383 PO (19:44)
[2020-06-06] MEDS ORDERED: BUPR200T PO (19:44)
[2020-06-06] MEDS ORDERED: TOPI25TA15 PO (19:44)
[2020-06-06] MEDS ORDERED: DAPA5TAB PO (19:44)
[2020-06-06] MEDS ORDERED: DOXY100C76 PO (21:27)
[2020-06-06] MEDS ORDERED: CEFU500T66 PO (21:27)
[2020-06-06] MEDS ORDERED: AMOX-318 PO (21:27)
[2020-06-06] MEDS ORDERED: MIRT15TA PO (21:30)
[2020-06-06] MEDS ORDERED: LACT10SO PO (21:31)
[2020-06-23] MEDS ORDERED: INSU100C4 SQ (23:49)
[2020-06-23] MEDS ORDERED: TOP25T PO (23:49)
[2020-06-23] MEDS ORDERED: DOCU100C40 PO (23:49)
[2020-06-23] MEDS ORDERED: FURO-150 PO (23:49)
[2020-06-23] MEDS ORDERED: BUPR150T8 PO (23:49)
[2020-06-23] MEDS ORDERED: BUME2TAB7 PO (23:49)
[2020-06-23] MEDS ORDERED: BUPR2TAB11 SL (23:55)
== END 2020-05-30 23:59 | disposition home or self-care (01) ==
LOC: LAB 13:20
PROC: 30243N1 Transfusion of Nonautologous Red Blood Cells into Central Vein, Percutaneous Approach (ICD-10-PCS; principal; 2020-05-30)
DX: D64.9 Anemia, unspecified (principal)
CPT/HCPCS: 36415; 86870; 86885; 86900; 86901; 86902; 86922; P9016

== ENCOUNTER 2020-08-15 11:11 | Emergency (ER) | payer MEDICARE, MEDICAID ==
[~2020-08-15] VITALS: Ht 160 cm; Wt 88.6 kg
[~2020-08-15 11:11] MED LIST changes: +AMIO200T61 PO; -BUDE10.2 INH; +BUME2TAB7 PO; +BUPR150T8 PO; -BUPR200T3 PO; +BUPR2TAB11 SL; -CLOP75TA35 PO; +DAPA5TAB PO; +DOCU100C40 PO; -EST1T PO; +INSU100C4 SQ; -LACT10SO32 PO; +LIRA0.6P2 SUBCUT; -METO25TA6 PO; -MIRT15TA8 PO; -MONT10TA26 PO; +PANT20TA18 PO; -SPIR25TA5 PO; +TOP25T PO; -ZIPR80CA2 PO
--- NOTE | 2020-08-15 12:26 | NUR ---
Pt ambulated to the restroom without any difficulty.
[2020-08-15 12:29] LABS: ALANINE AMINOTRANSFERASE 42 U/L (12-78); ALBUMIN/GLOBULIN RATIO 0.6 (1.1-1.5); ALKALINE PHOSPHATASE 316 IU/L (46-116); ANION GAP 5 (8-16); ASPARTATE AMINO TRANSFERASE 57 U/L (10-37); BILIRUBIN,TOTAL 0.6 MG/DL (0.1-1.0); BLOOD UREA NITROGEN 26 MG/DL (7-18); BUN/CREATININE RATIO 13.1 (6.6-38.0); CALCIUM 8.5 MG/DL (8.5-10.1); CHLORIDE 105 MMOL/L (99-107); CREATININE 1.98 MG/DL (0.40-0.90); GLUCOSE 101 MG/DL (70-104); POTASSIUM 3.2 MMOL/L (3.5-5.1); SODIUM 144 MMOL/L (135-145); TOTAL CARBON DIOXIDE 34.4 MMOL/L (24-32); TOTAL PROTEIN 8.2 G/DL (6.4-8.2); eGFR 26 ML/MIN
[2020-08-15 12:33] LABS: BASOPHILS # (AUTO) 0.1 X10'3 (0-0.2); BASOPHILS % (AUTO) 1.1 % (0-1); EOSINOPHILS # (AUTO) 0.1 X10'3 (0-0.9); EOSINOPHILS % (AUTO) 1.9 % (0-6); HEMATOCRIT 29.1 % (35.0-45.0); HEMOGLOBIN 9.7 g/dl (12.0-16.0); LYMPHOCYTES % (AUTO) 13.3 % (21-51); MEAN CORPUSCULAR HEMOGLOBIN 30.4 PG (27.0-31.0); MEAN CORPUSCULAR HGB CONC 33.2 g/dL (33.0-36.5); MEAN CORPUSCULAR VOLUME 91.6 FL (78-98); MEAN PLATELET VOLUME 8.6 FL (7.4-10.4); MONOCYTES # (AUTO) 0.9 X10'3 (0-0.9); MONOCYTES % (AUTO) 11.2 % (2-12); NEUTROPHILS # (AUTO) 5.5 X10'3 (1.8-7.7); NEUTROPHILS % (AUTO) 72.5 % (42-75); PLATELET COUNT 136 X10'3 (140-440); RED BLOOD COUNT 3.18 X10'6 (4.20-5.60); RED CELL DISTRIBUTION WIDTH 16.2 % (11.5-14.5); WHITE BLOOD COUNT 7.6 X10'3 (4.5-11.0)
[2020-08-15] MEDS ORDERED: DOXY100C2 PO (12:49)
[2020-08-15] MEDS ORDERED: potassium Cl 20 mEq SR tablet PO STA (13:07)
[2020-08-15 13:36] VITALS: BP 127/58
== END 2020-08-15 13:38 | disposition home or self-care (01) ==
LOC: ER 11:12
DX: L03.114 Cellulitis of left upper limb (principal); E11.22 Type 2 diabetes mellitus with diabetic chronic kidney disease; N18.30 Chronic kidney disease, stage 3 unspecified; R20.0 Anesthesia of skin; E11.42 Type 2 diabetes mellitus with diabetic polyneuropathy; I50.9 Heart failure, unspecified; E78.00 Pure hypercholesterolemia, unspecified; I13.0 Hypertensive heart and chronic kidney disease with heart failure and stage 1 through stage 4 chronic kidney disease, or unspecified chronic kidney disease; J44.9 Chronic obstructive pulmonary disease, unspecified; E03.9 Hypothyroidism, unspecified; G89.29 Other chronic pain; F41.9 Anxiety disorder, unspecified; F31.9 Bipolar disorder, unspecified; F20.9 Schizophrenia, unspecified; Z90.49 Acquired absence of other specified parts of digestive tract; Z90.710 Acquired absence of both cervix and uterus; Z98.890 Other specified postprocedural states; Z88.2 Allergy status to sulfonamides; Z88.8 Allergy status to other drugs, medicaments and biological substances; Z79.899 Other long term (current) drug therapy
CPT/HCPCS: 36415; 73130; 80053; 85025; 99284

== ENCOUNTER 2020-09-12 11:53 | Emergency (ER) | payer MEDICARE, MEDICAID ==
[~2020-09-12] VITALS: Ht 160 cm; Wt 90.9 kg
[2020-09-12 12:45] LABS: CLARITY,URINE CLEAR (Clear); COLOR,URINE STRAW (Yellow); GLUCOSE, URINE >=1000 mg/dl (Neg); KETONES,URINE NEGATIVE (Neg); LEUKOCYTE ESTERASE ,URINE NEGATIVE (Neg); NITRITES, URINE NEGATIVE (Neg); OCCULT BLOOD,URINE TRACE-INTACT (Neg); PROTEIN,URINE NEGATIVE (Neg); UROBILINOGEN,URINE 0.2 E.U/dL (0.2-1.0)
[2020-09-12 12:46] LABS: UA COLLECTION TYPE VOIDED
[2020-09-12 12:52] LABS: BACTERIA,URINE 1+ /HPF (Neg)
[2020-09-12 12:53] LABS: SQUAMOUS EPITHELIAL CELL,UR MODERATE /LPF (FEW)
[2020-09-12] MEDS ORDERED: HYDROcodone/acetaminophen 5mg/325mg tablet PO ONE (13:10)
[2020-09-12] MEDS ORDERED: ondansetron 4mg rapidly disintigrating tab PO ONE (13:10)
--- NOTE | 2020-09-12 13:11 | NUR ---
Pt gave verbal consent to update HOSEA Toscano ([phone]) which was provided. Per aracelis, she will be stoping by to drop off money for transport home when dc'd.
[2020-09-12 13:47] LABS: BASOPHILS % (AUTO) 0.3 % (0-1); EOSINOPHILS # (AUTO) 0.1 X10'3 (0-0.9); EOSINOPHILS % (AUTO) 1.6 % (0-6); HEMATOCRIT 27.7 % (35.0-45.0); HEMOGLOBIN 9.4 g/dl (12.0-16.0); LYMPHOCYTES # (AUTO) 0.8 X10'3 (1.1-4.8); MEAN CORPUSCULAR HEMOGLOBIN 31.5 PG (27.0-31.0); MEAN CORPUSCULAR VOLUME 92.8 FL (78-98); MEAN PLATELET VOLUME 7.9 FL (7.4-10.4); MONOCYTES # (AUTO) 0.6 X10'3 (0-0.9); NEUTROPHILS # (AUTO) 5.7 X10'3 (1.8-7.7); NEUTROPHILS % (AUTO) 79.1 % (42-75); PLATELET COUNT 95 X10'3 (140-440); RED BLOOD COUNT 2.98 X10'6 (4.20-5.60); RED CELL DISTRIBUTION WIDTH 16.7 % (11.5-14.5); WHITE BLOOD COUNT 7.2 X10'3 (4.5-11.0)
[2020-09-12 14:04] LABS: ALANINE AMINOTRANSFERASE 31 U/L (12-78); ALBUMIN 3.2 G/DL (3.4-5.0); ALBUMIN/GLOBULIN RATIO 0.7 (1.1-1.5); ALKALINE PHOSPHATASE 278 IU/L (46-116); ANION GAP 6 (8-16); ASPARTATE AMINO TRANSFERASE 43 U/L (10-37); BILIRUBIN,TOTAL 0.8 MG/DL (0.1-1.0); BLOOD UREA NITROGEN 35 MG/DL (7-18); BUN/CREATININE RATIO 16.4 (6.6-38.0); CALCIUM 8.3 MG/DL (8.5-10.1); CHLORIDE 105 MMOL/L (99-107); CREATININE 2.14 MG/DL (0.40-0.90); GLUCOSE 205 MG/DL (70-104); POTASSIUM 3.3 MMOL/L (3.5-5.1); SODIUM 141 MMOL/L (135-145); TOTAL CARBON DIOXIDE 30.5 MMOL/L (24-32); TOTAL PROTEIN 7.9 G/DL (6.4-8.2); eGFR 24 ML/MIN
[2020-09-12 15:32] VITALS: BP 143/71
== END 2020-09-12 15:14 | disposition home or self-care (01) ==
LOC: ER 11:54
DX: R10.84 Generalized abdominal pain (principal); R11.0 Nausea; R30.0 Dysuria; I13.2 Hypertensive heart and chronic kidney disease with heart failure and with stage 5 chronic kidney disease, or end stage renal disease; I50.9 Heart failure, unspecified; E11.22 Type 2 diabetes mellitus with diabetic chronic kidney disease; N18.6 End stage renal disease; E78.00 Pure hypercholesterolemia, unspecified; J44.9 Chronic obstructive pulmonary disease, unspecified; E03.9 Hypothyroidism, unspecified; G89.29 Other chronic pain; F41.9 Anxiety disorder, unspecified; F31.9 Bipolar disorder, unspecified; F20.9 Schizophrenia, unspecified; Z86.73 Personal history of transient ischemic attack (TIA), and cerebral infarction without residual deficits; Z99.2 Dependence on renal dialysis; Z87.01 Personal history of pneumonia (recurrent); Z87.440 Personal history of urinary (tract) infections; Z90.89 Acquired absence of other organs; Z90.49 Acquired absence of other specified parts of digestive tract; Z90.710 Acquired absence of both cervix and uterus; Z98.890 Other specified postprocedural states; Z95.0 Presence of cardiac pacemaker; Z72.89 Other problems related to lifestyle; Z88.1 Allergy status to other antibiotic agents; Z88.2 Allergy status to sulfonamides; Z88.8 Allergy status to other drugs, medicaments and biological substances; Z79.899 Other long term (current) drug therapy
CPT/HCPCS: 36415; 80053; 81001; 85025; 87088; 99285

== ENCOUNTER 2020-09-23 09:59 | Outpatient (CLI) | payer MEDICARE, MEDICAID ==
[2020-09-23] MEDS ORDERED: LIDOcaine 2% 5ml jelly ONE (10:43)
== END 2020-09-23 23:59 | disposition home or self-care (01) ==
LOC: WOUND CARE 09:59
PROVIDERS: ATTEND Nurse Practitioner
DX: T81.31XA Disruption of external operation (surgical) wound, not elsewhere classified, initial encounter (principal); E11.628 Type 2 diabetes mellitus with other skin complications; E11.42 Type 2 diabetes mellitus with diabetic polyneuropathy; E78.5 Hyperlipidemia, unspecified; E78.00 Pure hypercholesterolemia, unspecified; E11.22 Type 2 diabetes mellitus with diabetic chronic kidney disease; I13.2 Hypertensive heart and chronic kidney disease with heart failure and with stage 5 chronic kidney disease, or end stage renal disease; N18.6 End stage renal disease; J44.9 Chronic obstructive pulmonary disease, unspecified; K74.60 Unspecified cirrhosis of liver; E03.9 Hypothyroidism, unspecified; K21.9 Gastro-esophageal reflux disease without esophagitis; G89.29 Other chronic pain; F41.9 Anxiety disorder, unspecified; F40.240 Claustrophobia; F32.9 Major depressive disorder, single episode, unspecified; F20.9 Schizophrenia, unspecified; Z79.899 Other long term (current) drug therapy; Z98.890 Other specified postprocedural states; Z87.01 Personal history of pneumonia (recurrent); Z90.710 Acquired absence of both cervix and uterus; Z87.442 Personal history of urinary calculi; Z95.0 Presence of cardiac pacemaker; Z86.73 Personal history of transient ischemic attack (TIA), and cerebral infarction without residual deficits; Z98.49 Cataract extraction status, unspecified eye; Z86.14 Personal history of Methicillin resistant Staphylococcus aureus infection; Y83.8 Other surgical procedures as the cause of abnormal reaction of the patient, or of later complication, without mention of misadventure at the time of the procedure; Y92.234 Operating room of hospital as the place of occurrence of the external cause
CPT/HCPCS: 11042; 82948

== ENCOUNTER 2020-09-27 18:56 | Inpatient (IN) | payer MEDICARE, MEDICAID ==
[~2020-09-27] VITALS: Ht 157.5 cm; Wt 92.0 kg
[2020-09-27 19:21] LABS: BASOPHILS % (AUTO) 0.3 % (0-1); EOSINOPHILS % (AUTO) 0.1 % (0-6); HEMATOCRIT 30.6 % (35.0-45.0); HEMOGLOBIN 10.4 g/dl (12.0-16.0); LYMPHOCYTES # (AUTO) 0.6 X10'3 (1.1-4.8); LYMPHOCYTES % (AUTO) 5.7 % (21-51); MEAN CORPUSCULAR HEMOGLOBIN 32.2 PG (27.0-31.0); MEAN CORPUSCULAR VOLUME 94.8 FL (78-98); MEAN PLATELET VOLUME 7.7 FL (7.4-10.4); MONOCYTES # (AUTO) 0.5 X10'3 (0-0.9); MONOCYTES % (AUTO) 4.7 % (2-12); NEUTROPHILS # (AUTO) 9.3 X10'3 (1.8-7.7); NEUTROPHILS % (AUTO) 89.2 % (42-75); PLATELET COUNT 167 X10'3 (140-440); RED BLOOD COUNT 3.23 X10'6 (4.20-5.60); RED CELL DISTRIBUTION WIDTH 17.7 % (11.5-14.5); WHITE BLOOD COUNT 10.4 X10'3 (4.5-11.0)
[2020-09-27 19:37] LABS: ALANINE AMINOTRANSFERASE 35 U/L (12-78); ALBUMIN 3.7 G/DL (3.4-5.0); ALBUMIN/GLOBULIN RATIO 0.7 (1.1-1.5); ALKALINE PHOSPHATASE 296 IU/L (46-116); ANION GAP 14 (8-16); ASPARTATE AMINO TRANSFERASE 59 U/L (10-37); BILIRUBIN,TOTAL 0.9 MG/DL (0.1-1.0); BLOOD UREA NITROGEN 44 MG/DL (7-18); BUN/CREATININE RATIO 19.3 (6.6-38.0); CALCIUM 9.9 MG/DL (8.5-10.1); CHLORIDE 113 MMOL/L (99-107); CREATININE 2.28 MG/DL (0.40-0.90); GLUCOSE 152 MG/DL (70-104); POTASSIUM 3.8 MMOL/L (3.5-5.1); SODIUM 152 MMOL/L (135-145); TOTAL CARBON DIOXIDE 25.1 MMOL/L (24-32); eGFR 22 ML/MIN
[2020-09-27 19:44] LABS: ETHANOL < 0.010 GM/DL (0.0-0.010)
[2020-09-27 19:45] LABS: ACETAMINOPHEN < 2.0 UG/ML (10-30)
[2020-09-27 20:11] LABS: URINE AMPHETAMINE SCREEN NEGATIVE (Neg); URINE BARBITUATE SCREEN NEGATIVE (Neg); URINE BENZODIAZEPINES SCREEN NEGATIVE (Neg); URINE CANNABINOID SCREEN NEGATIVE (Neg); URINE COCAINE SCREEN NEGATIVE (Neg); URINE METHADONE SCREEN NEGATIVE (Neg); URINE OPIATE SCREEN NEGATIVE (Neg); URINE PHENCYCLIDINE SCREEN NEGATIVE (Neg)
[2020-09-27 20:44] LABS: CLARITY,URINE SLIGHTLY CLOUDY (Clear); COLOR,URINE YELLOW (Yellow); GLUCOSE, URINE NEGATIVE (Neg); KETONES,URINE NEGATIVE (Neg); LEUKOCYTE ESTERASE ,URINE NEGATIVE (Neg); NITRITES, URINE NEGATIVE (Neg); OCCULT BLOOD,URINE MODERATE (Neg); PH,URINE 5.5 (4.8-8.0); PROTEIN,URINE 100 mg/dl (Neg); UROBILINOGEN,URINE 0.2 E.U/dL (0.2-1.0)
[2020-09-27 20:50] LABS: UA COLLECTION TYPE STRAIGHT CATH
[2020-09-27 20:53] LABS: WBC,URINE 0-4 /HPF (0-4)
[2020-09-27 20:55] LABS: AMORPHOUS URATES 1+; BACTERIA,URINE NONE SEEN /HPF (Neg); HYALINE CASTS 0-3 /LPF (NEGATIVE); MUCUS STRANDS FEW /LPF (Neg); SQUAMOUS EPITHELIAL CELL,UR FEW /LPF (FEW); TRANSITIONAL EPI CELLS,URINE FEW /HPF
[2020-09-27] MEDS ORDERED: ondansetron/PF 4mg/2ml inj IV PRN (21:20)
[2020-09-27] MEDS ORDERED: acetaminophen 325mg tablet PO PRN ×2 (21:20)
[2020-09-27] MEDS ORDERED: insulin Lispro (HumaLOG) vial - multi-dose SQ SCH (21:20)
[2020-09-27] MEDS ORDERED: acetaminophen 650mg rectal suppository RC PRN (21:20)
[2020-09-27] MEDS ORDERED: dextrose 50%-water 50ml dispensing syringe IV PRN (21:20)
[2020-09-27] MEDS ORDERED: MESSAGE TO PHARMACY PO ONE (21:20)
[2020-09-27] MEDS ORDERED: dextrose ORAL solution 15 GM/59 ML bottle PO PRN ×2 (21:20)
[2020-09-27] MEDS ORDERED: glucagon, human recombinant 1mg kit SUBCUT PRN (21:20)
[2020-09-27] MEDS ORDERED: SIME80TA14 PO (21:58)
[2020-09-27] MEDS ORDERED: MIRT30TA8 PO (21:58)
[2020-09-27] MEDS ORDERED: ZIPR80CA10 PO (21:58)
[2020-09-27] MEDS ORDERED: CLOP75TA35 PO (21:58)
[2020-09-27] MEDS ORDERED: simethicone 80mg chew tab PO PRN (22:10)
--- NOTE | 2020-09-27 22:56 | NUR ---
Patient in room ED 4. I have received report from Joelle ZALDIVAR and had the opportunity to ask questions.
[2020-09-27 23:41] VITALS: BP 129/53
--- NOTE | 2020-09-27 23:41 | NUR ---
patient arrived to unit from ED at 2341 via gurney and was transferred via slideboard. Patient nonverbal and only groans to questions. Patient able to open eyes and withdraws to pain. Patient attached to telemetry monitoring, call light placed within reach, and MRSA swab obtained. Vitals: BP:129/53, HR: 72, SpO2; 98% on room air, respiratory rate: 14, temperature: 98.4, and pain: 1-3 (non-verbal assessment). Will continue to monitor.
[2020-09-28] VITALS (7 sets, daily range): BP systolic 119–157; BP diastolic 48–70
[2020-09-28] MEDS: lactulose 20gm/30ml cup PO SCH ×5 (01:42→23:48)
[2020-09-28 02:07] LABS: ALBUMIN 3.2 G/DL (3.4-5.0); ANION GAP 12 (8-16); BLOOD UREA NITROGEN 50 MG/DL (7-18); BUN/CREATININE RATIO 23.1 (6.6-38.0); CALCIUM 9.3 MG/DL (8.5-10.1); CHLORIDE 114 MMOL/L (99-107); CREATININE 2.16 MG/DL (0.40-0.90); GLUCOSE 115 MG/DL (70-104); MAGNESIUM 2.7 MG/DL (1.5-2.4); PHOSPHORUS 5.8 MG/DL (2.3-4.5); POTASSIUM 3.1 MMOL/L (3.5-5.1); SODIUM 153 MMOL/L (135-145); TOTAL CARBON DIOXIDE 27.5 MMOL/L (24-32); eGFR 23 ML/MIN
[2020-09-28 02:19] LABS: BASOPHILS # (AUTO) 0.1 X10'3 (0-0.2); BASOPHILS % (AUTO) 0.8 % (0-1); EOSINOPHILS % (AUTO) 0.1 % (0-6); HEMATOCRIT 25.5 % (35.0-45.0); HEMOGLOBIN 8.8 g/dl (12.0-16.0); MEAN CORPUSCULAR HEMOGLOBIN 32.4 PG (27.0-31.0); MEAN CORPUSCULAR HGB CONC 34.4 g/dL (33.0-36.5); MEAN CORPUSCULAR VOLUME 94.2 FL (78-98); MEAN PLATELET VOLUME 8.3 FL (7.4-10.4); MONOCYTES # (AUTO) 0.6 X10'3 (0-0.9); MONOCYTES % (AUTO) 7.1 % (2-12); NEUTROPHILS # (AUTO) 7.4 X10'3 (1.8-7.7); PLATELET COUNT 136 X10'3 (140-440); RED BLOOD COUNT 2.71 X10'6 (4.20-5.60); RED CELL DISTRIBUTION WIDTH 17.2 % (11.5-14.5); WHITE BLOOD COUNT 9.1 X10'3 (4.5-11.0)
--- NOTE | 2020-09-28 03:51 | NUR ---
Telephoned LINEN TECH October regarding potassium of 3.1. Informed to wait for daytime ear muff assembler orders regarding potassium levels.
--- NOTE | 2020-09-28 06:35 | NUR ---
Patient in room PCU 3012. I have received report from ZEN menchaca and had the opportunity to ask questions and assume patient care.
--- NOTE | 2020-09-28 07:00 | NUR ---
Problems reprioritized. Patient report given, questions answered & plan of care reviewed with Reggie RN.
[2020-09-28] MEDS: heparin, porcine 5000 units/ml vial SQ SCH ×2 (07:55→20:02)
[2020-09-28] MEDS: docusate sod 100mg capsule PO SCH ×3 (08:00→20:11)
[2020-09-28] MEDS: loratadine 10mg tablet PO SCH (08:00)
[2020-09-28] MEDS ORDERED: bumetanide 1mg tablet PO SCH (08:00)
[2020-09-28] MEDS: clopidogrel 75mg tablet PO SCH (08:00)
[2020-09-28] MEDS ORDERED: furosemide 20MG tablet PO SCH (08:00)
[2020-09-28] MEDS ORDERED: pantoprazole 40mg Tablet.DR PO SCH (08:00)
[2020-09-28] MEDS ORDERED: levoTHYROXINE 100mcg tablet PO SCH (08:00)
[2020-09-28] MEDS: atorvastatin 20mg tablet PO SCH (08:00)
[2020-09-28] MEDS: amiodarone 200mg tablet PO SCH (08:00)
[2020-09-28] MEDS: topiramate 25mg tablet PO SCH (08:00)
[2020-09-28 10:55] LABS: BASOPHILS # (AUTO) 0.1 X10'3 (0-0.2); BASOPHILS % (AUTO) 0.8 % (0-1); EOSINOPHILS % (AUTO) 0.5 % (0-6); HEMATOCRIT 25.5 % (35.0-45.0); HEMOGLOBIN 8.7 g/dl (12.0-16.0); LYMPHOCYTES # (AUTO) 1.1 X10'3 (1.1-4.8); LYMPHOCYTES % (AUTO) 14.6 % (21-51); MEAN CORPUSCULAR HEMOGLOBIN 32.1 PG (27.0-31.0); MEAN CORPUSCULAR VOLUME 94.2 FL (78-98); MEAN PLATELET VOLUME 7.8 FL (7.4-10.4); MONOCYTES # (AUTO) 0.5 X10'3 (0-0.9); MONOCYTES % (AUTO) 7.2 % (2-12); NEUTROPHILS # (AUTO) 5.9 X10'3 (1.8-7.7); NEUTROPHILS % (AUTO) 76.9 % (42-75); PLATELET COUNT 126 X10'3 (140-440); RED BLOOD COUNT 2.71 X10'6 (4.20-5.60); RED CELL DISTRIBUTION WIDTH 16.7 % (11.5-14.5); WHITE BLOOD COUNT 7.6 X10'3 (4.5-11.0)
[2020-09-28] MEDS ORDERED: potassium Cl 20 mEq SR tablet NG STA (11:55)
[2020-09-28] MEDS ORDERED: levoTHYROXINE sod inj. 100mcg/5 ml vial IV SCH (11:55)
[2020-09-28] MEDS ORDERED: furosemide 40mg/4ml inj IV ONE (11:55)
[2020-09-28] MEDS ORDERED: lactulose 20gm/30ml cup NG ONE (11:55)
--- NOTE | 2020-09-28 12:36 | NUR ---
Neftaly Consult: Neftaly Jane; skin intact per EMR. To f/u 10/02 for initial assessment. Addendum: 09/28/20 at [address] Amended: Links added.
--- NOTE | 2020-09-28 13:38 | NUR ---
ATTEMPT#16FR MANUELM SUMP NG INSERTION RIGHT NARES X 3 WITHOUT SUCCESS. ATTEMPT RIGHT SIDE, NOT ABLE TO INSERT MORE THAN 1.5 INCHES. APRIL ESTEVES RN IN, ATTEMPT RIGHT SIDE X2, LEFT SIDE X1 WITH SAME RESULTS. SOME BLEEDING NOTED RIGHT NARES. RUBÉN JOHNSON NOTIFIED.
[2020-09-28] MEDS: pantoprazole 40 MG vial IV SCH ×2 (14:27→20:03)
--- NOTE | 2020-09-28 15:00 | NUR ---
RUBÉN JOHNSON NOTIFIED ODF ACCUCHECK 61, WILL ADM D50 IV. NO NEW ORDERS.
[2020-09-28] MEDS: dextrose 50%-water 50ml dispensing syringe IV PRN (15:07)
--- NOTE | 2020-09-28 16:00 | NUR ---
ALERT, ORIENTED TO SELF ONLY. RUBÉN JOHNSON IN. GAVE PO KDUR/LACTULOSE/BUMEX. WELL ZULEMA WITH WATER. NO NG TUBE.
[2020-09-28] MEDS: bumetanide 1mg tablet NG SCH ×2 (16:08→20:11)
--- NOTE | 2020-09-28 18:25 | NUR ---
Problems reprioritized. Patient report given, questions answered & plan of care reviewed with ZEN SHELL.
--- NOTE | 2020-09-28 18:25 | NUR ---
Patient in room PCU 3012. I have received report from Reggie ZALDIVAR and had the opportunity to ask questions and assume patient care.
[2020-09-28] MEDS ORDERED: insulin glargine (Lantus) pen - multi-dose SQ SCH (21:00)
[2020-09-28] MEDS: diatr meglu/diatrizoate 30ml oral sol.-(3 dose) bottle PO SCH (21:38)
[2020-09-29 02:00] VITALS: BP 137/60
[2020-09-29 06:00] VITALS: BP 125/53
--- NOTE | 2020-09-29 06:24 | NUR ---
Problems reprioritized. Patient report given, questions answered & plan of care reviewed with Reggie RN.
--- NOTE | 2020-09-29 06:26 | NUR ---
Patient in room PCU 3012. I have received report from ZEN SHELL and had the opportunity to ask questions and assume patient care.
[2020-09-29 06:30] LABS: BASOPHILS % (AUTO) 0.6 % (0-1); EOSINOPHILS # (AUTO) 0.1 X10'3 (0-0.9); HEMATOCRIT 25.2 % (35.0-45.0); HEMOGLOBIN 8.6 g/dl (12.0-16.0); LYMPHOCYTES # (AUTO) 1.4 X10'3 (1.1-4.8); LYMPHOCYTES % (AUTO) 19.3 % (21-51); MEAN CORPUSCULAR HEMOGLOBIN 32.6 PG (27.0-31.0); MEAN CORPUSCULAR HGB CONC 34.3 g/dL (33.0-36.5); MEAN CORPUSCULAR VOLUME 94.9 FL (78-98); MEAN PLATELET VOLUME 7.9 FL (7.4-10.4); MONOCYTES # (AUTO) 0.6 X10'3 (0-0.9); MONOCYTES % (AUTO) 8.4 % (2-12); NEUTROPHILS # (AUTO) 5.2 X10'3 (1.8-7.7); NEUTROPHILS % (AUTO) 70.7 % (42-75); PLATELET COUNT 111 X10'3 (140-440); RED BLOOD COUNT 2.65 X10'6 (4.20-5.60); RED CELL DISTRIBUTION WIDTH 16.9 % (11.5-14.5); WHITE BLOOD COUNT 7.4 X10'3 (4.5-11.0)
[2020-09-29 06:42] LABS: ALBUMIN 3.1 G/DL (3.4-5.0); ANION GAP 9 (8-16); BLOOD UREA NITROGEN 50 MG/DL (7-18); BUN/CREATININE RATIO 23.6 (6.6-38.0); CALCIUM 8.3 MG/DL (8.5-10.1); CHLORIDE 116 MMOL/L (99-107); CREATININE 2.12 MG/DL (0.40-0.90); GLUCOSE 59 MG/DL (70-104); MAGNESIUM 2.6 MG/DL (1.5-2.4); PHOSPHORUS 4.8 MG/DL (2.3-4.5); POTASSIUM 3.4 MMOL/L (3.5-5.1); SODIUM 154 MMOL/L (135-145); TOTAL CARBON DIOXIDE 28.8 MMOL/L (24-32); eGFR 24 ML/MIN
[2020-09-29] MEDS: diatr meglu/diatrizoate 30ml oral sol.-(3 dose) bottle PO SCH ×2 (07:15→10:13)
[2020-09-29] MEDS: dextrose 50%-water 50ml dispensing syringe IV PRN (07:42)
--- NOTE | 2020-09-29 07:46 | NUR ---
Patient's blood sugar 60. Administered 25ml 50% dextrose. Patient awake and oriented. Will assess in 15 minutes.
[2020-09-29] MEDS: docusate sod 100mg capsule PO SCH ×3 (07:56→19:06)
[2020-09-29] MEDS ORDERED: levoTHYROXINE 100mcg tablet PO SCH (07:56)
[2020-09-29] MEDS ORDERED: furosemide 20MG tablet PO SCH (08:00)
[2020-09-29] MEDS: pantoprazole 40 MG vial IV SCH (08:00)
[2020-09-29] MEDS: bumetanide 1mg tablet NG SCH ×2 (08:01→19:06)
[2020-09-29] MEDS: lactulose 20gm/30ml cup PO SCH ×2 (08:02→16:00)
[2020-09-29] MEDS: loratadine 10mg tablet PO SCH (08:04)
[2020-09-29] MEDS: amiodarone 200mg tablet PO SCH (08:05)
[2020-09-29] MEDS: clopidogrel 75mg tablet PO SCH (08:07)
[2020-09-29] MEDS: atorvastatin 20mg tablet PO SCH (08:07)
[2020-09-29] MEDS: topiramate 25mg tablet PO SCH (08:07)
[2020-09-29] MEDS: heparin, porcine 5000 units/ml vial SQ SCH ×2 (08:08→19:07)
[2020-09-29] MEDS ORDERED: ondansetron 4mg rapidly disintigrating tab PO PRN (10:45)
[2020-09-29 11:00] VITALS: BP 138/63
[2020-09-29 15:00] VITALS: BP 107/51
[2020-09-29 18:00] VITALS: BP 115/57
--- NOTE | 2020-09-29 18:18 | NUR ---
Patient in room PCU 3012. I have received report from Reggie ZALDIVAR and had the opportunity to ask questions and assume patient care.
--- NOTE | 2020-09-29 18:21 | NUR ---
Problems reprioritized. Patient report given, questions answered & plan of care reviewed with ZEN SHELL.
[2020-09-29] MEDS ORDERED: pantoprazole 40mg Tablet.DR PO SCH (20:00)
--- NOTE | 2020-09-29 20:13 | NUR ---
Patient discharged at 2012 via wheelchair and was picked up by personal vehicle (caregiver). Medications called to pharmacy. Medications, education, and patient to make follow-up appointment reviewed with patient. IV, telemetry monitoring, and arm band removed.
[2020-09-29] MEDS ORDERED: lactulose 20gm/30ml cup PO PRN (21:20)
== END 2020-09-29 20:15 | disposition home health service (06) | DRG 70 ==
LOC: ER 18:56 → ED HOLD 21:20 → PCU 3S 23:41
PROVIDERS: ADMIT Internal Medicine Critical Care Medicine; ATTEND Internal Medicine Critical Care Medicine
DX: G93.40 Encephalopathy, unspecified (principal); N18.6 End stage renal disease; K56.7 Ileus, unspecified; I13.2 Hypertensive heart and chronic kidney disease with heart failure and with stage 5 chronic kidney disease, or end stage renal disease; E03.9 Hypothyroidism, unspecified; E11.22 Type 2 diabetes mellitus with diabetic chronic kidney disease; E11.42 Type 2 diabetes mellitus with diabetic polyneuropathy; E78.00 Pure hypercholesterolemia, unspecified; E78.5 Hyperlipidemia, unspecified; F20.9 Schizophrenia, unspecified; F31.9 Bipolar disorder, unspecified; I25.10 Atherosclerotic heart disease of native coronary artery without angina pectoris; I50.9 Heart failure, unspecified; J44.9 Chronic obstructive pulmonary disease, unspecified; Z96.651 Presence of right artificial knee joint; F29 Unspecified psychosis not due to a substance or known physiological condition; K74.60 Unspecified cirrhosis of liver; K76.0 Fatty (change of) liver, not elsewhere classified; F41.9 Anxiety disorder, unspecified; M54.9 Dorsalgia, unspecified; G89.29 Other chronic pain; Z79.4 Long term (current) use of insulin; Z79.890 Hormone replacement therapy; Z82.49 Family history of ischemic heart disease and other diseases of the circulatory system; Z82.5 Family history of asthma and other chronic lower respiratory diseases; Z83.3 Family history of diabetes mellitus; Z86.73 Personal history of transient ischemic attack (TIA), and cerebral infarction without residual deficits; Z90.710 Acquired absence of both cervix and uterus; Z99.2 Dependence on renal dialysis; Z88.8 Allergy status to other drugs, medicaments and biological substances; Z90.49 Acquired absence of other specified parts of digestive tract; Z79.899 Other long term (current) drug therapy
CPT/HCPCS: 36415; 70450; 71045; 74018; 74178; 80048; 80053; 80305; 80320; 80329; 81001; 82140; 82948; 83036; 83735; 83880; 83930; 84100; 84484; 85025; 87081; 93005; 97110; 97116; 97162; 99285; C9113; G0378; J1644; J1815; J1940; Q9963

== ENCOUNTER 2020-09-30 08:55 | Outpatient (CLI) | payer MEDICARE, MEDICAID ==
[~2020-09-30 08:55] MED LIST changes: +CLOP75TA35 PO; -DAPA5TAB PO; -FURO-150 PO; +MIRT30TA8 PO; +SIME80TA14 PO; +ZIPR80CA10 PO
[2020-09-30] MEDS ORDERED: LIDOcaine 2% 5ml jelly ONE (09:18)
[2020-09-30] MEDS ORDERED: dextrose ORAL solution 15 GM/59 ML bottle ONE (09:38)
== END 2020-09-30 23:59 | disposition home or self-care (01) ==
LOC: WOUND CARE 08:55
PROVIDERS: ATTEND Nurse Practitioner
DX: T81.31XD Disruption of external operation (surgical) wound, not elsewhere classified, subsequent encounter (principal); E11.628 Type 2 diabetes mellitus with other skin complications; E11.42 Type 2 diabetes mellitus with diabetic polyneuropathy; E78.5 Hyperlipidemia, unspecified; E78.00 Pure hypercholesterolemia, unspecified; E11.22 Type 2 diabetes mellitus with diabetic chronic kidney disease; I13.2 Hypertensive heart and chronic kidney disease with heart failure and with stage 5 chronic kidney disease, or end stage renal disease; N18.6 End stage renal disease; I50.9 Heart failure, unspecified; J44.9 Chronic obstructive pulmonary disease, unspecified; K74.60 Unspecified cirrhosis of liver; E03.9 Hypothyroidism, unspecified; K21.9 Gastro-esophageal reflux disease without esophagitis; G89.29 Other chronic pain; F41.9 Anxiety disorder, unspecified; F40.240 Claustrophobia; F32.9 Major depressive disorder, single episode, unspecified; F20.9 Schizophrenia, unspecified; Z79.899 Other long term (current) drug therapy; Z98.890 Other specified postprocedural states; Z87.01 Personal history of pneumonia (recurrent); Z90.710 Acquired absence of both cervix and uterus; Z87.442 Personal history of urinary calculi; Z95.0 Presence of cardiac pacemaker; Z86.73 Personal history of transient ischemic attack (TIA), and cerebral infarction without residual deficits; Z98.49 Cataract extraction status, unspecified eye; Z86.14 Personal history of Methicillin resistant Staphylococcus aureus infection; Y83.8 Other surgical procedures as the cause of abnormal reaction of the patient, or of later complication, without mention of misadventure at the time of the procedure
CPT/HCPCS: 11042; 36416; 82948

== ENCOUNTER → 2020-10-29 | Outpatient (CLI) | payer MEDICARE, MEDICAID ==
[~2020-10-29] MED LIST changes: +BUDE10.2 INH; -BUME2TAB7 PO; -DOCU100C40 PO; +EST1T PO; +FURO-150 PO; -INSU100C4 SQ; +LACT10SO PO; +LIDOcaine 2% 5ml jelly ONE; +METO25TA6 PO; +MONT10TA97 PO; +POLY119P2 PO; -SIME80TA14 PO; +SPIR25TA5 PO
== END | disposition home or self-care (01) ==
LOC: WOUND CARE 09:11
PROVIDERS: ATTEND Nurse Practitioner Family
DX: T81.31XD Disruption of external operation (surgical) wound, not elsewhere classified, subsequent encounter (principal); E11.628 Type 2 diabetes mellitus with other skin complications; E11.42 Type 2 diabetes mellitus with diabetic polyneuropathy; E78.5 Hyperlipidemia, unspecified; E78.00 Pure hypercholesterolemia, unspecified; E11.22 Type 2 diabetes mellitus with diabetic chronic kidney disease; I13.2 Hypertensive heart and chronic kidney disease with heart failure and with stage 5 chronic kidney disease, or end stage renal disease; N18.6 End stage renal disease; I50.9 Heart failure, unspecified; J44.9 Chronic obstructive pulmonary disease, unspecified; K74.60 Unspecified cirrhosis of liver; E03.9 Hypothyroidism, unspecified; K21.9 Gastro-esophageal reflux disease without esophagitis; G89.29 Other chronic pain; F41.9 Anxiety disorder, unspecified; F40.240 Claustrophobia; F32.9 Major depressive disorder, single episode, unspecified; F20.9 Schizophrenia, unspecified; Z79.899 Other long term (current) drug therapy; Z98.890 Other specified postprocedural states; Z87.01 Personal history of pneumonia (recurrent); Z90.710 Acquired absence of both cervix and uterus; Z87.442 Personal history of urinary calculi; Z95.0 Presence of cardiac pacemaker; Z86.73 Personal history of transient ischemic attack (TIA), and cerebral infarction without residual deficits; Z98.49 Cataract extraction status, unspecified eye; Z86.14 Personal history of Methicillin resistant Staphylococcus aureus infection; Y83.8 Other surgical procedures as the cause of abnormal reaction of the patient, or of later complication, without mention of misadventure at the time of the procedure
CPT/HCPCS: 97597

== ENCOUNTER 2020-11-05 09:41 | Outpatient (CLI) | payer MEDICARE, MEDICAID ==
[~2020-11-05 09:41] MED LIST changes: +CLOP75TA34 PO; -CLOP75TA35 PO; -LIDOcaine 2% 5ml jelly ONE
[2020-11-05] MEDS ORDERED: LIDOcaine 2% 5ml jelly ONE (10:00)
== END 2020-11-05 23:59 | disposition home or self-care (01) ==
LOC: WOUND CARE 09:41
PROVIDERS: ATTEND Nurse Practitioner
DX: T81.31XD Disruption of external operation (surgical) wound, not elsewhere classified, subsequent encounter (principal); E11.628 Type 2 diabetes mellitus with other skin complications; E78.5 Hyperlipidemia, unspecified; E78.00 Pure hypercholesterolemia, unspecified; E11.22 Type 2 diabetes mellitus with diabetic chronic kidney disease; I13.2 Hypertensive heart and chronic kidney disease with heart failure and with stage 5 chronic kidney disease, or end stage renal disease; N18.6 End stage renal disease; I50.9 Heart failure, unspecified; J44.9 Chronic obstructive pulmonary disease, unspecified; K74.60 Unspecified cirrhosis of liver; E03.9 Hypothyroidism, unspecified; K21.9 Gastro-esophageal reflux disease without esophagitis; G89.29 Other chronic pain; F41.9 Anxiety disorder, unspecified; F40.240 Claustrophobia; F32.9 Major depressive disorder, single episode, unspecified; F20.9 Schizophrenia, unspecified; Z79.899 Other long term (current) drug therapy; Z98.890 Other specified postprocedural states; Z87.01 Personal history of pneumonia (recurrent); Z90.710 Acquired absence of both cervix and uterus; Z87.442 Personal history of urinary calculi; Z95.0 Presence of cardiac pacemaker; Z86.73 Personal history of transient ischemic attack (TIA), and cerebral infarction without residual deficits; Z98.49 Cataract extraction status, unspecified eye; Z86.14 Personal history of Methicillin resistant Staphylococcus aureus infection; Y83.8 Other surgical procedures as the cause of abnormal reaction of the patient, or of later complication, without mention of misadventure at the time of the procedure
CPT/HCPCS: 97597

== ENCOUNTER 2020-12-06 09:05 | Emergency (ER) | payer MEDICARE, MEDICAID ==
[~2020-12-06] VITALS: Ht 160 cm; Wt 89.0 kg
[2020-12-06] MEDS ORDERED: acetaminophen 325mg tablet PO ONE (09:50)
--- NOTE | 2020-12-06 10:18 | NUR ---
patient states that she can not take tylenol due to chirrohis nor can she take ibuprofen. she takes bupenorphine at home last taken 2mg at 0300
--- NOTE | 2020-12-06 10:22 | NUR ---
discussed pain medications with dr esteves, no orders, injury occurred 2 weeks ago, patient refused ice and heat
--- NOTE | 2020-12-06 11:30 | NUR ---
vascular study done, dr esteves in room
[2020-12-06 11:40] VITALS: BP 158/67
== END 2020-12-06 11:41 | disposition home or self-care (01) ==
LOC: ER 09:06
DX: M25.562 Pain in left knee (principal); M25.561 Pain in right knee; E11.42 Type 2 diabetes mellitus with diabetic polyneuropathy; I13.2 Hypertensive heart and chronic kidney disease with heart failure and with stage 5 chronic kidney disease, or end stage renal disease; E11.22 Type 2 diabetes mellitus with diabetic chronic kidney disease; N18.6 End stage renal disease; E78.00 Pure hypercholesterolemia, unspecified; J44.9 Chronic obstructive pulmonary disease, unspecified; E03.9 Hypothyroidism, unspecified; G89.29 Other chronic pain; F41.9 Anxiety disorder, unspecified; F31.9 Bipolar disorder, unspecified; F20.9 Schizophrenia, unspecified; Z86.73 Personal history of transient ischemic attack (TIA), and cerebral infarction without residual deficits; Z99.2 Dependence on renal dialysis; Z87.01 Personal history of pneumonia (recurrent); Z87.440 Personal history of urinary (tract) infections; Z90.89 Acquired absence of other organs; Z90.49 Acquired absence of other specified parts of digestive tract; Z90.710 Acquired absence of both cervix and uterus; Z98.890 Other specified postprocedural states; Z72.89 Other problems related to lifestyle; Z88.1 Allergy status to other antibiotic agents; Z88.8 Allergy status to other drugs, medicaments and biological substances; Z88.2 Allergy status to sulfonamides; Z79.899 Other long term (current) drug therapy
CPT/HCPCS: 73564; 93971; 99284

== ENCOUNTER 2021-02-05 06:40 | Day surgery (SDC) | payer MEDICARE, MEDICAID ==
[~2021-02-05] VITALS: Ht 160 cm; Wt 93.1 kg
[~2021-02-05 06:40] MED LIST changes: -BUPR150T8 PO; +CYCL1DRO2 EACHEYE; +DAPA5TAB PO; +DOCU-22 PO; -EST1T PO; +INSU200I4 SQ; -LACT10SO PO; +LACT10SO32 PO; -METO25TA6 PO; -MONT10TA97 PO; +NOVLG SQ; -SPIR25TA5 PO; -TOP25T PO
[2021-02-05] MEDS ORDERED: normal saline 1000ml 1,000 ML IV PRN (07:25)
[2021-02-05 07:45] VITALS: BP 112/66
[2021-02-05] MEDS ORDERED: ASPI-611 PO (08:01)
[2021-02-05] MEDS ORDERED: dextrose 50%-water 50ml dispensing syringe IV ONE (08:08)
[2021-02-05 08:11] LABS: BASOPHILS % (AUTO) 0.5 % (0-1); EOSINOPHILS # (AUTO) 0.1 X10'3 (0-0.9); EOSINOPHILS % (AUTO) 0.8 % (0-6); HEMATOCRIT 28.8 % (35.0-45.0); HEMOGLOBIN 9.4 g/dl (12.0-16.0); LYMPHOCYTES # (AUTO) 1.1 X10'3 (1.1-4.8); LYMPHOCYTES % (AUTO) 14.7 % (21-51); MEAN CORPUSCULAR HEMOGLOBIN 29.5 PG (27.0-31.0); MEAN CORPUSCULAR HGB CONC 32.5 g/dL (33.0-36.5); MEAN CORPUSCULAR VOLUME 90.8 FL (78-98); MEAN PLATELET VOLUME 8.2 FL (7.4-10.4); MONOCYTES # (AUTO) 0.5 X10'3 (0-0.9); MONOCYTES % (AUTO) 6.8 % (2-12); NEUTROPHILS # (AUTO) 5.9 X10'3 (1.8-7.7); NEUTROPHILS % (AUTO) 77.2 % (42-75); PLATELET COUNT 110 X10'3 (140-440); RED BLOOD COUNT 3.17 X10'6 (4.20-5.60); RED CELL DISTRIBUTION WIDTH 18.7 % (11.5-14.5); WHITE BLOOD COUNT 7.6 X10'3 (4.5-11.0)
[2021-02-05] MEDS ORDERED: LACT10SO3 PO (08:18)
[2021-02-05] MEDS ORDERED: SIME80TA15 PO (08:18)
[2021-02-05 08:19] LABS: ALBUMIN 3.3 G/DL (3.4-5.0); ANION GAP 11 (8-16); BLOOD UREA NITROGEN 30 MG/DL (7-18); CHLORIDE 107 MMOL/L (99-107); CREATININE 1.87 MG/DL (0.40-0.90); GLUCOSE 66 MG/DL (70-104); POTASSIUM 3.5 MMOL/L (3.5-5.1); SODIUM 144 MMOL/L (135-145); TOTAL CARBON DIOXIDE 26.1 MMOL/L (24-32); eGFR 28 ML/MIN
[2021-02-05] MEDS ORDERED: fentaNYL/PF 50MCG/1 ML 2ML syringe ONE ×2 (08:37→09:23)
[2021-02-05] MEDS ORDERED: midazolam 1 mg/ML 2ml injection ONE (08:37)
[2021-02-05] MEDS ORDERED: iohexol 300mg/ml 100ml inj. ONE (08:37)
[2021-02-05] MEDS ORDERED: heparin 1,000 UNITS/NS 500ml 500 ML ONE (08:37)
[2021-02-05] MEDS ORDERED: LIDOcaine 1%/PF 5ML 10 MG/ML VIAL ONE (08:37)
[2021-02-05] MEDS ORDERED: tPA-cathflo 2 MG/2 ml IV flush ONE ×3 (08:38→09:18)
[2021-02-05 10:09] VITALS: BP 105/57
[2021-02-05 10:15] VITALS: BP 108/56
[2021-02-05 10:31] VITALS: BP 117/96
[2021-02-05 10:42] VITALS: BP 129/58
== END 2021-02-05 11:10 | disposition home or self-care (01) ==
LOC: SSTAY O 06:40
PROVIDERS: ATTEND Radiology Vascular & Interventional Radiology
DX: T82.868A Thrombosis due to vascular prosthetic devices, implants and grafts, initial encounter (principal); E11.22 Type 2 diabetes mellitus with diabetic chronic kidney disease; I13.2 Hypertensive heart and chronic kidney disease with heart failure and with stage 5 chronic kidney disease, or end stage renal disease; N18.6 End stage renal disease; I50.9 Heart failure, unspecified; K72.90 Hepatic failure, unspecified without coma; I48.91 Unspecified atrial fibrillation; E11.40 Type 2 diabetes mellitus with diabetic neuropathy, unspecified; E78.5 Hyperlipidemia, unspecified; J44.9 Chronic obstructive pulmonary disease, unspecified; F31.9 Bipolar disorder, unspecified; I25.10 Atherosclerotic heart disease of native coronary artery without angina pectoris; F20.9 Schizophrenia, unspecified; Z90.49 Acquired absence of other specified parts of digestive tract; Z98.890 Other specified postprocedural states; Z90.710 Acquired absence of both cervix and uterus; Z79.4 Long term (current) use of insulin; Z88.2 Allergy status to sulfonamides; Z88.1 Allergy status to other antibiotic agents; Z88.8 Allergy status to other drugs, medicaments and biological substances; Z91.09 Other allergy status, other than to drugs and biological substances; Z79.82 Long term (current) use of aspirin; Z79.01 Long term (current) use of anticoagulants; Z79.899 Other long term (current) drug therapy; Z82.49 Family history of ischemic heart disease and other diseases of the circulatory system; Z83.3 Family history of diabetes mellitus; Z83.6 Family history of other diseases of the respiratory system; Z80.9 Family history of malignant neoplasm, unspecified; Y83.2 Surgical operation with anastomosis, bypass or graft as the cause of abnormal reaction of the patient, or of later complication, without mention of misadventure at the time of the procedure; Y92.89 Other specified places as the place of occurrence of the external cause
CPT/HCPCS: 36415; 36905; 80048; 82948; 85025; 85610; 99152; 99153; C1725; C1769; C1894; J1644; J2250; J2997; J3010; Q9967

== ENCOUNTER 2021-04-17 16:04 | Emergency (ER) | payer MEDICARE, MEDICAID ==
[~2021-04-17] VITALS: Ht 160 cm; Wt 86.4 kg
[~2021-04-17 16:04] MED LIST changes: +ALBU18HF2 IH; +ASPI-611 PO; -DOCU-22 PO; +LACT10SO3 PO; -LACT10SO32 PO; -LORA10TA7 PO; +MIRT-88 PO; -MIRT30TA8 PO; -NOVLG SQ
[2021-04-17 17:21] LABS: ANION GAP 12 (8-16); BLOOD UREA NITROGEN 33 MG/DL (7-18); BUN/CREATININE RATIO 15.2 (6.6-38.0); CALCIUM 8.6 MG/DL (8.5-10.1); CHLORIDE 103 MMOL/L (99-107); CREATININE 2.17 MG/DL (0.40-0.90); GLUCOSE 337 MG/DL (70-104); POTASSIUM 4.2 MMOL/L (3.5-5.1); SODIUM 137 MMOL/L (135-145); TOTAL CARBON DIOXIDE 22.1 MMOL/L (24-32); eGFR 23 ML/MIN
[2021-04-17 17:22] LABS: ALANINE AMINOTRANSFERASE 46 U/L (12-78); ALBUMIN/GLOBULIN RATIO 0.7 (1.1-1.5); ALKALINE PHOSPHATASE 245 IU/L (46-116); ASPARTATE AMINO TRANSFERASE 55 U/L (10-37); BILIRUBIN,TOTAL 0.8 MG/DL (0.1-1.0); TOTAL PROTEIN 7.1 G/DL (6.4-8.2)
[2021-04-17 17:41] LABS: CLARITY,URINE CLEAR (Clear); COLOR,URINE YELLOW (Yellow); GLUCOSE, URINE >=1000 mg/dl (Neg); KETONES,URINE NEGATIVE (Neg); LEUKOCYTE ESTERASE ,URINE NEGATIVE (Neg); NITRITES, URINE NEGATIVE (Neg); OCCULT BLOOD,URINE NEGATIVE (Neg); PH,URINE 5.5 (4.8-8.0); PROTEIN,URINE NEGATIVE (Neg); UROBILINOGEN,URINE 0.2 E.U/dL (0.2-1.0)
[2021-04-17 17:42] LABS: UA COLLECTION TYPE CLN CATCH MIDSTREAM
[2021-04-17 17:46] LABS: BACTERIA,URINE NONE SEEN /HPF (Neg); MUCUS STRANDS NONE SEEN /LPF (Neg); RBC,URINE NONE SEEN /HPF (0-2); SQUAMOUS EPITHELIAL CELL,UR FEW /LPF (FEW); WBC,URINE NONE SEEN /HPF (0-4)
[2021-04-17] MEDS ORDERED: ondansetron/PF 4mg/2ml inj IV ONE (17:55)
[2021-04-17] MEDS ORDERED: morphine 4 MG/ML inj SYRINge IV ONE (17:55)
[2021-04-17 18:06] LABS: BASOPHILS % (AUTO) 0.4 % (0-1); EOSINOPHILS # (AUTO) 0.1 X10'3 (0-0.9); HEMATOCRIT 31.9 % (35.0-45.0); HEMOGLOBIN 10.6 g/dl (12.0-16.0); LYMPHOCYTES # (AUTO) 0.6 X10'3 (1.1-4.8); LYMPHOCYTES % (AUTO) 8.5 % (21-51); MEAN CORPUSCULAR HEMOGLOBIN 29.6 PG (27.0-31.0); MEAN CORPUSCULAR VOLUME 89.6 FL (78-98); MEAN PLATELET VOLUME 8.7 FL (7.4-10.4); MONOCYTES # (AUTO) 0.4 X10'3 (0-0.9); MONOCYTES % (AUTO) 6.4 % (2-12); NEUTROPHILS # (AUTO) 5.7 X10'3 (1.8-7.7); NEUTROPHILS % (AUTO) 83.7 % (42-75); PLATELET COUNT 82 X10'3 (140-440); RED BLOOD COUNT 3.56 X10'6 (4.20-5.60); RED CELL DISTRIBUTION WIDTH 18.4 % (11.5-14.5); WHITE BLOOD COUNT 6.8 X10'3 (4.5-11.0)
[2021-04-17 19:17] VITALS: BP 119/49
== END 2021-04-17 19:20 | disposition home or self-care (01) ==
LOC: ER 16:04
DX: R11.2 Nausea with vomiting, unspecified (principal); R10.84 Generalized abdominal pain; R53.1 Weakness; I13.2 Hypertensive heart and chronic kidney disease with heart failure and with stage 5 chronic kidney disease, or end stage renal disease; E11.22 Type 2 diabetes mellitus with diabetic chronic kidney disease; N18.6 End stage renal disease; E11.42 Type 2 diabetes mellitus with diabetic polyneuropathy; E78.00 Pure hypercholesterolemia, unspecified; J44.9 Chronic obstructive pulmonary disease, unspecified; E03.9 Hypothyroidism, unspecified; G89.29 Other chronic pain; F41.9 Anxiety disorder, unspecified; F31.9 Bipolar disorder, unspecified; F20.9 Schizophrenia, unspecified; Z99.2 Dependence on renal dialysis; Z86.73 Personal history of transient ischemic attack (TIA), and cerebral infarction without residual deficits; Z87.01 Personal history of pneumonia (recurrent); Z87.440 Personal history of urinary (tract) infections; Z90.89 Acquired absence of other organs; Z90.49 Acquired absence of other specified parts of digestive tract; Z90.710 Acquired absence of both cervix and uterus; Z98.890 Other specified postprocedural states; Z95.0 Presence of cardiac pacemaker; Z72.89 Other problems related to lifestyle; Z88.1 Allergy status to other antibiotic agents; Z88.8 Allergy status to other drugs, medicaments and biological substances; Z79.82 Long term (current) use of aspirin; Z79.899 Other long term (current) drug therapy; Z79.4 Long term (current) use of insulin
CPT/HCPCS: 36415; 71045; 74176; 80053; 81001; 83605; 83735; 84145; 85025; 93005; 96374; 96375; 99285; J2270; J2405

== ENCOUNTER 2021-04-27 04:44 | Emergency (ER) | payer MEDICARE, MEDICAID ==
[~2021-04-27] VITALS: Ht 160 cm; Wt 87.3 kg
[2021-04-27 04:50] VITALS: BP 132/78
[2021-04-27] MEDS ORDERED: acetaminophen 325mg tablet PO ONE (06:00)
[2021-04-27] MEDS ORDERED: HYDROcodone/acetaminophen 5mg/325mg tablet PO ONE (06:00)
[2021-04-27] MEDS ORDERED: LORazepam 0.5 MG tablet PO ONE (06:00)
[2021-04-27] MEDS ORDERED: ibuprofen tablet 400 MG TABLET PO ONE (06:00)
== END 2021-04-27 08:05 | disposition home or self-care (01) ==
LOC: ER 04:45
DX: M79.605 Pain in left leg (principal); E11.42 Type 2 diabetes mellitus with diabetic polyneuropathy; E11.22 Type 2 diabetes mellitus with diabetic chronic kidney disease; I12.0 Hypertensive chronic kidney disease with stage 5 chronic kidney disease or end stage renal disease; N18.6 End stage renal disease; I50.9 Heart failure, unspecified; I11.0 Hypertensive heart disease with heart failure; G89.29 Other chronic pain; J44.9 Chronic obstructive pulmonary disease, unspecified; E03.9 Hypothyroidism, unspecified; Z87.01 Personal history of pneumonia (recurrent); Z99.2 Dependence on renal dialysis; Z95.0 Presence of cardiac pacemaker; Z98.890 Other specified postprocedural states; Z90.710 Acquired absence of both cervix and uterus; Z86.73 Personal history of transient ischemic attack (TIA), and cerebral infarction without residual deficits; Z79.899 Other long term (current) drug therapy; Z79.82 Long term (current) use of aspirin; Z79.4 Long term (current) use of insulin; Z88.1 Allergy status to other antibiotic agents; Z88.2 Allergy status to sulfonamides; Z88.8 Allergy status to other drugs, medicaments and biological substances
CPT/HCPCS: 93971; 99284; 99285

== ENCOUNTER 2021-04-29 06:23 | Day surgery (SDC) | payer MEDICARE, MEDICAID ==
[~2021-04-29] VITALS: Ht 160 cm; Wt 91.6 kg
[2021-04-29] MEDS ORDERED: normal saline 1000ml 1,000 ML IV SCH (06:50)
[2021-04-29] MEDS ORDERED: DOCU100C40 PO (06:56)
[2021-04-29 07:01] VITALS: BP 102/57
[2021-04-29 07:47] LABS: BASOPHILS % (AUTO) 0.6 % (0-1); EOSINOPHILS # (AUTO) 0.1 X10'3 (0-0.9); EOSINOPHILS % (AUTO) 2.1 % (0-6); HEMATOCRIT 33.7 % (35.0-45.0); LYMPHOCYTES # (AUTO) 0.9 X10'3 (1.1-4.8); LYMPHOCYTES % (AUTO) 15.5 % (21-51); MEAN CORPUSCULAR HEMOGLOBIN 29.3 PG (27.0-31.0); MEAN CORPUSCULAR HGB CONC 32.6 g/dL (33.0-36.5); MEAN CORPUSCULAR VOLUME 89.9 FL (78-98); MEAN PLATELET VOLUME 8.5 FL (7.4-10.4); MONOCYTES # (AUTO) 0.5 X10'3 (0-0.9); MONOCYTES % (AUTO) 8.5 % (2-12); NEUTROPHILS % (AUTO) 73.3 % (42-75); PLATELET COUNT 107 X10'3 (140-440); RED BLOOD COUNT 3.75 X10'6 (4.20-5.60); RED CELL DISTRIBUTION WIDTH 18.8 % (11.5-14.5); WHITE BLOOD COUNT 5.5 X10'3 (4.5-11.0)
[2021-04-29 08:05] LABS: ALBUMIN 3.2 G/DL (3.4-5.0); ANION GAP 10 (8-16); BLOOD UREA NITROGEN 24 MG/DL (7-18); CALCIUM 8.3 MG/DL (8.5-10.1); CHLORIDE 104 MMOL/L (99-107); CREATININE 1.85 MG/DL (0.40-0.90); GLUCOSE 79 MG/DL (70-104); POTASSIUM 3.5 MMOL/L (3.5-5.1); SODIUM 140 MMOL/L (135-145); TOTAL CARBON DIOXIDE 25.8 MMOL/L (24-32); eGFR 28 ML/MIN
[2021-04-29] MEDS ORDERED: ondansetron/PF 4mg/2ml inj IV ONE (09:00)
[2021-04-29] MEDS ORDERED: LIDOcaine 1%/PF 5ML 10 MG/ML VIAL ONE (09:19)
[2021-04-29] MEDS ORDERED: iohexol 300mg/ml 100ml inj. ONE (09:19)
[2021-04-29] MEDS ORDERED: heparin 1,000 UNITS/NS 500ml 500 ML ONE (09:19)
[2021-04-29] MEDS ORDERED: fentaNYL/PF 50MCG/1 ML 2ML syringe ONE ×2 (09:19→10:18)
[2021-04-29] MEDS ORDERED: midazolam 1 mg/ML 2ml injection ONE (09:19)
[2021-04-29 09:31] LABS: PLATELET ESTIMATE DECREASED
[2021-04-29 09:32] LABS: ANISOCYTOSIS 2+
[2021-04-29] MEDS ORDERED: tPA-cathflo 2 MG/2 ml IV flush ONE (09:53)
[2021-04-29 10:51] VITALS: BP 106/59
[2021-04-29 11:06] VITALS: BP 94/54
[2021-04-29 11:21] VITALS: BP 95/56
[2021-04-29 11:36] VITALS: BP 105/60
[2021-04-29 11:51] VITALS: BP 111/53
== END 2021-04-29 12:05 | disposition home or self-care (01) ==
LOC: SSTAY O 06:23
PROVIDERS: ATTEND Radiology Diagnostic Radiology
DX: T82.868A Thrombosis due to vascular prosthetic devices, implants and grafts, initial encounter (principal); Z79.01 Long term (current) use of anticoagulants; Z79.899 Other long term (current) drug therapy; Z88.8 Allergy status to other drugs, medicaments and biological substances; Z88.1 Allergy status to other antibiotic agents; Z88.2 Allergy status to sulfonamides; Z91.09 Other allergy status, other than to drugs and biological substances; Z82.49 Family history of ischemic heart disease and other diseases of the circulatory system; Z83.6 Family history of other diseases of the respiratory system; Y83.2 Surgical operation with anastomosis, bypass or graft as the cause of abnormal reaction of the patient, or of later complication, without mention of misadventure at the time of the procedure; Y92.89 Other specified places as the place of occurrence of the external cause
CPT/HCPCS: 36905; 80048; 82948; 85025; 85610; 99152; 99153; C1725; C1769; C1894; J1644; J2250; J2405; J2997; J3010; J7030; Q9967; 85008

== ENCOUNTER 2021-07-04 10:17 | Inpatient (IN) | payer MEDICARE, MEDICAID ==
[~2021-07-04] VITALS: Ht 160 cm; Wt 45.9 kg
[~2021-07-04 10:17] MED LIST changes: -ATOR20TA66 PO; +DOCU100C40 PO; -MIRT-88 PO; -ZIPR80CA10 PO
[2021-07-04 11:16] LABS: BASOPHILS % (AUTO) 0.2 % (0-1); EOSINOPHILS # (AUTO) 0.1 X10'3 (0-0.9); EOSINOPHILS % (AUTO) 1.2 % (0-6); HEMOGLOBIN 12.1 g/dl (12.0-16.0); LYMPHOCYTES # (AUTO) 0.4 X10'3 (1.1-4.8); LYMPHOCYTES % (AUTO) 5.4 % (21-51); MEAN CORPUSCULAR HEMOGLOBIN 29.2 PG (27.0-31.0); MEAN CORPUSCULAR HGB CONC 31.9 g/dL (33.0-36.5); MEAN CORPUSCULAR VOLUME 91.5 FL (78-98); MEAN PLATELET VOLUME 8.5 FL (7.4-10.4); MONOCYTES # (AUTO) 0.7 X10'3 (0-0.9); MONOCYTES % (AUTO) 9.1 % (2-12); NEUTROPHILS # (AUTO) 6.7 X10'3 (1.8-7.7); NEUTROPHILS % (AUTO) 84.1 % (42-75); PLATELET COUNT 87 X10'3 (140-440); RED BLOOD COUNT 4.15 X10'6 (4.20-5.60); RED CELL DISTRIBUTION WIDTH 19.1 % (11.5-14.5)
[2021-07-04 11:27] LABS: ALANINE AMINOTRANSFERASE 73 U/L (12-78); ALBUMIN 2.9 G/DL (3.4-5.0); ALBUMIN/GLOBULIN RATIO 0.6 (1.1-1.5); ALKALINE PHOSPHATASE 423 IU/L (46-116); ANION GAP 9 (8-16); ASPARTATE AMINO TRANSFERASE 69 U/L (10-37); BILIRUBIN,TOTAL 2.8 MG/DL (0.1-1.0); BLOOD UREA NITROGEN 14 MG/DL (7-18); BUN/CREATININE RATIO 9.5 (6.6-38.0); CALCIUM 8.1 MG/DL (8.5-10.1); CHLORIDE 104 MMOL/L (99-107); CREATININE 1.48 MG/DL (0.40-0.90); GLUCOSE 126 MG/DL (70-104); POTASSIUM 3.8 MMOL/L (3.5-5.1); SODIUM 141 MMOL/L (135-145); TOTAL CARBON DIOXIDE 27.6 MMOL/L (24-32); eGFR 36 ML/MIN
[2021-07-04] MEDS ORDERED: oxyCODONE/APAP 5-325mg tablet PO ONE (11:40)
[2021-07-04] MEDS ORDERED: insulin Lispro (HumaLOG) vial - multi-dose SQ SCH (13:45)
[2021-07-04] MEDS ORDERED: regadenoson 0.4mg/5ml syringe IV PRN (13:45)
[2021-07-04] MEDS ORDERED: metoprolol tartrate 1mg/ml inj IV PRN (13:45)
[2021-07-04] MEDS ORDERED: ipratropium/albuterol 3ml nebule NEB PRN (13:45)
[2021-07-04] MEDS ORDERED: magnesium hydroxide 30ml (MOM) UD suspension PO PRN (13:45)
[2021-07-04] MEDS ORDERED: MESSAGE TO PHARMACY PO ONE (13:45)
[2021-07-04] MEDS ORDERED: dextrose ORAL solution 15 GM/59 ML bottle PO PRN ×2 (13:45)
[2021-07-04] MEDS ORDERED: dextrose 50%-water 50ml dispensing syringe IV PRN ×2 (13:45)
[2021-07-04] MEDS ORDERED: magnesium 2GM in 50ml NS 50 ML IV PRN (13:45)
[2021-07-04] MEDS ORDERED: potassium Cl 40MEQ/1/2NS 520ml 520 ML IV PRN ×2 (13:45)
[2021-07-04] MEDS ORDERED: magnesium 4gm in 100ml NS 100 ML IV PRN (13:45)
[2021-07-04] MEDS ORDERED: nitroGLYCERIN 0.4mg SUBLingual tab SL PRN ×2 (13:45)
[2021-07-04] MEDS ORDERED: PERFLUTREN PROTEIN-A MICROSPHR (Optison) 0.22 MG/ML 3ML VIAL IV PRN (13:45)
[2021-07-04] MEDS ORDERED: aminophylline 250mg/10ml inj. IV PRN (13:45)
[2021-07-04] MEDS ORDERED: ondansetron/PF 4mg/2ml inj IV PRN (13:45)
[2021-07-04] MEDS ORDERED: albuterol 2.5 MG/3 ML nebule NEB PRN (13:45)
[2021-07-04] MEDS ORDERED: acetaminophen 325mg tablet PO PRN (13:45)
[2021-07-04] MEDS ORDERED: potassium Cl 20 mEq SR tablet PO PRN ×2 (13:45)
[2021-07-04] MEDS ORDERED: glucagon, human recombinant 1mg kit SUBCUT PRN (13:45)
[2021-07-04] MEDS ORDERED: mag hydrox/Alum hydrox/simeth 30ml oral suspension PO PRN (13:45)
[2021-07-04] MEDS: heparin, porcine 5000 units/ml vial SQ SCH (16:00)
[2021-07-04] MEDS: docusate sod 100mg capsule PO SCH (18:35)
[2021-07-04] MEDS ORDERED: K and/or MAG REPLACEMENT MC SCH (20:00)
[2021-07-04] MEDS ORDERED: insulin glargine (Lantus) pen - multi-dose SQ SCH (21:00)
[2021-07-04] MEDS: morphine 2 MG/ML inj. syringe IV PRN (21:35)
[2021-07-05] VITALS (8 sets, daily range): BP systolic 99–116; BP diastolic 48–71
[2021-07-05] MEDS ORDERED: morphine 2 MG/ML inj. syringe IV PRN ×2 (02:45→07:45)
[2021-07-05] MEDS: morphine 2 MG/ML inj. syringe IV PRN ×4 (02:48→17:24)
[2021-07-05] MEDS ORDERED: NOVLG SQ (05:46)
[2021-07-05] MEDS ORDERED: LEVO25TA7 PO (05:46)
[2021-07-05] MEDS ORDERED: FURO80TA3 PO (05:46)
[2021-07-05] MEDS ORDERED: LORA10TA7 PO (05:47)
[2021-07-05 07:42] LABS: BASOPHILS % (AUTO) 0.3 % (0-1); EOSINOPHILS # (AUTO) 0.1 X10'3 (0-0.9); EOSINOPHILS % (AUTO) 0.9 % (0-6); HEMATOCRIT 36.8 % (35.0-45.0); LYMPHOCYTES # (AUTO) 0.7 X10'3 (1.1-4.8); MEAN CORPUSCULAR HEMOGLOBIN 29.6 PG (27.0-31.0); MEAN CORPUSCULAR HGB CONC 32.7 g/dL (33.0-36.5); MEAN CORPUSCULAR VOLUME 90.8 FL (78-98); MEAN PLATELET VOLUME 8.5 FL (7.4-10.4); MONOCYTES # (AUTO) 0.5 X10'3 (0-0.9); MONOCYTES % (AUTO) 6.1 % (2-12); NEUTROPHILS # (AUTO) 7.2 X10'3 (1.8-7.7); NEUTROPHILS % (AUTO) 84.7 % (42-75); PLATELET COUNT 88 X10'3 (140-440); RED BLOOD COUNT 4.06 X10'6 (4.20-5.60); WHITE BLOOD COUNT 8.5 X10'3 (4.5-11.0)
[2021-07-05] MEDS: docusate sod 100mg capsule PO SCH (08:00)
[2021-07-05] MEDS: heparin, porcine 5000 units/ml vial SQ SCH ×3 (08:00→16:00)
[2021-07-05 08:02] LABS: ALANINE AMINOTRANSFERASE 55 U/L (12-78); ALBUMIN 2.7 G/DL (3.4-5.0); ALBUMIN/GLOBULIN RATIO 0.6 (1.1-1.5); ALKALINE PHOSPHATASE 371 IU/L (46-116); ANION GAP 11 (8-16); ASPARTATE AMINO TRANSFERASE 58 U/L (10-37); BILIRUBIN,TOTAL 2.9 MG/DL (0.1-1.0); BLOOD UREA NITROGEN 34 MG/DL (7-18); BUN/CREATININE RATIO 15.6 (6.6-38.0); CALCIUM 8.1 MG/DL (8.5-10.1); CHLORIDE 104 MMOL/L (99-107); CHOL/HDL RATIO 4.3 (0.00-4.99); CHOLESTEROL 168 MG/DL (0-200); CREATININE 2.18 MG/DL (0.40-0.90); GLUCOSE 106 MG/DL (70-104); HDL CHOLESTEROL 39 MG/DL (35-60); LDL CHOLESTEROL 105 MG/DL (50-100); MAGNESIUM 2.3 MG/DL (1.5-2.4); POTASSIUM 4.1 MMOL/L (3.5-5.1); SODIUM 140 MMOL/L (135-145); TOTAL CARBON DIOXIDE 24.6 MMOL/L (24-32); TOTAL PROTEIN 7.6 G/DL (6.4-8.2); TRIGLYCERIDES 126 MG/DL (20-135); eGFR 23 ML/MIN
[2021-07-05 08:40] LABS: ANISOCYTOSIS 2+; PLATELET ESTIMATE DECREASED; POLYCHROMASIA FEW; STOMATOCYTES 2+; TEAR DROP CELLS FEW
--- NOTE | 2021-07-05 12:10 | NUR ---
PAGER ID: [phone] MESSAGE: LINN ON [email or web address], NATALI REPORT IS AVAILBE FOR [id number], THX
== END 2021-07-05 17:45 | disposition home or self-care (01) | DRG 313 ==
LOC: ER 10:19 → ED HOLD 13:50 → EDBEDREQ 07-05 04:57 → PCU 3S 07-05 07:10
PROVIDERS: ADMIT Family Medicine; ATTEND Family Medicine
PROC: 5A1D70Z Performance of Urinary Filtration, Intermittent, Less than 6 Hours Per Day (ICD-10-PCS; 2021-07-04)
PROC: 4A02XM4 Measurement of Cardiac Total Activity, External Approach (ICD-10-PCS; principal; 2021-07-05)
PROC: 3E073KZ Introduction of Other Diagnostic Substance into Coronary Artery, Percutaneous Approach (ICD-10-PCS; 2021-07-05)
DX: R07.89 Other chest pain (principal); N18.6 End stage renal disease; I13.2 Hypertensive heart and chronic kidney disease with heart failure and with stage 5 chronic kidney disease, or end stage renal disease; I50.32 Chronic diastolic (congestive) heart failure; E03.9 Hypothyroidism, unspecified; E78.00 Pure hypercholesterolemia, unspecified; E78.5 Hyperlipidemia, unspecified; F20.9 Schizophrenia, unspecified; F31.9 Bipolar disorder, unspecified; I25.10 Atherosclerotic heart disease of native coronary artery without angina pectoris; F29 Unspecified psychosis not due to a substance or known physiological condition; F41.9 Anxiety disorder, unspecified; G89.29 Other chronic pain; M54.9 Dorsalgia, unspecified; I48.91 Unspecified atrial fibrillation; Z96.651 Presence of right artificial knee joint; E11.42 Type 2 diabetes mellitus with diabetic polyneuropathy; E11.22 Type 2 diabetes mellitus with diabetic chronic kidney disease; J44.9 Chronic obstructive pulmonary disease, unspecified; K72.90 Hepatic failure, unspecified without coma; K74.60 Unspecified cirrhosis of liver; I49.3 Ventricular premature depolarization; Z82.49 Family history of ischemic heart disease and other diseases of the circulatory system; Z82.5 Family history of asthma and other chronic lower respiratory diseases; Z83.3 Family history of diabetes mellitus; Z86.73 Personal history of transient ischemic attack (TIA), and cerebral infarction without residual deficits; Z90.710 Acquired absence of both cervix and uterus; Z95.0 Presence of cardiac pacemaker; Z99.2 Dependence on renal dialysis; Z79.84 Long term (current) use of oral hypoglycemic drugs; Z88.2 Allergy status to sulfonamides; Z88.8 Allergy status to other drugs, medicaments and biological substances; Z87.01 Personal history of pneumonia (recurrent); Z87.440 Personal history of urinary (tract) infections; Z90.49 Acquired absence of other specified parts of digestive tract; Z79.899 Other long term (current) drug therapy; Z79.82 Long term (current) use of aspirin; Z79.02 Long term (current) use of antithrombotics/antiplatelets
CPT/HCPCS: 36415; 71045; 78452; 80053; 80061; 82948; 83735; 83880; 84484; 85008; 85025; 93005; 93017; 93306; 94760; 99285; A9500; G0378; J1815; J2270; J2785

== ENCOUNTER 2021-07-15 15:56 | Inpatient (IN) | payer MEDICARE, MEDICAID ==
[~2021-07-15] VITALS: Ht 160 cm; Wt 100.0 kg
[~2021-07-15 15:56] MED LIST changes: -BUDE10.2 INH; -FURO-150 PO; +FURO80TA3 PO; -LEVO100T PO; +LEVO25TA7 PO; +LORA10TA7 PO; +NOVLG SQ; -ONDA4TAB9 SL; -PANT20TA18 PO
[2021-07-15] MEDS ORDERED: methylPREDNISolone sod succ 125mg/2ml vial IV ONE (16:05)
[2021-07-15] MEDS ORDERED: albuterol 2.5 MG/3 ML nebule NEB ONE (16:05)
[2021-07-15] MEDS ORDERED: ipratropium/albuterol 3ml nebule NEB ONE (16:05)
[2021-07-15] MEDS ORDERED: furosemide 10 MG/1 ML 10ml inj IV ONE ×2 (16:45→17:05)
[2021-07-15] MEDS ORDERED: ondansetron/PF 4mg/2ml inj IV ONE (16:50)
[2021-07-15 17:01] LABS: ALANINE AMINOTRANSFERASE 33 U/L (12-78); ALBUMIN 2.8 G/DL (3.4-5.0); ALBUMIN/GLOBULIN RATIO 0.6 (1.1-1.5); ALKALINE PHOSPHATASE 372 IU/L (46-116); ANION GAP 10 (8-16); ASPARTATE AMINO TRANSFERASE 46 U/L (10-37); BILIRUBIN,TOTAL 1.2 MG/DL (0.1-1.0); BLOOD UREA NITROGEN 29 MG/DL (7-18); BUN/CREATININE RATIO 12.7 (6.6-38.0); CALCIUM 8.4 MG/DL (8.5-10.1); CHLORIDE 108 MMOL/L (99-107); CREATININE 2.29 MG/DL (0.40-0.90); GLUCOSE 138 MG/DL (70-104); POTASSIUM 4.9 MMOL/L (3.5-5.1); SODIUM 141 MMOL/L (135-145); TOTAL CARBON DIOXIDE 23.4 MMOL/L (24-32); TOTAL PROTEIN 7.6 G/DL (6.4-8.2); eGFR 22 ML/MIN
[2021-07-15] MEDS: morphine 4 MG/ML inj SYRINge IV PRN ×2 (17:05→18:48)
[2021-07-15] MEDS ORDERED: BUDE10.2 INH (17:08)
[2021-07-15] MEDS ORDERED: METO10TA3 PO (17:08)
[2021-07-15] MEDS ORDERED: LEVO200T8 PO (17:08)
[2021-07-15] MEDS ORDERED: PANT40TA54 PO (17:08)
[2021-07-15] MEDS ORDERED: magnesium 2GM in 50ml NS 50 ML IV PRN (17:30)
[2021-07-15] MEDS ORDERED: acetaminophen 325mg tablet PO PRN ×2 (17:30)
[2021-07-15] MEDS ORDERED: glucagon, human recombinant 1mg kit SUBCUT PRN (17:30)
[2021-07-15] MEDS ORDERED: albuterol 2.5 MG/3 ML nebule NEB PRN (17:30)
[2021-07-15] MEDS ORDERED: potassium Cl 20 mEq SR tablet PO PRN ×2 (17:30)
[2021-07-15] MEDS ORDERED: polyethylene glycol 3350 17gm powd pack PO PRN (17:30)
[2021-07-15] MEDS ORDERED: potassium Cl 40MEQ/1/2NS 520ml 520 ML IV PRN ×2 (17:30)
[2021-07-15] MEDS ORDERED: bisacodyl 10mg suppository rectal RC PRN (17:30)
[2021-07-15] MEDS ORDERED: dextrose ORAL solution 15 GM/59 ML bottle PO PRN ×2 (17:30)
[2021-07-15] MEDS ORDERED: CefTRIAXone 2gm/D5W 50ml BAG 50 ML IV ONE (17:30)
[2021-07-15] MEDS ORDERED: MESSAGE TO PHARMACY PO ONE (17:30)
[2021-07-15] MEDS ORDERED: magnesium 4gm in 100ml NS 100 ML IV PRN (17:30)
[2021-07-15] MEDS ORDERED: dextrose 50%-water 50ml dispensing syringe IV PRN ×2 (17:30)
[2021-07-15] MEDS ORDERED: ipratropium/albuterol 3ml nebule NEB PRN (17:30)
[2021-07-15] MEDS ORDERED: HYDROcodone/acetaminophen 10/325mg tab PO PRN (17:30)
[2021-07-15 17:35] LABS: BASOPHILS % (AUTO) 0.4 % (0-1); EOSINOPHILS # (AUTO) 0.1 X10'3 (0-0.9); EOSINOPHILS % (AUTO) 0.9 % (0-6); HEMATOCRIT 33.7 % (35.0-45.0); HEMOGLOBIN 10.5 g/dl (12.0-16.0); LYMPHOCYTES # (AUTO) 0.8 X10'3 (1.1-4.8); LYMPHOCYTES % (AUTO) 10.6 % (21-51); MEAN CORPUSCULAR HEMOGLOBIN 29.4 PG (27.0-31.0); MEAN CORPUSCULAR HGB CONC 31.3 g/dL (33.0-36.5); MEAN CORPUSCULAR VOLUME 94.1 FL (78-98); MEAN PLATELET VOLUME 8.2 FL (7.4-10.4); MONOCYTES # (AUTO) 0.6 X10'3 (0-0.9); MONOCYTES % (AUTO) 8.1 % (2-12); NEUTROPHILS # (AUTO) 5.7 X10'3 (1.8-7.7); PLATELET COUNT 128 X10'3 (140-440); RED BLOOD COUNT 3.58 X10'6 (4.20-5.60); RED CELL DISTRIBUTION WIDTH 19.9 % (11.5-14.5); WHITE BLOOD COUNT 7.1 X10'3 (4.5-11.0)
[2021-07-15 18:05] LABS: HEMOGLOBIN A1C 8.9 % (4.5-6.2)
[2021-07-15 18:38] LABS: PLATELET ESTIMATE DECREASED
[2021-07-15 18:41] LABS: ANISOCYTOSIS 2+; TEAR DROP CELLS FEW
[2021-07-15] MEDS: K and/or MAG REPLACEMENT MC SCH (20:00)
[2021-07-15] MEDS: lactulose 20gm/30ml cup PO SCH (20:18)
[2021-07-15] MEDS: docusate sod 100mg capsule PO SCH (20:19)
[2021-07-15] MEDS: furosemide 40mg tablet PO SCH (20:19)
[2021-07-15] MEDS: pantoprazole 40mg Tablet.DR PO SCH (20:19)
[2021-07-15] MEDS: metoclopramide 10mg tablet PO SCH (20:20)
[2021-07-15] MEDS: albuterol 2.5 MG/3 ML nebule NEB SCH (20:26)
[2021-07-15] MEDS: budesonide 0.5mg/2ml UD nebule IH SCH (20:26)
[2021-07-15] MEDS: insulin glargine (Lantus) pen - multi-dose SQ SCH (20:31)
[2021-07-15] MEDS: cycloSPORINE 0.05% ophthalmic emulsion EACHEYE SCH (20:58)
[2021-07-15] MEDS ORDERED: INSULIN ASPART 50 UNIT SQ SCH (21:00)
--- NOTE | 2021-07-15 21:02 | NUR ---
pt given hs eye drops. vss remains on 2 l nc and sats 95%. Pt eating crackers but reports she is hungry. CC diet ordered.
[2021-07-16] MEDS: lactulose 20gm/30ml cup PO SCH ×6 (00:07→19:14)
[2021-07-16] MEDS: methylPREDNISolone sod succ/PF 40mg inj. IV SCH ×3 (00:07→16:22)
[2021-07-16] MEDS: albuterol 2.5 MG/3 ML nebule NEB SCH ×4 (02:36→20:00)
[2021-07-16 04:41] LABS: BASOPHILS % (AUTO) 0.2 % (0-1); EOSINOPHILS % (AUTO) 0 % (0-6); LYMPHOCYTES # (AUTO) 0.2 X10'3 (1.1-4.8); LYMPHOCYTES % (AUTO) 3.2 % (21-51); MEAN CORPUSCULAR HEMOGLOBIN 29.7 PG (27.0-31.0); MEAN CORPUSCULAR HGB CONC 31.2 g/dL (33.0-36.5); MEAN CORPUSCULAR VOLUME 95.1 FL (78-98); MEAN PLATELET VOLUME 8.5 FL (7.4-10.4); MONOCYTES # (AUTO) 0.1 X10'3 (0-0.9); MONOCYTES % (AUTO) 0.8 % (2-12); NEUTROPHILS # (AUTO) 6.8 X10'3 (1.8-7.7); NEUTROPHILS % (AUTO) 95.8 % (42-75); PLATELET COUNT 114 X10'3 (140-440); RED BLOOD COUNT 3.36 X10'6 (4.20-5.60); RED CELL DISTRIBUTION WIDTH 20.1 % (11.5-14.5); WHITE BLOOD COUNT 7.1 X10'3 (4.5-11.0)
[2021-07-16 05:22] LABS: ALANINE AMINOTRANSFERASE 29 U/L (12-78); ALBUMIN 2.7 G/DL (3.4-5.0); ALBUMIN/GLOBULIN RATIO 0.6 (1.1-1.5); ALKALINE PHOSPHATASE 355 IU/L (46-116); ANION GAP 15 (8-16); ASPARTATE AMINO TRANSFERASE 42 U/L (10-37); BILIRUBIN,TOTAL 1.1 MG/DL (0.1-1.0); BLOOD UREA NITROGEN 38 MG/DL (7-18); BUN/CREATININE RATIO 14.4 (6.6-38.0); CALCIUM 8.2 MG/DL (8.5-10.1); CHLORIDE 105 MMOL/L (99-107); CREATININE 2.63 MG/DL (0.40-0.90); GLUCOSE 393 MG/DL (70-104); POTASSIUM 5.9 MMOL/L (3.5-5.1); SODIUM 141 MMOL/L (135-145); TOTAL CARBON DIOXIDE 20.6 MMOL/L (24-32); TOTAL PROTEIN 7.6 G/DL (6.4-8.2); eGFR 19 ML/MIN
[2021-07-16 05:23] LABS: ANISOCYTOSIS 3+; PLATELET ESTIMATE DECREASED
[2021-07-16 05:28] LABS: MAGNESIUM 2.4 MG/DL (1.5-2.4)
[2021-07-16 06:00] VITALS: BP 120/50
[2021-07-16] MEDS ORDERED: morphine 2 MG/ML inj. syringe IV ONE (06:20)
[2021-07-16] MEDS: metoclopramide 10mg tablet PO SCH ×4 (07:00→21:25)
--- NOTE | 2021-07-16 07:36 | NUR ---
attempted to call report to pcu, nurse is in the middle of a med pass and will call back
[2021-07-16] MEDS: cycloSPORINE 0.05% ophthalmic emulsion EACHEYE SCH ×2 (07:52→19:14)
[2021-07-16] MEDS ORDERED: docusate sod 100mg capsule PO SCH (08:00)
[2021-07-16] MEDS: K and/or MAG REPLACEMENT MC SCH ×2 (08:00→20:00)
[2021-07-16] MEDS ORDERED: DAPAGLIFLOZIN 5 MG PO SCH (08:00)
[2021-07-16] MEDS: budesonide 0.5mg/2ml UD nebule IH SCH ×2 (08:27→20:00)
[2021-07-16] MEDS: levoTHYROXINE 100mcg tablet PO SCH (08:50)
[2021-07-16] MEDS: clopidogrel 75mg tablet PO SCH (08:50)
[2021-07-16] MEDS: pantoprazole 40mg Tablet.DR PO SCH ×2 (08:50→19:13)
[2021-07-16] MEDS: amiodarone 200mg tablet PO SCH (08:50)
[2021-07-16] MEDS: aspirin 81mg, enteric-coated 1 TAB TABLET.DR PO SCH (08:50)
[2021-07-16] MEDS: loratadine 10mg tablet PO SCH (08:51)
[2021-07-16] MEDS: furosemide 40mg tablet PO SCH ×2 (08:51→19:12)
[2021-07-16] MEDS: docusate sod 100mg capsule PO SCH ×2 (08:51→19:14)
[2021-07-16] MEDS ORDERED: EPOETIN ALFA-EPBX 20,000 UNIT/ML 1 ML MDV IV ONE (09:55)
[2021-07-16] MEDS ORDERED: heparin 1,000 units/ml 10ml inj IV ONE (09:55)
[2021-07-16] MEDS ORDERED: LIDOcaine 1% (10mg/ml) 2ml vial SQ ONE (09:55)
[2021-07-16] MEDS ORDERED: normal saline 1000ml 250 ML IV PRN (09:55)
--- NOTE | 2021-07-16 10:00 | NUR ---
1000 pt says she is still SOB when asked an d that her symptoms have " not improved since admit" however, she is on 2L nc sat 94% without cyanosis.
[2021-07-16] MEDS: HYDROcodone/acetaminophen 5mg/325mg tablet PO PRN ×2 (10:22→15:03)
[2021-07-16] MEDS: insulin Lispro (HumaLOG) vial - multi-dose SQ SCH ×4 (10:46→21:36)
[2021-07-16] MEDS: BUPRENORPHINE 2MG SL TABLET SL PRN ×3 (10:49→20:29)
[2021-07-16 11:00] VITALS: BP 129/63
[2021-07-16] MEDS ORDERED: heparin 1,000 units/ml 10ml inj HE ONE ×2 (11:45)
[2021-07-16] MEDS ORDERED: heparin 1,000unit/ml 10ml vial 10 ML IV ONE (11:45)
--- NOTE | 2021-07-16 14:14 | NUR ---
PAGER ID: [phone] MESSAGE: [phone] Vera Luo - Converted into Afib. Rate controlled. Hx of Afib noted in chart. Sekou Ross [phone] Received call back from MD Patel and update that pt rate controlled in 80's , sbp 105, and asymptomatic- deny SOB, good color, sats improved to 96% on 2L nc, retest on RA 10 min later was 95% and no c/o sob.
[2021-07-16 15:00] VITALS: BP 114/63
[2021-07-16] MEDS: ondansetron/PF 4mg/2ml inj IV PRN ×2 (16:22→22:31)
[2021-07-16 18:00] VITALS: BP 129/67
--- NOTE | 2021-07-16 18:31 | NUR ---
Patient in room PCU 3027. I have received report from CRISTAL ZALDIVAR and had the opportunity to ask questions and assume patient care.
--- NOTE | 2021-07-16 19:20 | NUR ---
PATIENT REPORTED NEW ONSET VAGINAL BLEEDING. H/H . INSTRUCTED PATIENT TO LEAVE IN TOILET SO RN MAY VIEW IF IT OCCURS AGAIN. PATIENT REPORTED FIRST OCCURED LAST WEEK AT HOME. MD WILDE NOTIFIED, WILL DEFER UNTIL AM/ABLE TO VIEW URINE. KEVON ZALDIVAR
[2021-07-16] MEDS: insulin glargine (Lantus) pen - multi-dose SQ SCH (21:32)
[2021-07-16 22:00] VITALS: BP 118/71
[2021-07-17] MEDS: BUPRENORPHINE 2MG SL TABLET SL PRN ×6 (00:19→23:25)
[2021-07-17] MEDS: lactulose 20gm/30ml cup PO SCH ×7 (00:19→23:10)
[2021-07-17] MEDS: methylPREDNISolone sod succ/PF 40mg inj. IV SCH ×4 (00:19→23:11)
[2021-07-17 02:00] VITALS: BP 110/62
[2021-07-17] MEDS: albuterol 2.5 MG/3 ML nebule NEB SCH ×4 (02:26→19:32)
[2021-07-17] MEDS: ondansetron/PF 4mg/2ml inj IV PRN ×2 (04:12→11:38)
--- NOTE | 2021-07-17 06:39 | NUR ---
Problems reprioritized. Patient report given, questions answered & plan of care reviewed with CARY Weller RN.
[2021-07-17 06:49] LABS: BASOPHILS % (AUTO) 0.1 % (0-1); EOSINOPHILS % (AUTO) 0 % (0-6); HEMATOCRIT 32.3 % (35.0-45.0); HEMOGLOBIN 10.2 g/dl (12.0-16.0); LYMPHOCYTES # (AUTO) 0.3 X10'3 (1.1-4.8); LYMPHOCYTES % (AUTO) 3.4 % (21-51); MEAN CORPUSCULAR HEMOGLOBIN 29.6 PG (27.0-31.0); MEAN CORPUSCULAR HGB CONC 31.5 g/dL (33.0-36.5); MEAN CORPUSCULAR VOLUME 93.7 FL (78-98); MEAN PLATELET VOLUME 8.3 FL (7.4-10.4); MONOCYTES # (AUTO) 0.2 X10'3 (0-0.9); MONOCYTES % (AUTO) 2.2 % (2-12); NEUTROPHILS # (AUTO) 9.5 X10'3 (1.8-7.7); NEUTROPHILS % (AUTO) 94.3 % (42-75); PLATELET COUNT 126 X10'3 (140-440); RED BLOOD COUNT 3.44 X10'6 (4.20-5.60); RED CELL DISTRIBUTION WIDTH 19.8 % (11.5-14.5)
[2021-07-17 07:00] VITALS: BP 104/55
--- NOTE | 2021-07-17 07:01 | NUR ---
Patient in room PCU 3027. I have received report from Belinda ZALDIVAR and had the opportunity to ask questions and assume patient care.
[2021-07-17 07:20] LABS: ALANINE AMINOTRANSFERASE 32 U/L (12-78); ALBUMIN/GLOBULIN RATIO 0.6 (1.1-1.5); ALKALINE PHOSPHATASE 361 IU/L (46-116); ANION GAP 13 (8-16); ASPARTATE AMINO TRANSFERASE 35 U/L (10-37); BLOOD UREA NITROGEN 42 MG/DL (7-18); BUN/CREATININE RATIO 17.4 (6.6-38.0); CALCIUM 8.9 MG/DL (8.5-10.1); CHLORIDE 100 MMOL/L (99-107); CREATININE 2.41 MG/DL (0.40-0.90); GLUCOSE 301 MG/DL (70-104); MAGNESIUM 2.7 MG/DL (1.5-2.4); POTASSIUM 4.7 MMOL/L (3.5-5.1); SODIUM 136 MMOL/L (135-145); TOTAL PROTEIN 7.9 G/DL (6.4-8.2); eGFR 21 ML/MIN
[2021-07-17] MEDS: budesonide 0.5mg/2ml UD nebule IH SCH ×2 (07:48→19:32)
[2021-07-17] MEDS: K and/or MAG REPLACEMENT MC SCH ×2 (08:00→19:18)
[2021-07-17] MEDS: aspirin 81mg, enteric-coated 1 TAB TABLET.DR PO SCH (08:24)
[2021-07-17] MEDS: clopidogrel 75mg tablet PO SCH (08:25)
[2021-07-17] MEDS: docusate sod 100mg capsule PO SCH ×2 (08:25→19:15)
[2021-07-17] MEDS: metoclopramide 10mg tablet PO SCH ×4 (08:25→19:16)
[2021-07-17] MEDS: levoTHYROXINE 100mcg tablet PO SCH (08:26)
[2021-07-17] MEDS: amiodarone 200mg tablet PO SCH (08:26)
[2021-07-17] MEDS: furosemide 40mg tablet PO SCH ×2 (08:27→19:16)
[2021-07-17] MEDS: pantoprazole 40mg Tablet.DR PO SCH ×2 (08:27→19:16)
[2021-07-17] MEDS: loratadine 10mg tablet PO SCH (08:27)
[2021-07-17 08:29] LABS: HBSAG SCREEN Negative (Negative)
[2021-07-17] MEDS: cycloSPORINE 0.05% ophthalmic emulsion EACHEYE SCH ×2 (08:29→19:16)
[2021-07-17] MEDS: insulin Lispro (HumaLOG) vial - multi-dose SQ SCH ×4 (10:14→21:31)
[2021-07-17 11:00] VITALS: BP 112/59
--- NOTE | 2021-07-17 12:17 | NUR ---
PAGER ID: [phone] MESSAGE: Re: Vera Luo RM 3159M. Pt c/o burning and pain in urination. May we have a UA? Please advise Mayi Weller RN [phone] Dr. Colvin responded and OK for UA due to pain, burning and pink color. Will continue to monitor.
[2021-07-17 12:52] LABS: CLARITY,URINE CLEAR (Clear); COLOR,URINE YELLOW (Yellow); GLUCOSE, URINE NEGATIVE (Neg); KETONES,URINE 15 mg/dl (Neg); LEUKOCYTE ESTERASE ,URINE NEGATIVE (Neg); NITRITES, URINE NEGATIVE (Neg); OCCULT BLOOD,URINE NEGATIVE (Neg); PROTEIN,URINE NEGATIVE (Neg); UA COLLECTION TYPE NON-SPECIFIED; UROBILINOGEN,URINE 0.2 E.U/dL (0.2-1.0)
--- NOTE | 2021-07-17 14:28 | NUR ---
Paged Dr. Colvin, promotional table spacer PAGER ID: [phone] MESSAGE: Re: Vera Luo RM 3023T. Pt Level 6 BS 350, per protocol pt is to receive 49 units of Humalog. Pt never received that much before. Please advise, Mayi Weller RN [phone]
[2021-07-17 15:00] VITALS: BP 112/57
--- NOTE | 2021-07-17 15:56 | NUR ---
Calorie Count Consult: Likely supposed to be DM consult pt hx DM A1C 8.9 up from 7.2 prior admit 04/10 w/ hx ESRD on HD per EMR. Pt seen by RD for written/verbal DM ed w/ RD contact information provided. Pt reports recently on steroids impacting A1C, takes Victoza HS and Novolog 50 units TIDWM per RX. Pt reports adjusts Novolog if Glu lower though does not adjust dosage if Glu elevated; RD encouraged pt to follow up w/ PCP regarding adjustment needs. Pt requests cottage cheese w/ fruit WB instead of whole milks; dietary notified. Addendum: 07/17/21 at [address] Amended: Links added.
[2021-07-17 18:00] VITALS: BP 141/80
--- NOTE | 2021-07-17 18:00 | NUR ---
Patient in room PCU 3027. I have received report from Mayi ZALDIVAR and had the opportunity to ask questions and assume patient care.
[2021-07-17] MEDS: ondansetron 4mg rapidly disintigrating tab PO PRN (19:29)
[2021-07-17] MEDS: insulin glargine (Lantus) pen - multi-dose SQ SCH (21:30)
[2021-07-17 22:00] VITALS: BP 125/73
--- NOTE | 2021-07-17 22:41 | NUR ---
PAGER ID: [phone] MESSAGE: [id number]-SYDNIE ZHONG-HAS NEW ONSET VAGINAL BLEEDING WITH CLOTS-VAGINAL IN NATURE.UA SENT TODAY. H/H . PATIENT HAD HYSTERECTOMY AT AGE 22 FOR ENDOMETRIOSIS. DIALYSIS PATIENT. CAN WE GET DIAGNOSTIC SCAN? SMITH SCOTT [phone]
--- NOTE | 2021-07-17 22:43 | NUR ---
TEO ORDERED TRANSVAGINAL US FOR AM. PAYTON ZALDIVAR Addendum: 07/17/21 at 2309 by Belinda Mcdonald RN patient reporting pain in pelvic area and llq/spleen area of abdomen. administering pain meds at this time. Payton ZALDIVAR
[2021-07-18 02:00] VITALS: BP 103/73
[2021-07-18] MEDS: albuterol 2.5 MG/3 ML nebule NEB SCH ×3 (02:07→14:00)
[2021-07-18] MEDS: lactulose 20gm/30ml cup PO SCH ×4 (03:30→16:00)
[2021-07-18] MEDS: ondansetron 4mg rapidly disintigrating tab PO PRN ×2 (03:31→08:28)
[2021-07-18] MEDS: BUPRENORPHINE 2MG SL TABLET SL PRN ×3 (03:37→12:35)
--- NOTE | 2021-07-18 03:54 | NUR ---
BP 76/44-O2 SATS 85-88 % ON 80 FIO2-MD BRUCE STATED TO CHANGE FIO2 TO 85, BOLUS PATIENT WITH 500 TOTAL 1/2 NS, PATIENT ALREADY BOLUSED 200 FOR LOW MAP TREND OF 55-58.
--- NOTE | 2021-07-18 03:57 | NUR ---
PATIENT BP NOW 98/49 MAP 60. CHOLMES RN
--- NOTE | 2021-07-18 06:44 | NUR ---
Patient in room PCU 3027. I have received report from Belinda ZALDIVAR and had the opportunity to ask questions and assume patient care.
[2021-07-18 06:45] LABS: BASOPHILS % (AUTO) 0.1 % (0-1); EOSINOPHILS % (AUTO) 0 % (0-6); HEMATOCRIT 31.8 % (35.0-45.0); HEMOGLOBIN 10.3 g/dl (12.0-16.0); LYMPHOCYTES # (AUTO) 0.4 X10'3 (1.1-4.8); LYMPHOCYTES % (AUTO) 3.5 % (21-51); MEAN CORPUSCULAR HEMOGLOBIN 29.8 PG (27.0-31.0); MEAN CORPUSCULAR HGB CONC 32.3 g/dL (33.0-36.5); MEAN CORPUSCULAR VOLUME 92.4 FL (78-98); MEAN PLATELET VOLUME 8.3 FL (7.4-10.4); MONOCYTES # (AUTO) 0.3 X10'3 (0-0.9); MONOCYTES % (AUTO) 2.4 % (2-12); PLATELET COUNT 120 X10'3 (140-440); RED BLOOD COUNT 3.44 X10'6 (4.20-5.60); WHITE BLOOD COUNT 10.6 X10'3 (4.5-11.0)
[2021-07-18 07:00] VITALS: BP 100/59
[2021-07-18 07:01] LABS: ALANINE AMINOTRANSFERASE 37 U/L (12-78); ALBUMIN 2.9 G/DL (3.4-5.0); ALBUMIN/GLOBULIN RATIO 0.6 (1.1-1.5); ALKALINE PHOSPHATASE 323 IU/L (46-116); ANION GAP 15 (8-16); ASPARTATE AMINO TRANSFERASE 31 U/L (10-37); BILIRUBIN,TOTAL 0.9 MG/DL (0.1-1.0); BLOOD UREA NITROGEN 66 MG/DL (7-18); CALCIUM 8.3 MG/DL (8.5-10.1); CHLORIDE 97 MMOL/L (99-107); CREATININE 2.75 MG/DL (0.40-0.90); GLUCOSE 137 MG/DL (70-104); MAGNESIUM 2.6 MG/DL (1.5-2.4); POTASSIUM 4.7 MMOL/L (3.5-5.1); SODIUM 133 MMOL/L (135-145); TOTAL CARBON DIOXIDE 20.8 MMOL/L (24-32); TOTAL PROTEIN 7.6 G/DL (6.4-8.2); eGFR 18 ML/MIN
--- NOTE | 2021-07-18 07:14 | NUR ---
Paged Pharmacy Please get bupurion ready for RN machine pecan picker THANK YOU Mayi RN PCU [phone]
[2021-07-18 07:30] LABS: ANISOCYTOSIS 2+; PLATELET ESTIMATE DECREASED; POLYCHROMASIA FEW
[2021-07-18] MEDS ORDERED: EPOETIN ALFA-EPBX 20,000 UNIT/ML 1 ML MDV IV ONE (08:00)
[2021-07-18] MEDS ORDERED: normal saline 1000ml 250 ML IV PRN (08:00)
[2021-07-18] MEDS: K and/or MAG REPLACEMENT MC SCH (08:00)
[2021-07-18] MEDS ORDERED: heparin 1,000unit/ml 10ml vial 10 ML IV ONE (08:00)
[2021-07-18] MEDS ORDERED: heparin 1,000 units/ml 10ml inj HE ONE ×2 (08:00)
[2021-07-18] MEDS: aspirin 81mg, enteric-coated 1 TAB TABLET.DR PO SCH (08:25)
[2021-07-18] MEDS: clopidogrel 75mg tablet PO SCH (08:25)
[2021-07-18] MEDS: levoTHYROXINE 100mcg tablet PO SCH (08:25)
[2021-07-18] MEDS: amiodarone 200mg tablet PO SCH (08:26)
[2021-07-18] MEDS: docusate sod 100mg capsule PO SCH (08:26)
[2021-07-18] MEDS: loratadine 10mg tablet PO SCH (08:27)
[2021-07-18] MEDS: furosemide 40mg tablet PO SCH (08:27)
[2021-07-18] MEDS: methylPREDNISolone sod succ/PF 40mg inj. IV SCH ×2 (08:29→16:00)
[2021-07-18] MEDS: cycloSPORINE 0.05% ophthalmic emulsion EACHEYE SCH (08:29)
[2021-07-18] MEDS: pantoprazole 40mg Tablet.DR PO SCH (08:29)
[2021-07-18] MEDS: metoclopramide 10mg tablet PO SCH ×2 (08:32→12:34)
[2021-07-18] MEDS: insulin Lispro (HumaLOG) vial - multi-dose SQ SCH (08:39)
[2021-07-18] MEDS: budesonide 0.5mg/2ml UD nebule IH SCH (08:40)
[2021-07-18 11:00] VITALS: BP 109/63
--- NOTE | 2021-07-18 11:39 | NUR ---
Sent Pharmacy Note Please prepare Buprenorphine for pt. RN will pick up man med if needed. Thank Johana See RN [phone]
[2021-07-18 15:00] VITALS: BP 105/62
--- NOTE | 2021-07-18 15:15 | NUR ---
Patient OK to discharge per MD orders. Patient received Dialysis and all medications as ordered by MD. Patient was educated on all discharge instructions and all medications ordered by MD with all handouts given to pt. Patient was able to DC home with Home health, as pt has active workers for her to care for her. Patient was educated on Diabetes, blood sugar monitoring and medication regiment. Follow up instructions gone over, pt explained that she had appointments already scheduled and will continue to follow all advice. Patient was also reminded to continue to take lactulose on schedule to maintain levels. All personal items were collected and in bad, patient was able to ambulate self to bathroom and self dress. Tele was removed and PIV removed. Patient was educated on potential bleeding, and with the removal of PIV to keep pressure on hand until bleeding stops. Patient was given Narcs meds from pharmacy, as well as all discharge paperwork. Meds were sent electronically to [facility] on [facility]. Patient was transported via wheelchair to front [facility], escorted by nurse and was met by caregiver in front [facility]. All items were then placed into car, pt was happy to go home.
== END 2021-07-18 15:35 | disposition home health service (06) | DRG 189 ==
LOC: ER 15:56 → ED HOLD 17:36 → PCU 3S 07-16 08:19
PROVIDERS: ADMIT Family Medicine; ATTEND Family Medicine
PROC: 5A1D70Z Performance of Urinary Filtration, Intermittent, Less than 6 Hours Per Day (ICD-10-PCS; principal; 2021-07-16)
PROC: 5A1D70Z Performance of Urinary Filtration, Intermittent, Less than 6 Hours Per Day (ICD-10-PCS; 2021-07-18)
DX: J96.00 Acute respiratory failure, unspecified whether with hypoxia or hypercapnia (principal); N18.6 End stage renal disease; I13.2 Hypertensive heart and chronic kidney disease with heart failure and with stage 5 chronic kidney disease, or end stage renal disease; J44.1 Chronic obstructive pulmonary disease with (acute) exacerbation; I50.9 Heart failure, unspecified; D73.5 Infarction of spleen; E03.9 Hypothyroidism, unspecified; E78.00 Pure hypercholesterolemia, unspecified; E78.5 Hyperlipidemia, unspecified; F20.9 Schizophrenia, unspecified; F31.9 Bipolar disorder, unspecified; I25.10 Atherosclerotic heart disease of native coronary artery without angina pectoris; F41.9 Anxiety disorder, unspecified; G89.29 Other chronic pain; K72.90 Hepatic failure, unspecified without coma; M54.9 Dorsalgia, unspecified; Z20.822 Contact with and (suspected) exposure to COVID-19; E11.42 Type 2 diabetes mellitus with diabetic polyneuropathy; E11.22 Type 2 diabetes mellitus with diabetic chronic kidney disease; Z96.651 Presence of right artificial knee joint; E66.9 Obesity, unspecified; I48.0 Paroxysmal atrial fibrillation; K74.60 Unspecified cirrhosis of liver; Z79.02 Long term (current) use of antithrombotics/antiplatelets; Z79.82 Long term (current) use of aspirin; Z99.2 Dependence on renal dialysis; Z82.49 Family history of ischemic heart disease and other diseases of the circulatory system; Z82.5 Family history of asthma and other chronic lower respiratory diseases; Z83.3 Family history of diabetes mellitus; Z86.73 Personal history of transient ischemic attack (TIA), and cerebral infarction without residual deficits; Z90.710 Acquired absence of both cervix and uterus; Z99.81 Dependence on supplemental oxygen; Z79.84 Long term (current) use of oral hypoglycemic drugs; Z79.899 Other long term (current) drug therapy; Z88.2 Allergy status to sulfonamides; Z88.8 Allergy status to other drugs, medicaments and biological substances; Z90.49 Acquired absence of other specified parts of digestive tract; Z68.39 Body mass index [BMI] 39.0-39.9, adult
CPT/HCPCS: 36415; 71045; 74176; 80053; 81003; 82140; 82948; 83036; 83605; 83735; 83880; 84145; 84484; 85008; 85025; 87040; 87081; 87340; 87635; 93005; 94640; 94760; 96374; 96375; 97161; 97530; 99285; C9803; G0257; G0378; J0696; J1644; J1815; J1940; J2270; J2405; J2920; J2930; J7626; J8597; Q4081

== ENCOUNTER 2021-07-27 13:32 | Emergency (ER) | payer MEDICARE, MEDICAID ==
[~2021-07-27] VITALS: Ht 160 cm; Wt 100.0 kg
[~2021-07-27 13:32] MED LIST changes: +BUDE10.2 INH; +LEVO200T8 PO; -LEVO25TA7 PO; +METO10TA3 PO; +PANT40TA54 PO
[2021-07-27] MEDS ORDERED: nitroGLYCERIN 0.4mg SUBLingual tab SL PRN (14:05)
[2021-07-27 15:29] LABS: ALANINE AMINOTRANSFERASE 42 U/L (12-78); ALBUMIN 3.1 G/DL (3.4-5.0); ALBUMIN/GLOBULIN RATIO 0.7 (1.1-1.5); ALKALINE PHOSPHATASE 388 IU/L (46-116); ANION GAP 6 (8-16); ASPARTATE AMINO TRANSFERASE 46 U/L (10-37); BILIRUBIN,TOTAL 1.2 MG/DL (0.1-1.0); BLOOD UREA NITROGEN 47 MG/DL (7-18); BUN/CREATININE RATIO 16.7 (6.6-38.0); CALCIUM 8.4 MG/DL (8.5-10.1); CHLORIDE 107 MMOL/L (99-107); CREATININE 2.81 MG/DL (0.40-0.90); GLUCOSE 63 MG/DL (70-104); POTASSIUM 4.9 MMOL/L (3.5-5.1); SODIUM 138 MMOL/L (135-145); TOTAL CARBON DIOXIDE 24.6 MMOL/L (24-32); TOTAL PROTEIN 7.5 G/DL (6.4-8.2); eGFR 17 ML/MIN
[2021-07-27 16:39] LABS: BASOPHILS % (AUTO) 0.3 % (0-1); EOSINOPHILS # (AUTO) 0.1 X10'3 (0-0.9); HEMATOCRIT 33.6 % (35.0-45.0); HEMOGLOBIN 10.6 g/dl (12.0-16.0); LYMPHOCYTES # (AUTO) 0.5 X10'3 (1.1-4.8); LYMPHOCYTES % (AUTO) 5.8 % (21-51); MEAN CORPUSCULAR HEMOGLOBIN 30.1 PG (27.0-31.0); MEAN CORPUSCULAR HGB CONC 31.6 g/dL (33.0-36.5); MEAN CORPUSCULAR VOLUME 95.2 FL (78-98); MEAN PLATELET VOLUME 8.8 FL (7.4-10.4); MONOCYTES # (AUTO) 0.8 X10'3 (0-0.9); MONOCYTES % (AUTO) 9.7 % (2-12); NEUTROPHILS % (AUTO) 83.2 % (42-75); PLATELET COUNT 84 X10'3 (140-440); RED BLOOD COUNT 3.53 X10'6 (4.20-5.60); RED CELL DISTRIBUTION WIDTH 20.5 % (11.5-14.5); WHITE BLOOD COUNT 8.4 X10'3 (4.5-11.0)
[2021-07-27 17:00] LABS: ANISOCYTOSIS 3+; HYPOCHROMASIA 1+; PLATELET ESTIMATE DECREASED
[2021-07-27 17:01] LABS: POLYCHROMASIA 1+; SPHEROCYTES FEW; STOMATOCYTES FEW
[2021-07-27 18:40] VITALS: BP 102/60
--- NOTE | 2021-07-27 18:45 | NUR ---
pt given apple juice and crackers while awaiting orders for oral glucose
[2021-07-27] MEDS ORDERED: morphine 4 MG/ML inj SYRINge ONE (18:47)
[2021-07-27] MEDS ORDERED: furosemide 20MG tablet PO ONE (18:50)
[2021-07-27] MEDS ORDERED: dextrose ORAL solution 15 GM/59 ML bottle PO PRN (18:55)
== END 2021-07-27 21:04 | disposition home or self-care (01) ==
LOC: ER 13:33
DX: I11.0 Hypertensive heart disease with heart failure (principal); I50.9 Heart failure, unspecified; R07.81 Pleurodynia; I48.0 Paroxysmal atrial fibrillation; J44.9 Chronic obstructive pulmonary disease, unspecified; E11.42 Type 2 diabetes mellitus with diabetic polyneuropathy; E78.00 Pure hypercholesterolemia, unspecified; J45.909 Unspecified asthma, uncomplicated; I12.0 Hypertensive chronic kidney disease with stage 5 chronic kidney disease or end stage renal disease; E11.22 Type 2 diabetes mellitus with diabetic chronic kidney disease; N18.6 End stage renal disease; G89.29 Other chronic pain; K72.90 Hepatic failure, unspecified without coma; Z86.73 Personal history of transient ischemic attack (TIA), and cerebral infarction without residual deficits; Z87.01 Personal history of pneumonia (recurrent); Z87.440 Personal history of urinary (tract) infections; Z90.49 Acquired absence of other specified parts of digestive tract; Z90.710 Acquired absence of both cervix and uterus; Z98.890 Other specified postprocedural states; Z95.5 Presence of coronary angioplasty implant and graft; Z72.89 Other problems related to lifestyle; Z99.2 Dependence on renal dialysis; Z79.899 Other long term (current) drug therapy; Z88.2 Allergy status to sulfonamides; Z88.8 Allergy status to other drugs, medicaments and biological substances; Z91.048 Other nonmedicinal substance allergy status
CPT/HCPCS: 36415; 71045; 80053; 82948; 83880; 84484; 85008; 85025; 96372; 99285; J2270

== ENCOUNTER 2021-08-07 03:23 | Emergency (ER) | payer MEDICARE, MEDICAID ==
[~2021-08-07] VITALS: Ht 160 cm; Wt 104.5 kg
--- NOTE | 2021-08-07 03:42 | NUR ---
GAVE PT SNACKS
--- NOTE | 2021-08-07 04:09 | NUR ---
unable to get urine sample due to small amount in bladder and retention. md vazquez aware.
[2021-08-07 04:38] LABS: BASOPHILS % (AUTO) 0.4 % (0-1); EOSINOPHILS # (AUTO) 0.1 X10'3 (0-0.9); EOSINOPHILS % (AUTO) 1.3 % (0-6); HEMATOCRIT 28.4 % (35.0-45.0); HEMOGLOBIN 9.4 g/dl (12.0-16.0); LYMPHOCYTES # (AUTO) 0.6 X10'3 (1.1-4.8); LYMPHOCYTES % (AUTO) 7.2 % (21-51); MEAN CORPUSCULAR HEMOGLOBIN 30.8 PG (27.0-31.0); MEAN CORPUSCULAR HGB CONC 33.3 g/dL (33.0-36.5); MEAN CORPUSCULAR VOLUME 92.5 FL (78-98); MEAN PLATELET VOLUME 8.4 FL (7.4-10.4); MONOCYTES # (AUTO) 0.6 X10'3 (0-0.9); MONOCYTES % (AUTO) 6.3 % (2-12); NEUTROPHILS # (AUTO) 7.5 X10'3 (1.8-7.7); NEUTROPHILS % (AUTO) 84.8 % (42-75); PLATELET COUNT 141 X10'3 (140-440); RED BLOOD COUNT 3.06 X10'6 (4.20-5.60); RED CELL DISTRIBUTION WIDTH 19.7 % (11.5-14.5); WHITE BLOOD COUNT 8.8 X10'3 (4.5-11.0)
[2021-08-07] MEDS ORDERED: ondansetron/PF 4mg/2ml inj IV ONE (04:45)
[2021-08-07] MEDS ORDERED: fentaNYL/PF 50MCG/1 ML 2ML syringe IV ONE (04:45)
[2021-08-07 04:52] LABS: ALANINE AMINOTRANSFERASE 42 U/L (12-78); ALBUMIN 3.1 G/DL (3.4-5.0); ALBUMIN/GLOBULIN RATIO 0.7 (1.1-1.5); ALKALINE PHOSPHATASE 348 IU/L (46-116); ANION GAP 11 (8-16); ASPARTATE AMINO TRANSFERASE 44 U/L (10-37); BILIRUBIN,TOTAL 0.9 MG/DL (0.1-1.0); BLOOD UREA NITROGEN 43 MG/DL (7-18); BUN/CREATININE RATIO 12.7 (6.6-38.0); CALCIUM 8.1 MG/DL (8.5-10.1); CHLORIDE 99 MMOL/L (99-107); CREATININE 3.38 MG/DL (0.40-0.90); GLUCOSE 79 MG/DL (70-104); POTASSIUM 4.8 MMOL/L (3.5-5.1); SODIUM 136 MMOL/L (135-145); TOTAL CARBON DIOXIDE 26.2 MMOL/L (24-32); TOTAL PROTEIN 7.6 G/DL (6.4-8.2); eGFR 14 ML/MIN
[2021-08-07 05:01] LABS: LIPASE 256 U/L (73-393)
[2021-08-07 05:18] LABS: ANISOCYTOSIS 2+; PLATELET ESTIMATE NORMAL; POLYCHROMASIA FEW; STOMATOCYTES FEW
[2021-08-07 06:42] VITALS: BP 117/51
== END 2021-08-07 06:45 | disposition home or self-care (01) ==
LOC: ER 03:24
DX: I13.2 Hypertensive heart and chronic kidney disease with heart failure and with stage 5 chronic kidney disease, or end stage renal disease (principal); E11.22 Type 2 diabetes mellitus with diabetic chronic kidney disease; N18.6 End stage renal disease; R14.0 Abdominal distension (gaseous); K74.60 Unspecified cirrhosis of liver; R60.1 Generalized edema; D64.9 Anemia, unspecified; E11.42 Type 2 diabetes mellitus with diabetic polyneuropathy; I48.91 Unspecified atrial fibrillation; E78.00 Pure hypercholesterolemia, unspecified; J44.9 Chronic obstructive pulmonary disease, unspecified; E03.9 Hypothyroidism, unspecified; G89.29 Other chronic pain; F41.9 Anxiety disorder, unspecified; F31.9 Bipolar disorder, unspecified; F20.9 Schizophrenia, unspecified; Z99.2 Dependence on renal dialysis; Z86.73 Personal history of transient ischemic attack (TIA), and cerebral infarction without residual deficits; Z87.01 Personal history of pneumonia (recurrent); Z87.440 Personal history of urinary (tract) infections; Z90.89 Acquired absence of other organs; Z90.49 Acquired absence of other specified parts of digestive tract; Z90.710 Acquired absence of both cervix and uterus; Z98.890 Other specified postprocedural states; Z95.0 Presence of cardiac pacemaker; Z72.89 Other problems related to lifestyle; Z88.1 Allergy status to other antibiotic agents; Z88.8 Allergy status to other drugs, medicaments and biological substances; Z88.2 Allergy status to sulfonamides; Z79.82 Long term (current) use of aspirin; Z79.4 Long term (current) use of insulin; Z79.899 Other long term (current) drug therapy
CPT/HCPCS: 36415; 74176; 80053; 82948; 83690; 83880; 85008; 85025; 93005; 96374; 99285; J3010